=== PATIENT | female | born 2000 | race Two or more races ===

== ENCOUNTER 2023-06-10 16:19 | Outpatient (OUT) | payer OTHER, SELFPAY ==
[2023-06-12 04:07] LABS: Progesterone 12.8 ng/mL (.)
== END 2023-06-10 16:20 | disposition home or self-care (01) ==
LOC: LAB 16:26
PROVIDERS: Visit Provider Obstetrics & Gynecology
DX: N97.0 Female infertility associated with anovulation (principal)
CPT/HCPCS: 36415; 84144

== ENCOUNTER 2023-07-06 13:30 | Outpatient (OUT) | payer OTHER, SELFPAY ==
[2023-07-06 13:54] LABS: Basophils Absolute Auto 0.1 10^3/uL (0.0-0.1); Basophils Percent Auto 0.8 % (0.2-2.0); Eosinophils Absolute Auto 0.3 10^3/uL (0.0-0.7); Eosinophils Percent Auto 2.8 % (0.9-7.0); Hematocrit 34.3 % (36.0-48.0); Hemoglobin 10.4 g/dL (12.0-16.0); Immature Granulocytes Abs Auto 0.02 10^3/uL (0.00-0.03); Immature Granulocytes Pct Auto 0.2 % (0.0-0.5); Lymphocytes Absolute Auto 2.1 10^3/uL (1.2-3.8); Lymphocytes Percent Auto 22.5 % (20.5-60.0); Mean Corpuscular HGB Conc 30.3 g/dL (29.9-35.2); Mean Corpuscular Hemoglobin 24.1 pg (26.7-34.0); Mean Corpuscular Volume 79.4 fL (81.0-99.0); Monocytes Absolute Auto 0.6 10^3/uL (0.3-0.8); Monocytes Percent Auto 6.9 % (1.7-12.0); Neutrophils Absolute Auto 6.2 10^3/uL (1.4-6.5); Neutrophils Percent Auto 66.8 % (43.0-75.0); Platelet Count 353 10^3/uL (150-450); Red Blood Count 4.32 10^6/uL (4.20-5.40); Red Cell Distribution Width 16.2 % (11.0-15.0); White Blood Count 9.3 10^3/uL (4.0-11.0)
[2023-07-06 14:45] LABS: Estimated Average Glucose 103 mg/dL; Glycohemoglobin A1C 5.2 % (4.5-6.2)
[2023-07-06 15:33] LABS: Free T4 1.14 ng/dL (0.76-1.46)
[2023-07-06 16:02] LABS: HCG Quantitative <1 mIU/mL
[2023-07-07 09:11] LABS: FSH 2.9 mIU/mL (.); Luteinizing Hormone(LH) 5.1 mIU/mL (.); Progesterone 14.6 ng/mL (.)
[2023-07-12 09:07] LABS: DHEA, Serum 227 ng/dL (31-701)
== END 2023-07-06 13:31 | disposition home or self-care (01) ==
LOC: LAB 13:31
PROVIDERS: Visit Provider Obstetrics & Gynecology
DX: E28.2 Polycystic ovarian syndrome (principal); N97.0 Female infertility associated with anovulation
CPT/HCPCS: 36415; 82626; 82627; 83001; 83002; 83036; 84144; 84439; 84443; 84702; 85025

== ENCOUNTER 2023-07-06 13:48 | Outpatient (OUT) | payer OTHER, SELFPAY ==
--- NOTE | 2023-07-06 | US_ITS ---
The [address] [address] Patient Name: CARISA YEE MRN: [id number] date: 2000 Sex: F Assigned Patient Location: Current Patient Location: Accession/Order Number: [id number] Exam Date: 07/06/2023 14:00 Report Date: 07/06/2023 15:45 At the request of: SOCO ELLISON Procedure: US pelvis transvaginal EXAMINATION: US pelvis transvaginal HISTORY: PCOS ; irregular periods COMPARISON: No relevant comparison available. TECHNIQUE: Transabdominal and/or transvaginal sonographic examination was performed as indicated by examination type. FINDINGS: UTERUS: Normal size and appearance. Incidental nabothian cysts within cervix. Uterus size: 6.6 x 4.8 x 3.9 cm ENDOMETRIUM: Normal homogeneous appearance. Endometrial thickness: 9 mm RIGHT OVARY: Normal size and appearance. Duplex Doppler demonstrates normal waveform and flow; resistive index 0.5. Ovary size: 4.2 x 3.8 x 2.9 cm LEFT OVARY: Approximately 5 small follicles within the peripheral aspect of the ovary between 2 and 5 mm in diameter. Duplex Doppler demonstrates normal waveform and flow; resistive index 0.6. Ovary size: 4.5 x 2.0 x 1.9 cm CUL-DE-SAC: Unremarkable. No significant free fluid. BLADDER: Unremarkable. OTHER: None. US/US pelvis transvaginal IMPRESSION: 1. Multiple small peripheral follicles within left ovary, but not the classic appearance for polycystic ovarian syndrome, and the right ovary is normal. 2. Unremarkable uterus and endometrium. Electronically authenticated by: FRANCESCO BRAY Date: 07/06/2023 15:45
== END 2023-07-06 13:49 | disposition home or self-care (01) ==
LOC: US 13:48
PROVIDERS: Visit Provider Obstetrics & Gynecology
DX: E28.2 Polycystic ovarian syndrome (principal); N97.0 Female infertility associated with anovulation
CPT/HCPCS: 36415; 76830; 82626; 82627; 83001; 83002; 83036; 84144; 84439; 84443; 84702; 85025

== ENCOUNTER 2023-07-19 13:07 | Day surgery (SDC) | payer OTHER, SELFPAY ==
--- NOTE | 2023-07-19 13:33 | FL_ITS ---
The [address] [address] Patient Name: CARISA YEE MRN: [id number] date: 2000 Sex: F Assigned Patient Location: LAB Current Patient Location: Accession/Order Number: [id number] Exam Date: 07/19/2023 14:02 Report Date: 07/19/2023 14:55 At the request of: SOCO ELLISON Procedure: FL hysterosalpingography EXAMINATION: FL hysterosalpingography, FL Hysterosal cath placement HISTORY: Infertility COMPARISON: No relevant comparison available. TECHNIQUE: Informed consent was obtained. A sterile vaginal speculum was introduced and, following cleansing of the cervix, a balloon-tipped catheter was inserted into the endometrial cavity. The procedure was then completed in the usual manner with water-soluble contrast. Standard level fluoroscopic mode of operation utilized. FINDINGS: FALLOPIAN TUBES: Patent fallopian tubes bilaterally. Initial delay in spillage of contrast from left fallopian tube. ENDOMETRIAL CAVITY: No scarring, filling defects, or dilatation. OTHER: Negative. FL/FL hysterosalpingography IMPRESSION: 1. Normal appearance of the endometrial cavity. 2. Bilateral patent fallopian tubes. Please see details above. Electronically authenticated by: FRANCESCO BRAY Date: 07/19/2023 14:55
--- NOTE | 2023-07-19 13:33 | FL_ITS ---
The [address] [address] Patient Name: CARISA YEE MRN: [id number] date: 2000 Sex: F Assigned Patient Location: LAB Current Patient Location: Accession/Order Number: [id number] Exam Date: 07/19/2023 14:02 Report Date: 07/19/2023 14:55 At the request of: SOCO ELLISON Procedure: FL Hysterosal cath placement EXAMINATION: FL hysterosalpingography, FL Hysterosal cath placement HISTORY: Infertility COMPARISON: No relevant comparison available. TECHNIQUE: Informed consent was obtained. A sterile vaginal speculum was introduced and, following cleansing of the cervix, a balloon-tipped catheter was inserted into the endometrial cavity. The procedure was then completed in the usual manner with water-soluble contrast. Standard level fluoroscopic mode of operation utilized. FINDINGS: FALLOPIAN TUBES: Patent fallopian tubes bilaterally. Initial delay in spillage of contrast from left fallopian tube. ENDOMETRIAL CAVITY: No scarring, filling defects, or dilatation. OTHER: Negative. FL/FL Hysterosal cath placement IMPRESSION: 1. Normal appearance of the endometrial cavity. 2. Bilateral patent fallopian tubes. Please see details above. Electronically authenticated by: FRANCESCO BRAY Date: 07/19/2023 14:55
[2023-07-19 13:50] LABS: HCG Quantitative <1 mIU/mL
[2023-07-19 14:42] VITALS: BMI 25.7
--- NOTE | 2023-07-19 14:48 | PC.NURSE ---
1423 Pt denies any abdominal cramping or vag bleedingafter procedure.
--- NOTE | 2023-07-19 14:49 | SUR.PREOP ---
07/16/23 Instructed pt on procedure, date, time, and prep.
== END 2023-07-19 14:25 | disposition home or self-care (01) ==
LOC: LAB 13:09
PROVIDERS: Radiology Diagnostic Radiology; Visit Provider Obstetrics & Gynecology
DX: N97.0 Female infertility associated with anovulation (principal); N83.9 Noninflammatory disorder of ovary, fallopian tube and broad ligament, unspecified
CPT/HCPCS: 36415; 58340; 74740; 84702; Q9966

== ENCOUNTER 2024-09-16 10:53 | Outpatient (OUT) | payer OTHER, SELFPAY ==
--- OUTSIDE RECORDS SUMMARY | 2024-09-16 11:01 | XMS_ITS | CCD ---
Author Organization [facility] Care Team Providers Care [employer] Name Role Phone Amanda Welch Primary Care Provider Required, No Pcp Unavailable Unavailable Sabrina Loja Unavailable Unavailable Rebekah [facility] C[facility] SUPERVISOR - [employer]RAIN D[employer]ER, Amanda Primary Care Prov ider Rebekah SERVICE CENTER SUPERVISOR - [employer]RA[employer] D[employer]ER, Amanda Primary Care Prov ider Robert Granado Primary Care Provider JUNG PACE Referring Unavailable SANTOSTERROBERT FRAIRE Primary Care Unavailable JUNG PACE Attending Unavailable JUNG PACE Referring Unavailable MITTERROBERT FRAIRE Primary Care Unavailable JUNG PACE Admitting Unavailable JUNG PACE Attending Unavailable SANTOSTERROBERT FRAIRE Primary Care Unavailable Unavailable Primary Care Provider UnavailROZ Stringer Attending Unavailable Robert Mercado MD Primary Care Provider Hemant Grant DO Unavailable Generic Provider , No Assigned Pcp Primary Car e Provider Unavailable GENERIC PROVIDER, NO ASSIGNED PCP Primary Care Unavailable CHRISTOPHER DIEGO Attending Unavailable CHRISTOPHER DIEGO Referring Unavailable GENERIC PROVIDER, NO ASSIGNED PCP Primary Care Unavailable Allergies Allergy Classification Reported Allergen(s) Allergy Type Date of Onset Reaction(s) Facility (3 sources) Horse Epithelium Propensity to adverse reactions to drug 3 Angioedema [facility] (5 sources) Horse Dander; Translations: [HORSE DANDER] Allergy to substance 3 Angioedema [facility] (5 sources) Horse Epithelium Allergenic Extract; Translations: [HORSE EPITHELIUM ALLERGENIC EXTRACT] Propensity to adverse reactions 3 Angioedema [facility] Work Phone: (8 sources) Other Allergy to substance 3 Hives, Angioedema [facility] Work Phone: NEGATED: Highlighted row has been ruled out! (3 sources) Other Propensity to adverse reactions 3 Ang[facility]edema, [facility] Medications Current Medications Medication Drug Class(es) Dates Sig (Normalized) Sig (Original) 24 hr amphetamine aspartate 5 mg / amphetamine sulfate 5 mg / dextroamphetamine saccharate 5 mg / dextroamphetamine sulfate 5 mg extended release oral capsule (11 sources) Central Nervous System Stimulant Start: 07-04-2024 End: 08-03-2024 take 1 capsule by mouth once daily in the morning amphetamine-dext roamphetamine XR (Adderall XR) 20 mg 24 hr capsule Take 1 capsule (20 mg) by mouth once daily in the morning. Take before meals. Do not fill before July 04, 2024. 07/04/2024 Active Start: 05-04-2024 End: 07-03-2024 amphetamine-dextroamphetamin e (Adderall) 10 mg tablet Take 1 tablet (10 mg) by mouth. 05/04/2024 Active End: 09-15-2024 Adderall 20 MG tablet 2024 Discontinued ascorbic acid 500 mg chewable tablet (7 sources) Vitamin C Start: 01-09-2024 End: 09-15-2024 take 1 tablet by mouth twice daily Ascorbic Acid (vitamin C) 500 MG tablet take 1 tablet by mouth twice a day with IRON 01/09/2024 09/15/2024 Discontinued cetirizine hydrochloride 10 mg oral tablet (11 sources) Histamine-1 Receptor Antagonist Start: 09-01-2023 End: 09-15-2024 take 1 tablet by mouth once daily cetirizine (ZYRTEC) 10 MG tablet Indications: Acute non-recurrent maxillary sinusitis , Non-recurrent acute serous otitis media of both ears Take 1 tablet by mouth daily 30 tablet 0 09/01/2023 10/01/2023 Active cholecalciferol 0.125 mg oral capsule (8 sources) Vitamin D End: 09-15-2024 Cholecalciferol (Vitamin D) 125 MCG (5000 UT) capsule 09/15/2024 Discontinued dicyclomine hydrochloride 10 mg oral capsule (7 sources) Anticholinergic Start: 12-22-2023 End: 09-15-2024 take 1 capsule by mouth four times daily before mealtime dicyclomine (Bentyl) 10 MG capsule take 1 capsule by mouth four times a day before meals and nightly 12/22/2023 09/15/2024 Discontinued diphenhydrAMINE hydrochloride 25 mg oral capsule (9 sources) Histamine-1 Receptor Antagonist End: 09-15-2024 diphenhydrAMINE (BENADryl) 25 MG capsule Take by mouth 09/15/2024 Discontinued doxycycline monohydrate 100 mg oral tablet (7 sources) Tetracycline-class Drug Start: 03-02-2024 End: 09-15-2024 take 1 tablet by mouth once daily at mealtime doxycycline (Adoxa) 100 MG tablet Take one tablet daily with food and water by mouth. 03/02/2024 09/15/2024 Discontinued ergocalciferol 1.25 mg oral capsule (11 sources) Provitamin D2 Compound Start: 10-26-2022 End: 09-15-2024 take 1 capsule by mouth every week ergocalciferol (Vitamin D2) 1.25 MG (88677 UT) capsule Indications: PCOS (polycystic ovarian syndrome) Take 1 capsule (1.25 mg) by mouth 1 (one) time per week. 5 capsule 04/27/2023 09/15/2024 Discontinued ethinyl estradiol 0.035 mg / norethindrone acetate 1 mg oral tablet (2 sources) Estrogen Start: 11-11-2021 take 2 tablets by mouth once daily, then take 1 tablet by mouth once daily NORTREL 1/35, 28, 1-35 MG-MCG per tablet take 2 tablets by mouth once daily for 5 days then 1 tablet once daily 0 11/11/2021 Active ethinyl estradiol 0.035 mg / norgestimate 0.25 mg oral tablet (2 sources) Progestin, Estrogen Start: 09-25-2017 MONO-LINYAH 0.25-35 MG-MCG per tablet ferrous fumarate-vitamin C ER (Blake-Sequeles 65-25) (1 source) take 1 tablet by mouth once daily ferrous fumarate-vitamin C ER (Blake-Sequeles 65-25) Take 1 tablet by mouth Daily Do not crush, chew, or split. Active ferrous sulfate (3 sources) Start: 07-15-2023 Ferrous Sulfate (IRON PO) Take by mouth 0 07/15/2023 Active fluticasone propionate 0.05 mg/actuat metered dose nasal spray (10 sources) Corticosteroid Start: 09-01-2023 End: 09-15-2024 take 1 spray(s) nasal route once daily in the evening fluticasone (Flonase) 50 MCG/ACT nasal spray instill 1 spray into each nostril once daily IN THE EVENING 09/01/2023 09/15/2024 Discontinued Start: 09-01-2023 fluticasone (F LONASE) 50 MCG/ACT nasal spray Indications: Non-recurrent acute serous otitis media of both ears Take 1 spray each nostril at night 1 each 1 09/01/2023 Active hyoscyamine sulfate 0.125 mg sublingual tablet (7 sources) Start: 01-11-2024 End: 09-15-2024 hyoscyamine (Levsin) 0.125 MG SL tablet dissolve 1 tablet under the tongue every 4 hours if needed for pain 01/11/2024 09/15/2024 Discontinued lactobacillus rhamnosus gg [id number] unt oral capsule (3 sources) Start: 09-07-2023 take 1 capsule by mouth once daily lactobacillus (CULTURELLE) capsule Indications: Alternating constipation and diarrhea Take 1 capsule by mouth daily 90 capsule 1 09/07/2023 Active letrozole 2.5 mg oral tablet (8 sources) Aromatase Inhibitor Start: 06-08-2024 End: 09-15-2024 take 2 tablets by mouth once daily letrozole (Femara) 2.5 MG chemo tablet TAKE 2 TABLETS BY MOUTH ONCE DAILY FOR 5 DAYS ... TAKE WITH OR WITHOUT FOOD 06/08/2024 09/15/2024 Discontinued 24 hr metFORMIN hydrochloride 500 mg extended release oral tablet (14 sources) Biguanide Start: 04-27-2023 End: 09-15-2024 take 2 tablets by mouth every twenty-four hours at mealtime metFORMIN XR (Glucophage-XR) 500 MG 24 hr tablet Indications: PCOS (polycystic ovarian syndrome) Take 2 tablets (1,000 mg) by mouth in the evening. Take with meals. Do not crush, chew, or split. 60 tablet 11 04/27/2023 09/15/2024 Discontinued Start: 01-21-2023 End: 06-08-2024 take 1 tablet by mouth twice daily before mealtime metFORMIN XR 500 mg 24 hr tablet Take 1 tablet (500 mg) by mouth 2 times a day before meals. 01/21/2023 06/08/2024 Discontinued (Med List Cleanup) take 1 tablet by william th twice daily at mealtime metFORMIN (GLUCOPHAGE) 500 MG tablet Take 500 mg by mouth 2 times daily (with meals) 0 Active 24 hr methylphenidate hydrochloride 18 mg extended release oral tablet (7 sources) Central Nervous System Stimulant Start: 11-17-2023 End: 09-15-2024 take 1 tablet by mouth once daily methylphenidate ER (Concerta) 18 MG CR tablet take 1 tablet by mouth once daily for 30 DAYS 11/17/2023 09/15/2024 Discontinued montelukast 10 mg oral tablet (9 sources) Leukotriene Receptor Antagonist End: 09-15-2024 take 1 tablet by mouth in the morning montelukast (Singulair) 10 MG tablet Take 10 mg by mouth in the morning. 09/15/2024 Discontinued Multiple Vitamin (MULTIVITAMIN) TABS tablet (1 source) Start: 03-12-2021 take 1 tablet by mouth once daily Multiple Vitamin (MULTIVITAMIN) TABS tablet Take 1 tablet by mouth daily 30 tablet 1 03/12/2021 Active ondansetron 4 mg oral tablet (2 sources) Serotonin-3 Receptor Antagonist Start: 07-25-2019 take 1 tablet by mouth every eight hours as needed for nausea ondansetron (ZOFRAN) 4 MG tablet Take 1 tablet by mouth every 8 hours as needed for Nausea or Vomiting 30 tablet 0 07/25/2019 Active polyethylene glycol 3350 49733 mg powder for oral solution (9 sources) Osmotic Laxative Start: 06-08-2024 End: 09-15-2024 polyethylene glycol, PEG, 3350 (Glycolax) 17 GM/SCOOP powder Mix of powder and drink. 1 scoop daily, may taper up 06/08/2024 09/15/2024 Discontinued Start: 06-08-2024 polyethylene g lycol (Glycolax, Miralax) 17 gram/dose powder Indications: Chronic idiopathic constipation Mix of powder and drink. 1 scoop daily, may taper up 238 g 11 06/08/2024 Active polysaccharide iron complex 391 mg oral capsule (6 sources) Start: 09-01-2023 take 1 capsule by mouth once daily in the morning PROFE 391.3 (180 Fe) MG CAPS Take 1 capsule by mouth every morning 0 09/01/2023 Active Start: 07-12-2023 End: 07-11-2024 take 1 capsule by mouth in the morning iron polysaccharides (ProFe) 391.3 (180 Fe) MG capsule Indications: Anemia, unspecified type Take 1 capsule (391.3 mg) by mouth in the morning. 30 capsule 11 07/12/2023 07/11/2024 Active MV-Min-Fe Fum-FA-DH A ( 1 PO) (1 source) MV-Min- Fe Fum-FA-DHA ( 1 PO) Take 1 each by mouth Daily Active 5 ml sodium chloride 9 mg/ml injection (4 sources) Start: 09-23-2023 sodium chlorid e flush 0.9 % injection 5-40 mL Start: 09-23-2023 0.9 % sodium c hloride infusion Start: 09-23-2023 sodium chlorid e flush 0.9 % injection 5-40 mL traZODone hydrochloride 50 mg oral tablet (5 sources) Serotonin Reuptake Inhibitor Start: 06-30-2022 take 0.5 tablet by mouth at bedtime traZODone (DESYREL) 50 MG tablet Indications: Insomnia secondary to anxiety take 1/2 tablet by mouth at bedtime if needed for insomnia 15 tablet 1 06/30/2022 Active Start: 01-01-2022 take 1 tablet by william once daily traZODone (DESYREL) 50 MG tablet Indications: Insomnia secondary to anxiety take 1 tablet by mouth nightly 30 tablet 5 01/01/2022 Active vitamin b12 0.5 mg oral tablet (11 sources) Vitamin B12 Start: 10-26-2022 End: 10-26-2023 take 1 tablet by mouth once daily vitamin B-12 (CYANOCOBALAMIN) 500 MCG tablet Indications: Low serum vitamin B12 Take 1 tablet by mouth daily 30 tablet 3 10/26/2022 10/26/2023 Active End: 09-15-2024 cyanocobalamin (Vitamin B-12 ) 100 MCG tablet 09/15/2024 Discontinued Completed/Discontinued Medications Medication Drug Class(es) Dates Sig (Normalized) Sig (Original) ibuprofen 800 mg oral tablet (3 sources) Nonsteroidal Anti-inflammatory Drug Start: 04-01-2024 End: 04-01-2024 take 800 mg by mouth once at mealtime as needed for pain 800 mg, oral, Once, On 04/01/24 at 2135, For 1 dose, May administer with food to reduce GI upset., If ordered PRN for pain, nurse is permitted to administer this medication for higher pain scores based on patient preference? Yes Start: 04-01-2024 End: 04-08-2024 take 1 tablet by mouth three times daily ibuprofen 800 mg tablet Indications: Oophoritis, unspecified Take 1 tablet (800 mg) by mouth 3 times a day for 7 days. 21 tablet 04/01/2024 04/08/2024 Active iopamidol (ISOVUE-370) 76 % injection 75 mL (1 source) Start: 09-22-2023 End: 09-22-2023 iopamidol (ISOVUE-370) 76 % injection 75 mL Problems Active Problems Problem Classification Problem Date Documented Da te Episodic/Chronic Abdominal pain (11 sources) Lower abdominal pain; Translations: [Lower abdominal pain, unspecified] Onset: 09-13-2023 09-22-2023 Episodic Administrative/social admission (2 sources) Patient encounter status; Translations: [Person consulting for explanation of examination or test findings] 06-20-2024 Episodic Female infertility (9 sources) Female infertility associated with anovulation; Translations: [Female infertility associated with anovulation] Onset: 06-08-2024 Chronic Hemorrhage during ; abruptio placenta; placenta previa (5 sources) Hemorrhage in early , unspecified; Translations: [Unspecified hemorrhage in early , antepartum condition or complication] Onset: 08-21-2024 08-22-2024 Episodic Menstrual disorders (6 sources) Menometrorrhagia; Translations: [Menorrhagia] Onset: 08-12-2024 07-18-2024 Chronic Mood disorders (6 sources) Depressive disorder; Translations: [Depression] Onset: 03-07-2021 03-07-2021 Chronic Other endocrine disorders (5 sources) Polycystic ovary syndrome; Translations: [Polycystic ovarian syndrome] Chronic Other gastrointestinal disorders (2 sources) Chronic idiopathic constipation; Translations: [Chronic idiopathic constipation] Onset: 06-08-2024 06-08-2024 Chronic Other gastrointestinal disorders (1 source) Chronic idiopathic constipation; Translations: [Chronic idiopathic constipation] Onset: 06-08-2024 Chronic Other gastrointestinal disorders (3 sources) Finding of frequency of defecation; Translations: [Change in bowel habit] Onset: 09-23-2023 09-23-2023 Episodic Other and delivery including normal (2 sources) ; Translations: [Encounter for supervision of normal , unspecified, unspecified trimester] 09-15-2024 Episodic Unclassified (2 sources) OVERDOSE 03-06-2021 Comment on above: OVERDOSE Unclassified (1 source) Suicide attempt by multiple drug overdose 03-06-2021 Past or Other Problems Problem Classification Problem Date Documented Date Episodic/Chronic Bacterial infection; unspecified site (6 sources) Chlamydial infection; Translations: [Chlamydial infection, unspecified] Onset: 03-19-2021 03-19-2021 Episodic Immunizations and screening for infectious disease (6 sources) At risk of sexually transmitted infection ; Translations: [Contact with and (suspected) exposure to infections with a predominantly sexual mode of transmission] Onset: 03-12-2021 03-12-2021 Episodic Inflammatory diseases of female pelvic organs (3 sources) Oophoritis; Translations: [Oophoritis, unspecified] Onset: 04-01-2024 04-01-2024 Episodic Ovarian cyst (5 sources) Cyst of left ovary; Translations: [Unspecified ovarian cyst, left side] Onset: 04-03-2024 06-20-2024 Episodic Poisoning by other medications and drugs (6 sources) Intentional drug overdose; Translations: [Poisoning by unspecified drug or medicinal substance] Onset: 09-10-2021 03-06-2021 Episodic Results Test Name Value Interpretation Reference Range Facility HCG ( test) Ql (U)o n 09-15-2024 Interpretation and review of laboratory results Abnormal [facility] Preg Test, Ur Positive Negative [facility] Urinalysis macro (dipstick) panel (U)on 09-15-2024 Bilirubin, UA Negative Negative - 4(70) +++ mg/dL [facility] Blood, UA Negative Negative - 50 Reynaldo/mcL [facility] Clarity, UA Clear [facility] Color, UA Yellow [facility] Glucose, UA Negative Negative - 1999(110) ++++ mg/dL [facility] Interpretation and review of laboratory results Abnormal [facility] Ketones, UA Negative Negative - 160(16) ++++ mg/dL [facility] Leukocytes, UA Negative Negative - 500+++ Lucian/mcL [facility] Nitrite, UA Negative Negative - Positive [facility] pH, UA 7 5 - 9 [facility] Protein, UA Positive Negative - 1999(20) ++++ mg/dL [facility] Comment on above: 30 Spec Grav, UA 1.02 1 - 1.03 [facility] Urobilinogen, UA 1.0 0.2 - 12 mg/dL [facility] Choriogonadotropin.beta subu niton 08-23-2024 [place] [address] m[IU]/mL High <5 U [facility] Comment on above: Order Comment: Total HCG measurement is performed using the Dat [employer] Access Immunoassay which detects intact HCG and free beta HCG subunit. This test is not indicated for use as a tumor marker. HCG testing is performed using a different test methodology at [facility] than other [facility]. Direct result comparison should only be made within the same method. Result Comment: Low- level positive HCG results can be seen in early , in rei- or post-menopausal females due to normal pituitary HCG production, or with analytic interference. Repeat testing in 48-72 hours can aid in assessing for as results should double in this time period. FSH measurement is recommended in rei- or post-menopausal females as concurrent elevation of FSH can support pituitary production as the source of the HCG elevation. Performed By: #### 2 [id number] #### RILEY PUJA ([id number]) [facility] ([facility]) [address] [id number] HCG,BETA-QUANTITATIVEon 0 08-23-2024 Interpretation and review of laboratory results Abnormal [facility] UH HCG,BETA-QUANTITATIVE 26037 High NINF [facility] Comment on above: Low-level positive H CG results can be seen in early , in rei- or post-menopausal females due to normal pituitary HCG production, or with analytic interference. Repeat testing in 48-72 hours can aid in assessing for as results should double in this time period. FSH measurement is recommended in rei- or post-menopausal females as concurrent elevation of FSH can support pituitary production as the source of the HCG elevation. Total HCG measuremen t is performed using the Dat [employer] Access Immunoassay which detects intact HCG and free beta HCG subunit. This test is not indicated for use as a tumor marker. HCG testing is performed using a different test methodology at [facility] than other [facility]. Direct result comparison should only be made within the same method. Original Ordering Provider: HEMANT GRANT [facility] US PELVIS OB TRANSABDOMINAL W TRANSVAGINAL UP TO 1ST TRIMESTERon 08-22-2024 US PELVIS OB TRANSABDOMINAL W TRANSVAGINAL UP TO 1ST TRIMESTER Interpreted By: Garret Kitchen, STUDY: US PELVIS OB TRANSABDOMINAL W TRANSVAGINAL UP TO 1ST TRIMESTER; ; 08/22/2024 12:02 am INDICATION: Signs/Symptoms:bleeding, , r/o ectopic. COMPARISON: Correlation made to pelvic sonography of 03/1924. ACCESSION NUMBER(S): [id number] ORDERING CLINICIAN: MALCOLM SHEARER TECHNIQUE: Grayscale, color and spectral Doppler ultrasound evaluation of the pelvis was performed transabdominally and transvaginally. FINDINGS: UTERUS: 7.7 x 4.7 x 5.0 cm. ENDOMETRIUM: A gestational sac with yolk sac is present in the endometrial canal. Mean sac diameter is 1.41 cm in keeping with estimated age of 5 weeks, 4 days.A measurable pole is not seen at this time; therefore cardiac activity could not be reliably evaluated. There is a small rounded hypoechoic area along the left lower aspect of the gestational sac and overlying the internal cervical os that probably relates to trace subchorionic hemorrhage/implantation bleed, likely of nominal clinical significance (images 57-61). RIGHT OVARY: Normal, measuring 4.4 x 2.3 x 3.0 cm. Normal arterial and venous flow present. LEFT OVARY: Normal, measuring 3.5 x 1.9 x 2.6 cm. Normal arterial and venous flow present. CUL DE SAC: No free-fluid. IMPRESSION: A gestational sac with yolk sac is present in the endometrial canal. Mean sac diameter is 1.41 cm in keeping with estimated age of 5 weeks, 4 days.A measurable pole is not seen at this time; therefore cardiac activity could not be reliably evaluated. There is a small rounded hypoechoic area along the left lower aspect of the gestational sac and overlying the internal cervical os that probably relates to trace subchorionic hemorrhage/implantation bleed, likely of nominal clinical significance (images 57-61). Normal ovaries/adnexae. MACRO: None Signed by: Garret Kitchen 08/22/2024 12:07 AM Dictation workstation: [id number] [facility] US Pelvis transvaginalon A gestational sac wi th yolk sac is present in the endometrial canal. Mean sac diameter is 1.41 cm in keeping with estimated age of 5 weeks, 4 days.A measurable pole is not seen at this time; therefore cardiac activity could not be reliably evaluated. There is a small rounded hypoechoic area along the left lower aspect of the gestational sac and overlying the internal cervical os that probably relates to trace subchorionic hemorrhage/implantation bleed, likely of nominal clinical significance (images 57-61). Normal ovaries/adnexae. MACRO: None Signed by: Garret Kitchen 08/22/2024 12:07 AM Dictation workstation: [id number] [facility] Interpreted By: Garret Mckenzie, STUDY: US PELVIS OB TRANSABDOMINAL W TRANSVAGINAL UP TO 1ST TRIMESTER; ; 08/22/2024 12:02 am INDICATION: Signs/Symptoms:bleeding, , r/o ectopic. COMPARISON: Correlation made to pelvic sonography of 03/1924. ACCESSION NUMBER(S): [id number] ORDERING CLINICIAN: MALCOLM SHEARER TECHNIQUE: Grayscale, color and spectral Doppler ultrasound evaluation of the pelvis was performed transabdominally and transvaginally. FINDINGS: UTERUS: 7.7 x 4.7 x 5.0 cm. ENDOMETRIUM: A gestational sac with yolk sac is present in the endometrial canal. Mean sac diameter is 1.41 cm in keeping with estimated age of 5 weeks, 4 days.A measurable pole is not seen at this time; therefore cardiac activity could not be reliably evaluated. There is a small rounded hypoechoic area along the left lower aspect of the gestational sac and overlying the internal cervical os that probably relates to trace subchorionic hemorrhage/implantation bleed, likely of nominal clinical significance (images 57-61). RIGHT OVARY: Normal, measuring 4.4 x 2.3 x 3.0 cm. Normal arterial and venous flow present. LEFT OVARY: Normal, measuring 3.5 x 1.9 x 2.6 cm. Normal arterial and venous flow present. CUL DE SAC: No free-fluid. [facility] MMODAL Garret Kitchen MD - 08/22/2024 Interpreted By: Garret Kitchen, STUDY: US PELVIS OB TRANSABDOMINAL W TRANSVAGINAL UP TO 1ST TRIMESTER; ; 08/22/2024 12:02 am INDICATION: Signs/Symptoms:bleeding, , r/o ectopic. COMPARISON: Correlation made to pelvic sonography of 03/1924. ACCESSION NUMBER(S): [id number] ORDERING CLINICIAN: MALCOLM SHEARER TECHNIQUE: Grayscale, color and spectral Doppler ultrasound evaluation of the pelvis was performed transabdominally and transvaginally. FINDINGS: UTERUS: 7.7 x 4.7 x 5.0 cm. ENDOMETRIUM: A gestational sac with yolk sac is present in the endometrial canal. Mean sac diameter is 1.41 cm in keeping with estimated age of 5 weeks, 4 days.A measurable pole is not seen at this time; therefore cardiac activity could not be reliably evaluated. There is a small rounded hypoechoic area along the left lower aspect of the gestational sac and overlying the internal cervical os that probably relates to trace subchorionic hemorrhage/implantation bleed, likely of nominal clinical significance (images 57-61). RIGHT OVARY: Normal, measuring 4.4 x 2.3 x 3.0 cm. Normal arterial and venous flow present. LEFT OVARY: Normal, measuring 3.5 x 1.9 x 2.6 cm. Normal arterial and venous flow present. CUL DE SAC: No free-fluid. IMPRESSION: A gestational sac with yolk sac is present in the endometrial canal. Mean sac diameter is 1.41 cm in keeping with estimated age of 5 weeks, 4 days.A measurable pole is not seen at this time; therefore cardiac activity could not be reliably evaluated. There is a small rounded hypoechoic area along the left lower aspect of the gestational sac and overlying the internal cervical os that probably relates to trace subchorionic hemorrhage/implantation bleed, likely of nominal clinical significance (images [id number]). Normal ovaries/adnexae. MACRO: None Signed by: Garret Kitchen 08/22/2024 12:07 AM Dictation workstation: [id number] [facility] Work Phone: US Pelvis transvaginalOrdere d By: Garret Kitchen on 08-22-2024 [facility] Work Phone: ABO and Rh group panel (Bld) on 08-21-2024 ABO group Nom (Bld) A [facility] D Ag Ql (Bld) Positive [facility] ABO group Nom (Bld) A Normal [facility] Comment on above: Performed By: #### 3 4530-6 #### ROSEMARY LUO ([id number]) [facility] [address] [place] [address] D Ag Ql (Bld) Positive Normal [facility] Comment on above: Performed By: #### 3 4530-6 #### ROSEMARY LUO ([id number]) [facility] [address] [place] [address] CBC panel Auto (Bld)on 08-21 Erythrocyte distribution width (RBC) [Ratio] 12.7 % 11.5 - 14.5 % [facility] Hematocrit (Bld) [Volume fraction] 39.3 % 36.0 - 46.0 % [facility] Hemoglobin (Bld) [Mass/Vol] 12.6 g/dL 12.0 - 16.0 g/dL [facility] Interpretation and review of laboratory results Normal [facility] MCH (RBC) [Entitic mass] 29.2 pg 26. 0 - 34.0 pg [facility] MCHC (RBC) [Mass/Vol] 32.1 g/dL 32.0 - 36.0 g/dL [facility] MCV (RBC) [Entitic vol] 91 fL 80 - 100 fL [facility] Nucleated RBC/100 WBC (Bld) [Ratio] 0 % [facility] Platelets (Bld) [#/Vol] 319 10*3/uL [facility] RBC (Bld) [#/Vol] 4.31 10*6/uL [facility] WBC (Bld) [#/Vol] 9.8 10*3/uL [facility] Erythrocyte distribution width (RBC) [Ratio] 12.7 % Normal 11.5-14.5 [facility] Comment on above: Performed By: #### 5 8410-2 #### ROSEMARY LUO ([id number]) [facility] ([facility]) [address] [place] [address] 44947 Hematocrit (Bld) [Volume fraction] 39.3 % Normal 36.0-46.0 [facility] Comment on above: Performed By: #### 5 8410-2 #### ROSEMARY LUO ([id number]) [facility] ([facility]) [address] [place] [address] 58056 Hemoglobin (Bld) [Mass/Vol] 12.6 g/dL Normal 12.0-16.0 [facility] Comment on above: Performed By: #### 5 8410-2 #### ROSEMARY LUO ([id number]) [facility] ([facility]) [address] [place] [address] 74734 MCH (RBC) [Entitic mass] 29.2 pg Normal 26.0-34.0 [facility] Comment on above: Performed By: #### 5 8410-2 #### ROSEMARY LUO ([id number]) [facility] ([facility]) [address] [place] [address] 13384 MCHC (RBC) [Mass/Vol] 32.1 g/dL Normal 32.0-36.[address] [facility] Comment on above: Performed By: #### 5 8410-2 #### ROSEMARY LUO ([id number]) [facility] ([facility]) [address] [place] [address] 56938 MCV (RBC) [Entitic vol] 91 fL Normal 80-100 U [facility] Comment on above: Performed By: #### 5 8410-2 #### ROSEMARY LUO ([id number]) [facility] ([facility]) [address] [place] [address] 47530 Nucleated RBC/100 WBC (Bld) [Ratio] 0.0 /100 WBCs Normal 0.0-0.0 [facility] Comment on above: Performed By: #### 5 8410-2 #### ROSEMARY LUO ([id number]) [facility] ([facility]) [address] [place] [address] 16470 Platelets (Bld) [#/Vol] 319 x10*3/uL Normal 150-450 [facility] Comment on above: Performed By: #### 5 8410-2 #### ROSEMARY LUO ([id number]) [facility] ([facility]) [address] [place] [address] 15349 RBC (Bld) [#/Vol] 4.31 x10*6/uL Normal 4.00-5.20 [facility] Comment on above: Performed By: #### 5 8410-2 #### ROSEMARY LUO ([id number]) [facility] ([facility]) [address] [place] [address] 51392 WBC (Bld) [#/Vol] 9.8 x10*3/uL Normal 4.4-11.3 [facility] Comment on above: Performed By: #### 5 8410-2 #### ROSEMARY LUO ([id number]) [facility] ([facility]) [address] [place] [address] 00645 Choriogonadotropin.beta subu niton 08-21-2024 [place] [address] m[IU]/mL High <5 U [facility] Comment on above: Order Comment: Total HCG measurement is performed using the Dat [employer] Access Immunoassay which detects intact HCG and free beta HCG subunit. This test is not indicated for use as a tumor marker. HCG testing is performed using a different test methodology at [facility] than other [facility]. Direct result comparison should only be made within the same method. Result Comment: Low- level positive HCG results can be seen in early , in rei- or post-menopausal females due to normal pituitary HCG production, or with analytic interference. Repeat testing in 48-72 hours can aid in assessing for as results should double in this time period. FSH measurement is recommended in rei- or post-menopausal females as concurrent elevation of FSH can support pituitary production as the source of the HCG elevation. Performed By: #### 2 1198-7 #### RILEY PUJA ([id number]) [facility] ([facility]) [address] [place] [address] Comprehensive metabolic 2000 panelon 08-21-2024 Albumin BCP dye [Mass/Vol] 4.1 g/dL 3.4 - 5.0 g/dL [facility] ALP [Catalytic activity/Vol] 65 U/L 33 - 110 U/L [facility] ALT With P-5'-P [Catalytic activity/Vol] 15 U/L 7 - 45 U/L [facility] Comment on above: Patients treated wit h Sulfasalazine may generate falsely decreased results for ALT. Anion gap [Moles/Vol] 11 mmol/L 10 - 2 0 mmol/L [facility] AST With P-5'-P [Catalytic activity/Vol] 17 U/L 9 - 39 U/L [facility] Bilirubin [Mass/Vol] 0.6 mg/dL 0.0 - 1 .2 mg/dL [facility] Calcium [Mass/Vol] 9.1 mg/dL 8.6 - 10. 3 mg/dL [facility] Chloride [Moles/Vol] 104 mmol/L 98 - 10 7 mmol/L [facility] CO2 [Moles/Vol] 24 mmol/L 21 - 32 mmol/L [facility] Creatinine [Mass/Vol] 0.6 mg/dL 0.50 - 1.05 mg/dL [facility] eGFR - PINF [facility] Comment on above: Calculations of melisa mated GFR are performed using the 2020 CKD-EPI Study Refit equation without the race variable for the IDMS-Traceable creatinine methods. https://jasn.asnjournals.org/content///ASN.255 2182661 Glucose [Mass/Vol] 85 mg/dL 74 - 99 mg/dL [facility] Interpretation and review of laboratory results Abnormal [facility] Potassium [Moles/Vol] 3.5 mmol/L 3.5 - 5.3 mmol/L [facility] Protein [Mass/Vol] 7 g/dL 6.4 - 8.2 g/dL [facility] Sodium [Moles/Vol] 135 mmol/L Low 136 - 145 mmol/L [facility] Urea nitrogen [Mass/Vol] 5 mg/dL Low 6 - 23 mg/dL [facility] Albumin BCP dye [Mass/Vol] 4.1 g/dL Normal 3.4-5.0 [facility] Comment on above: Performed By: #### 2 4323-8 #### ROSEMARY LUO ([id number]) [facility] ([facility]) [address] [place] [address] ALP [Catalytic activity/Vol] 65 U/L Normal 33-110 [facility] Comment on above: Performed By: #### 2 432-8 #### ROSEMARY LUO ([id number]) [facility] ([facility]) [address] [place] [address] ALT With P-5'-P [Catalytic activity/Vol] 15 U/L Normal 7-45 [facility] Comment on above: Result Comment: Marni ents treated with Sulfasalazine may generate falsely decreased results for ALT. Performed By: #### 2 432-8 #### ROSEMARY LUO ([id number]) [facility] ([facility]) [address] [place] [address] Anion gap [Moles/Vol] 11 mmol/L Normal 10-[address] [facility] Comment on above: Performed By: #### 2 4323-8 #### ROSEMARY LUO ([id number]) [facility] ([facility]) [address] [place] [address] 77466 AST With P-5'-P [Catalytic activity/Vol] 17 U/L Normal 9-39 [facility] Comment on above: Performed By: #### 2 432-8 #### ROSEMARY LUO ([id number]) [facility] ([facility]) [address] [place] [address] Bilirubin [Mass/Vol] 0.6 mg/dL Normal 0.0-1.2 [facility] Comment on above: Performed By: #### 2 432-8 #### ROSEMARY LUO ([id number]) [facility] ([facility]) [facility] [place] [address] Calcium [Mass/Vol] 9.1 mg/dL Normal 8.6-10.3 [facility] Comment on above: Performed By: #### 2 4323-8 #### ROSEMARY LUO ([id number]) [facility] ([facility]) [address] [place] [address] 15767 Chloride [Moles/Vol] 104 mmol/L Normal 98-107 [facility] Comment on above: Performed By: #### 2 4323-8 #### ROSEMARY LUO ([id number]) [facility] ([facility]) [address] [place] [address] 81870 CO2 [Moles/Vol] 24 mmol/L Normal 21-32 [facility] Comment on above: Performed By: #### 2 4323-8 #### ROSEMARY LUO ([id number]) [facility] ([facility]) [address] [place] [address] 36027 Creatinine [Mass/Vol] 0.60 mg/dL Normal 0.50-1.[address] [facility] Comment on above: Performed By: #### 2 4323-8 #### ROSEMARY LUO ([id number]) [facility] ([facility]) [address] [place] [address] 37051 GFR/1.73 sq M.predicted MDRD (S/P/Bld) [Vol rate/Area] mL/min/{1.73_m2} Normal >60 [facility] Comment on above: Result Comment: Calc ulations of estimated GFR are performed using the 2020 CKD-EPI Study Refit equation without the race variable for the IDMS-Traceable creatinine methods. https://jasn.asnjournals.org/content/early//ASN.330 9958664 Performed By: #### 2 4323-8 #### ROSEMARY LUO ([id number]) [facility] ([facility]) [address] [place] [address] 03367 Glucose [Mass/Vol] 85 mg/dL Normal 74-99 [facility] Comment on above: Performed By: #### 2 4323-8 #### ROSEMARY LUO ([id number]) [facility] ([facility]) [address] [place] [address] 05457 Potassium [Moles/Vol] 3.5 mmol/L Normal 3.5-5.[address] [facility] Comment on above: Performed By: #### 2 4323-8 #### ROSEMARY LUO ([id number]) [facility] ([facility]) [address] [place] [address] 61615 Protein [Mass/Vol] 7.0 g/dL Normal 6.4-8.2 [facility] Comment on above: Performed By: #### 2 4323-8 #### ROSEMARY LUO ([id number]) [facility] ([facility]) [address] [place] [address] 78978 Sodium [Moles/Vol] 135 mmol/L Low 136-145 [facility] Comment on above: Performed By: #### 2 4323-8 #### ROSEMARY LUO ([id number]) [facility] ([facility]) [address] [place] [address] 27458 Urea nitrogen [Mass/Vol] 5 mg/dL Low 6-23 [facility] Comment on above: Performed By: #### 2 4323-8 #### ROSEMARY LUO ([id number]) [facility] ([facility]) [address] [place] [address] 25678 HCG.beta subunit Qnon 2024 Interpretation and review of laboratory results Abnormal [facility] Total HCG measuremen t is performed using the Dat [employer] Access Immunoassay which detects intact HCG and free beta HCG subunit. This test is not indicated for use as a tumor marker. HCG testing is performed using a different test methodology at [facility] than other [facility]. Direct result comparison should only be made within the same method. [facility] US Pelvis transvaginalon Radiology Study observation (narrative) [facility] Work Phone: Urinalysis complete W Reflex Culture panel (U)on 08-21-2024 Appearance (U) Clear Clear [facility] Bacteria Auto (Urine sed) [#/Area] 1+ Abnormal NONE SEEN /HPF [facility] Bilirubin (U) [Mass/Vol] Negative NEGATIVE [facility] Color (U) Colorless Abnormal Light-Schley ow, Yellow, Dark-Yello w [facility] Glucose Auto test strip (U) [Mass/Vol] Normal Normal mg/dL [facility] Interpretation and review of laboratory results Abnormal [facility] Ketones (U) [Mass/Vol] Negative NEGAT JUDY mg/dL [facility] Leukocyte esterase Auto test strip Ql (U) Negative NEGATIVE [facility] Nitrite Auto test strip Ql (U) Negative NEGATIVE [facility] pH (U) 6.5 [pH] 5.0, 5.5, 6.0, 6.5, 7.0, 7.5, 8.0 [facility] Protein (U) [Mass/Vol] Negative NEGAT JUDY, 10 (TRACE), 20 (TRACE) mg/dL [facility] RBC (U) [#/Vol] OVER (3+) Abnormal NEGATIVE [facility] RBC Auto (Urine sed) [#/Area] 11-20 Abnormal NONE, 1-2, 3-5 /HPF [facility] Specific gravity (U) [Rel density] 1.006 1.005 - 1.035 [facility] Urobilinogen (U) [Mass/Vol] Normal Normal mg/dL [facility] WBC Auto (Urine sed) [#/Area] 1-5 1-5, NONE /HPF [facility] OVER is reported whe n the result is greater than the clinically reportable range. [facility] Appearance (U) Clear Normal Clear [facility] Comment on above: Order Comment: OVER is reported when the result is greater than the clinically reportable range. Performed By: #### 5 7021-8 #### RILEY PUJA ([id number]) [facility] ([facility]) [address] [place] [address] Bacteria Auto (Urine sed) [#/Area] 1+ /HPF Abnormal NONE SEEN [facility] Comment on above: Performed By: #### 5 8077-9 #### ROSEMARY LUO ([id number]) [facility] ([facility]) [address] [place] [address] 66847 Bilirubin (U) [Mass/Vol] Negative Normal NEGATIVE [facility] Comment on above: Order Comment: OVER is reported when the result is greater than the clinically reportable range. Performed By: #### 5 7021-8 #### ROSEMARY LUO ([id number]) [facility] ([facility]) [address] [place] [address] 59150 Color (U) Colorless Normal Light-Schley ow, Yellow, Dark-Yello w [facility] Comment on above: Order Comment: OVER is reported when the result is greater than the clinically reportable range. Performed By: #### 5 7021-8 #### ROSEMARY LUO ([id number]) [facility] ([facility]) [address] [place] [address] 65525 Glucose Auto test strip (U) [Mass/Vol] Normal Normal Normal [facility] Comment on above: Order Comment: OVER is reported when the result is greater than the clinically reportable range. Performed By: #### 5 7021-8 #### ROSEMARY LUO ([id number]) [facility] ([facility]) [address] [place] [address] 99851 Ketones (U) [Mass/Vol] Negative Normal NEGATIVE [facility] Comment on above: Order Comment: OVER is reported when the result is greater than the clinically reportable range. Performed By: #### 5 7021-8 #### ROSEAMRY LUO ([id number]) [facility] ([facility]) [address] [place] [address] 74237 Leukocyte esterase Auto test strip Ql (U) Negative Normal NEGATIVE [facility] Comment on above: Order Comment: OVER is reported when the result is greater than the clinically reportable range. Performed By: #### 5 7021-8 #### ROSEMARY LUO ([id number]) [facility] ([facility]) [address] [place] [address] 15792 Nitrite Auto test strip Ql (U) Negative Normal NEGATIVE [facility] Comment on above: Order Comment: OVER is reported when the result is greater than the clinically reportable range. Performed By: #### 5 7021-8 #### ROSEMARY LUO ([id number]) [facility] ([facility]) [address] [place] [address] 71260 pH (U) 6.5 [pH] Normal 5.0, 5.5, 6.0, 6.5, 7.0, 7.5, 8.0 [facility] Comment on above: Order Comment: OVER is reported when the result is greater than the clinically reportable range. Performed By: #### 5 7021-8 #### ROSEMARY LUO ([id number]) [facility] ([facility]) [address] [place] [address] 11892 Protein (U) [Mass/Vol] Negative Normal NEGAT JUDY, 10 (TRACE), 20 (TRACE) [facility] Comment on above: Order Comment: OVER is reported when the result is greater than the clinically reportable range. Performed By: #### 5 7021-8 #### ROSEMARY LOU ([id number]) [facility] ([facility]) [address] [place] [address] 72042 RBC (U) [#/Vol] OVER (3+) Abnormal NEGATIVE [facility] Comment on above: Order Comment: OVER is reported when the result is greater than the clinically reportable range. Performed By: #### 5 7021-8 #### ROSEMARY LUO ([id number]) [facility] ([facility]) [address] [place] [address] 29649 RBC Auto (Urine sed) [#/Area] 11-20 Abnormal NONE, 1-2, 3-5 [facility] Comment on above: Performed By: #### 5 8077-9 #### ROSEMARY LUO ([id number]) [facility] ([facility]) [address] [place] [address] 19015 Specific gravity (U) [Rel density] 1.006 Normal 1.005-1.03 5 [facility] Comment on above: Order Comment: OVER is reported when the result is greater than the clinically reportable range. Performed By: #### 5 7021-8 #### ROSEMARY LUO ([id number]) [facility] ([facility]) [address] [place] [address] 63295 Urobilinogen (U) [Mass/Vol] Normal Normal Normal [facility] Comment on above: Order Comment: OVER is reported when the result is greater than the clinically reportable range. Performed By: #### 5 7021-8 #### ROSEMARY LUO ([id number]) [facility] ([facility]) [facility] [place] [address] WBC Auto (Urine sed) [#/Area] 1-5 Normal 1-5, NONE [facility] Comment on above: Performed By: #### 5 8077-9 #### ROSEMARY LUO ([id number]) [facility] ([facility]) [address] [place] [address] 61016 hCG, quantitative, on 08-21-2024 [place] [address] m[IU]/mL High NINF [facility] Comment on above: Low-level positive H CG results can be seen in early , in rei- or post-menopausal females due to normal pituitary HCG production, or with analytic interference. Repeat testing in 48-72 hours can aid in assessing for as results should double in this time period. FSH measurement is recommended in rei- or post-menopausal females as concurrent elevation of FSH can support pituitary production as the source of the HCG elevation. Choriogonadotropin.beta subu niton 08-12-2024 HCG.beta subunit Qn 380 m[IU]/mL High <5 [facility] Comment on above: Order Comment: Total HCG measurement is performed using the Dat [employer] Access Immunoassay which detects intact HCG and free beta HCG subunit. This test is not indicated for use as a tumor marker. HCG testing is performed using a different test methodology at [facility] than other [facility]. Direct result comparison should only be made within the same method. Result Comment: Low- level positive HCG results can be seen in early , in rei- or post-menopausal females due to normal pituitary HCG production, or with analytic interference. Repeat testing in 48-72 hours can aid in assessing for as results should double in this time period. FSH measurement is recommended in rei- or post-menopausal females as concurrent elevation of FSH can support pituitary production as the source of the HCG elevation. Performed By: #### 2 1198-7 #### ROSEMARY LUO ([id number]) [facility] ([facility]) [address] [place] [address] HCG,BETA-QUANTITATIVEon 1 10-13-2023 Interpretation and review of laboratory results Abnormal [facility] HCG,BETA-QUANTITATIVE 380 High NINF [facility] Comment on above: Low-level positive H CG results can be seen in early , in rei- or post-menopausal females due to normal pituitary HCG production, or with analytic interference. Repeat testing in 48-72 hours can aid in assessing for as results should double in this time period. FSH measurement is recommended in rei- or post-menopausal females as concurrent elevation of FSH can support pituitary production as the source of the HCG elevation. Total HCG measuremen t is performed using the Dat [employer] Access Immunoassay which detects intact HCG and free beta HCG subunit. This test is not indicated for use as a tumor marker. HCG testing is performed using a different test methodology at [facility] than other [facility]. Direct result comparison should only be made within the same method. Original [facility]ing [facility] H[facility] Quanton 08-10-2024 HCG Quant 175.8 mIU/mL Normal [facility] Comment on above: Order Comment: CALL doctor [id number] tel. [phone], PLEASE FAX RESULTS TO [phone] doctor [id number] tel. [phone], PLEASE FAX RESULTS TO [phone] Result Comment: Gest ational Age Expected HCG values (mIU/ml) 3 weeks 5-72 4 weeks 10-708 5 weeks 217-8,245 6 weeks 152-32,177 8 weeks 31,366-149,094 12 weeks 27,107-201,615 16 weeks 8,904-55,332 18 weeks 9,649-55,271 Performed By: #### H CGQ ####[facility] [place] [place] [id number] DHEA TMSon 08-09-2024 Dehydroepiandrosterone by TMS 4.529 ng/mL Normal 1.330-7.78 [facility] Comment on above: Order Comment: CALL doctor [id number] tel. [phone], PLEASE FAX RESULTS TO [phone] doctor [id number] tel. [phone], PLEASE FAX RESULTS TO [phone] Result Comment: INTE RPRETIVE INFORMATION: Dehydroepiandrosterone, Females 18 years and older: Postmenopausal: 0.60-5.73 ng/mL REFERENCE INTERVAL: Dehydroepiandrosterone by TMS Access complete set of age- and/or gender-specific reference intervals for this test in the [employer] [facility] Test Directory ([employer]). This test was developed and its performance characteristics determined by [facility]. It has not been cleared or approved by the US Food and Drug Administration. This test was performed in a CLIA certified laboratory and is intended for clinical purposes. Performed By: [facility] [address] [place] [address] Instructor Painting: Ha Groves MD, PhD CLIA Number: [id number] Progesterone Quanton 024 Progesterone, hplc-ms/ms 35.79 ng/mL Normal [facility] Comment on above: Order Comment: CALL doctor [id number] tel. [phone], PLEASE FAX RESULTS TO [phone] doctor [id number] tel. [phone], PLEASE FAX RESULTS TO [phone] Result Comment: Fema les, 17 years and older Cycle Days Reference Interval (ng/mL) 1 - 6 ............... Less than or equal to 0.17 7 - 12 .............. Less than or equal to 1.35 13 - 15 .............. Less than or equal to 15.63 16 - 28 .............. Less than or equal to 25.55 Post-Menopausal ...... Less than or equal to 0.10 Reference Intervals (ng/mL): 1st Trimester ...... 6.25 - 45.46 2nd Trimester ..... 15.40 - 52.10 3rd Trimester ..... 24.99 - 99.92 REFERENCE INTERVAL: Progesterone Quantitative by HPLC-MS/MS, Serum or Plasma Access complete set of age- and/or gender-specific reference intervals for this test in the [employer] [facility] Test Directory ([employer]). This test was developed and its performance characteristics determined by [facility]. It has not been cleared or approved by the US Food and Drug Administration. This test was performed in a CLIA certified laboratory and is intended for clinical purposes. Performed By: [facility] [address] [place] [address] Instructor Painting: Ha Groves MD, PhD CLIA Number: [id number] Progesterone Quanton 024 Progesterone, hplc-ms/ms 7.27 ng/mL Normal [facility] Comment on above: Result Comment: Fema les, 17 years and older Cycle Days Reference Interval (ng/mL) 1 - 6 ............... Less than or equal to 0.17 7 - 12 .............. Less than or equal to 1.35 13 - 15 .............. Less than or equal to 15.63 16 - 28 .............. Less than or equal to 25.55 Post-Menopausal ...... Less than or equal to 0.10 Reference Intervals (ng/mL): 1st Trimester ...... 6.25 - 45.46 2nd Trimester ..... 15.40 - 52.10 3rd Trimester ..... 24.99 - 99.92 REFERENCE INTERVAL: Progesterone Quantitative by HPLC-MS/MS, Serum or Plasma Access complete set of age- and/or gender-specific reference intervals for this test in the [employer] [facility] Test Directory ([employer]). This test was developed and its performance characteristics determined by [facility]. It has not been cleared or approved by the US Food and Drug Administration. This test was performed in a CLIA certified laboratory and is intended for clinical purposes. Performed By: [facility] [address] [place] [id number] Instructor Painting: Ha Groves MD, PhD CLIA Number: [id number] US PELVIS TRANSABDOMINAL WIT H TRANSVAGINALon 04-03-2024 US PELVIS TRANSABDOMINAL WITH TRANSVAGINAL Interpreted By: Lauro Sood, STUDY: US PELVIS TRANSABDOMINAL WITH TRANSVAGINAL; 04/03/2024 9:44 am INDICATION: Signs/Symptoms:UNSPECIFI ED OVARIAN CYST, LEFT SIDE. COMPARISON: None. ACCESSION NUMBER(S): [id number] ORDERING CLINICIAN: CHRISTOPHER DIEGO TECHNIQUE: Multiple multiplanar static schumacher scale, color and spectral waveform sonographic images of the pelvis were obtained. Transabdominal and endovaginal ultrasound was performed. FINDINGS: UTERUS: The uterus measures 4.2 cm x 3.5 cm x 8.2 cm. The uterine myometrium appears normal. Nabothian cysts are present. ENDOMETRIUM: The endometrium measures a thickness of 0.7 cm, which is normal. RIGHT ADNEXA: The right ovary measures 3.3 cm x 3.0 cm x 3.1 cm and demonstrates normal flow. Multiple follicles are seen with the largest measuring about 13 mm. LEFT ADNEXA: The left ovary measures 3.9 cm x 2.3 cm x 2.9 cm and demonstrates normal flow. Multiple follicles are seen measuring about 8 mm to 10 mm in size. CUL DE SAC: No free fluid. IMPRESSION: 1. Multiple bilateral ovarian follicles. MACRO: None Signed by: Lauro Sood 04/04/2024 9:44 AM Dictation workstation: [id number] [facility] CBC W Auto Differential pane l (Bld)on 04-01-2024 Basophils (Bld) [#/Vol] 0.06 10*3/uL [facility] Basophils/100 WBC (Bld) 0.7 % 0.0 - 2.0 % [facility] Eosinophils (Bld) [#/Vol] 0.23 10*3/uL [facility] Eosinophils/100 WBC (Bld) 2.7 % 0.0 - 6.0 % [facility] Erythrocyte distribution width (RBC) [Ratio] 12.5 % 11.5 - 14.5 % [facility] Hematocrit (Bld) [Volume fraction] 41.3 % 36.0 - 46.0 % [facility] Hemoglobin (Bld) [Mass/Vol] 13.2 g/dL 12.0 - 16.0 g/dL [facility] Immature granulocytes (Bld) [#/Vol] 0.01 10*3/uL [facility] Immature granulocytes/100 WBC (Bld) 0.1 % 0.0 - 0.9 % [facility] Comment on above: Immature Granulocyte Count (IG) includes promyelocytes, myelocytes and metamyelocytes but does not include bands. Percent differential counts (%) should be interpreted in the context of the absolute cell counts (cells/UL). Lymphocytes (Bld) [#/Vol] 2.27 10*3/uL [facility] Lymphocytes/100 WBC (Bld) 27.1 % 13.0 - 44.0 % [facility] MCH (RBC) [Entitic mass] 30.6 pg 26. 0 - 34.0 pg [facility] MCHC (RBC) [Mass/Vol] 32.0 g/dL 32.0 - 36.0 g/dL [facility] MCV (RBC) [Entitic vol] 96 fL 80 - 100 fL [facility] Monocytes (Bld) [#/Vol] 0.66 10*3/uL [facility] Monocytes/100 WBC (Bld) 7.9 % 2.0 - 10.0 % [facility] Neutrophils (Bld) [#/Vol] 5.15 10*3/uL [facility] Comment on above: Percent differential counts (%) should be interpreted in the context of the absolute cell counts (cells/uL). Neutrophils/100 WBC (Bld) 61.5 % 40.0 - 80.0 % [facility] Nucleated RBC/100 WBC (Bld) [Ratio] 0.0 % [facility] Platelets (Bld) [#/Vol] 293 10*3/uL [facility] RBC (Bld) [#/Vol] 4.32 10*6/uL [facility] WBC (Bld) [#/Vol] 8.4 10*3/uL [facility] Basophils (Bld) [#/Vol] 0.06 x10*3/uL Normal 0.00-0.10 [facility] Comment on above: Performed By: #### 5 7021-8 #### ROSEMARY LUO ([id number]) [facility] ([facility]) [address] [place] [address] 83810 Basophils/100 WBC (Bld) 0.7 % Normal 0.0-2.0 [facility] Comment on above: Performed By: #### 5 7021-8 #### ROSEMARY LUO ([id number]) [facility] ([facility]) [address] [place] [address] 58797 Eosinophils (Bld) [#/Vol] 0.23 x10*3/uL Normal 0.00-0.70 [facility] Comment on above: Performed By: #### 5 7021-8 #### ROSEMARY LUO ([id number]) [facility] ([facility]) [address] [place] [address] 04585 Eosinophils/100 WBC (Bld) 2.7 % Normal 0.0-6.0 [facility] Comment on above: Performed By: #### 7021-8 #### ROSEMARY LUO ([id number]) [facility] ([facility]) [address] [place] [address] 88199 Erythrocyte distribution width (RBC) [Ratio] 12.5 % Normal 11.5-14.5 [facility] Comment on above: Performed By: #### 5 7021-8 #### ROSEMARY LUO ([id number]) [facility] ([facility]) [address] [place] [address] 41041 Hematocrit (Bld) [Volume fraction] 41.3 % Normal 36.0-46.0 [facility] Comment on above: Performed By: #### 5 7021-8 #### ROESMARY LUO ([id number]) [facility] ([facility]) [address] [place] [address] 30281 Hemoglobin (Bld) [Mass/Vol] 13.2 g/dL Normal 12.0-16.0 [facility] Comment on above: Performed By: #### 7021-8 #### ROSEMARY LUO ([id number]) [facility] ([facility]) [facility] [place] [address] Immature granulocytes (Bld) [#/Vol] 0.01 x10*3/uL Normal 0.00-0.70 [facility] Comment on above: Performed By: #### 5 7021-8 #### ROSEMARY LUO ([id number]) [facility] ([facility]) [address] [place] [address] 66447 Immature granulocytes/100 WBC (Bld) 0.1 % Normal 0.0-0.9 [facility] Comment on above: Result Comment: Lynda ture Granulocyte Count (IG) includes promyelocytes, myelocytes and metamyelocytes but does not include bands. Percent differential counts (%) should be interpreted in the context of the absolute cell counts (cells/UL). Performed By: #### 5 7021-8 #### ROSEMARY LUO ([id number]) [facility] ([facility]) [address] [place] [address] 20386 Lymphocytes (Bld) [#/Vol] 2.27 x10*3/uL Normal 1.20-4.80 [facility] Comment on above: Performed By: #### 5 7021-8 #### ROSEMARY LUO ([id number]) [facility] ([facility]) [address] [place] [address] 48234 Lymphocytes/100 WBC (Bld) 27.1 % Normal 13.0-44.0 [facility] Comment on above: Performed By: #### 5 7021-8 #### ROSEMARY LUO ([id number]) [facility] ([facility]) [address] [place] [address] 15817 MCH (RBC) [Entitic mass] 30.6 pg Normal 26.0-34.0 [facility] Comment on above: Performed By: #### 5 7021-8 #### ROSEMARY LUO ([id number]) [facility] ([facility]) [address] [place] [address] 32987 MCHC (RBC) [Mass/Vol] 32.0 g/dL Normal 32.0-36.0 [facility] Comment on above: Performed By: #### 5 7021-8 #### ROSEMARY LUO ([id number]) [facility] ([facility]) [address] [place] [address] 21679 MCV (RBC) [Entitic vol] 96 fL Normal 80-100 U [facility] Comment on above: Performed By: #### 5 7021-8 #### ROSEMARY LUO ([id number]) [facility] ([facility]) [address] [place] [address] 24471 Monocytes (Bld) [#/Vol] 0.66 x10*3/uL Normal 0.10-1.00 [facility] Comment on above: Performed By: #### 5 7021-8 #### ROSEMARY LUO ([id number]) [facility] ([facility]) [address] [place] [address] 20674 Monocytes/100 WBC (Bld) 7.9 % Normal 2.0-10.0 U [facility] Comment on above: Performed By: #### 5 7021-8 #### ROSEMARY LUO ([id number]) [facility] ([facility]) [address] [place] [address] 71830 Neutrophils (Bld) [#/Vol] 5.15 x10*3/uL Normal 1.20-7.70 [facility] Comment on above: Result Comment: Perc ent differential counts (%) should be interpreted in the context of the absolute cell counts (cells/uL). Performed By: #### 5 7021-8 #### ROSEMARY LUO ([id number]) [facility] ([facility]) [address] [place] [address] 22087 Neutrophils/100 WBC (Bld) 61.5 % Normal 40.0-80.0 [facility] Comment on above: Performed By: #### 5 7021-8 #### ROSEMARY LUO ([id number]) [facility] ([facility]) [address] [place] [address] 56425 Nucleated RBC/100 WBC (Bld) [Ratio] 0.0 /100 WBCs Normal 0.0-0.0 [facility] Comment on above: Performed By: #### 5 7021-8 #### ROSEMARY LUO ([id number]) [facility] ([facility]) [address] [place] [address] Platelets (Bld) [#/Vol] 293 x10*3/uL Normal 150-450 [facility] Comment on above: Performed By: #### 5 7021-8 #### ROSEMARY LUO ([id number]) [facility] ([facility]) [address] [place] [address] RBC (Bld) [#/Vol] 4.32 x10*6/uL Normal 4.00-5.20 [facility] Comment on above: Performed By: #### 5 7021-8 #### ROSEMARY LUO ([id number]) [facility] ([facility]) [address] [place] [address] WBC (Bld) [#/Vol] 8.4 x10*3/uL Normal 4.4-11.3 [facility] Comment on above: Performed By: #### 5 7021-8 #### ROSEMARY LUO ([id number]) [facility] ([facility]) [address] [place] [address] Choriogonadotropin.beta subu niton 04-01-2024 HCG.beta subunit Qn m[IU]/mL Normal <5 [facility] Comment on above: Order Comment: Total HCG measurement is performed using the Dat [employer] Immunoassay which detects intact HCG and free beta HCG subunit. This test is not indicated for use as a tumor marker. HCG testing is performed using a different test methodology at [facility] than other [facility]. Direct result comparison should only be made within the same method. Performed By: #### 2 1198-7 #### ROSEMARY LUO ([id number]) [facility] ([facility]) [address] [place], [place] [id number] Comprehensive metabolic 2000 panelon 04-01-2024 Albumin BCP dye [Mass/Vol] 4.2 g/dL 3.4 - 5.0 g/dL [facility] ALP [Catalytic activity/Vol] 61 U/L 33 - 110 U/L [facility] ALT With P-5'-P [Catalytic activity/Vol] 8 U/L 7 - 45 U/L [facility] Comment on above: Patients treated wit h Sulfasalazine may generate falsely decreased results for ALT. Anion gap [Moles/Vol] 12 mmol/L 10 - 2 0 mmol/L [facility] AST With P-5'-P [Catalytic activity/Vol] 16 U/L 9 - 39 U/L [facility] Bilirubin [Mass/Vol] 1.2 mg/dL 0.0 - 1 .2 mg/dL [facility] Calcium [Mass/Vol] 9.4 mg/dL 8.6 - 10. 3 mg/dL [facility] Chloride [Moles/Vol] 104 mmol/L 98 - 10 7 mmol/L [facility] CO2 [Moles/Vol] 26 mmol/L 21 - 32 mmol/L [facility] Creatinine [Mass/Vol] 0.82 mg/dL 0.50 - 1.05 mg/dL [facility] eGFR - PINF [facility] Comment on above: Calculations of melisa mated GFR are performed using the 2020 CKD-EPI Study Refit equation without the race variable for the IDMS-Traceable creatinine methods. https://jasn.asnjournals.org/content/early//ASN.027 7543269 Glucose [Mass/Vol] 81 mg/dL 74 - 99 mg/dL [facility] Interpretation and review of laboratory results Normal [facility] Potassium [Moles/Vol] 3.5 mmol/L 3.5 - 5.3 mmol/L [facility] Protein [Mass/Vol] 6.9 g/dL 6.4 - 8.2 g/dL [facility] Sodium [Moles/Vol] 138 mmol/L 136 - 145 mmol/L [facility] Urea nitrogen [Mass/Vol] 6 mg/dL 6 - 23 mg/dL [facility] Albumin BCP dye [Mass/Vol] 4.2 g/dL Normal 3.4-5.0 [facility] Comment on above: Performed By: #### 2 1143-8 #### ROSEMARY LUO ([id number]) [facility] ([facility]) [address] [place] [address] 23459 ALP [Catalytic activity/Vol] 61 U/L Normal 33-110 [facility] Comment on above: Performed By: #### 2 4322-8 #### ROSEMARY LUO ([id number]) [facility] ([facility]) [address] [place] [address] 83964 ALT With P-5'-P [Catalytic activity/Vol] 8 U/L Normal 7-45 [facility] Comment on above: Result Comment: Marni ents treated with Sulfasalazine may generate falsely decreased results for ALT. Performed By: #### 2 4322-8 #### ROSEMARY ULO ([id number]) [facility] ([facility]) [address] [place] [address] 96879 Anion gap [Moles/Vol] 12 mmol/L Normal 10-[address] [facility] Comment on above: Performed By: #### 2 4322-8 #### ROSEMARY LUO ([id number]) [facility] ([facility]) [address] [place] [address] 38264 AST With P-5'-P [Catalytic activity/Vol] 16 U/L Normal 9-39 [facility] Comment on above: Performed By: #### 2 4322-8 #### ROSEMARY LUO ([id number]) [facility] ([facility]) [address] [place] [address] 08142 Bilirubin [Mass/Vol] 1.2 mg/dL Normal 0.0-1.2 [facility] Comment on above: Performed By: #### 2 4322-8 #### ROSEMARY LUO ([id number]) [facility] ([facility]) [address] [place] [address] 60034 Calcium [Mass/Vol] 9.4 mg/dL Normal 8.6-10.3 [facility] Comment on above: Performed By: #### 2 4322-8 #### ROSEMARY LUO ([id number]) [facility] ([facility]) [address] [place] [address] Chloride [Moles/Vol] 104 mmol/L Normal 98-107 [facility] Comment on above: Performed By: #### 2 4323-8 #### ROSEMARY LUO ([id number]) [facility] ([facility]) [address] [place] [address] CO2 [Moles/Vol] 26 mmol/L Normal 21-32 [facility] Comment on above: Performed By: #### 2 4323-8 #### ROSEMARY LUO ([id number]) [facility] ([facility]) [address] [place] [address] 41306 Creatinine [Mass/Vol] 0.82 mg/dL Normal 0.50-1.[address] [facility] Comment on above: Performed By: #### 2 4323-8 #### ROSEMARY LUO ([id number]) [facility] ([facility]) [address] [place] [address] 49475 GFR/1.73 sq M.predicted MDRD (S/P/Bld) [Vol rate/Area] mL/min/{1.73_m2} Normal >60 [facility] Comment on above: Result Comment: Calc ulations of estimated GFR are performed using the 2020 CKD-EPI Study Refit equation without the race variable for the IDMS-Traceable creatinine methods. https://jasn.asnjournals.org/content//ASN.848 5662631 Performed By: #### 2 4323-8 #### ROSEMARY LUO ([id number]) [facility] ([facility]) [facility] [place] [address] Glucose [Mass/Vol] 81 mg/dL Normal 74-99 [facility] Comment on above: Performed By: #### 2 4323-8 #### ROSEMARY LUO ([id number]) [facility] ([facility]) [facility] [place] [address] Potassium [Moles/Vol] 3.5 mmol/L Normal 3.5-5.[address] [facility] Comment on above: Performed By: #### 2 4323-8 #### ROSEMARY LUO ([id number]) [facility] ([facility]) [facility] [place] [address] Protein [Mass/Vol] 6.9 g/dL Normal 6.4-8.2 [facility] Comment on above: Performed By: #### 2 4323-8 #### ROSEMARY LUO ([id number]) [facility] ([facility]) [address] [place] [address] 16606 Sodium [Moles/Vol] 138 mmol/L Normal 136-145 [facility] Comment on above: Performed By: #### 2 4323-8 #### ROSEMARY LUO ([id number]) [facility] ([facility]) [address] [place] [address] 47906 Urea nitrogen [Mass/Vol] 6 mg/dL Normal 6-23 [facility] Comment on above: Performed By: #### 2 4323-8 #### ROSEMARY LUO ([id number]) [facility] ([facility]) [address] [place] [address] 99647 HCG.beta subunit Qnon 2023 Interpretation and review of laboratory results Normal [facility] Total HCG measuremen t is performed using the Dat [employer] Access Immunoassay which detects intact HCG and free beta HCG subunit. This test is not indicated for use as a tumor marker. HCG testing is performed using a different test methodology at [facility] than other [facility]. Direct result comparison should only be made within the same method. [facility] Human Chorionic Gonadotropin , Serum Quantitativeon 04-01-2024 HCG.beta subunit Qn NINF Un[facility] Urinalysis complete W Reflex Culture panel (U)on 04-01-2024 Appearance (U) Clear Clear [facility] Bilirubin (U) [Mass/Vol] Negative NEGATIVE [facility] Color (U) Colorless Abnormal Light-Schley ow, Yellow, Dark-Yello w [facility] Glucose Auto test strip (U) [Mass/Vol] Normal Normal mg/dL [facility] Interpretation and review of laboratory results Abnormal [facility] Ketones (U) [Mass/Vol] Negative NEGAT JUDY mg/dL [facility] Leukocyte esterase Auto test strip Ql (U) Negative NEGATIVE [facility] Nitrite Auto test strip Ql (U) Negative NEGATIVE [facility] pH (U) 7.0 [pH] 5.0, 5.5, 6.0, 6.5, 7.0, 7.5, 8.0 [facility] Protein (U) [Mass/Vol] Negative NEGAT JUDY, 10 (TRACE), 20 (TRACE) mg/dL [facility] RBC (U) [#/Vol] Negative NEGATIVE [facility] Specific gravity (U) [Rel density] 1.007 1.005 - 1.035 [facility] Urobilinogen (U) [Mass/Vol] Normal Normal mg/dL [facility] Appearance (U) Clear Normal Clear [facility] Comment on above: Performed By: #### 5 8077-9 #### ROSEMARY LUO ([id number]) [facility] ([facility]) [address] [place] [address] 56879 Bilirubin (U) [Mass/Vol] Negative Normal NEGATIVE [facility] Comment on above: Performed By: #### 5 8077-9 #### ROSEMARY LUO ([id number]) [facility] ([facility]) [address] [place] [address] 92494 Color (U) Colorless Normal Light-Schley ow, Yellow, Dark-Yello w [facility] Comment on above: Performed By: #### 5 8077-9 #### ROSEMARY LUO ([id number]) [facility] ([facility]) [address] [place] [address] 32765 Glucose Auto test strip (U) [Mass/Vol] Normal Normal Normal [facility] Comment on above: Performed By: #### 5 8077-9 #### ROSEMARY LUO ([id number]) [facility] ([facility]) [address] [place] [address] 92317 Ketones (U) [Mass/Vol] Negative Normal NEGATIVE [facility] Comment on above: Performed By: #### 5 8077-9 #### ROSEMARY LOU ([id number]) [facility] ([facility]) [address] [place] [address] 86399 Leukocyte esterase Auto test strip Ql (U) Negative Normal NEGATIVE [facility] Comment on above: Performed By: #### 5 8077-9 #### ROSEMARY LUO ([id number]) [facility] ([facility]) [address] [place] [address] 08172 Nitrite Auto test strip Ql (U) Negative Normal NEGATIVE [facility] Comment on above: Performed By: #### 5 8077-9 #### ROSEMARY LUO ([id number]) [facility] ([facility]) [address] [place] [address] pH (U) 7.0 [pH] Normal 5.0, 5.5, 6.0, 6.5, 7.0, 7.5, 8.0 [facility] Comment on above: Performed By: #### 5 8077-9 #### ROSEMARY LUO ([id number]) [facility] ([facility]) [address] [place] [address] 04860 Protein (U) [Mass/Vol] Negative Normal NEGAT JUDY, 10 (TRACE), 20 (TRACE) [facility] Comment on above: Performed By: #### 5 8077-9 #### ROSEMARY LUO ([id number]) [facility] ([facility]) [address] [place] [address] 10771 RBC (U) [#/Vol] Negative Normal NEGATIVE [facility] Comment on above: Performed By: #### 5 8077-9 #### ROSEMARY LUO ([id number]) [facility] ([facility]) [address] [place] [address] 71089 Specific gravity (U) [Rel density] 1.007 Normal 1.005-1.[address] [place] [address] Comment on above: Performed By: #### 5 8077-9 #### ROSEMARY LUO ([id number]) [facility] ([facility]) [address] [place] [address] 36412 Urobilinogen (U) [Mass/Vol] Normal Normal Normal [facility] Comment on above: Performed By: #### 5 8077-9 #### RILEY PUJA ([id number]) [facility] ([facility]) [address] [place] [address] Pain Mgt Drug Panel, Hi Res, Uron 10-21-2023 6-acetylmorphine (cutoff 20 ng/mL) Not detected Normal [facility] Comment on above: Result Comment: INTE RPRETIVE INFORMATION:6-acetylmorphine, U Positive Cutoff: 20 ng/mL Methodology: Mass Spectrometry 7-Aminoclonazepam (cutoff 40 ng/mL) Not detected Normal [facility] Comment on above: Result Comment: INTE RPRETIVE INFORMATION:7-Aminoclonazepam, U Positive Cutoff: 40 ng/mL Methodology: Mass Spectrometry Tpgrj-SC-Xybvjoofti (cutoff 20 ng/mL) Not detected Normal [facility] Comment on above: Result Comment: INTE RPRETIVE INFORMATION:Ouapt-ZN-Nzasufotfl, U Positive Cutoff: 20 ng/mL Methodology: Mass Spectrometry Sukqd-MS-Bfxfizxwk (cutoff 20 ng/mL) Not detected Normal [facility] Comment on above: Result Comment: INTE RPRETIVE INFORMATION:Xvuzy-QV-Meaipuccq, U Positive Cutoff: 20 ng/mL Methodology: Mass Spectrometry Alprazolam (cutoff 40 ng/mL) Not detected Normal [facility] Comment on above: Result Comment: INTE RPRETIVE INFORMATION:Alprazolam, U Positive Cutoff: 40 ng/mL Methodology: Mass Spectrometry Amphetamine (cutoff 100 ng/mL) Not detected Normal [facility] Comment on above: Result Comment: INTE RPRETIVE INFORMATION:Amphetamine, U Positive Cutoff: 50 ng/mL Methodology: Mass Spectrometry Barbiturates (cutoff 200 ng/mL) Negative Normal [facility] Comment on above: Result Comment: Pres umptive negative by immunoassay. Testing by mass spectrometry is available on request. INTERPRETIVE INFORMATION:Barbiturates Screen, U Positive Cutoff: 200 ng/mL Methodology: Immunoassay Benzoylecgonine Ql (U) Negative Normal [facility] Comment on above: Result Comment: Pres umptive negative by immunoassay. Testing by mass spectrometry is available on request. INTERPRETIVE INFORMATION:Cocaine Screen, U Positive Cutoff: 150 ng/mL Methodology: Immunoassay Buprenorphine (cutoff 5 ng/mL) Not detected Normal [facility] [facility] Comment on above: Result Comment: INTE RPRETIVE INFORMATION:Buprenorphine, U Positive Cutoff: 5 ng/mL Methodology: Mass Spectrometry Carisoprodol (cutoff 100 ng/mL) Negative Normal [facility] Comment on above: Result Comment: Pres umptive negative by immunoassay. Testing by mass spectrometry is available on request. INTERPRETIVE INFORMATION: Carisoprodol Screen, U Positive Cutoff: 100 ng/mL Methodology: Immunoassay The carisoprodol immunoassay has cross-reactivity to carisoprodol and meprobamate. Clonazepam (cutoff 20 ng/mL) Not detected Normal [facility] Comment on above: Result Comment: INTE RPRETIVE INFORMATION:Clonazepam, U Positive Cutoff: 20 ng/mL Methodology: Mass Spectrometry Codeine (cutoff 40 ng/mL) Not detected Normal [facility] Comment on above: Result Comment: INTE RPRETIVE INFORMATION: Codeine, U Positive Cutoff: 40 ng/mL Methodology: Mass Spectrometry Creatinine, Urine 163.9 mg/dL Normal 20.0-400.0 [facility] Diazepam (cutoff 50 ng/mL) Not detected Normal [facility] Comment on above: Result Comment: INTE RPRETIVE INFORMATION:Diazepam, U Positive Cutoff: 50 ng/mL Methodology: Mass Spectrometry EER Pain Mgt Drug Panel High Res/EMIT U See Note Normal [facility] Comment on above: Result Comment: Auth orized individuals can access the [employer] Enhanced Report using the following link: [email or web address] Performed By: [facility] [address] [place] [id number] Instructor Painting: Ha Groves MD, PhD CLIA Number: [id number] Ethyl Glucuronide (cutoff 500 ng/mL) Negative Normal [facility] Comment on above: Result Comment: Pres umptive negative by immunoassay. Testing by mass spectrometry is available on request. INTERPRETIVE INFORMATION:Ethyl Glucuronide Screen, U Positive Cutoff: 500 ng/mL Methodology: Immunoassay Fentanyl (cutoff 2 ng/mL) Not detected Normal [facility] Comment on above: Result Comment: INTE RPRETIVE INFORMATION:Fentanyl, U Positive Cutoff: 2 ng/mL Methodology: Mass Spectrometry Gabapentin (cutoff 100 ng/mL) Not detected Normal [facility] Comment on above: Result Comment: INTE RPRETIVE INFORMATION:Gabapentin, U Positive Cutoff: 3,000 ng/mL Methodology: Mass Spectrometry Hydrocodone (cutoff 40 ng/mL) Not detected Normal [facility] Comment on above: Result Comment: INTE RPRETIVE INFORMATION:Hydrocodone, U Positive Cutoff: 40 ng/mL Methodology: Mass Spectrometry Hydromorphone (cutoff 40 ng/mL) Not detected Normal [facility] Comment on above: Result Comment: INTE RPRETIVE INFORMATION:Hydromorphone, U Positive Cutoff: 20 ng/mL Methodology: Mass Spectrometry Lorazepam (cutoff 60 ng/mL) Not detected Normal [facility] Comment on above: Result Comment: INTE RPRETIVE INFORMATION:Lorazepam, U Positive Cutoff: 60 ng/mL Methodology: Mass Spectrometry Marijuana Metabolite (cutoff 20 ng/mL) Negative [facility] Comment on above: Result Comment: Pres umptive negative by immunoassay. Testing by mass spectrometry is available on request. INTERPRETIVE INFORMATION: THC (Cannabinoids) Screen, U Positive Cutoff: 50 ng/mL Methodology: Immunoassay MDA (cutoff 200 ng/mL) Not detected Normal [facility] Comment on above: Result Comment: INTE RPRETIVE INFORMATION:MDA, U Positive Cutoff: 200 ng/mL Methodology: Mass Spectrometry MDEA-Maru (cutoff 200 ng/mL) Not detected Normal [facility] Comment on above: Result Comment: INTE RPRETIVE INFORMATION:MDEA, U Positive Cutoff: 200 ng/mL Methodology: Mass Spectrometry MDMA-Ecstasy (cutoff 200 ng/mL) Not detected Normal [facility] Comment on above: Result Comment: INTE RPRETIVE INFORMATION:MDMA, U Positive Cutoff: 200 ng/mL Methodology: Mass Spectrometry Meperidine metabolite (cutoff 50 ng/mL) Not detected [facility] Comment on above: Result Comment: INTE RPRETIVE INFORMATION:Meperidine metabolite, U Positive Cutoff: 50 ng/mL Methodology: Mass Spectrometry Methadone Ql (U) Negative Normal [facility] Comment on above: Result Comment: Pres umptive negative by immunoassay. Testing by mass spectrometry is available on request. INTERPRETIVE INFORMATION: Methadone Screen, U Positive Cutoff: 150 ng/mL Methodology: Immunoassay Methamphetamine (cutoff 400 ng/mL) Not detected Normal [facility] Comment on above: Result Comment: INTE RPRETIVE INFORMATION:Methamphetamine, U Positive Cutoff: 200 ng/mL Methodology: Mass Spectrometry Methylphenidate (cutoff 100 ng/mL) Not detected Normal [facility] Comment on above: Result Comment: INTE RPRETIVE INFORMATION:Methylphenidate, U Positive Cutoff: 100 ng/mL Methodology: Mass Spectrometry Midazolam (cutoff 20 ng/mL) Not detected Normal [facility] Comment on above: Result Comment: INTE RPRETIVE INFORMATION:Midazolam, U Positive Cutoff: 20 ng/mL Methodology: Mass Spectrometry Morphine (cutoff 20 ng/mL) Not detected Normal [facility] Comment on above: Result Comment: INTE RPRETIVE INFORMATION:Morphine, U Positive Cutoff: 20 ng/mL Methodology: Mass Spectrometry Naloxone (cutoff 100 ng/mL) Not detected Normal [facility] Comment on above: Result Comment: INTE RPRETIVE INFORMATION:Naloxone, U Positive Cutoff: 100 ng/mL Methodology: Mass Spectrometry Norbuprenorphine (cutoff 20 ng/mL) Not detected Normal [facility] Comment on above: Result Comment: INTE RPRETIVE INFORMATION:Norbuprenorphine, U Positive Cutoff: 20 ng/mL Methodology: Mass Spectrometry Nordiazepam (cutoff 50 ng/mL) Not detected Normal [facility] Comment on above: Result Comment: INTE RPRETIVE INFORMATION:Nordiazepam, U Positive Cutoff: 50 ng/mL Methodology: Mass Spectrometry Norfentanyl (cutoff 2 ng/mL) Not detected Normal [facility] Comment on above: Result Comment: INTE RPRETIVE INFORMATION:Norfentanyl, U Positive Cutoff: 2 ng/mL Methodology: Mass Spectrometry Norhydrocodone (cutoff 100 ng/mL) Not detected Normal [facility] Comment on above: Result Comment: INTE RPRETIVE INFORMATION:Norhydrocodone, U Positive Cutoff: 100 ng/mL Methodology: Mass Spectrometry Noroxycodone (cutoff 100 ng/mL) Not detected Normal [facility] Comment on above: Result Comment: INTE RPRETIVE INFORMATION:Noroxycodone, U Positive Cutoff: 100 ng/mL Methodology: Mass Spectrometry Noroxymorphone (cutoff 100 ng/mL) Not detected Normal [facility] Comment on above: Result Comment: INTE RPRETIVE INFORMATION:Noroxymorphone, U Positive Cutoff: 100 ng/mL Methodology: Mass Spectrometry Oxazepam (cutoff 50 ng/mL) Not detected Normal [facility] Comment on above: Result Comment: INTE RPRETIVE INFORMATION:Oxazepam, U Positive Cutoff: 50 ng/mL Methodology: Mass Spectrometry Oxycodone (cutoff 40 ng/mL) Not detected Normal [facility] Comment on above: Result Comment: INTE RPRETIVE INFORMATION:Oxycodone, U Positive Cutoff: 40 ng/mL Methodology: Mass Spectrometry Oxymorphone (cutoff 40 ng/mL) Not detected Normal [facility] Comment on above: Result Comment: INTE RPRETIVE INFORMATION:Oxymorphone, U Positive Cutoff: 40 ng/mL Methodology: Mass Spectrometry Pain Management Drug Panel See Below [facility] Comment on above: Result Comment: Meth odology: Qualitative Enzyme Immunoassay and Qualitative Liquid Chromatography-Tandem Mass Spectrometry, Quantitative Spectrophotometry The absence of expected drug(s) and/or drug metabolite(s) may indicate non-compliance, inappropriate timing of specimen collection relative to drug administration, poor drug absorption, diluted/adulterated urine, or limitations of testing. The concentration must be greater than or equal to the cutoff to be reported as present. If specific drug concentrations are required, contact the laboratory within two weeks of specimen collection to request quantification by a second analytical technique. Interpretive questions should be directed to the laboratory. Results based on immunoassay detection that do not match clinical expectations should be interpreted with caution. Confirmatory testing by mass spectrometry for immunoassay-based results is available, if ordered within two weeks of specimen collection. Additional charges apply. For medical purposes only; not valid for forensic use. This test was developed and its performance characteristics determined by [facility]. It has not been cleared or approved by the [place] Food and Drug Administration. This test was performed in a CLIA certified laboratory and is intended for clinical purposes. PCP (cutoff 25 ng/mL) Negative Normal [facility] Comment on above: Result Comment: Pres umptive negative by immunoassay. Testing by mass spectrometry is available on request. INTERPRETIVE INFORMATION:Phencyclidine Screen, U Positive Cutoff: 25 ng/mL Methodology: Immunoassay Phentermine (cutoff 100 ng/mL) Not detected Normal [facility] Comment on above: Result Comment: INTE RPRETIVE INFORMATION:Phentermine, U Positive Cutoff: 100 ng/mL Methodology: Mass Spectrometry Pregabalin (cutoff 100 ng/mL) Not detected Normal [facility] Comment on above: Result Comment: INTE RPRETIVE INFORMATION:Pregabalin, U Positive Cutoff: 3,000 ng/mL Methodology: Mass Spectrometry Tapentadol (cutoff 100 ng/mL) Not detected Normal [facility] Comment on above: Result Comment: INTE RPRETIVE INFORMATION:Tapentadol, U Positive Cutoff: 100 ng/mL Methodology: Mass Spectrometry [id number]-Hzst (cutoff 200 ng/mL) Not detected Normal [facility] Comment on above: Result Comment: INTE RPRETIVE INFORMATION:Oqwlpaydhc-o-Wjop, U Positive Cutoff: 200 ng/mL Methodology: Mass Spectrometry Temazepam (cutoff 50 ng/mL) Not detected Normal [facility] Comment on above: Result Comment: INTE RPRETIVE INFORMATION:Temazepam, U Positive Cutoff: 50 ng/mL Methodology: Mass Spectrometry Tramadol (cutoff 200 ng/mL) Negative Normal [facility] Comment on above: Result Comment: Pres umptive negative by immunoassay. Testing by mass spectrometry is available on request. INTERPRETIVE INFORMATION:Tramadol Screen, U Positive Cutoff: 100 ng/mL Methodology: Immunoassay Zolpidem (cutoff 20 ng/mL) Not detected Normal [facility] Comment on above: Result Comment: INTE RPRETIVE INFORMATION:Zolpidem, U Positive Cutoff: 20 ng/mL Methodology: Mass Spectrometry Calprotectin, Fecalon 2023 Calprotectin, Fecal 8 ug/g Normal <=49 [facility] Comment on above: Result Comment: REFE RENCE INTERVAL: Calprotectin, Fecal by Immunoassay Less than 50 ug/g.........Normal 50-120 ug/g...............Borderline elevated, test should be re-evaluated in 4-6 weeks. 121 ug/g or greater.......Elevated Performed By: [facility] [address] [place] [id number] Instructor Painting: Ha Groves MD, PhD CLIA Number: [id number] CT Abdomen and Pelvis W cont rast Annelise 09-24-2023 Bilateral cystic adn exal masses right greater than left. Likely ovarian. If clinically indicated consider follow-up ultrasound to further evaluate. Trace amount of free fluid the pelvis. Likely physiologic [facility] RADIOLOGY EXAMINATION: CT OF THE ABDOMEN AND PELVIS WITH CONTRAST 09/22/2023 8:28 am TECHNIQUE: CT of the abdomen and pelvis was performed with the administration of intravenous contrast. Multiplanar reformatted images are provided for review. Automated exposure control, iterative reconstruction, and/or weight based adjustment of the mA/kV was utilized to reduce the radiation dose to as low as reasonably achievable. COMPARISON: None. HISTORY: ORDERING SYSTEM PROVIDED HISTORY: Lower abdominal pain TECHNOLOGIST PROVIDED HISTORY: Additional Contrast?->None STAT Creatinine as needed:->Yes What reading provider will be dictating this exam?->CRC FINDINGS: Lower Chest: The visualized base of lungs show no focal parenchymal abnormality no pleural effusions Organs: The liver shows no focal parenchymal abnormality. No intrahepatic biliary dilatation. The gallbladder, spleen, pancreas, adrenals, kidneys are unremarkable. GI/Bowel: Large and small bowel show no signs of obstruction. A few small intraluminal calcification noted within the large bowel. Largest measures 6 mm. This is a nonspecific finding. The appendix is visualized. No periappendiceal stranding. No diverticulitis. Pelvis: There are bilateral cystic adnexal masses. The right is complex it measures approximately 3.6 by 3.9 cm. The left measures 1.7 by 2.2 cm. The bladder wall is not thickened. No bladder calculi. Peritoneum/Retroperitone um: No free air. Trace amount of free fluid the pelvis. Likely physiologic. The visualized abdominal aorta is of normal size and caliber. No significant retroperitoneal Opti. Bones/Soft Tissues: Visualized osseous structure intact [facility] Maurice Altman MD - 09/24/2023 EXAMINATION: CT OF THE ABDOMEN AND PELVIS WITH CONTRAST 09/22/2023 8:28 am TECHNIQUE: CT of the abdomen and pelvis was performed with the administration of intravenous contrast. Multiplanar reformatted images are provided for review. Automated exposure control, iterative reconstruction, and/or weight based adjustment of the mA/kV was utilized to reduce the radiation dose to as low as reasonably achievable. COMPARISON: None. HISTORY: ORDERING SYSTEM PROVIDED HISTORY: Lower abdominal pain TECHNOLOGIST PROVIDED HISTORY: Additional Contrast?->None STAT Creatinine as needed:->Yes What reading provider will be dictating this exam?->CRC FINDINGS: Lower Chest: The visualized base of lungs show no focal parenchymal abnormality no pleural effusions Organs: The liver shows no focal parenchymal abnormality. No intrahepatic biliary dilatation. The gallbladder, spleen, pancreas, adrenals, kidneys are unremarkable. GI/Bowel: Large and small bowel show no signs of obstruction. A few small intraluminal calcification noted within the large bowel. Largest measures 6 mm. This is a nonspecific finding. The appendix is visualized. No periappendiceal stranding. No diverticulitis. Pelvis: There are bilateral cystic adnexal masses. The right is complex it measures approximately 3.6 by 3.9 cm. The left measures 1.7 by 2.2 cm. The bladder wall is not thickened. No bladder calculi. Peritoneum/Retroperitone um: No free air. Trace amount of free fluid the pelvis. Likely physiologic. The visualized abdominal aorta is of normal size and caliber. No significant retroperitoneal Opti. Bones/Soft Tissues: Visualized osseous structure intact IMPRESSION: Bilateral cystic adnexal masses right greater than left. Likely ovarian. If clinically indicated consider follow-up ultrasound to further evaluate. Trace amount of free fluid the pelvis. Likely physiologic [facility] CT Abdomen and Pelvis W cont rast IVOrdered By: Maurice Altman on 09-24-2023 [facility] Work Phone: Colonoscopy studyon 09-23-19 [facility] Patient: REBEKAH RHODES : 2000 Account: [id number] Sex at : Female Age: 23 Years Procedure: Colonoscopy Date: 09/23/2023 Attending Physician: Jung Pace Indications: - Incidental change in bowel habits noted Medications: - Monitored Anesthesia Care Complications: - No immediate complications. Estimated Blood Loss: - Estimated blood loss: none. Procedure: - The Colonoscope was introduced through the anus and advanced to the terminal ileum. - The patient tolerated the procedure well. - The quality of the bowel preparation was good. - The terminal ileum, ileocecal valve, appendiceal orifice, and rectum were photographed. Findings: - The terminal ileum appeared normal. - The colon (entire examined portion) appeared normal. Biopsies for histology were taken with a cold forceps from the entire colon for evaluation of microscopic colitis. - A diminutive polyp was found in the rectum. Biopsies were taken with a cold forceps for histology. - The exam was otherwise without abnormality on direct and retroflexion views. Impression: - The examined portion of the ileum was normal. - The entire examined colon is normal. Biopsied. - One polyp in the rectum. Biopsied. - The examination was otherwise normal on direct and retroflexion views. - No endoscopic evidence of inflammatory bowel disease Recommendation: - Await pathology results. - Continue present medications. - Return to GI clinic in 2 weeks. - The patient will be observed post-procedure, until all discharge criteria are met. - Patient has a contact number available for emergencies. The signs and symptoms of potential delayed complications were discussed with the patient. Return to normal activities tomorrow. Written discharge instructions were provided to the patient. Procedure Code(s): - 77440, Colonoscopy, flexible; with biopsy, single or multiple Diagnosis Code(s): - D12.8, Benign neoplasm of rectum CPT(R) - 2022 copyright [employer]. All Rights Reserved. The CPT codes, CCI edits and ICD codes generated are intended as suggestions and were generated based on input data. These codes are preliminary and upon air tank assembler review may be revised to meet current compliance and payer requirements. The provider is responsible for the final determination of appropriate codes, and modifiers. Scope Withdrawal Time: 00:00:00 Jung Pace MD This document has been electronically signed. Note Initiated:09/23/2023 Note Completed:09/23/2023 1:20 PM [facility] Jung Pennington MD - 09/23/2023 [facility] Patient: REBEKAH RHODES : 2000 Account: [id number] Sex at : Female Age: 23 Years Procedure: Colonoscopy Date: 09/23/2023 Attending Physician: Jung Pace Indications: - Incidental change in bowel habits noted Medications: - Monitored Anesthesia Care Complications: - No immediate complications. Estimated Blood Loss: - Estimated blood loss: none. Procedure: - The Colonoscope was introduced through the anus and advanced to the terminal ileum. - The patient tolerated the procedure well. - The quality of the bowel preparation was good. - The terminal ileum, ileocecal valve, appendiceal orifice, and rectum were photographed. Findings: - The terminal ileum appeared normal. - The colon (entire examined portion) appeared normal. Biopsies for histology were taken with a cold forceps from the entire colon for evaluation of microscopic colitis. - A diminutive polyp was found in the rectum. Biopsies were taken with a cold forceps for histology. - The exam was otherwise without abnormality on direct and retroflexion views. Impression: - The examined portion of the ileum was normal. - The entire examined colon is normal. Biopsied. - One polyp in the rectum. Biopsied. - The examination was otherwise normal on direct and retroflexion views. - No endoscopic evidence of inflammatory bowel disease Recommendation: - Await pathology results. - Continue present medications. - Return to GI clinic in 2 weeks. - The patient will be observed post-procedure, until all discharge criteria are met. - Patient has a contact number available for emergencies. The signs and symptoms of potential delayed complications were discussed with the patient. Return to normal activities tomorrow. Written discharge instructions were provided to the patient. Procedure Code(s): - 95212, Colonoscopy, flexible; with biopsy, single or multiple Diagnosis Code(s): - D12.8, Benign neoplasm of rectum CPT(R) - 2023 copyright [employer]. All Rights Reserved. The CPT codes, CCI edits and ICD codes generated are intended as suggestions and were generated based on input data. These codes are preliminary and upon air tank assembler review may be revised to meet current compliance and payer requirements. The provider is responsible for the final determination of appropriate codes, and modifiers. Scope Withdrawal Time: 00:00:00 Jung Pace MD This document has been electronically signed. Note Initiated:09/23/2023 Note Completed:09/23/2023 1:20 PM [facility] Surgical Specimenon 09-23-19 24 Surgical Specimen [facility] [address] [place], [place] [id number] FINAL SURGICAL PATHOLOGY REPORT Patient Name: REBEKAH RHODES Accession No: [id number] Age Sex: 2000 Location: [facility] Account No: [id number] Collected: 09/23/2023 Med Rec No: [id number] Received: 09/24/2023 Attend Phys: JUNG PACE Completed: 09/27/2023 Perform Phys: JUNG PACE FINAL DIAGNOSIS: A. RANDOM COLON BIOPSY: NO TISSUE SPECIMEN IDENTIFIED B. RECTAL BIOPSY: HYPERPLASTIC POLYP FESTUS/FESTUS CLINICAL INFORMATION: Procedure: Colonoscopy with biopsy. Preoperative diagnosis: Pain in the groin. SPECIMEN: A. RANDOM COLON BIOPSY B. RECTAL COLON BIOPSY GROSS DESCRIPTION: Received are two containers labeled with the patient's name. The specimens are received in formalin fixative. A. Received is one container designated colon . A tissue specimen is not grossly identified. The fixative is filtered and submitted in one cassette. Gladis in endoscopy notified by Tonya in histology 09/24/23 that there is no gross tissue specimen. B. Received is one container designated rectal colon biopsy . The specimen consists of one portion of casper soft tissue, 0.3 cm in greatest dimension. The specimen is submitted in toto in one cassette. FESTUS/FESTUS CPT: 50922 X2 J LAYTON MAN M.D. 09/27/2023 Electronically signed out by Page 1 of 1 Invalid Interpretation Code [facility] Comment on above: Performed By: #### S UR #### [facility] [address] [place] [address] CT ABDOMEN PELVIS W IV CONTR Eric 09-22-2023 CT ABDOMEN PELVIS W IV CONTRAST EXAMINATION: CT OF THE ABDOMEN AND PELVIS WITH CONTRAST 09/22/2023 8:28 am TECHNIQUE: CT of the abdomen and pelvis was performed with the administration of intravenous contrast. Multiplanar reformatted images are provided for review. Automated exposure control, iterative reconstruction, and/or weight based adjustment of the mA/kV was utilized to reduce the radiation dose to as low as reasonably achievable. COMPARISON: None. HISTORY: ORDERING SYSTEM PROVIDED HISTORY: Lower abdominal pain TECHNOLOGIST PROVIDED HISTORY: Additional Contrast?->None STAT Creatinine as needed:->Yes What reading provider will be dictating this exam?->CRC FINDINGS: Lower Chest: The visualized base of lungs show no focal parenchymal abnormality no pleural effusions Organs: The liver shows no focal parenchymal abnormality. No intrahepatic biliary dilatation. The gallbladder, spleen, pancreas, adrenals, kidneys are unremarkable. GI/Bowel: Large and small bowel show no signs of obstruction. A few small intraluminal calcification noted within the large bowel. Largest measures 6 mm. This is a nonspecific finding. The appendix is visualized. No periappendiceal stranding. No diverticulitis. Pelvis: There are bilateral cystic adnexal masses. The right is complex it measures approximately 3.6 by 3.9 cm. The left measures 1.7 by 2.2 cm. The bladder wall is not thickened. No bladder calculi. Peritoneum/Retroperitone um: No free air. Trace amount of free fluid the pelvis. Likely physiologic. The visualized abdominal aorta is of normal size and caliber. No significant retroperitoneal Opti. Bones/Soft Tissues: Visualized osseous structure intact IMPRESSION: Bilateral cystic adnexal masses right greater than left. Likely ovarian. If clinically indicated consider follow-up ultrasound to further evaluate. Trace amount of free fluid the pelvis. Likely physiologic Interpreted by: Maurice Altman MD Signed by: Maurice Altman MD 09/24/23 Final result Normal [facility] CT Abdomen and Pelvis W cont rast Annelise 09-22-2023 Radiology Study observation (narrative) JALEESA PATTON [facility] Deamidated Gliadin Peptide ( DGP) Ab, IgGon 09-15-2023 Deamidated Gliadin Peptide (DGP) Ab, IgG <0.56 Normal 0.00-4.99 [facility] Comment on above: Result Comment: INTE RPRETIVE INFORMATION: Deamidated Gliadin Peptide (DGP) Ab, IgG In individuals with low or deficient IgA, testing for tissue transglutaminase (tTG) and deamidated Gliadin (DGP) antibodies of the IgG isotype is performed. Positive tTG and/or DGP IgG antibody results indicate celiac disease; however, small intestinal biopsy is required to establish a diagnosis due to the lower accuracy of these markers, especially in patients without IgA deficiency. Performed By: [facility] [address] [place] [id number] Instructor Painting: Ha Groves MD, PhD CLIA Number: [id number] Tissue Transglutaminase Ab,I gGon 09-15-2023 Tissue Transglutaminase Ab,IgG <0.82 Normal 0.00-4.99 [facility] Comment on above: Result Comment: INTE RPRETIVE INFORMATION: Tissue Transglutaminase Ab, IgG In individuals with low or deficient IgA, testing for tissue transglutaminase (tTG) and deamidated Gliadin (DGP) antibodies of the IgG isotype is performed. Positive tTG and/or DGP IgG antibody results indicate celiac disease; however, small intestinal biopsy is required to establish a diagnosis due to the lower accuracy of these markers, especially in patients without IgA deficiency. Performed By: [facility] [address] [place], [place] [id number] Instructor Painting: Ha Groves MD, PhD CLIA Number: [id number] Celiac Disease Reflex [place] 09-14-2023 Tissue Transglutaminase (tTG) Ab, IgA <1.02 Normal 0.00-4.99 [facility] Comment on above: Result Comment: Tiss ue transglutaminase, IgA antibody below lower limit of detection. Deamidated gliadin peptide, IgA test to follow. INTERPRETIVE INFORMATION: Tissue Transglutaminase (tTG) Antibody, IgA Presence of the tissue transglutaminase (tTG) IgA antibody is associated with gluten-sensitive enteropathies such as celiac disease and dermatitis herpetiformis. Individuals with positive results should be confirmed with small intestinal biopsy to establish celiac disease diagnosis. tTG IgA antibody concentrations greater than 50 FLU exhibits higher correlation with results of duodenal biopsies consistent with celiac disease. For antibody concentrations greater than or equal to 5 FLU but less than 10 FLU, additional testing for endomysial (NAVNEET) IgA concentrations may improve the positive predictive value for disease. A decrease in tTG IgA antibody concentration after initiation of a gluten-free diet may indicate a response to therapy. Performed By: [facility] [address] [place], [place] [id number] Instructor Painting: Ha Groves MD, PhD CLIA Number: [id number] Deamidated Gliadin Peptide ( DGP) Ab, IgAon 09-14-2023 Deamidated Gliadin Peptide (DGP) Ab, IgA <0.72 Normal 0.00-4.99 [facility] Comment on above: Result Comment: Low IgA antibody levels suspected. Tissue transglutaminase, IgG and deamidated gliadin peptide, IgG tests to follow. INTERPRETIVE INFORMATION: Deamidated Gliadin Peptide (DGP) Ab, IgA A positive deamidated gliadin (DGP) IgA antibody result is associated with celiac disease but is not to be used as an initial screening test due to its low specificity and only occasional positivity in celiac disease patients who are negative for tissue transglutaminase (tTG) IgA antibody. Performed By: [facility] [address] [place] [address] Instructor Painting: Ha Groves MD, PhD CLIA Number: [id number] CBC With Platelet No Differe ntialon 09-13-2023 Erythrocyte distribution width (RBC) [Ratio] 16.5 % Critically high 11.5-14.5 [facility] Comment on above: Performed By: #### C BCND #### [facility] [address] [place] [address] Hematocrit (Bld) [Volume fraction] 33.8 % Low 37.0-47.0 [facility] Comment on above: Performed By: #### C BCND #### [facility] [address] [place] [address] Hemoglobin (Bld) [Mass/Vol] 10.3 g/dL Low 12.0-16.0 [facility] Comment on above: Performed By: #### C BCND #### [facility] [address] [place] [address] MCH (RBC) [Entitic mass] 23.8 pg Low 27.0-31.3 [facility] Comment on above: Performed By: #### C BCND #### [facility] [address] [place] [address] MCHC 30.5 % Low 33.0-37.0 [facility] Comment on above: Performed By: #### C BCND #### [facility] [address] [place] [address] MCV (RBC) [Entitic vol] 78.1 fL Low 79.4-94.8 [facility] Comment on above: Performed By: #### C BCND #### [facility] [address] [place] [address] Platelets (Bld) [#/Vol] 434 10*3/uL Critically high 130-40 0 [facility] Comment on above: Performed By: #### C BCND #### [facility] [address] [place] [address] RBC (Bld) [#/Vol] 4.33 10*6/uL Normal 4.20-5.40 [facility] Comment on above: Performed By: #### C BCND #### [facility] [address] [place] [address] WBC (Bld) [#/Vol] 7.4 10*3/uL Normal 4.8-10.8 [facility] Comment on above: Performed By: #### C BCND #### [facility] [address] [place] [address] Comprehensive Metabolic Pane leslee 09-13-2023 Albumin [Mass/Vol] 4.4 g/dL Normal 3.5-4.6 [facility] Comment on above: Performed By: #### C MP #### [facility] [address] [place] [address] ALP [Catalytic activity/Vol] 79 U/L Normal 40-130 [facility] Comment on above: Performed By: #### C MP #### [facility] [address] [place] [address] ALT [Catalytic activity/Vol] 27 U/L Normal 0-33 [facility] Comment on above: Performed By: #### C MP #### [facility] [address] [place] [address] Anion gap [Moles/Vol] 12 mmol/L Normal 9-15 [facility] Comment on above: Performed By: #### C MP #### [facility] [address] [place] [address] AST [Catalytic activity/Vol] 21 U/L Normal 0-35 [facility] Comment on above: Performed By: #### C MP #### [facility] [address] [place] [address] Bilirubin [Mass/Vol] 0.8 mg/dL Critically high 0.2-0.7 [facility] Comment on above: Performed By: #### C MP #### [facility] [address] [place] [address] Calcium [Mass/Vol] 9.4 mg/dL Normal 8.5-9.9 [facility] Comment on above: Performed By: #### C MP #### [facility] [address] [place] [address] Chloride [Moles/Vol] 105 mmol/L Normal 95-107 [facility] Comment on above: Performed By: #### C MP #### [facility] [address] [place] [address] CO2 [Moles/Vol] 25 mmol/L Normal 20-31 [facility] Comment on above: Performed By: #### C MP #### [facility] [address] [place] [address] Creatinine [Mass/Vol] 0.68 mg/dL Normal 0.50-0.90 [facility] Comment on above: Performed By: #### C MP #### [facility] [address] [place] [address] GFR >60.0 Normal >60 [facility] Comment on above: Result Comment: Callum atric calculator link https://www.kidney.org/professionals/kdoqi/gfr_calculatorped Effective May 18, 2022 These results are not intended for use in patients <18 years of age. eGFR results are calculated without a race factor using the 2020 CKD-EPI equation. Careful clinical correlation is recommended, particularly when comparing to results calculated using previous equations. The CKD-EPI equation is less accurate in patients with extremes of muscle mass, extra-renal metabolism of creatinine, excessive creatinine ingestion, or following therapy that affects renal tubular secretion. Performed By: #### C MP #### [facility] [address] [place] [address] Globulin (S) [Mass/Vol] 3.0 g/dL Normal 2.3-3.5 [facility] Comment on above: Performed By: #### C MP #### [facility] [address] [place] [address] Glucose [Mass/Vol] 91 mg/dL Normal 70-99 [facility] Comment on above: Performed By: #### C MP #### [facility] [address] [place] [address] Potassium [Moles/Vol] 3.8 mmol/L Normal 3.4-4.9 [facility] Comment on above: Performed By: #### C MP #### [facility] [address] [place] [address] Protein [Mass/Vol] 7.4 g/dL Normal 6.3-8.0 [facility] Comment on above: Performed By: #### C MP #### [facility] [address] [place] [address] Sodium [Moles/Vol] 142 mmol/L Normal 135-144 [facility] Comment on above: Performed By: #### C MP #### [facility] [address] [place] [address] Urea nitrogen [Mass/Vol] 6 mg/dL Normal 6-20 [facility] Comment on above: Performed By: #### C MP #### [facility] [address] [place] [address] High Sensitivity CRPon 09-13 High Sensitivity CRP 1.3 mg/L Normal 0.0-5.0 [facility] Comment on above: Performed By: #### H SCRP #### [facility] [address] [place] [address] Sedimentation Rateon 024 Sedimentation Rate 8 mm Normal 0-20 [facility] Comment on above: Result Comment: ESR Units mm/Hr Performed By: #### E SR #### [facility] [address] [place] [address] No Panel Informationon 02-06 Impression: Multiple small follicles are seen in both ovaries. The endometrial cavity and uterus are within normal limits. [facility] RADIOLOGY Comparison: October 31, 2020 Diagnosis: E28.2 PCOS (polycystic ovarian syndrome) ICD10 Technique: US NON OB TRANSVAGINAL, US PELVIS COMPLETE Findings: The uterus measures 8.5 x 3.7 x 5.7 cm.. The endometrial cavity measures 0.9 cm.. A small amount of free fluid is seen in the cul-de-sac that is likely physiologic. The right ovary measures 2.8 x 1.9 x 2.9 cm for volume of 7.7 mL. The left ovary measures 2.5 x 1.3 x 1.8 cm for volume of 2.9 mL. Small follicles are again seen in both ovaries. Spectral wave forms and color Doppler images show normal blood flow. The visualized portion of the bladder is unremarkable. Nabothian cyst is seen in the cervix.. [facility] Jaspreet Werner, DO - 02/06/2022 Comparison: October 31, 2020 Diagnosis: E28.2 PCOS (polycystic ovarian syndrome) ICD10 Technique: US NON OB TRANSVAGINAL, US PELVIS COMPLETE Findings: The uterus measures 8.5 x 3.7 x 5.7 cm.. The endometrial cavity measures 0.9 cm.. A small amount of free fluid is seen in the cul-de-sac that is likely physiologic. The right ovary measures 2.8 x 1.9 x 2.9 cm for volume of 7.7 mL. The left ovary measures 2.5 x 1.3 x 1.8 cm for volume of 2.9 mL. Small follicles are again seen in both ovaries. Spectral wave forms and color Doppler images show normal blood flow. The visualized portion of the bladder is unremarkable. Nabothian cyst is seen in the cervix.. IMPRESSION: Impression: Multiple small follicles are seen in both ovaries. The endometrial cavity and uterus are within normal limits. [employer] Work Phone: No Panel InformationOrdered By: Jaspreet Werner on 02-06-2022 [employer] Work Phone: CBC with Auto Differentialon 02-05-2022 Basophils (Bld) [#/Vol] 0.0 10*3/uL 0.0 - 0.2 K/uL [facility] [employer] Basophils/100 WBC (Bld) 0.5 % B [facility] [employer] Eosinophils (Bld) [#/Vol] 0.1 10*3/uL 0.0 - 0.7 K/uL [facility] Eosinophils/100 WBC (Bld) 1.9 % [facility] Hematocrit (Bld) [Volume fraction] 31.3 % Low 37.0 - 47.0 % [facility] Hemoglobin (Bld) [Mass/Vol] 9.8 g/dL Low 12.0 - 16.0 g/dL [facility] Interpretation and review of laboratory results Abnormal [facility] Lymphocytes (Bld) [#/Vol] 1.1 10*3/uL 1.0 - 4.8 K/uL [facility] Lymphocytes/100 WBC (Bld) 15.8 % [facility] MCH (RBC) [Entitic mass] 26.1 pg Low 27. 0 - 31.3 pg [facility] MCHC (RBC) [Mass/Vol] 31.5 % Low 33.0 - 37.0 % [facility] MCV (RBC) [Entitic vol] 82.9 fL 82.0 - 100.0 fL [facility] Monocytes (Bld) [#/Vol] 0.4 10*3/uL 0.2 - 0.8 K/uL [facility] Monocytes/100 WBC (Bld) 5.2 % B [facility] Neutrophils Absolute 5.3 K/uL 1.4 - 6 .5 K/uL [facility] Neutrophils/100 WBC (Bld) 76.6 % [facility] Platelet distribution width (Bld) [Ratio] 17.3 % High 11.5 - 14.5 % [facility] Platelets (Bld) [#/Vol] 376 10*3/uL 130 - 400 K/uL [facility] RBC (Bld) [#/Vol] 3.77 10*6/uL Low [facility] WBC (Bld) [#/Vol] 7.0 10*3/uL 4.8 - 10.8 K/uL [facility] No Panel Informationon 02-05 [facility] Radiology Study observation (narrative) JALEESA [employer]TON [employer] Phone: Prolactinon 02-05-2022 Prolactin 21.1 ng/mL [employer] Comment on above: Default Normal Range s Female Male Non: 4.8-23.3 4.0-15.2 TSH with Reflexon 02-05-2022 TSH Qn 1.17 m[IU]/L [employer] Insulin, TotalOrdered By: Severiano Hadley on 06-09-2021 Insulin 7.2 [employer] Phone: Comment on above: NOTE: to convert Insulin to pmol/L, multiply uIU/mL by 6.9 [employer] Phone: Provider Note - ED Care Ortez sitionon 03-07-2021 Provider Note - ED Care Transition ED Care Transition: Chart Review: RESULTS/VITAL SIGNS VITAL SIGNS: T PRBP SpO2O2(LPM) %FiO2 Method 07-Mar-2021 07:08:[id number]/51 98 room air, no respiratory support 06-Mar-2021 22:23:[id number]/75 98 room air, no respiratory support 06-Mar-2021 15:00:00-7019069/69 98 room air, no respiratory support MEDICAL DECISION MAKING/ED COURSE MDM/ED COURSE: Patient was signed out to me pending reevaluation by psychiatry, as per psychiatry patient will need to be admitted and they found a place at [facility] for the patient to be admitted CLINICAL IMPRESSION Diagnosis/Annotation: ED Dx Name:Suicide attempt by multiple drug overdose Code:T50.912A Disposition: transferred Facility Name: [facility] ATTESTATION CRITICAL CARE TIME Is this a critically ill patient: no Electronic Signatures: Sabrina Loja) (Signed 07-Mar-2021 12:21) Authored: Results/Vital Signs, MDM/ED Course, Clinical Impression, Attestation, Chart Review, Scores Last Updated: 07-Mar-2021 12:21 by Sabrina Loja) [facility] Provider Note - ED Care Transition ED Care Transition: Chart Review: MEDICAL DECISION MAKING/ED COURSE MDM/ED COURSE: Received patient in signout over pending psychiatric admission. Patient remained stable throughout shift, still awaiting placement. 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 [place] ACETAMINOPHENon 03-06-2021 Acetaminophen [Mass/Vol] ug/mL Normal 10. 0 - 30.0 [facility] [place] Comment on above: Performed By: #### C K #### [address] [id number] Acetaminophen [Mass/Vol] ug/mL Normal 10. 0 - 30.0 [facility] [place] Comment on above: Performed By: #### A CETA ####[facility] [place] [id number] ALCOHOLon 03-06-2021 Ethanol [Mass/Vol] 97 mg/dL Abnormal [facility] Comment on above: Result Comment: FOR MEDICAL USE ONLY. . REF VALUES <10 Performed By: #### A LC #### [address] [id number] Ethanol [Mass/Vol] 151 mg/dL Abnormal [facility] Comment on above: Result Comment: FOR MEDICAL USE ONLY. . REF VALUES <10 Performed By: #### A LC #### [address] [id number] Ethanol [Mass/Vol] 191 mg/dL Abnormal [facility] Comment on above: Result Comment: FOR MEDICAL USE ONLY. . REF VALUES <10 Performed By: #### C BCDF #### [address] [id number] CBC AND DIFFERENTIALon 03-06 % AUTOMATED IMMATURE GRAN 0.4 % Normal 0.0 - 0.9 [facility] [place] Comment on above: Result Comment: Lynda ture Granulocyte Count (IG) includes promyelocytes, myelocytes and metamyelocytes but does not include bands. Percent differential counts (%) should be interpreted in the context of the absolute cell counts (cells/L). Performed By: #### C BCDF ####[address] [id number] Basophils (Bld) [#/Vol] 0.05 10*3/uL Normal 0.00 - 0.10 [facility] [place] Comment on above: Performed By: #### C BCDF ####[address] [id number] Basophils/100 WBC (Bld) 0.5 % Normal 0.0 - 2.0 [facility] Comment on above: Performed By: #### C BCDF ####[address] [id number] Eosinophils (Bld) [#/Vol] 0.15 10*3/uL Normal 0.00 - 0.70 [facility] [place] Comment on above: Performed By: #### C BCDF ####[address] [id number] Eosinophils/100 WBC (Bld) 1.6 % Normal 0.0 - 6.0 [facility] [place] Comment on above: Performed By: #### C BCDF ####[address] [id number] Erythrocyte distribution width (RBC) [Ratio] 14.0 % Normal 11.5 - 14.5 [facility] [place] Comment on above: Performed By: #### C BCDF ####[address] [id number] Hematocrit (Bld) [Volume fraction] 37.9 % Normal 36.0 - 46.0 [facility] [place] Comment on above: Performed By: #### C BCDF ####[address] [id number] Hemoglobin (Bld) [Mass/Vol] 11.8 g/dL Low 12.0 - 16.0 [facility], [place]) Comment on above: Performed By: #### C BCDF ####[facility] [place], [place] [id number] Lymphocytes (Bld) [#/Vol] 2.26 10*3/uL Normal 1.20 - 4.80 [facility] [place] Comment on above: Performed By: #### C BCDF ####[address] [id number] Lymphocytes/100 WBC (Bld) 23.4 % Normal 13.0 - 44.0 [facility] [place] Comment on above: Performed By: #### C BCDF ####[address] [place], [place] [id number] MCHC (RBC) [Mass/Vol] 31.1 g/dL Low 32.0 - 36.0 [facility] [place] Comment on above: Performed By: #### C BCDF ####[address] [id number] MCV (RBC) [Entitic vol] 93 fL Normal 80 - 100 [facility] Comment on above: Performed By: #### C BCDF ####[address] [place], [place] [id number] Monocytes (Bld) [#/Vol] 0.89 10*3/uL Normal 0.10 - 1.00 [facility] [place] Comment on above: Performed By: #### C BCDF ####[address] [id number] Monocytes/100 WBC (Bld) 9.2 % Normal 2.0 - 10.0 [facility] Comment on above: Performed By: #### C BCDF ####[address] [id number] Neutrophils (Bld) [#/Vol] 6.28 10*3/uL Normal 1.20 - 7.70 [facility] [place] Comment on above: Performed By: #### C BCDF ####[facility] [place], [place] [id number] Neutrophils/100 WBC (Bld) 64.9 % Normal 40.0 - 80.0 [facility] [place] Comment on above: Performed By: #### C BCDF ####[facility] [place], [place] [id number] Platelets (Bld) [#/Vol] 326 10*3/uL Normal 150 - 450 [facility] [place] Comment on above: Performed By: #### C BCDF ####[facility] [place], [place] [id number] RBC 4.07 x10E12/L Normal 4.00 - 5.20 [facility] [place] Comment on above: Performed By: #### C BCDF ####[address] [place], [place] [id number] WBC (Bld) [#/Vol] 9.7 10*3/uL Normal 4.4 - 11.3 [facility] Comment on above: Performed By: #### C BCDF ####[address] [id number] COMPREHENSIVE PANELon 2020 Albumin [Mass/Vol] 4.2 g/dL Normal 3.4 - 5.0 [facility] Comment on above: Performed By: #### C K #### [address] [id number] ALP [Catalytic activity/Vol] 58 U/L Normal 33 - 110 [facility] [place] Comment on above: Performed By: #### C K #### [address] [id number] ALT [Catalytic activity/Vol] 13 U/L Normal 7 - 45 [facility] [place] Comment on above: Result Comment: Marni ents treated with Sulfasalazine may generate falsely decreased results for ALT. Performed By: #### C K #### [address] [id number] Anion gap [Moles/Vol] 13 mmol/L Normal 10 - 20 [facility] [place] Comment on above: Performed By: #### C K #### [address] [id number] AST [Catalytic activity/Vol] 26 U/L Normal 9 - 39 [facility] [place] Comment on above: Performed By: #### C K #### [address] [id number] Bilirubin [Mass/Vol] 0.6 mg/dL Normal 0.0 - 1.2 [facility] Comment on above: Performed By: #### C K #### [address] [id number] Calcium [Mass/Vol] 9.2 mg/dL Normal 8.6 - 10.3 [facility] Comment on above: Performed By: #### C K #### [address] [id number] Chloride [Moles/Vol] 103 mmol/L Normal 98 - 107 [facility] Comment on above: Performed By: #### C K #### [address] [id number] Creatinine [Mass/Vol] 0.68 mg/dL Normal 0.50 - 1.05 [facility] [place] Comment on above: Performed By: #### C K #### [address] [id number] GFR- AM. >60 Normal >60 [facility] [place] Comment on above: Result Comment: CALC ULATIONS OF ESTIMATED GFR ARE PERFORMED USING THE MDRD STUDY EQUATION FOR THE IDMS-TRACEABLE CREATININE METHODS. CLIN CHEM 2007;53:766-72 Performed By: #### C K #### [address] [id number] GFR-NON AM. >60 Normal >60 [facility] Comment on above: Performed By: #### C K #### [address] [id number] Glucose [Mass/Vol] 101 mg/dL High 74 - 99 [facility] Comment on above: Performed By: #### C K #### [address] [id number] HCO3 (Bld) [Moles/Vol] 27 mmol/L Normal 21 - 32 [facility] [place] Comment on above: Performed By: #### C K #### [address] [id number] Potassium [Moles/Vol] 3.5 mmol/L Normal 3.5 - 5.3 [facility] [place] Comment on above: Performed By: #### C K #### [address] [id number] Protein [Mass/Vol] 7.2 g/dL Normal 6.4 - 8.2 [facility] Comment on above: Performed By: #### C K #### [address] [id number] Sodium [Moles/Vol] 139 mmol/L Normal 136 - 145 [facility] Comment on above: Performed By: #### C K #### [address] [id number] Urea nitrogen [Mass/Vol] 4 mg/dL Low 6 - 23 [facility] [place] Comment on above: Performed By: #### C K #### [address] [id number] CORONAVIRUS 2019, SCREEN ASY MPTOMATICon 03-06-2021 SARS-CoV-2 (COVID-19) RNA DAVID+probe Ql (Unsp spec) Not detected Normal Not Detected [facility] [place] Comment on above: Result Comment: . This test has received FDA Emergency Use Authorization (EUA) and has been verified by [facility]. This test is only authorized for the duration of time that circumstances exist to justify the authorization of the emergency use of in vitro diagnostic tests for the detection of SARS-CoV-2 virus and/or diagnosis of COVID-19 infection under section 564(b)(1) of the Act, 21 U.S.C. 360bbb-3(b)(1), unless the authorization is terminated or revoked sooner. [facility] is certified under CLIA-88 as qualified to perform high complexity testing. Testing is performed in the [facility] laboratory located at [address] [place] [address]. SARS-CoV-2/Flu/RSV Multiplex Test: Fact sheet for providers: https://www.fda.gov/media/117392/download Fact sheet for patients: https://www.fda.gov/media/954078/download Performed By: #### C OVSC #### [address] [id number] Lab Specimen Source Nasal, Nasopharyngeal Normal [facility] [place] Comment on above: Performed By: #### C OVSC #### [address] [id number] CREATINE KINASEon 03-06-2021 CK [Catalytic activity/Vol] 145 U/L Normal 0 - 215 [facility] [place] Comment on above: Performed By: #### C K #### [address] [id number] Covid 19 Resultson SARS-CoV-2 (COVID-19) RNA DAVID+probe Ql (Unsp spec) NEGATIVE COVID-19 Test Coronaviruses are common world-wide and are the cause of many common colds. SARS-COV2 is a new coronavirus that began circulating worldwide in 2019 so we are calling it COVID-19. It has been estimated that four out of five patients with COVID-19 will recover at home without the need for medical attention. Symptoms of COVID-19 may include cough, fever, shortness of breath, loss of taste or smell and other flu-like symptoms including chills, sore muscles, sore throat, and headache. Severe illness is more common in older people and people with other health problems such as high blood pressure, obesity, and immune system problems. If the test is positive, you have COVID-19. You will be contacted by the ordering physicians office and instructed to remain on home isolation, in accordance with CDC guidelines. You may also be contacted by the [facility] to see if any of your close contacts may have been exposed to the virus and need to quarantine. If the test is negative, you likely do not have COVID-19 at this time, but you still may have a different illness that can spread to other people (like Influenza, or the Flu) and could still be at risk for getting COVID-19. We recommend that you stay away from other people to limit the spread of illness until your symptoms are improving and you are fever-free for 24 hours without the use of fever lowering medications such as acetaminophen or ibuprofen. No test is 100% accurate so if you are still concerned you may have COVID-19, talk to your doctor about the need to continue to stay away from others. Medicines Unless your provider told you not to use the following: Acetaminophen (Tylenol and others) is generally safe. Anti-inflammatory medications, such as Ibuprofen (Advil or Motrin) or Naproxen (Aleve) can also be used. Qpbs-wln-rhasplm cough and cold medicines can be used according to the instructions on the package. Some idbt-yxg-gcibxcu medicines also contain acetaminophen. Make sure you are not taking more than your recommended dose. For those not hospitalized, there is no specific treatment available for this illness. Antibiotics do not treat Coronaviruses. Follow-Up Follow up with your doctor by scheduling a virtual visit or consider follow-up at one of our urgent care fever clinics. If you are having difficulty breathing, or are very weak and having difficulty standing, this is a medical emergency. Call 911 or have someone take you to the nearest emergency room immediately. If possible, wear a facemask. Additional guidance from the CDC for patients who tested POSITIVE for COVID-19 How to isolate: Isolate yourself in a specific room at home and limit your contact with others. Use a separate bathroom from other members of the household, when possible. Leave home only to get essential medical care. Do not go to work, school or public areas. Avoid using public transportation, ride-sharing, or taxis. Restrict contact with pets and other animals. If you must care for your pet or be around animals while you are sick, wash your hands before and after your interaction and wear a facemask. Make sure that shared spaces in the home have good airflow, such as by an air conditioner or an opened window, weather permitting. Personal Hygiene Procedures: Wear a face mask when in the same room as other people or pets. If a face mask interferes with your breathing, others should wear a mask when sharing space with you. Frequent hand-washing: wash your hands with soap and water for at least 20 seconds. If soap and water are not available, use alcohol-based hand buyer liaison. Avoid touching your eyes, nose, and mouth with unwashed hands. Household Hygiene Procedures: Avoid sharing personal household items such as dishes, glassware, cups, eating utensils, towels or bedding with other people or pets in your home. After use, these items should be washed with soap and hot water. Disinfect all high-touch surfaces every day with antibacterial cleaning solutions such as Lysol wipes, bleach, cleansers, etc. High-touch surfaces include tabletops, doorknobs, bathroom fixtures, toilets, phones, keyboards, tablets and bedside tables. Immediately clean any surfaces that may have blood, poop or body fluids on them, using antibacterial cleaning solutions such as Lysol wipes, bleach, cleansers, etc. If clothing or bedding come into contact with blood, poop or body fluids, they should be washed immediately. Follow the directions on the laundry detergent and clothing labels but hot water is recommended when possible. Stopping home isolation precautions: If possible, consult your doctor before stopping home isolation precautions. According to the CDC, you can discontinue home isolation precautions when you have met both of these criteria: Your fever and respiratory symptoms have been gone for 24 osvaldo (more content not included)... Normal [facility] ([place], [place]) DRUG SCREEN,URINEon 03-06-20 21 AMPHETAMINE SCREEN,U Negative Normal NEGATIVE [facility] Comment on above: Result Comment: CUTO FF LEVEL: 500 NG/ML Cross-reactivity has been reported with high concentrations of the following drugs: buproprion, chloroquine, chlorpromazine, ephedrine, mephentermine, fenfluramine, phentermine, phenylpropanolamine, pseudoephedrine, and propranolol. Performed By: #### D RUG3 ####[facility] [place], [place] [id number] BARBITURATES SCREEN,U Negative Normal NEGATIVE [facility] ([place], [place]) Comment on above: Result Comment: CUTO FF LEVEL: 200 NG/ML Performed By: #### D RUG3 ####[address] [id number] BENZODIAZEPINES SCREEN,U Negative Normal NEGATIVE [facility] ([place], [place]) Comment on above: Result Comment: CUTO FF LEVEL: 200 NG/ML Performed By: #### D RUG3 ####[address] [id number] CANNABINOIDS SCREEN,U Negative Normal NEGATIVE [facility] ([place], [place]) Comment on above: Result Comment: CUTO FF LEVEL: 50 NG/ML Performed By: #### D RUG3 ####[address] [id number] COCAINE METABOLITE SCREEN,U Negative Normal NEGATIVE [facility] ([place], [place]) Comment on above: Result Comment: CUTO FF LEVEL: 150 NG/ML Performed By: #### D RUG3 ####[address] [id number] DRUG SCREEN COMMENT SEE BELOW Normal [facility] Comment on above: Result Comment: Drug screen results are presumptive and should not be used to assess compliance with prescribed medication. Contact the performing [facility] laboratory to add-on definitive confirmatory testing if clinically indicated. . Toxicology screening results are reported qualitatively. The concentration must be greater than or equal to the cutoff to be reported as positive. The concentration at which the screening test can detect an individual drug or metabolite varies. The absence of expected drug(s) and/or drug metabolite(s) may indicate non-compliance, inappropriate timing of specimen collection relative to drug administration, poor drug absorption, diluted/adulterated urine, or limitations of testing. For medical purposes only; not valid for forensic use. . Interpretive questions should be directed to the laboratory medical directors. Performed By: #### D RUG3 ####[address] [id number] FENTANYL SCREEN,URINE Negative Normal NEGATIVE [facility] ([place], [place]) Comment on above: Result Comment: CUTO FF LEVEL: 1 NG/ML Performed By: #### D RUG3 ####[address] [id number] METHADONE SCREEN,U Negative Normal NEGATIVE [facility] Comment on above: Result Comment: CUTO FF LEVEL: 150 NG/ML The metabolite N-sxoyg-xthdcjjsgpraxo (LAAM) is not detected by this method in concentrations that would be found in the urine of patients on LAAM therapy. Performed By: #### D RUG3 ####[address] [id number] OPIATES SCREEN,U Positive Abnormal NEGATIVE [facility] Comment on above: Result Comment: CUTO FF LEVEL: 300 NG/ML The opiate screen does not detect fentanyl, meperidine, or tramadol. Oxycodone is not consistently detected (refer to Oxycodone Screen, Urine result). Performed By: #### D RUG3 ####[address] [id number] OXYCODONE SCREEN,U Negative Normal NEGATIVE [facility] Comment on above: Result Comment: CUTO FF LEVEL: 100 NG/ML This test will accurately detect both oxycodone and oxymorphone. Performed By: #### D RUG3 ####[address] [id number] PCP SCREEN,U Negative Normal NEGATIVE [facility] ([place], [place]) Comment on above: Result Comment: CUTO FF LEVEL: 25 NG/ML Cross-reactivity has been reported with dextromethorphan. Performed By: #### D RUG3 ####[address] [id number] HCG,URINEon 03-06-2021 Beta HCG ( test) Ql (U) Negative Normal Negative [facility] ([place], [place]) Comment on above: Performed By: #### H CGU ####[address] [id number] Provider Note - ED Care Ortez sitionon 03-06-2021 Provider Note - ED Care Transition ED Care Transition: Chart Review: ED NOTES ED NOTES: Patient care signed out to me at [address] Farfan . Initial history, physical exam, initiated diagnostic evaluation and treatment plan have been discussed and reviewed. The following is pending: Repeat alcohol and acetaminophen level; when medically cleared, she will require an EPAT evaluation Final disposition and care plan will be determined based on results and re-evaluation. RESULTS/VITAL SIGNS RESULTS: Recent Lab Results: I have reviewed these laboratory results: Acetaminophen Level, Serum Trending View [id number] 07:17:00 06-Mar-2021 04:21:00 Acetaminophen Level, Serum<10.0 <10.0 Ethanol Level Trending View [id number] 07:17:00 06-Mar-2021 04:21:00 Ethanol [id number] A 191 A Coronavirus 2019, Screen Asymptomatic 06-Mar-2021 04:25:00 ResultValue Fluid Source Nasal, Nasopharyngeal Coronavirus 2019,PCR NOT DETECTED Reference Range: Not Detected . This test has received FDA Emergency Use Authorization (EUA) and has been verified by [facility]. This test is only authorized for the duration of time that circumsta Drug Screen, Urine 06-Mar-2021 04:21:00 ResultValue Comments. SEE BELOW Drug screen results are presumptive and should not be used to assess compliance with prescribed medication. Contact the performing [facility] laboratory to add-on definitive confirmatory testing if clinically indicated. . Toxicology scre Amphetamine Screen, Urine PRESUMPTIVE NEGATIVE CUTOFF LEVEL: 500 NG/ML Cross-reactivity has been reported with high concentrations of the following drugs: buproprion, chloroquine, chlorpromazine, ephedrine, mephentermine, fenfluramine, phentermine, phenylpropanolamine Barbiturate Screen, Urine PRESUMPTIVE NEGATIVE PRESUMPTIVE NEGATIVE CUTOFF LEVEL: 200 NG/ML Benzodiazepine Screen, Urine PRESUMPTIVE NEGATIVE PRESUMPTIVE NEGATIVE CUTOFF LEVEL: 200 NG/ML Cannabinoid Screen, Urine PRESUMPTIVE NEGATIVE PRESUMPTIVE NEGATIVE CUTOFF LEVEL: 50 NG/ML Cocaine Metabolite Screen, Urine PRESUMPTIVE NEGATIVE PRESUMPTIVE NEGATIVE CUTOFF LEVEL: 150 NG/ML Fentanyl Screen, Urine PRESUMPTIVE NEGATIVE PRESUMPTIVE NEGATIVE CUTOFF LEVEL: 1 NG/ML Methadone Screen, Urine PRESUMPTIVE NEGATIVE CUTOFF LEVEL: 150 NG/ML The metabolite J-jbjoy-twthnknvdlecnu (LAAM) is not detected by this method in concentrations that would be found in the urine of patients on LAAM therapy. Opiate Screen, Urine PRESUMPTIVE POSITIVE CUTOFF LEVEL: 300 NG/ML The opiate screen does not detect fentanyl, meperidine, or tramadol. Oxycodone is not consistently detected (refer to Oxycodone Screen, Urine result). A Oxycodone Screen, Urine (item) PRESUMPTIVE NEGATIVE CUTOFF LEVEL: 100 NG/ML This test will accurately detect both oxycodone and oxymorphone. PCP Screen, Urine PRESUMPTIVE NEGATIVE CUTOFF LEVEL: 25 NG/ML Cross-reactivity has been reported with dextromethorphan. Complete Blood Count + Differential 06-Mar-2021 04:21:00 ResultValue White Blood Cell Count 9.7 Red Blood Cell Count 4.07 HGB 11.8 L HCT 37.9 MCV 93 MCHC 31.1 L PLT 326 RDW-CV 14.0 Neutrophil % 64.9 Immature Granulocytes % 0.4 Lymphocyte % 23.4 Monocyte % 9.2 Eosinophil % 1.6 Basophil % 0.5 Neutrophil Count 6.28 Lymphocyte Count 2.26 Monocyte Count 0.89 Eosinophil Count 0.15 Basophil Count 0.05 Comprehensive Metabolic Panel 06-Mar-2021 04:21:00 ResultValue Glucose, Serum 101 H NA 139 K 3.5 CL 103 Bicarbonate, Serum 27 Anion Gap, Serum 13 BUN 4 L CREAT 0.68 GFR-Non >60 GFR- >60 Calcium, Serum 9.2 ALB 4.2 ALKP 58 T Pro 7.2 T Bili 0.6 Alanine Aminotransferase, Serum 13 Aspartate Transaminase, Serum 26 Urine Test 06-Mar-2021 04:21:00 ResultValue HCG, Urine NEGATIVE Urinalysis 06-Mar-2021 04:21:00 ResultValue Color, Urine COLORLESS Reference Range: STRAW,YELLOW Appearance, Urine CLEAR Specific [place], Urine 1.001 L pH, Urine 6.0 Protein, Urine NEGATIVE Glucose, Urine NEGATIVE Blood, Urine LARGE (3+) A Ketones, Urine NEGATIVE Bilirubin, Urine NEGATIVE Urobilinogen, Urine <2.0 Nitrite, Urine NEGATIVE Leukocyte Esterase, Urine TRACE A Urinalysis, Microscopic 06-Mar-2021 04:21:00 ResultValue White Cells 1 Red Blood Cells 1 Epithelial Cells, Squamous <1 Acetylsalicylic Acid Level, Serum 06-Mar-2021 04:21:00 ResultValue Acetylsalicylic Acid Level, Serum <3 Creatine Kinase, Level 06-Mar-2021 04:21:00 ResultValue Creatine Kinase, Level 145 VITAL SIGNS: T PRBP SpO2O2(LPM) %FiO2 Method 06-Mar-2021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 elvh-jas-ylmnoln medicines also contain acetaminophen. Make sure you are not taking more than your recommended dose. For those not hospitalized, there is no specific treatment available for this illness. Antibiotics do not treat Coronaviruses. Follow-Up Follow up with your doctor by scheduling a virtual visit or consider follow-up at one of our urgent care fever clinics. If you are having difficulty breathing, or are very weak and having difficulty standing, this is a medical emergency. Call 911 or have someone take you to the nearest emergency room immediately. If possible, wear a facemask. Additional guidance from the CDC for patients who tested POSITIVE for COVID-19 How to isolate: Isolate yourself in a specific room at home and limit your contact with others. Use a separate bathroom from other members of the household, when possible. Leave home only to get essential medical care. Do not go to work, school or public areas. Avoid using public transportation, ride-sharing, or taxis. Restrict contact with pets and other animals. If you must care for your pet or be around animals while you are sick, wash your hands before and after your interaction and wear a facemask. Make sure that shared spaces in the home have good airflow, such as by an air conditioner or an opened window, weather permitting. Personal Hygiene Procedures: Wear a face mask when in the same room as other people or pets. If a face mask interferes with your breathing, others should wear a mask when sharing space with you. Frequent hand-washing: wash your hands with soap and water for at least 20 seconds. If soap and water are not available, use alcohol-based hand buyer liaison. Avoid touching your eyes, nose, and mouth with unwashed hands. Household Hygiene Procedures: Avoid sharing personal household items such as dishes, glassware, cups, eating utensils, towels or bedding with other people or pets in your home. After use, these items should be washed with soap and hot water. Disinfect all high-touch surfaces every day with antibacterial cleaning solutions such as Lysol wipes, bleach, cleansers, etc. High-touch surfaces include tabletops, doorknobs, bathroom fixtures, toilets, phones, keyboards, tablets and bedside tables. Immediately clean any surfaces that may have blood, poop or body fluids on them, using antibacterial cleaning solutions such as Lysol wipes, bleach, cleansers, etc. If clothing or bedding come into contact with blood, poop or body fluids, they should be washed immediately. Follow the directions on the laundry detergent and clothing labels but hot water is recommended when possible. Stopping home isolation precautions: If possible, consult your doctor before stopping home isolation precautions. According to the CDC, you can discontinue home isolation precautions when you have met both of these criteria: Your fever and respiratory symptoms have been gone for 24 osvaldo (more content not included)... Normal [facility] ([place], [place]) DRUG SCREEN,URINEon 02-06-20 21 AMPHETAMINE SCREEN,U Negative Normal NEGATIVE [facility] Comment on above: Result Comment: CUTO FF LEVEL: 500 NG/ML Cross-reactivity has been reported with high concentrations of the following drugs: buproprion, chloroquine, chlorpromazine, ephedrine, mephentermine, fenfluramine, phentermine, phenylpropanolamine, pseudoephedrine, and propranolol. Performed By: #### D RUG3 #### [address] [id number] BARBITURATES SCREEN,U Negative Normal NEGATIVE [facility] ([place], [place]) Comment on above: Result Comment: CUTO FF LEVEL: 200 NG/ML Performed By: #### D RUG3 #### [address] [id number] BENZODIAZEPINES SCREEN,U Negative Normal NEGATIVE [facility] ([place], [place]) Comment on above: Result Comment: CUTO FF LEVEL: 200 NG/ML Performed By: #### D RUG3 #### [address] [id number] CANNABINOIDS SCREEN,U Negative Normal NEGATIVE [facility] ([place], [place]) Comment on above: Result Comment: CUTO FF LEVEL: 50 NG/ML Performed By: #### D RUG3 #### [address] [id number] COCAINE METABOLITE SCREEN,U Negative Normal NEGATIVE [facility] ([place], [place]) Comment on above: Result Comment: CUTO FF LEVEL: 150 NG/ML Performed By: #### D RUG3 #### [address] [id number] DRUG SCREEN COMMENT SEE BELOW Normal [facility] Comment on above: Result Comment: Drug screen results are presumptive and should not be used to assess compliance with prescribed medication. Contact the performing [facility] laboratory to add-on definitive confirmatory testing if clinically indicated. . Toxicology screening results are reported qualitatively. The concentration must be greater than or equal to the cutoff to be reported as positive. The concentration at which the screening test can detect an individual drug or metabolite varies. The absence of expected drug(s) and/or drug metabolite(s) may indicate non-compliance, inappropriate timing of specimen collection relative to drug administration, poor drug absorption, diluted/adulterated urine, or limitations of testing. For medical purposes only; not valid for forensic use. . Interpretive questions should be directed to the laboratory medical directors. Performed By: #### D RUG3 #### [address] [id number] FENTANYL SCREEN,URINE Negative Normal NEGATIVE [facility] ([place], [place]) Comment on above: Result Comment: CUTO FF LEVEL: 1 NG/ML Performed By: #### D RUG3 #### [address] [id number] METHADONE SCREEN,U Negative Normal NEGATIVE [facility] Comment on above: Result Comment: CUTO FF LEVEL: 150 NG/ML The metabolite T-pwxua-zqjacljwwmtvek (LAAM) is not detected by this method in concentrations that would be found in the urine of patients on LAAM therapy. Performed By: #### D RUG3 #### [address] [id number] OPIATES SCREEN,U Negative Normal NEGATIVE [facility] Comment on above: Result Comment: CUTO FF LEVEL: 300 NG/ML The opiate screen does not detect fentanyl, meperidine, or tramadol. Oxycodone is not consistently detected (refer to Oxycodone Screen, Urine result). Performed By: #### D RUG3 #### [address] [id number] OXYCODONE SCREEN,U Negative Normal NEGATIVE [facility] Comment on above: Result Comment: CUTO FF LEVEL: 100 NG/ML This test will accurately detect both oxycodone and oxymorphone. Performed By: #### D RUG3 #### [address] [id number] PCP SCREEN,U Negative Normal NEGATIVE [facility] ([place], [place]) Comment on above: Result Comment: CUTO FF LEVEL: 25 NG/ML Cross-reactivity has been reported with dextromethorphan. Performed By: #### D RUG3 #### [address] [id number] HCG,SERUM QUALITATIVEon 01-15 HCG,SERUM QUALITATIVE Negative Normal Negative [facility] ([place], [place]) Comment on above: Performed By: #### C K #### [address] [id number] Provider Note - ED Care Ortez sitionon 02-05-2021 Provider Note - ED Care Transition ED Care Transition: Chart Review: ED NOTES ED NOTES: Patient is a 21-year-old female who presents with suicidal ideation, found to be intoxicated with an alcohol level of 220. Lab work otherwise unremarkable. Patient awaiting repeat alcohol level prior to assessment by EPAT. Will follow recommendations pending assessment. ED course EPAT evaluated patient, patient reports that she made comments while she was intoxicated. Patient denies any SI or HI. Patient does have a history of anxiety and depression, was unaware that [facility] resources were available. Patient is interested in following up outpatient. Patient's boyfriend agrees that he believes patient is safe to return home. Patient will be discharged with strict return precautions, patient agrees with plan. Viola Ambriz M.D. CLINICAL IMPRESSION Diagnosis/Annotation: ED Dx Name:Suicidal ideation Code:R45.851 Name:Alcohol intoxication Code:F10.929 Disposition: discharged Type: home ATTESTATION CRITICAL CARE TIME Is this a critically ill patient: no Electronic Signatures: Viola Ambriz) (Signed 05-Feb-2021 13:31) Authored: ED Notes, Clinical Impression, Attestation, Chart Review, Scores Last Updated: 05-Feb-2021 13:31 by Viola Ambriz) Normal [facility] ([place], [place]) Provider Note - ED v2on 01-15 Provider Note - ED v2 Provider Note - ED v2: Chart Review: ED NOTES ED NOTES: A female patient comes in the emergency department today with suicidal thoughts. States she has plans on overdosing with medications. States that she did drink quite a bit of alcohol today. States she has a lot going life for now. Denies any diagnosed psychiatric conditions. Denies homicidal ideations, auditory and visual hallucinations. HISTORY OF PRESENTING ILLNESS REBEKAH is a 21 year old Female and was seen by me at 05-Feb-2021 03:40 for a chief complaint of suicidal thoughts. The historian is the patient. Triage Information: Most recent Vital Sign Value Date Temp (F): 97.7 02-05-2021 03:41 Temp (C): 36.5 02-05-2021 03:41 Heart Rate (beats/min): 123 02-05-2021 03:41 Respirations (breaths/min): 20 02-05-2021 03:41 SpO2 (%): 100 02-05-2021 03:41 BP Systolic (mm Hg): 103 02-05-2021 03:41 BP Diastolic (mm Hg): 62 02-05-2021 03:41 Presenting Symptoms: depression and suicidal thoughts.Context is alcohol related. The symptoms started today. PAST MEDICAL HISTORY ATTESTATION: I have reviewed and confirmed nurse's/medic's notes for patient's medications, allergies, and medical, surgical, family and social history ALLERGIES/INTOLERANCES: No Known Allergies HEALTH HISTORY: No documented data. 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 This assay is designed to detect the RdRp gene of SARS-CoV-2 via nucleic acid amplification. A Not Detected result does not preclude COVID-19 infection since the adequacy of sample collection and/or Drug Screen, Urine 05-Feb-2021 04:03:00 ResultValue Comments. SEE BELOW Drug screen results are presumptive and should not be used to assess compliance with prescribed medication. Contact the performing [facility] laboratory to add-on definitive confirmatory testing if clinically indicated. . Toxicology scre Amphetamine Screen, Urine PRESUMPTIVE NEGATIVE CUTOFF LEVEL: 500 NG/ML Cross-reactivity has been reported with high concentrations of the following drugs: buproprion, chloroquine, chlorpromazine, ephedrine, mephentermine, fenfluramine, phentermine, phenylpropanolamine Barbiturate Screen, Urine PRESUMPTIVE NEGATIVE PRESUMPTIVE NEGATIVE CUTOFF LEVEL: 200 NG/ML Benzodiazepine Screen, Urine PRESUMPTIVE NEGATIVE PRESUMPTIVE NEGATIVE CUTOFF LEVEL: 200 NG/ML Cannabinoid Screen, Urine PRESUMPTIVE NEGATIVE PRESUMPTIVE NEGATIVE CUTOFF LEVEL: 50 NG/ML Cocaine Metabolite Screen, Urine PRESUMPTIVE NEGATIVE PRESUMPTIVE NEGATIVE CUTOFF LEVEL: 150 NG/ML Fentanyl Screen, Urine PRESUMPTIVE NEGATIVE PRESUMPTIVE NEGATIVE CUTOFF LEVEL: 1 NG/ML Methadone Screen, Urine PRESUMPTIVE NEGATIVE CUTOFF LEVEL: 150 NG/ML The metabolite A-wvmjt-xuapezgcqnpjsu (LAAM) is not detected by this method in concentrations that would be found in the urine of patients on LAAM therapy. Opiate Screen, Urine PRESUMPTIVE NEGATIVE CUTOFF LEVEL: 300 NG/ML The opiate screen does not detect fentanyl, meperidine, or tramadol. Oxycodone is not consistently detected (refer to Oxycodone Screen, Urine result). Oxycodone Screen, Urine (item) PRESUMPTIVE NEGATIVE CUTOFF LEVEL: 100 NG/ML This test will accurately detect both oxycodone and oxymorphone. PCP Screen, Urine PRESUMPTIVE NEGATIVE CUTOFF LEVEL: 25 NG/ML Cross-reactivity has been reported with dextromethorphan. Complete Blood Count + Differential 05-Feb-2021 04:03:00 ResultValue White Blood Cell Count 9.0 Red Blood Cell Count 4.60 HGB 13.3 HCT 42.3 MCV 92 MCHC 31.4 L PLT 378 RDW-CV 13.7 Neutrophil % 61.5 Immature Granulocytes % 0.1 Lymphocyte % 29.3 Monocyte % 6.1 Eosinophil % 2.4 Basophil % 0.6 Neutrophil Count 5.53 Lymphocyte Count 2.64 Monocyte Count 0.55 Eosinophil Count 0.22 Basophil Count 0.05 Comprehensive Metabolic Panel 05-Feb-2021 04:03:00 ResultValue Glucose, Serum 113 H NA 140 K 3.8 CL 105 Bicarbonate, Serum 25 Anion Gap, Serum 14 BUN 4 L CREAT 0.70 GFR-Non >60 GFR- >60 Calcium, Serum 9.5 ALB 4.6 ALKP 75 T Pro 7.7 T Bi (more content not included)... Normal [facility] ([place], [place]) Risk Screen - Adult Emergenc yon 02-05-2021 Risk Screen - Adult Emergency Preferred Language: Preferred Language: Preferred Language for Discussing Health Care (patient/designee)Deepika freeman Advanced Directives: Advance Directive/DNRno Advance Directive Information Givenpatient/family declined Family Violence Adult: Abuse Screen: Are you or have you been threatened or abused physically, emotionally, or sexually by anyoneno Learning Assessment (Patient): Learning Assessment (Patient): Patient is Able to be Assessed for Learningyes Factors Influencing Readiness to Learnacuteness of illness; anxiety; depression; intoxicated Factors that Impact Ability to Learnacuteness of illness, intoxicated Devices/Methods Used to Communicatenone Learning Preferencesverbal instruction; written material Cultural Considerationsnone Developmental Considerationsnone Yazidism Considerationsnone Learning Assessment (Other Learner): Learning Assessment (Other Learner): Other learner availableno Pressure Injury/TB/Substance: Pressure Injury: Do you have a coughno Substance Use Current or Former HistoryYES: Alcohol Alcohol Usebinge on weekends Admission Risk Screen: Significant IndicatorsComplete CAGE: CAGE: Is this an injured patient at a Trauma Center ([facility]): no Electronic Signatures: Kaycee Washington (IVON) (Signed 05-Feb-2021 07:03) Authored: Preferred Language, Advanced Directives, Family Violence Adult, Learning Assessment (Patient), Learning Assessment (Other Learner), Pressure Injury/TB/Substance, Pressure Injury, CAGE Last Updated: 05-Feb-2021 07:03 by Kaycee Washington (IVON) Normal [facility] ([place], [place]) SALICYLATEon 02-05-2021 SALICYLATE <3 Normal 4 - 20 [facility] ([place], [place]) Comment on above: Performed By: #### C K #### [address] [id number] Triage - EDon 02-05-2021 Triage - ED Quick Triage: Are You no Have You Given In The Last 6 Weeksno Are You Currently Breastfeedingno Chart Review: ARRIVAL INFORMATION Mode of Arrival: ambulance Agency Name: [facility] CHIEF COMPLAINT REBEKAH YEE is a Female patient with a chief complaint of suicidal thoughts. Triage Date/Time: 05-Feb-2021 03:41 EDWARD: 2 Pain Rating (0-10): 0 = None Vital Signs: Temperature: 97.7F ( 36.5C) taken temporal Blood Pressure: 103/62 Mean: Heart Rate: 123 Respiratory Rate: 20 Pulse Oximetry: 100% on room air, no respiratory support. Height: 5 feet 3 inches. 160.0 CM Weight: 155.2 pounds. Calculated 70.4 kg. (stated) Calculated BMI (kg/m2): 27.500 Calculated BSA (m2) 1.77 [place] Coma Scale: Best Eye Response: (E4) spontaneous Best Motor Response: (M6) obeys commands Best Verbal Response: (V5) oriented Yandel Score: 15 Allergies: no Patient has homicidal thoughts: no Symptoms Are POSITIVE For: depression and suicidal thoughts. Symptoms Are Negative For: agitated, anorexia, confusion, fatigue, hallucinations and withdrawn. Risk Screens Suicide Risk Screen In the Past Month: Have you wished you were or wished you could go to sleep and not wake up yes In the Past Month: Have you had any actual thoughts of killing yourself yes In the Past Month: Have you been thinking about how you might do this yes In the Past Month: Have you had these thoughts and had some intention of acting on them yes In the Past Month: Have you started to work out or worked out the details of how to kill yourself Do you intend to carry out this plan yes In Your Lifetime: Have you ever done anything, started to do anything, or prepared to do anything to end your life yes Was this within the past 3 months yes Suicide Risk Interventions Low Suicide Risk Interventions: consider EPAT referral consult consider behavioral health resources will be given at discharge Moderate Suicide Risk Interventions: Interventions initiated: comfort care provided, items from room which may be used to harm self removed, patient placed in an easily observable room with curtain remaining open, patient placed in gown and wanded, provider notified, remaining risks identified and mitigated, therapeutic diversion offered (puzzles, games, journaling, TV blank box) elopement risk identified; family/visitor advised to maintain control of own personal belongings in room; finger food diet enforced; frequent rounding with irregular checks at a minimum of every 15 minutes to assess psych safety performed (patient easily observed); home medication list collected and shared with provider; patient observer at bedside, verbal handoff given; personal belongings secured; treatment plan based on risk factors developed and visitors limited when necessary and personal items screened High Suicide Risk Interventions: patient under constant observation at all timesicon high Items removed from room: bedside table/carts, bulletin board push pins and tasks, cleaning solutions/chemicals, coat hangers, gloves, IV poles, linen bin, loose cords (monitor cords, electric, tubing), otoscope, oxygen/oxygen canister, plastic bags (including trash bags), suction regulators, sharp or glass objects, sharps container, and scissors Remaining risks identified and mitigated: bed/stretcher; call light cords; ceiling tiles; electrical outlets; monitors and cords; TV bracket and cords and vents Comments: plan to OD on pills Michele Fall Scale Screening Has the patient fallen before (or is the patient in the ED as a result of a fall) has not had a fall Does the patient have an impaired gait does not have impaired gait Is the patient cognitively impaired not cognitively impaired Interventions: Michele Fall Interventions: LOW INTERVENTIONS: *patient oriented to surroundings and call system, * patient/family falls education completed and documented, *patients fall status communicated during bedside handoff, *whiteboard updated, *mode of toileting discussed with patient, *bed in low position with brakes locked, *call light in reach, * non-skid footwear TRAVEL HISTORY Travel History Coronavirus Screening: no exposure or symptoms Travel Exposure History: NO travel to International locations in the past 30 days PAIN Pain Scale Used: KATYA Pain Rating (0-10): 0 = None Past Medical History: Past Medical History Reviewedyes PCOS: Past Medical History, Active Electronic Signatures: Kaycee Washington) (Signed 05-Feb-2021 03:50) Entered: Risk Screens, Pain, Travel History, Chart Review, Scores, Past Medical History Authored: Quick Triage, Risk Screens, Pain, Travel History, Chart Review, Scores, Past Medical History Last Updated: 05-Feb-2021 03:50 by Kaycee Washington (CN) Normal [facility] ([place], [place]) URINALYSIS WITH CULTURE IF I NDICATEDon 02-05-2021 Appearance (U) CLEAR Normal CLEAR [facility] ([place], [place]) Comment on above: Performed By: #### C K #### [address] [id number] Bilirubin Ql (U) Negative Normal NEGATIVE [facility] Comment on above: Performed By: #### C K #### [address] [id number] Color (U) COLORLESS Normal STRAW,YELL OW [facility] ([place], [place]) Comment on above: Performed By: #### C K #### [address] [id number] Glucose Ql (U) Negative Normal NEGATIVE [facility] ([place], [place]) Comment on above: Performed By: #### C K #### [address] [phone] Hemoglobin Ql (U) Negative Normal NEGATIVE [facility] Comment on above: Performed By: #### C K #### [address] [id number] Ketones Ql (U) Negative Normal NEGATIVE [facility] ([place], [place]) Comment on above: Performed By: #### C K #### [address] [id number] Leukocyte esterase Test strip Ql (U) Negative Normal NEGATIVE [facility] ([place], [place]) Comment on above: Performed By: #### C K #### [address] [phone] Nitrite Ql (U) Negative Normal NEGATIVE [facility] ([place], [place]) Comment on above: Performed By: #### C K #### [address] [id number] pH (U) 6.0 [pH] Normal 5.0 - 8.0 [facility] ([place], [place]) Comment on above: Performed By: #### C K #### [address] [id number] Protein Ql (U) Negative Normal NEGATIVE [facility] ([place], [place]) Comment on above: Performed By: #### C K #### [address] [id number] Specific gravity (U) [Rel density] 1.002 Low 1.005 - 1.035 [facility] ([place], [place]) Comment on above: Performed By: #### C K #### [facility] [address] [place], [place] [id number] Urobilinogen (U) [Mass/Vol] mg/dL Normal 0.0 - 1.9 [facility] ([place], [place]) Comment on above: Performed By: #### C K #### [address] [id number] Otheron 10-31-2020 NORMAL SIZE UTERUS A ND OVARIES. NABOTHIAN CYSTS WITHIN THE CERVIX. MULTIPLE SMALL FOLLICLES WITHIN OVARIES. NO FREE FLUID OR ABNORMAL ADNEXAL MASS. [employer] Phone: PELVIC TRANSABDOMINA L AND TRANSVAGINAL SONOGRAM REASON FOR EXAMINATION: Menorrhagia with irregular cycle. LMP: 10/10/2020. 0. COMPARISON: NONE FINDINGS: On the transabdominal exam, the uterus is anteverted and measures 7 x 4.2 x 2.8 cm. The uterus has a volume of 108 mL. No focal uterine abnormality noted in this portion of the exam. There is no evidence of free fluid. No abnormal adnexal mass. A transvaginal exam was performed to better visualize the uterus and adnexal structures. The endometrium measures 9 mm in AP diameter. There are nabothian cysts within the cervix. Largest nabothian cyst measures 7 x 9 x 7 mm. The right ovary has a volume of 10.1 ml. The left ovary has a volume of 7.1 ml. There are multiple small follicles within both ovaries. Arterial and venous flow are visualized in both ovaries on color doppler imaging. [employer] Phone: Aiden, Chpo Incoming Radiant Results From [employer] - 10/31/2020 2:54 PM EDT PELVIC TRANSABDOMINAL AND TRANSVAGINAL SONOGRAM REASON FOR EXAMINATION: Menorrhagia with irregular cycle. LMP: 10/10/2020. 0. COMPARISON: NONE FINDINGS: On the transabdominal exam, the uterus is anteverted and measures 7 x 4.2 x 2.8 cm. The uterus has a volume of 108 mL. No focal uterine abnormality noted in this portion of the exam. There is no evidence of free fluid. No abnormal adnexal mass. A transvaginal exam was performed to better visualize the uterus and adnexal structures. The endometrium measures 9 mm in AP diameter. There are nabothian cysts within the cervix. Largest nabothian cyst measures 7 x 9 x 7 mm. The right ovary has a volume of 10.1 ml. The left ovary has a volume of 7.1 ml. There are multiple small follicles within both ovaries. Arterial and venous flow are visualized in both ovaries on color doppler imaging. IMPRESSION: NORMAL SIZE UTERUS AND OVARIES. NABOTHIAN CYSTS WITHIN THE CERVIX. MULTIPLE SMALL FOLLICLES WITHIN OVARIES. NO FREE FLUID OR ABNORMAL ADNEXAL MASS. [facility] [employer] Work Phone: CBC Auto Differentialon 03-0 Basophils (Bld) [#/Vol] 0.0 10*3/uL 0 - 0.2 K/uL [place] Basophils/100 WBC (Bld) 0.4 % [place], [place] Eosinophils (Bld) [#/Vol] 0.1 10*3/uL 0 - 0.7 K/uL [place] Eosinophils/100 WBC (Bld) 1.4 % [place] Erythrocyte distribution width (RBC) [Ratio] 13.8 % 11.5 - 14.5 % [place] Hematocrit (Bld) [Volume fraction] 43.3 % 37 - 47 % [place] Hemoglobin (Bld) [Mass/Vol] 14.1 g/dL 12 - 16 g/dL [place] Interpretation and review of laboratory results Abnormal [place] Lymphocytes (Bld) [#/Vol] 1.7 10*3/uL 1 - 4.8 K/uL [place] Lymphocytes/100 WBC (Bld) 18.7 % [place] MCH (RBC) [Entitic mass] 30.5 pg 27 - 31.3 pg [place] MCHC (RBC) [Mass/Vol] 32.6 % Low 33 - 37 % [place] MCV (RBC) [Entitic vol] 93.5 fL 82 - 100 fL [place] Monocytes (Bld) [#/Vol] 0.6 10*3/uL 0.2 - 0.8 K/uL [place] Monocytes/100 WBC (Bld) 6.9 % [place] Neutrophils Absolute 6.6 K/uL High 1.4 - 6 .5 K/uL [place] Neutrophils/100 WBC (Bld) 72.6 % [place] Platelets (Bld) [#/Vol] 283 10*3/uL 130 - 400 K/uL [place] RBC (Bld) [#/Vol] 4.63 10*6/uL [place] WBC (Bld) [#/Vol] 9.1 10*3/uL 4.5 - 11 K/uL [place] Comprehensive Metabolic Pane leslee 10-19-2019 Albumin [Mass/Vol] 4.5 g/dL 3.5 - 4.6 g/dL [place] ALP [Catalytic activity/Vol] 70 U/L 40 - 130 U/L [place] ALT [Catalytic activity/Vol] 24 U/L 0 - 33 U/L [place] Anion gap [Moles/Vol] 15 mmol/L [place] AST [Catalytic activity/Vol] 25 U/L 0 - 35 U/L [place] Bilirubin Ql (U) 0.7 mg/dL 0.2 - 0.7 mg/dL [place] Calcium [Mass/Vol] 9.8 mg/dL 8.5 - 9.9 mg/dL [place] Chloride [Moles/Vol] 103 mmol/L [place] CO2 [Moles/Vol] 25 mmol/L [place] Creatinine [Mass/Vol] 0.68 mg/dL 0.5 - 0.9 mg/dL [place] GFR >60.0 >60 [place] Comment on above: >60 mL/min/1.73m2 EG FR, calc. for ages 18 and older using the MDRD formula (not corrected for weight), is valid for stable renal function. GFR Non- >60.0 >60 [place] Comment on above: >60 mL/min/1.73m2 EG FR, calc. for ages 18 and older using the MDRD formula (not corrected for weight), is valid for stable renal function. Globulin (S) [Mass/Vol] 3.4 g/dL 2.3 - 3.5 g/dL [place] Glucose [Mass/Vol] 79 mg/dL 70 - 99 mg/dL [place] Potassium [Moles/Vol] 3.8 mmol/L [place] Protein [Mass/Vol] 7.9 g/dL 6.3 - 8 g/dL [place] Sodium [Moles/Vol] 143 mmol/L [place] Urea nitrogen [Mass/Vol] 5 mg/dL Low 6 - 20 mg/dL [place] Folateon 10-19-2019 Folate 8.7 ng/mL 7.3 - 26.1 ng/mL [place] Comment on above: As of 03/25/16, the ethodology has changed. Results from this methodology should not be compared with results from previous methodology. Hemoglobin A1Con 10-19-2019 HbA1c (Bld) [Mass fraction] 5.2 % 4.8 - 5.9 % [place] Lipid Panelon 10-19-2019 Cholesterol [Mass/Vol] 158 mg/dL 0 - 1 99 mg/dL [place] Comment on above: ATP III Cholesterol classification is Desirable. Cholesterol in HDL [Mass/Vol] 71 mg/dL High 40 - 59 mg/dL [place] Comment on above: ATP III HDL Choleste rol Classification is high. Expected Values: Males: >55 = No Risk 35-55 = Moderate Risk <35 = High Risk Females: >65 = No Risk 45-65 = Moderate Risk <45 = High Risk NCEP Guidelines: Third Report December 2000 >59 = negative risk factor for CHD <40 = major risk factor for CHD Cholesterol in LDL [Mass/Vol] 78 mg/dL 0 - 129 mg/dL [place] Comment on above: ATP III LDL Classifi cation is Optimal. Triglyceride [Mass/Vol] 43 mg/dL 0 - 150 mg/dL [place] Comment on above: ATP III Triglyceride s Classification is Normal. Otheron 10-19-2019 Interpretation and review of laboratory results Abnormal [place] Interpretation and review of laboratory results Abnormal [place] T4, Freeon 10-19-2019 Free T4 [Mass/Vol] 1.23 ng/dL 0.84 - 1.68 ng/dL [place] TSH without Reflexon 020 TSH Qn 0.999 m[IU]/L [place] Vitamin B12on 10-19-2019 Cobalamin (Vitamin B12) [Mass/Vol] 186 pg/mL Low 232 - 1245 pg/mL [place] Vitamin D 25 Hydroxyon 10-18 Vit D, 25-Hydroxy 8.8 ng/mL Low 30 - 100 ng/mL [place] Comment on above: (<20 ng/mL) Deficien cy This assay accurately quantifies the sum of vitamin D3, 25-Hydroxy and vitamin D2, 25-Hyroxy. Yue 12-03-[address] [facility] Telephone (DERMAV) JOSE CARLOS YEE ([id number]) 2000 FDate Time Provider Department12/03/17 ANGELIKA BROWN ([facility]) DERMAV During your visit today, we recorded the following information about you:Maia Holbrook MA 12/03/2017 10:07 AM SignedRec'd PA for differin 0.1% creamFilled out form on cover my medsCame back as: Please advise the dispensing pharmacy to contact the PharmacyHelp Line at for assistance.Called and advised pharmacy.Maia Holbrook MAJamieroberto 2017 10:07 AMConcepcion Bishop [facility] 01/03/2018 3:04 PM SignedCalled and spoke with pharmacy,Prior authorization was never approved,Waiting for pharmacy to fax prior authorization information to us.Concepcion Bishop [facility] 01/04/2018 8:59 AM SignedPatient has 2 insurances on file,Ran prior authorization through both insurances,[employer] came back: Please advise the dispensing pharmacy tocontact the Pharmacy Help Line for assistance.[employer] Cross: Drug is covered by current benefit plan. No further PA activityneeded.Called and left voice message for patient to call us at [phone] ask forDermatology nursing, to confirm which insurance she has.Will try to call the pharmacy again after 9:00 am when they open.Concepcion Bishop [facility] 01/04/2018 11:28 AM SignedCall[facility] and [facility],Gave her the messages from both insurance companies,Radha stated she will call [facility] pharmacy help line, to getassistance's.Will wait to hear from the pharmacy.Concepcion Bishop [facility] 01/04/2018 5:16 PM SignedCalled [facility], spoke with Dorothy,To see if Radha called the help line, she was unsure,Dorothy was going to attempt to call the help line.Chayo Wallis 01/07/2018 9:56 AM SignedPhone [facility] placed to [facility]. Pharmacist verified the tech contacted thepharmacy help line on Wednesday. Help line stated doctors office needs tocomplete a PA.Completed [facility] PA form and faxed to [facility]. Will wait for responseagain.Jed Shah 2017 9:48 AMAngelika Brown APRN.PREET 01/07/2018 10:07 AM SignedPer phone encounter January 2017 - insurance will cover Differin (Adapalene) geland BP separately. I discontinued the cream to see if the gel is covered.If not, patient can buy both of these items over the counter at most drugstores.Angelika Brown APRN.CNPGalucia 2017 10:07 AMAngelika Brown APRN.CNP 01/07/2018 10:07 AM SignedAddended by: ANGELIKA BROWN CNP on: 01/07/2018 10:07 AM Modules accepted: Nancy Holbrook MA 01/07/2018 10:21 AM AddendumCalled pharmacy to see if the medication is covered - and it is not.We sent a paper PA to [facility] today.Spoke with mom and advised her that it is OTC - she advised that pharmacy toldher that it was over 200.00 because she wanted to buy it out of the pocket.Advised mom that it is around $20. If we don't hear back from the PA companyshe will get it over the counter.Mom verbalized understanding.Maia Antonio 2017 10:17 AMAngelika Brown APRN.CNP 01/07/2018 10:36 AM SignedNoted.Allergies As of Date: 12/03/2017(No Known Allergies)Date Reviewed: 01/22/2017Reviewed by: Ivy Kidd Ma - Fully AssessedReason for Visit: Insurance Authorization [[id number]]Order(s):adapalene (DIFFERIN) 0.1 % gelApply 1 application to affected area daily at bedtime.Disp: 1 gRfl: 11Prescriptions as of 12/03/2017 Sig: ADAPALENE 0.1 % TOPICAL GEL Apply 1 application to affect* SPIRONOLACTONE 50 MG TABLET take 1 tablet by mouth once d* BENZOYL PEROXIDE 2.5 % TOPICA* Wash affected area one to two* TRI-LINYAH (28) 0.18 MG(7)/0.* HYDROQUINONE 4 % TOPICAL CREAM Apply twice daily to dark spo* ADAPALENE 0.1 %-BENZOYL PEROX* Apply a pea size amount to af*Problem List As Of Date: 12/03/2017(None)Prescrip tions ordered this encounter Disp Refills Start End ADAPALENE 0.1 % TOPICAL GEL 1 g 11 01/07/2018 Route: TOPICAL Sig: Apply 1 application to affected area daily at bedtime.Medications Discontinued During This Encounter adapalene (DIFFERIN) 0.1 % cream 45 g 5 01/26/2017 01/07/2018 Sig: Apply a pea size amount to affected area every other night for 2 weeks then increase to daily as tolerated Disc: Reason for discontinue is not on file. Status:Closed by MAIA HOLBROOK MA on 12/03/17 [facility] [facility] OBSOLETEon 04-12-2017 OBSOLETE Refill (DERMAV) JOSE CARLOS YEE ([id number]) 2000 FDate Time Provider Department04/12/17 ANGELIKA BROWN) DERMAV During your visit today, we recorded the following information about you:Maia Holbrook MA 04/12/2017 9:36 AM SignedPatient last seen 01/22/17 by Angelika Brown CNPRequesting refillNo labsNo pending appointmentWill route to Angelika for review.Maia Solomon 2016 9:35 AMAngelika Brown CNP 04/12/2017 9:56 AM SignedRefills sent in. Also need to get a Potassium level. Labs have been entered,patient can go at her convenience to have this drawn.Kyle Prieto 2016 9:56 AMTabitmarjorie Holbrook MA 04/12/2017 10:01 AM SignedPhone call to patient, no answer.Left message for patient to call the office back.Maia Solomon 2016 10:01 AMSnidia Kidd Ma 04/14/2017 1:13 PM SignedCalled home phone, spoke with mom. She states rebekah is at school.Advised her of refill sent and the need for lab work. She is aware of labplaced in chart.She had no questionsAllergies As of Date: 04/12/2017(No Known Allergies)Date Reviewed: 01/22/2017Reviewed by: Ivy Stamper Ma - Fully AssessedReason for Visit: Refill Request [94]Primary Visit Diagnosis:Medication management [Z79.899]Order(s):spiron olactone (ALDACTONE) 50 mg tablettake 1 tablet by mouth once dailyDisp: 30 tabletRfl: 4 POTASSIUM BLD [SQK1] Order #: [id number] FUTUREPrescriptions as of 04/12/2017 Sig: SPIRONOLACTONE 50 MG TABLET take 1 tablet by mouth once d* ADAPALENE 0.1 % TOPICAL CREAM Apply a pea size amount to af* BENZOYL PEROXIDE 2.5 % TOPICA* Wash affected area one to two* TRI-LINYAH (28) 0.18 MG(7)/0.* HYDROQUINONE 4 % TOPICAL CREAM Apply twice daily to dark spo* ADAPALENE 0.1 %-BENZOYL PEROX* Apply a pea size amount to af*Problem List As Of Date: 04/12/2017(None)Prescrip tions ordered this encounter Disp Refills Start End SPIRONOLACTONE 50 MG TABLET 30 t* 4 04/12/2017 Sig: take 1 tablet by mouth once dailyMedications Discontinued During This Encounter spironolactone (ALDACTONE) 50 mg tab* 30 t* 2 01/22/2017 04/12/2017 Route: ORAL Sig: Take 1 tablet by mouth once daily. Disc: Reason for discontinue is not on file. Status:Closed by IVY KIDD MA on 04/14/17 Normal [facility] Vital Signs Date Time Vital Sign Value Performing Clinician Facility 09-15-2024 09:32-0500 Body mass index (BMI) [Ratio] 22.83 kg/m2 [facility] Nurse [facility] 09-15-2024 09:32-0500 Body weight 56.61 kg [facility] Nurse [facility] 09-15-2024 09:32-0500 Diastolic blood pressure 60 mm[Hg] [facility] Nurse [facility] 09-15-2024 09:32-0500 Systolic blood pressure 100 mm[Hg] [facility] Nurse [facility] 08-22-2024 00:23-0500 Diastolic blood pressure 74 mm[Hg] No Generic Provider [facility] 08-22-2024 00:23-0500 Heart rate 89 /min No Generic Provider [facility] 08-22-2024 00:23-0500 Respiratory rate 16 /min No Generic Provider [facility] 08-22-2024 00:23-0500 SaO2% (BldA) [Mass fraction] 98 % No Generic Provider [facility] 08-22-2024 00:23-0500 Systolic blood pressure 101 mm[Hg] No Generic Provider [facility] 08-21-2024 21:07-0500 Body height 157.5 cm No Generic Provider [facility] 08-21-2024 21:07-0500 Body mass index (BMI) [Ratio] 21.95 kg/m2 No Generic Provider [facility] 08-21-2024 21:07-0500 Body temperature 97.9 [degF] No Generic Provider [facility] 08-21-2024 21:07-0500 Body weight 54.43 kg No Generic Provider [facility] 06-20-2024 11:10-0500 Body mass index (BMI) [Ratio] 22.13 kg/m2 Hemant Rudy DO Work Phone: [facility] 06-20-2024 11:10-0500 Body weight 54.88 kg Hemant Rudy DO Work Phone: [facility] 06-20-2024 11:10-0500 Diastolic blood pressure 60 mm[Hg] Hemant Ruyd DO Work Phone: [facility] 06-20-2024 11:10-0500 Systolic blood pressure 102 mm[Hg] Hemant Rudy DO Work Phone: [facility] 06-08-2024 13:19-0400 Body mass index (BMI) [Ratio] 22.13 kg/m2 Roz Camara MD Work Phone: [facility] 06-08-2024 13:19-0400 Body weight 54.88 kg Roz Camara MD Work Phone: [facility] 06-08-2024 13:19-0400 Diastolic blood pressure 60 mm[Hg] Roz Camara MD Work Phone: [facility] 06-08-2024 13:19-0400 Systolic blood pressure 92 mm[Hg] Roz Camara MD Work Phone: [facility] 04-01-2024 19:40-0400 Body height 157.5 cm Christopher Diego DO Work Phone: [facility] 04-01-2024 19:40-0400 Body mass index (BMI) [Ratio] 21.03 kg/m2 Christopher Diego DO Work Phone: [facility] 04-01-2024 19:40-0400 Body weight 52.16 kg Christopher Diego DO Work Phone: [facility] 04-01-2024 19:40-0400 Diastolic blood pressure 82 mm[Hg] Christopher Diego DO Work Phone: [facility] 04-01-2024 19:40-0400 Heart rate 95 /min Christopher Diego DO Work Phone: [facility] 04-01-2024 19:40-0400 Respiratory rate 18 /min Christopher Diego DO Work Phone: [facility] 04-01-2024 19:40-0400 SaO2% (BldA) [Mass fraction] 100 % Christopher Diego DO Work Phone: [facility] 04-01-2024 19:40-0400 Systolic blood pressure 118 mm[Hg] Christopher Diego DO Work Phone: [facility] 09-23-2023 13:30-0500 Diastolic blood pressure 56 mm[Hg] Jung Pace MD Work Phone: [facility]exch[facility]reet[facility] 09-23-2023 13:30-0500 Heart rate 91 /min Jung Pace MD Work Phone: [facility] 09-23-2023 13:30-0500 Respiratory rate 16 /min Jung Pace MD Work Phone: [facility] 09-23-2023 13:30-0500 SaO2% (BldA) [Mass fraction] 99 % Jung Pace MD Work Phone: [facility] 09-23-2023 13:30-0500 Systolic blood pressure 97 mm[Hg] Jung Pace MD Work Phone: [facility] 09-23-2023 12:33-0500 Body height 157.5 cm Jung Pace MD Work Phone: [facility] 09-23-2023 12:33-0500 Body mass index (BMI) [Ratio] 24.87 kg/m2 Jung Pace MD Work Phone: [facility] 09-23-2023 12:33-0500 Body temperature 98.71 [degF] Jung Pace MD Work Phone: [facility] 09-23-2023 12:33-0500 Body weight 61.69 kg Jung Pace MD Work Phone: [facility] 03-07-2021 14:37-0400 Diastolic blood pressure 69 mm[Hg] No Pcp Required [facility] [place] 03-07-2021 14:37-0400 Heart rate 69 /min No Pcp Required [facility] 03-07-2021 14:37-0400 Respiratory rate 16 /min No Pcp Required [facility] 03-07-2021 14:37-0400 SaO2% (BldA) [Mass fraction] 99 % No Pcp Required [facility] [place] 03-07-2021 14:37-0400 Systolic blood pressure 107 mm[Hg] No Pcp Required [facility] [place] 03-07-2021 09:08-0400 Body temperature 97.88 [degF] No Pcp Required [facility] Encounters Encounter Date Encounter Type Care Provider Facility Start: 09-15-2024 End: 09-15-2024 Office outpatient visit 5 minutes [facility] Rudy Nurse [facility] Comment on above: GA: 8w6d Start: 08-23-2024 End: 08-23-2024 ambulatory NO ASSIGNED PCP GENERIC PROVIDER [facility] Start: 08-23-2024 End: 08-23-2024 Clinisync Result Encounter Hemant Rudy DO Work Phone: [facility] Unsolicited Start: 08-23-2024 End: 08-23-2024 Clinisync Result Encounter Hemant Rudy DO Work Phone: [facility] Unsolicited Start: 08-21-2024 End: 08-22-2024 Emergency department patient visit NO ASSIGNED PCP GENERIC PROVIDER [facility] Comment on above: Vaginal bleeding in , first trimester (HHS-HCC) (Primary Dx) Start: 08-12-2024 End: 08-12-2024 Clinisync Result Encounter Hemant Rudy DO Work Phone: [facility] External [facility] Unsolicited Start: 08-12-2024 End: 08-12-2024 Clinisync Result Encounter Hemant Rudy DO Work Phone: [facility] External [facility] Unsolicited Start: 08-12-2024 End: 08-12-2024 ambulatory NO GENERIC PROVIDER [facility] Start: 07-18-2024 End: 07-18-2024 Phys/qhp telephone evaluation 5-10 min Hemant Rudy DO Work Phone: [facility] Comment on above: PCOS (polycystic ova evelio syndrome); Female infertility; Anovulation; Menorrhagia with regular cycle Start: 06-20-2024 End: 06-20-2024 Bamboo flowsheet Hemant Rudy DO Work Phone: [facility] Start: 06-20-2024 End: 06-20-2024 Bamboo flowsheet Hemant Rudy DO Work Phone: [facility] Start: 06-20-2024 End: 06-20-2024 Office outpatient visit 15 minutes Hemant Rudy DO Work Phone: [facility] Comment on above: Encounter to discuss test results; Left ovarian cyst Start: 06-08-2024 End: 06-08-[address] [facility] Start: 06-08-2024 End: 06-08-2024 Office outpatient new 45 minutes Roz Camara MD Work Phone: [facility] Comment on above: Chronic idiopathic c onstipation (Primary Dx); Infertility associated with anovulation Start: 04-03-2024 End: 04-03-2024 Subsequent hospital visit by physician Bruce Treviño 1 [facility] Comment on above: Unspecified ovarian cyst, left side Start: 04-03-2024 End: 04-03-2024 ambulatory [facility]HER [facility] Start: 04-01-2024 End: 04-01-2024 Emergency department patient visit Christopher Diego Work Phone: [facility] Comment on above: Oophoritis, unspecif ied (Primary Dx) Start: 09-23-2023 End: 09-23-2023 ambulatory [facility] Start: 09-23-2023 End: 09-23-2023 Subsequent hospital visit by physician Jung Pace MD Work Phone: [facility] [place] Comment on above: Pain in the groin Start: 09-22-2023 End: 09-25-2023 ambulatory [facility] Start: 09-22-2023 End: 09-24-2023 Subsequent hospital visit by physician Jung Pace MD Work Phone: [facility] Comment on above: Lower abdominal pain Start: 02-05-2022 End: 02-07-2022 Subsequent hospital visit by physician Susie [facility] Schedule [facility] Comment on above: PCOS (polycystic ova evelio syndrome); Infertility associated with anovulation Start: 06-09-2021 End: 06-09-2021 Subsequent hospital visit by physician Susie Lab Schedule [facility] Comment on above: PCOS (polycystic ova evelio syndrome) Start: 03-06-2021 End: 03-07-2021 Emergency department patient visit Sabrina Valentino ED 09 Start: 10-31-2020 End: 11-02-2020 Subsequent hospital visit by physician Timothy Valentino Ultrasound Room 1 [facility] Comment on above: Menorrhagia with irr egular cycle Start: 10-19-2019 End: 10-19-2019 Subsequent hospital visit by physician Susie [facility] Schedule [facility] Comment on above: Arrived Procedures Date Procedure Procedure Detail Performing Clinician Start: 09-15-2024 Urnls dip stick/tabl et rgnt non-auto w/o micrscp Hemant Rudy DO Work Phone: Start: 08-23-2024 [facility] HCG,BETA-QUANTITATIVE Hemant Rudy DO Work Phone: Start: 08-22-2024 Us preg uterus real time w/image dcmtn transvag Malcolm Shearer PA-C Work Phone: Start: 08-21-2024 Urinalysis complete W Reflex Culture panel - Urine Malcolm Shearer PA-C Work Phone: Start: 08-21-2024 Urnls dip stick/tabl et reagent auto microscopy Malcolm Shearer PA-C Work Phone: Start: 08-21-2024 Blood typing serolog ic rh (d) Malcolm Shearer PA-C Work Phone: Start: 08-21-2024 Comprehensive metabo lic panel Malcolm Shearer PA-C Work Phone: Start: 08-12-2024 [facility] HCG,BETA-QUANTITATIVE Hemant Rudy DO Work Phone: Start: 04-01-2024 Comprehensive metabo lic panel Christopher Pascal Diego DO Work Phone: Start: 04-01-2024 Urnls dip stick/tabl et rgnt auto w/o microscopy Christopher W Diego DO Work Phone: Start: 09-23-2023 Colonoscopy Jung thacker MD Work Phone: Start: 02-07-2024 Ct abdomen & pelvis w/contrast material Jung Pace MD Work Phone: Start: 02-05-2022 Us transvaginal Shant Lee Gipson DO Work Phone: Start: 02-05-2022 Assay of insulin total Shant Lee Leonela DO Work Phone: Start: 06-09-2021 Assay of insulin total Roby Hadley DO Work Phone: Start: 03-06-2021 End: 03-06-2021 EKG impression Familia Reid Adolph Start: 10-31-2020 Us pelvic nonobstetr ic real-time image complete Gisel Tapan Start: 10-31-2020 Us transvaginal Gisel Efren collins Start: 10-19-2019 25 hydroxy includes fractions if performed Amanda Welch Work Phone: Start: 10-19-2019 Assay of folic acid serum Amanda Welch Work Phone: Start: 10-19-2019 Assay of free thyroxine Amanda Welch Work Phone: Start: 10-19-2019 Assay of thyroid stimulating hormone tsh Amanda Welch Work Phone: Start: 10-19-2019 Blood count complete auto&auto difrntl wbc Amanda Welch Work Phone: Start: 10-19-2019 Comprehensive metabo lic panel Amanda Welch Work Phone: Start: 10-19-2019 Cyanocobalamin vitamin b-12 Amanda Welch Work Phone: Start: 10-19-2019 Hemoglobin glycosylated a1c Amanda Welch Work Phone: Start: 10-19-2019 Lipid panel Amandaapril irene Work Phone: Plan of Treatment Date Care Activity Detail Author Start: 2049 Zoster Vaccines (1 of 2) Zoster Vaccines (1 of 2) [facility] Start: 2049 Shingles Vaccine (1 of 2) Shingles Vaccine (1 of 2) [facility] [place], [place] Start: 10-17-2024 End: 10-17-2024 Patient encounter procedure 10/17/2024 1:10 PM EST Routine [facility] [address] [place] [id number] Hemant Grant DO [address] [place], [place] [id number] [facility] Start: 09-19-2024 Depression Monitoring Depression Monitoring [facility] Start: 09-15-2024 End: 09-15-2025 ABO/Rh ABO/Rh Lab Routine Missed menses , unspecified gestational age Expected: 09/15/2024 (Approximate), Expires: 09/15/2025 [facility] Comment on above: Expected: 09/15/2024 (Approximate), Expi res: 09/15/2025 Start: 09-15-2024 End: 09-15-2025 Blood type and Indirect antibody screen panel - Blood Type and screen Lab Routine Missed menses , unspecified gestational age Expected: 09/15/2024 (Approximate), Expires: 09/15/2025 [facility] Work Phone: Comment on above: Expected: 09/15/2024 (Approximate), Expi res: 09/15/2025 Start: 09-15-2024 End: 09-15-2025 Drugs of abuse panel - Urine by Screen method Rapid drug screen, urine Lab Routine , unspecified gestational age Encounter for supervision of normal first in first trimester Expected: 09/15/2024 (Approximate), Expires: 09/15/2025 [facility] Comment on above: Expected: 09/15/2024 (Approximate), Expi res: 09/15/2025 Start: 09-15-2024 End: 09-15-2024 ambulatory 09/15/2024 9:00 AM EST Initial [facility] [address] [place] [id number] [facility] Start: 09-15-2024 End: 09-15-2024 Professional / ancillary services management 09/15/2024 8:30 AM EST Ancillary Procedure [facility] [address] [place] [phone] [facility] Start: 09-14-2024 End: 09-14-2024 Patient encounter procedure 09/14/2024 2:30 PM EST Office Visit [facility] [address] [place] [address] Roz Camara MD [address] [facility] [address] [place] [address] [facility] Start: 08-28-2024 End: 08-28-2024 Professional / ancillary services management 08/28/2024 8:30 AM EST Ancillary Procedure [facility] [address] [place] [phone] [facility] Start: 08-03-2024 End: 08-03-2024 Patient encounter procedure 08/03/2024 11:50 AM EST Consult [facility] [address] [place] [phone] Hemant Grant, DO [address] [place] [address] [facility] Start: 07-18-2024 End: 07-18-2025 DHEA DHEA Lab Routine PCOS (polycystic ovarian syndrome) Expected: 07/18/2024 (Approximate), Expires: 07/18/2025 [facility] Comment on above: Expected: 07/18/2024 (Approximate), Expi res: 07/18/2025 Start: 04-16-2024 COVID-19 Vaccine ( season) COVID-19 Vaccine ( season) [facility] Start: 04-16-2024 Influenza vaccination Influenza Vaccine (#1) [facility] Start: 10-21-2023 Hemoglobin A1c measurement A1C test (Diabetic or Prediabetic) [facility] Start: 10-05-2023 End: 10-05-2023 Patient encounter procedure 10/05/2023 8:45 AM EST Office Visit [facility] [address] [place] [address] Chayo Horvath, [employer]ICE C[employer]PER[employer] [address] [facility] [place] [id number] procedure follow up [facility] Comment on above: procedure follow up Start: 09-23-2023 End: 09-23-2023 Colonoscopy flx dx w/collj spec when pfrmd [facility] Start: 04-16-2023 COVID-19 Vaccine ( season) COVID-19 Vaccine ( season) [facility] Start: 03-16-2023 Influenza vaccination Flu vaccine (#1) [facility] Start: 10-02-2022 Depression Monitoring Depression Monitoring [facility] Start: 04-16-2022 Influenza vaccination Flu vaccine (Season Ended) [facility] Start: 04-03-2022 Screening for Chlamydia trachomatis [facility] Start: 02-17-2022 End: 02-17-2022 Patient encounter procedure 02/17/2022 Office Visit Obstetrics and Gynecology Shant Gipson, [address] [place] [address] [facility] Start: 04-16-2021 Influenza vaccination Flu vaccine (#1) [facility] Work Phone: Start: 03-06-2021 Procedure needed Evaluation by medical service required Date: 06-Mar-2021 [facility] [place] Start: 01-09-2021 DTaP/Tdap/Td vaccine (5 - Td) DTaP/Tdap/Td vaccine (5 - Td) [facility] Work Phone: Start: 01-09-2021 DTaP/Tdap/Td vaccine (8 - Td) DTaP/Tdap/Td vaccine (8 - Td) [facility] [place] Start: 05-27-2021 DTaP/Tdap/Td Vaccines (8 - Td or Tdap) DTaP/Tdap/Td Vaccines (8 - Td or Tdap) [facility] Start: 2021 DTaP/Tdap/Td Vaccines (1 - Tdap) DTaP/Tdap/Td Vaccines (1 - Tdap) [facility] Start: 12-30-2020 DTaP/Tdap/Td vaccine (7 - Td or Tdap) DTaP/Tdap/Td vaccine (7 - Td or Tdap) [facility] Start: 04-16-2020 Influenza vaccination Flu vaccine (#1) [facility] Work Phone: Start: 01-09-2020 Screening for malignant neoplasm of cervix [facility] Start: 04-16-2019 Influenza vaccination Flu vaccine (#1) [place] Start: 01-28-2018 Chlamydia screen Chlamydia screen [place], [place] Start: 01-28-2018 Screening for Chlamydia trachomatis Chlamydia screen [facility] [employer] Phone: Start: 2018 Hepatitis B Vaccines (1 of 3 - 19+ 3-dose series) Hepatitis B Vaccines (1 of 3 - 19+ 3-dose series) [facility] Start: 05-30-2017 HPV vaccine (3 - 3-dose series) HPV vaccine (3 - 3-dose series) [facility] Start: 05-30-2017 HPV vaccine (3 - Female 3-dose series) HPV vaccine (3 - Female 3-dose series) [place] Start: 04-22-2017 HPV vaccine (3 - 3-dose series) HPV vaccine (3 - 3-dose series) [facility] Start: 04-22-2017 HPV Vaccines (3 - 3-dose series) HPV Vaccines (3 - 3-dose series) [facility] Start: 2017 Hepatitis C screening [facility] Start: 2014 HIV screen HIV screen [place], [place] Start: 2014 HIV screening HIV screen [facility] Start: 2014 HPV Vaccines (1 - 3-dose series) HPV Vaccines (1 - 3-dose series) [facility] Start: 01-09-2012 Varicella vaccination Varicella Vaccines (1 of 2 - 13+ 2-dose series) [facility] Start: 2011 COVID-19 Vaccine (1) COVID-19 Vaccine (1) [employer] Work Phone: Start: 01-09-2004 COVID-19 Vaccine (1) COVID-19 Vaccine (1) [employer] Start: 01-09-2000 MMR Vaccines (1 of 1 - Standard series) MMR Vaccines (1 of 1 - Standard series) [facility] Start: 1999 COVID-19 Vaccine (#1) COVID-19 Vaccine (#1) [employer] Start: 1999 Hepatitis C screening Hepatitis C screen [facility] [employer] Work Phone: Start: 1999 HIV screening HIV Screening [facility] Start: 1999 Lipid panel Lipid Panel [facility] Start: 1999 Yearly Adult Physical Yearly Adult Physical [facility] End: 10-19-2019 ANTI-TPO(OR MICROS)&ANTITHYROG ANTI-TPO(OR MICROS)&ANTITHYROG Lab Routine Once for 1 Occurrences starting 10/19/2019 until 10/19/2019 [facility] [place] Comment on above: Once for 1 Occurrences starting 10/19/19 20 until 10/19/2019 ANTI-TPO(OR MICROS)&ANTITHYROG ANTI-TPO(OR MICROS)&ANTITHYROG Lab Routine 10/19/2019 3:57 PM [place] Bacteria identified in Urine by Culture Urine culture Microbiology Routine Missed menses Ordered: 09/15/2024 [facility] Comment on above: Ordered: 09/15/2024 End: 09-22-2023 Calprotectin Stool [facility] [employer] Work Phone: Comment on above: 1 Occurrences starting 09/22/2023 until 09/22/2023 CBC W Auto Differential panel - Blood CBC and differential Lab Routine PCOS (polycystic ovarian syndrome) Ordered: 07/18/2024 [facility] Comment on above: Ordered: 07/18/2024 CBC W Auto Differential panel - Blood CBC and differential Lab Routine Missed menses , unspecified gestational age Ordered: 09/15/2024 [facility] [employer] Comment on above: Ordered: 09/15/2024 DHEA-sulfate DHEA-sulfate Lab Routine PCOS (polycystic ovarian syndrome) Ordered: 07/18/2024 [facility] [employer] Comment on above: Ordered: 07/18/2024 End: 04-01-2024 Extra Tubes [facility] Work Phone: Comment on above: Once (Lab) for 1 Occurrences starting until 04/01/2024 End: 04-01-2024 Extra Urine [employer] Extra Urine [facility] [employer] Lab Timed Once for 1 Occurrences starting 04/01/2024 until 04/01/2024 [facility] Work Phone: Comment on above: Once for 1 Occurrences starting 04/01/20 24 until 04/01/2024 End: 08-21-2024 Extra Urine [employer] Extra Urine [employer] Lab Timed Once for 1 Occurrences starting 08/21/2024 until 08/21/2024 [facility] Work Phone: Comment on above: Once for 1 Occurrences starting 08/21/19 25 until 08/21/2024 End: 02-05-2022 Follicle Stimulating Hormone [employer] Work Phone: Comment on above: 1 Occurrences starting 02/05/2022 until 02/05/2022 Follicle stimulating hormone Follicle stimulating hormone Lab Routine PCOS (polycystic ovarian syndrome) Ordered: 07/18/2024 [facility] [employer] Comment on above: Ordered: 07/18/2024 Glucose [Mass/volume ] in Serum or Plasma POCT glucose Point of Care Testing STAT As Needed until discontinued starting 09/23/2023 [employer] Comment on above: As Needed until discontinued starting hCG, quantitative, hCG, quantitative, Lab Routine PCOS (polycystic ovarian syndrome) Ordered: 07/18/2024 [facility] [employer] Work Phone: Comment on above: Ordered: 07/18/2024 Hemoglobin A1c/Hemoglobin.total in Blood Hemoglobin A1c Lab Routine Female infertility Anovulation Menorrhagia with regular cycle Ordered: 07/18/2024 [facility] [employer] Comment on above: Ordered: 07/18/2024 Hemoglobin A1c/Hemoglobin.total in Blood Hemoglobin A1c Lab Routine Missed menses , unspecified gestational age Ordered: 09/15/2024 [facility] Comment on above: Ordered: 09/15/2024 Hepatitis B virus surface Ag [Presence] in Serum or Plasma by Immunoassay Hepatitis B surface antigen Lab Routine Missed menses , unspecified gestational age Ordered: 09/15/2024 [facility] Comment on above: Ordered: 09/15/2024 Hepatitis C virus Ab [Presence] in Serum or Plasma by Immunoassay Hepatitis C antibody Lab Routine Missed menses , unspecified gestational age Ordered: 09/15/2024 [facility] Comment on above: Ordered: 09/15/2024 HIV-1/HIV-2 antigen/antibody combination immunoassay HIV-1 and HIV-2 antibodies Lab Routine Missed menses , unspecified gestational age Ordered: 09/15/2024 [facility] Comment on above: Ordered: 09/15/2024 Insulin, total Insulin, total L ab Routine PCOS (polycystic ovarian syndrome) Infertility associated with anovulation 02/05/2022 4:07 PM EDT [facility] [employer] [facility] Work Phone: End: 04-01-2024 [employer] [facility] Work Phone: Comment on above: Once for 1 Occurrences starting 04/01/20 24 until 04/01/2024 End: 02-05-2022 Luteinizing Hormone [facility] [employer] [facility] Work Phone: Comment on above: 1 Occurrences starting 02/05/2022 until 02/05/2022 Luteinizing hormone Luteinizing hormone Lab Routine PCOS (polycystic ovarian syndrome) Ordered: 07/18/2024 [facility] Comment on above: Ordered: 07/18/2024 Reagin Ab [Presence] in Serum by RPR RPR Lab Routine Missed menses , unspecified gestational age Ordered: 09/15/2024 [facility] Comment on above: Ordered: 09/15/2024 Rubella antibody, IgG Rubella an tibody, IgG Lab Routine Missed menses , unspecified gestational age Ordered: 09/15/2024 [facility] Comment on above: Ordered: 09/15/2024 End: 04-01-2024 [facility] Work Phone: Comment on above: Once for 1 Occurrences starting 04/01/20 24 until 04/01/2024 Surgical Pathology Surgical Path ology Lab Routine Pain in the groin Release Upon Ordering for 1 Occurrences starting 09/23/2023 [facility] [employer] Comment on above: Release Upon Ordering for 1 Occurrences starting 09/23/2023 End: 10-19-2019 T3, Uptake T3, Uptake Lab Routine Once for 1 Occurrences starting 10/19/2019 until 10/19/2019 [employer] [facility] Comment on above: Once for 1 Occurrences starting 10/19/19 20 until 10/19/2019 T3, Uptake T3, Uptake Lab R outine 10/19/2019 3:57 PM EST [facility], [facility] End: 02-05-2022 Testosterone, free, total [employer] Work Phone: Comment on above: Once for 1 Occurrences starting 02/06/20 22 until 02/05/2022 Thyrotropin [Units/volume] in Serum or Plasma TSH Lab Routine PCOS (polycystic ovarian syndrome) Ordered: 07/18/2024 [facility] Comment on above: Ordered: 07/18/2024 Thyroxine (T4) free [Mass/volume] in Serum or Plasma T4, free Lab Routine PCOS (polycystic ovarian syndrome) Ordered: 07/18/2024 [facility] Comment on above: Ordered: 07/18/2024 End: 04-01-2024 Urinalysis complete W Reflex Culture panel - Urine [facility] Work Phone: Comment on above: Once (Lab) for 1 Occurrences starting until 04/01/2024 End: 08-21-2024 Urinalysis complete W Reflex Culture panel - Urine [facility] Work Phone: Comment on above: Once (Lab) for 1 Occurrences starting until 08/21/2024 End: 09-23-2023 Urine , POCT Urine , POCT Point of Care Testing STAT One Time for 1 Occurrences starting 09/23/2023 until 09/23/2023 [employer] Comment on above: One Time for 1 Occurrences starting 03/2024 until 09/23/2023 End: 04-03-2024 US Pelvis transvaginal [facility] Service [facility] Work Phone: Comment on above: Once for 1 Occurrences starting 04/03/20 until 04/03/2024 Immunizations Immunization Date Immunization Notes Care Provider Cristobal [email or web address] 01-28-2017 Human Papillomavirus 9-valent vaccine Malz Schedule [facility] 01-28-2017 varicella virus vaccine Malz Schedul e [facility] 01-28-2017 HPV, unspecified formulation [address] Work Phone: 03-03-2016 human papilloma viru s vaccine, quadrivalent Malz Schedule [facility] 03-03-2016 meningococcal polysaccharide (groups A, C, Y and W-135) diphtheria toxoid conjugate vaccine (MCV4P) Mal Schedule [facility] 01-09-2011 tetanus toxoid, redu dea diphtheria toxoid, and acellular pertussis vaccine, adsorbed Malz Schedule [facility] [place] 12-30-2010 meningococcal ACWY vaccine, unspecified formulation [facility] [place] 12-30-2010 meningococcal polysaccharide (groups A, C, Y and W-135) diphtheria toxoid conjugate vaccine (MCV4P) [facility] Work Phone: 12-30-2010 tetanus toxoid, redu dea diphtheria toxoid, and acellular pertussis vaccine, adsorbed [facility] Work Phone: 12-04-2003 diphtheria, tetanus toxoids and acellular pertussis vaccine Mal Schedule [facility] 12-04-2003 diphtheria, tetanus toxoids and acellular pertussis vaccine, unspecified formulation [facility] [employer] Phone: 12-04-2003 measles, mumps and r ubella virus vaccine Malz Schedule [facility] [place] 12-04-2003 poliovirus vaccine, inactivated Malz Schedule [facility] [place] 08-19-2000 diphtheria, tetanus toxoids and acellular pertussis vaccine [facility] Schedule [facility] [place] 08-19-2000 diphtheria, tetanus toxoids and acellular pertussis vaccine, unspecified formulation Malz Schedule [facility] Phone: 08-19-2000 haemophilus influenz ae type b vaccine, PRP-T conjugate [facility] Phone: 08-19-2000 hepatitis B vaccine, adult dosage Malz Schedule [facility] Phone: 08-19-2000 hepatitis B vaccine, pediatric or pediatric/adolescent dosage Malz Schedule [facility] Phone: 08-19-2000 hepatitis B vaccine, unspecified formulation Malz Schedule [facility] , [place] 08-19-2000 Hib, unspecified Malz Schedule [facility] [place] 04-05-2000 measles, mumps and r ubella virus vaccine Malz Schedule [facility] [place] 04-05-2000 poliovirus vaccine, inactivated Malz Schedule [facility] 01-22-2000 hepatitis B vaccine, adult dosage Malz Schedule [facility] Phone: 01-22-2000 hepatitis B vaccine, pediatric or pediatric/adolescent dosage Malz Schedule [facility] Phone: 01-22-2000 hepatitis B vaccine, unspecified formulation [facility] , [place] 01-22-2000 varicella virus vaccine Malz Schedul e [facility], [place] 1999 diphtheria, tetanus toxoids and acellular pertussis vaccine [facility], [place] 1999 diphtheria, tetanus toxoids and acellular pertussis vaccine, unspecified formulation [facility] Phone: 1999 haemophilus influenz ae type b vaccine, conjugate unspecified formulation [facility] Phone: 1999 Hib, unspecified Malz Schedule [facility], [place] 1999 diphtheria, tetanus toxoids and acellular pertussis vaccine Malz Schedule [facility], [place] 1999 diphtheria, tetanus toxoids and acellular pertussis vaccine, unspecified formulation [facility] Phone: 1999 haemophilus influenz ae type b vaccine, conjugate unspecified formulation Malz Schedule [employer] Phone: 1999 Hib, unspecified [facility] [place] [facility] poliovirus vaccine, inactivated Malz Schedule [facility], [place] 1999 poliovirus vaccine, unspecified formulation Malz Schedule [employer] Phone: 1999 diphtheria, tetanus toxoids and acellular pertussis vaccine Malz Schedule [employer] 1999 diphtheria, tetanus toxoids and acellular pertussis vaccine, unspecified formulation Malz Schedule [employer] Phone: 1999 haemophilus influenz ae type b vaccine, conjugate unspecified formulation [employer] Schedule [employer] Phone: 1999 Hib, unspecified [facility] [place] [facility] poliovirus vaccine, inactivated [facility] [place] [facility] poliovirus vaccine, unspecified formulation Malz Schedule [employer] Phone: 1999 hepatitis B vaccine, adult dosage Malz Schedule [employer] Phone: 1999 hepatitis B vaccine, pediatric or pediatric/adolescent dosage Malz Schedule [employer] Phone: 1999 hepatitis B vaccine, unspecified formulation [facility] [place] [facility] hepatitis B vaccine, adult dosage Malz Schedule [employer] Phone: 1999 hepatitis B vaccine, pediatric or pediatric/adolescent dosage Malz Schedule [employer] Phone: 1999 hepatitis B vaccine, unspecified formulation [place] Payers Date Payer Category Payer Unknown [id number] 2021 Unknown [id number] 2019 Managed Care (Private) [facility] [place] [id number] 2019 Private Health Insurance [id number] 2019 Unknown [id number] 1999 Unknown [id number] 1999 Unknown [id number] 1999 Unknown [id number] 1999 Unknown [id number] 1999 Unknown [id number] 1999 Unknown [id number] 1999 Unknown [id number] 1999 Unknown [id number] 1999 Unknown [id number] Unknown See Registration System\SELF PAY Social History Date Type Detail Facility Start: 05-23-2018 End: 06-08-2024 Tobacco smoking status NHIS Never smoker [employer] Start: 05-23-2018 Alcohol intake Current non-dr manager application of [facility] (finding[facility] [facility] [place], [place] Start: 2000 Sex Assigned At Not on file [facility] [place], [place] Start: 05-23-2018 End: 04-01-2024 Tobacco use and exposure Never used [employer] Phone: Tobacco smoking consumption unknown [facility] Start: 06-09-2021 End: 06-08-2024 Alcohol intake Current drinker of alcohol (finding) [employer] Phone: Start: 06-09-2021 End: 06-08-2024 Alcohol intake [facility] Start: 03-12-2021 History SDOH Financial 3 [employer] Phone: Start: 03-12-2021 History SDOH Food Worry 1 [employer] Phone: Start: 03-22-2024 End: 08-21-2024 Exposure to SARS-CoV-2 (event) Not sure [employer] Start: 01-29-2022 History SDOH Alcohol Comment social [employer] Work Phone: Start: 10-20-2022 End: 06-08-2024 Humiliation, Afraid, Rape, and Kick questionnaire [HARK] [facility] Within the last year , have you been afraid of your partner or ex-partner? No [facility] How hard is it for y ou to pay for the very basics like food, housing, medical care, and heating Not hard at all [employer] [facility] (I/We) worried zaheer er (my/our) food would run out before (I/we) got money to buy more. Never true [facility] [employer] Start: 09-07-2023 Alcohol Comment A Month [employer] Start: 09-23-2023 End: 04-01-2024 Alcohol Comment rarely [employer] Start: 06-08-2024 Tobacco use and exposure User of smokeless tobacco [facility] Work Phone: Start: 06-08-2024 Tobacco Comment Vape [facility] Work Phone: Start: 06-08-2024 Alcohol Comment Every 6 months approximately [facility] Work Phone: Start: 2000 Sex assigned at Female [facility] Start: 03-22-2023 Gender identity Identifies as female gender (finding) [facility] Start: 07-29-2024 [facility] NEGATED: Highlighted rowStart: NINF History of tobacco use Passive smoker [employer] Clinical Notes 04-01-2024 to 09-15-2024 Berenice Graff, SATINDER - 09/15/2024 9:00 AM Rose Diego, - 08/21/2024 8:42 PM Rose Diego, - 08/21/2024 8:42 PM Sharan Montgomery, JACQUARD CARD CUTTER - 07/18/2024 8:00 AM EST Note Date & Type Note Facility 09-15-2024 History of Present illness Narrative Reason for Appointment: Patient ID: Rebekah Rhodes is a 24 y.o. female who presents for Amenorrhea Patient presents today for a Nurse OB Intake appointment. Patient is 8w6d with a Estimated Date of Delivery: 04/21/25 OB History Para Term AB Living 1 0 0 0 0 0 SAB IAB Ectopic Multiple Live Births 0 0 0 0 0 # Outcome Date GA Lbr Solo/2nd Weight Sex Type Anes PTL Lv 1 Current Obstetric Comments Pap smear done at fertility clinic 08/2023--neg Current Medications: has a current medication list which includes the following prescription(s): ferrous fumarate-vitamin c er and mv-min-fe fum-fa-dha. Medical History: Active Ambulatory Problems Diagnosis Date Noted No Active Ambulatory Problems Resolved Ambulatory Problems Diagnosis Date Noted No Resolved Ambulatory Problems Past Medical History: Diagnosis Date IBS (irritable bowel syndrome) PCOS (polycystic ovarian syndrome) Vitamin B12 deficiency Vitamin D deficiency Family History Problem Relation Name Age of Onset Crohn's disease Mother Lupus Maternal Grandmother Other (high blood pressure) Maternal Grandmother Lung cancer Maternal Grandfather Social History Tobacco Use Smoking status: Not on file Smokeless tobacco: Not on file Substance Use Topics Alcohol use: Not on file Drug use: Not on file Past Surgical History: Procedure Laterality Date COLONOSCOPY TONSILLECTOMY Allergies Allergen Reactions Other Angioedema and Hives horses Vitals: Estimated body mass index is 22.83 kg/m as calculated from the following: Height as of 04/27/23: 5' 2 . Weight as of this encounter: 124 lb 12.8 oz. BP: 100/60 Patient's last menstrual period was 07/15/2024. Assessment/Plan Diagnoses and all orders for this visit: Missed menses - Type and screen; Future - ABO/Rh; Future - CBC and differential - Hemoglobin A1c - RPR - Rubella antibody, IgG - Hepatitis B surface antigen - Hepatitis C antibody - HIV-1 and HIV-2 antibodies - Urine culture - POCT , urine manually resulted - POCT urinalysis dipstick manually resulted , unspecified gestational age - Type and screen; Future - ABO/Rh; Future - CBC and differential - Hemoglobin A1c - RPR - Rubella antibody, IgG - Hepatitis B surface antigen - Hepatitis C antibody - HIV-1 and HIV-2 antibodies - Rapid drug screen, urine; Future Encounter for supervision of normal first in first trimester - Rapid drug screen, urine; Future Nurse Note: OB Intake: Patient presents today for first OB visit. Patients history has been reviewed in great detail including any potential risks. Patient signed consent forms and patient desires testing in both trimesters. Patient currently has no complaints and has been advised to drink 6-8 glasses of water a day, eat no raw or undercooked meat, and stay away from [facility]. Patient has also been advised to not change litter boxes and eat 6 small meals a day. Patient has been consulted regarding the do's and don'ts of . Patient was given labs and all questions and concerns were answered. Patient was given Henry to have completed. Follow Up: Patient is to return in 4 weeks for routine OB appointment. Follow Up: Patient is to have labs drawn at directed and return to office for initial OB appointment with provider. Patient may call office as needed with any concerns or questions. Nurse Visit Completed by: Berenice Graff LPN documented in this encounter [facility] 08-21-2024 Emergency department Note Emergency Medicine Transition of Care Note. I received Rebekah Rhodes in signout from Dr. Shearer. Please see the previous ED provider note for all HPI, PE and MDM up to the time of signout at 2200. This is in addition to the primary record. I did go over the ultrasound with the patient. Patient has been instructed to rest and follow-up with [employer]. In brief Rebekah Rhodes is an 24 y.o. female presenting for Chief Complaint Patient presents with Vaginal Bleeding - Patient states she is approximately 5 weeks and started having vaginal bleeding today At the time of signout we were awaiting: US Diagnoses as of 08/22/24 0015 Vaginal bleeding in , first trimester ([facility]) Labs Reviewed HUMAN CHORIONIC GONADOTROPIN, SERUM QUANTITATIVE - Abnormal Result Value HCG, Beta-Quantitative 22,271 (*) Narrative: Total HCG measurement is performed using the [employer] Access Immunoassay which detects intact HCG and free beta HCG subunit. This test is not indicated for use as a tumor marker. HCG testing is performed using a different test methodology at [facility] than other [facility]. Direct result comparison should only be made within the same method. COMPREHENSIVE METABOLIC PANEL - Abnormal Glucose 85 Sodium 135 (*) Potassium 3.5 Chloride 104 Bicarbonate 24 Anion Gap 11 Urea Nitrogen 5 (*) Creatinine 0.60 eGFR >90 Calcium 9.1 Albumin 4.1 Alkaline Phosphatase 65 Total Protein 7.0 AST 17 Bilirubin, Total 0.6 ALT 15 URINALYSIS WITH REFLEX CULTURE AND MICROSCOPIC - Abnormal Color, Urine Colorless (*) Appearance, Urine Clear Specific [place], Urine 1.006 pH, Urine 6.5 Protein, Urine NEGATIVE Glucose, Urine Normal Blood, Urine OVER (3+) (*) Ketones, Urine NEGATIVE Bilirubin, Urine NEGATIVE Urobilinogen, Urine Normal Nitrite, Urine NEGATIVE Leukocyte Esterase, Urine NEGATIVE Narrative: OVER is reported when the result is greater than the clinically reportable range. URINALYSIS MICROSCOPIC WITH REFLEX CULTURE - Abnormal WBC, Urine 1-5 RBC, Urine 11-20 (*) Bacteria, Urine 1+ (*) CBC - Normal WBC 9.8 nRBC 0.0 RBC 4.31 Hemoglobin 12.6 Hematocrit 39.3 MCV 91 MCH 29.2 MCHC 32.1 RDW 12.7 Platelets 319 ABORH ABO TYPE A Rh TYPE POS URINALYSIS WITH REFLEX CULTURE AND MICROSCOPIC Narrative: The following orders were created for panel order Urinalysis with Reflex Culture and Microscopic. Procedure Abnormality Status --------- ------ Urinalysis with Reflex C...[[id number]] Abnormal Final result Extra Urine [employer][[id number]] Please view results for these tests on the individual orders. EXTRA URINE SCH[employer]ER TUBE US PELVIS OB TRANSABDOMINAL W TRANSVAGINAL UP TO 1ST TRIMESTER Final Result A gestational sac with yolk sac is present in the endometrial canal. Mean sac diameter is 1.41 cm in keeping with estimated age of 5 weeks, 4 days.A measurable pole is not seen at this time; therefore cardiac activity could not be reliably evaluated. There is a small rounded hypoechoic area along the left lower aspect of the gestational sac and overlying the internal cervical os that probably relates to trace subchorionic hemorrhage/implantation bleed, likely of nominal clinical significance (images 57-61). Normal ovaries/adnexae. MACRO: None Signed by: Garret Kitchen 08/22/2024 12:07 AM Dictation workstation: [id number] Medical Decision Making 1 pelvic rest 2 follow-up with wood fuel pelletizer in 1 to 2 weeks if symptoms worsen return to ED Final diagnoses: [O20.9] Vaginal bleeding in , first trimester ([facility]) Procedure Procedures DO Christopher Caldwell DO 08/22/24 0015 documented in this encounter [facility] Work Phone: 08-21-2024 Physician Emergency department Note Emergency Medicine Transition of Care Note. I received Rebekah Rhodes in signout from Dr. Shearer. Please see the previous ED provider note for all HPI, PE and MDM up to the time of signout at 2200. This is in addition to the primary record. I did go over the ultrasound with the patient. Patient has been instructed to rest and follow-up with wood fuel pelletizer. In brief Rebekah Rhodes is an 24 y.o. female presenting for Chief Complaint Patient presents with Vaginal Bleeding - Patient states she is approximately 5 weeks and started having vaginal bleeding today At the time of signout we were awaiting: US Diagnoses as of 08/22/24 0015 Vaginal bleeding in , first trimester ([facility]) Labs Reviewed HUMAN CHORIONIC GONADOTROPIN, SERUM QUANTITATIVE - Abnormal Result Value HCG, Beta-Quantitative 22,271 (*) Narrative: Total HCG measurement is performed using the Dat [employer] Access Immunoassay which detects intact HCG and free beta HCG subunit. This test is not indicated for use as a tumor marker. HCG testing is performed using a different test methodology at [facility] than other [facility]. Direct result comparison should only be made within the same method. COMPREHENSIVE METABOLIC PANEL - Abnormal Glucose 85 Sodium 135 (*) Potassium 3.5 Chloride 104 Bicarbonate 24 Anion Gap 11 Urea Nitrogen 5 (*) Creatinine 0.60 eGFR >90 Calcium 9.1 Albumin 4.1 Alkaline Phosphatase 65 Total Protein 7.0 AST 17 Bilirubin, Total 0.6 ALT 15 URINALYSIS WITH REFLEX CULTURE AND MICROSCOPIC - Abnormal Color, Urine Colorless (*) Appearance, Urine Clear Specific [place], Urine 1.006 pH, Urine 6.5 Protein, Urine NEGATIVE Glucose, Urine Normal Blood, Urine OVER (3+) (*) Ketones, Urine NEGATIVE Bilirubin, Urine NEGATIVE Urobilinogen, Urine Normal Nitrite, Urine NEGATIVE Leukocyte Esterase, Urine NEGATIVE Narrative: OVER is reported when the result is greater than the clinically reportable range. URINALYSIS MICROSCOPIC WITH REFLEX CULTURE - Abnormal WBC, Urine 1-5 RBC, Urine 11-20 (*) Bacteria, Urine 1+ (*) CBC - Normal WBC 9.8 nRBC 0.0 RBC 4.31 Hemoglobin 12.6 Hematocrit 39.3 MCV 91 MCH 29.2 MCHC 32.1 RDW 12.7 Platelets 319 ABORH ABO TYPE A Rh TYPE POS URINALYSIS WITH REFLEX CULTURE AND MICROSCOPIC Narrative: The following orders were created for panel order Urinalysis with Reflex Culture and Microscopic. Procedure Abnormality Status --------- ------ Urinalysis with Reflex C...[[id number]] Abnormal Final result Extra Urine [employer][[id number]] Please view results for these tests on the individual orders. EXTRA URINE [employer]ER TUBE US PELVIS OB TRANSABDOMINAL W TRANSVAGINAL UP TO 1ST TRIMESTER Final Result A gestational sac with yolk sac is present in the endometrial canal. Mean sac diameter is 1.41 cm in keeping with estimated age of 5 weeks, 4 days.A measurable pole is not seen at this time; therefore cardiac activity could not be reliably evaluated. There is a small rounded hypoechoic area along the left lower aspect of the gestational sac and overlying the internal cervical os that probably relates to trace subchorionic hemorrhage/implantation bleed, likely of nominal clinical significance (images 57-61). Normal ovaries/adnexae. MACRO: None Signed by: Garret Kitchen 08/22/2024 12:07 AM Dictation workstation: [id number] Medical Decision Making 1 pelvic rest 2 follow-up with wood fuel pelletizer in 1 to 2 weeks if symptoms worsen return to ED Final diagnoses: [O20.9] Vaginal bleeding in , first trimester ([facility]) Procedure Procedures DO Christopher Caldwell DO 08/22/24 0015 [facility] Work Phone: 07-18-2024 History of Present illness Narrative Reason for Appointment: Patient ID: Rebekah Rhodes is a 24 y.o. female who presents for Infertility and telehealth Patient presents today via telephone call for a telehealth appointment. Patients Phone #: [phone] (mobile) Current Medications: has a current medication list which includes the following prescription(s): adderall, vitamin c, cetirizine, vitamin d, cyanocobalamin, dicyclomine, diphenhydramine, doxycycline, ergocalciferol, fluticasone, hyoscyamine, letrozole, metformin xr, methylphenidate er, montelukast, and polyethylene glycol (peg) 3350. Medical History: Active Ambulatory Problems Diagnosis Date Noted No Active Ambulatory Problems Resolved Ambulatory Problems Diagnosis Date Noted No Resolved Ambulatory Problems Past Medical History: Diagnosis Date PCOS (polycystic ovarian syndrome) Vitamin B12 deficiency Vitamin D deficiency Family History Problem Relation Name Age of Onset Crohn's disease Mother Lupus Maternal Grandmother Lung cancer Maternal Grandfather Social History Tobacco Use Smoking status: Not on file Smokeless tobacco: Not on file Substance Use Topics Alcohol use: Not on file Drug use: Not on file Past Surgical History: Procedure Laterality Date TONSILLECTOMY Allergies Allergen Reactions Other Angioedema and Hives horses Vitals: Estimated body mass index is 22.13 kg/m as calculated from the following: Height as of 04/27/23: 5' 2 . Weight as of 06/20/24: 121 lb. BP: Patient's last menstrual period was 05/17/2024 (approximate). Assessment/Plan Encounter Diagnoses Name Primary? PCOS (polycystic ovarian syndrome) Female infertility Anovulation Pt was called and reviewed semen analysis in great detail, rx for doxy called to pharmacy. Pt desires labs checked again- pcos labs faxed to hospital for pt to have obtained. Pt advised both her and partner to take mucinex. Next round of femara will be increased to 7.5mg. Does want to have labs checked first before med refills. Today's telehealth visit consisted of spending 12 minutes talking to patient on the phone. Documented by Lili Montgomery LPN on behalf of: Hemant Grant DO documented in this encounter [facility] 06-20-2024 History of Present illness Narrative Reason for Appointment: Patient ID: Rebekah Rhodes is a 24 y.o. female who presents for Ovarian Cyst (Pt present today to review US results of Left side ovarian cyst. ) Patient presents today for Acute Visit. MEDICATIONS Current Outpatient Medications Medication Instructions Adderall 20 MG tablet Ascorbic Acid (vitamin C) 500 MG tablet take 1 tablet by mouth twice a day with IRON cetirizine (ZyrTEC) 10 MG tablet Oral Cholecalciferol (Vitamin D) 125 MCG (5000 UT) capsule cyanocobalamin (Vitamin B-12) 100 MCG tablet dicyclomine (Bentyl) 10 MG capsule take 1 capsule by mouth four times a day before meals and nightly diphenhydrAMINE (BENADryl) 25 MG capsule Oral doxycycline (Adoxa) 100 MG tablet Take one tablet daily with food and water by mouth. ergocalciferol (VITAMIN D2) 1.25 mg, Oral, Weekly fluticasone (Flonase) 50 MCG/ACT nasal spray instill 1 spray into each nostril once daily IN THE EVENING hyoscyamine (Levsin) 0.125 MG SL tablet dissolve 1 tablet under the tongue every 4 hours if needed for pain letrozole (Femara) 2.5 MG chemo tablet TAKE 2 TABLETS BY MOUTH ONCE DAILY FOR 5 DAYS ... TAKE WITH OR WITHOUT FOOD metFORMIN XR (GLUCOPHAGE-XR) 1,000 mg, Oral, Daily with evening meal, Do not crush, chew, or split. methylphenidate ER (Concerta) 18 MG CR tablet take 1 tablet by mouth once daily for 30 DAYS montelukast (SINGULAIR) 10 mg, Oral, Daily RT polyethylene glycol, PEG, 3350 (Glycolax) 17 GM/SCOOP powder Mix of powder and drink. 1 scoop daily, may taper up ProFe 391.3 mg, Oral, Daily ALLERGIES Allergies Allergen Reactions Other Angioedema and Hives horses PROBLEMS Active Ambulatory Problems Diagnosis Date Noted No Active Ambulatory Problems Resolved Ambulatory Problems Diagnosis Date Noted No Resolved Ambulatory Problems Past Medical History: Diagnosis Date PCOS (polycystic ovarian syndrome) Vitamin B12 deficiency Vitamin D deficiency HISTORY PAST MEDICAL HISTORY SOCIAL HISTORY Past Medical History: Diagnosis Date PCOS (polycystic ovarian syndrome) Vitamin B12 deficiency Vitamin D deficiency Social History Tobacco Use Smoking status: Not on file Smokeless tobacco: Not on file Substance Use Topics Alcohol use: Not on file Drug use: Not on file FAMILY HISTORY Family History Problem Relation Name Age of Onset Crohn's disease Mother Lupus Maternal Grandmother Lung cancer Maternal Grandfather SURGICAL HISTORY Past Surgical History: Procedure Laterality Date TONSILLECTOMY REVIEW OF SYSTEMS Review of Systems: Review of Systems Constitutional: Negative. HENT: Negative. Eyes: Negative. Respiratory: Negative. Cardiovascular: Negative. Gastrointestinal: Negative. Genitourinary: Negative. Musculoskeletal: Negative. Skin: Negative. Neurological: Negative. All other systems reviewed and are negative. Hematological: Negative. Endocrine: Negative. Allergic/Immunologic: Negative. OBJECTIVE Objective: Physical Exam Constitutional: Appearance: Normal appearance. She is well-developed. Cardiovascular: Rate and Rhythm: Normal rate and regular rhythm. Pulmonary: Effort: Pulmonary effort is normal. Breath sounds: Normal breath sounds. Abdominal: General: Bowel sounds are normal. There is no distension. Palpations: Abdomen is soft. Tenderness: There is no abdominal tenderness. There is no guarding or rebound. Musculoskeletal: General: No swelling. Normal range of motion. Right lower leg: No edema. Left lower leg: No edema. Neurological: Mental Status: She is alert and oriented to person, place, and time. Skin: General: Skin is warm and dry. Psychiatric: Mood and Affect: Mood normal. Behavior: Behavior normal. Vitals and nursing note reviewed. Exam conducted with a supervisor conditioning yard present. Vitals: Estimated body mass index is 22.13 kg/m as calculated from the following: Height as of 04/27/23: 5' 2 . Weight as of this encounter: 121 lb. BP: 102/60 Patient's last menstrual period was 05/17/2024 (approximate). ASSESSMENT & PLAN ICD-10-CM 1. Encounter to discuss test results Z71.2 2. Left ovarian cyst N83.202 Pt to be scheduled for Dx lap return for preop exam pt given semen analysis. 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 HPI Establish Care Additional comments: New pt Comments Pt is here to establish care and discuss infertility has tried the last 3 years to get 2 months of letrozole Was told she has pcos and possibly endometriosis Pain with periods 07/2023 had hsg done Pap 09/2023 at fertility clinic [facility] Malini cabrera Last edited by Jenniffer Phillips MA on 06/08/2024 1:33 PM. - Her menstrual cycle was regular around a year ago and has sense become irregular. - Noted that she has recently started using [employer] fertility monitor. - Her partner has his sperm tested twice one was normal the other was borderline. - She has issues with constipation and is unsure of when her last bowel movement was. Reviewed case with patient, reviewed plans. Recommend she take Miralax daily for daily bowel movements and then consider pelvic floor physical therapy is her pain persist once she is having daily bowel movements. Independent review of ultrasound imaging showed 7 irregular follicles, thickened endometrium appropriate with the phase of her cycle, and adenomyosis. We discussed anovulation and discussed treatment with Letrozole. Advised patient on Letrozole use take 5 mg on day 2 of her menstrual cycle for a total of 5 days and have intercourse during days 10-20 of her cycle. ROS: GEN - no fevers or chills RESP - no SOB or cough MUSIC EXECUTIVE - see HPI HISTORY: Past Medical History: Diagnosis Date Anemia 2019 Female infertility 03/2021 IBS (irritable bowel syndrome) Polycystic ovary syndrome 2019 Past Surgical History: Procedure Laterality Date TONSILLECTOMY Social History Socioeconomic History Marital status: Spouse name: Not on file Number of children: Not on file Years of education: Not on file Highest education level: Not on file Occupational History Not on file Tobacco Use Smoking status: Never Smokeless tobacco: Current Tobacco comments: Vape Vaping Use Vaping status: Every Day Substance and Sexual Activity Alcohol use: Yes Alcohol/week: 2.0 standard drinks of alcohol Types: 2 Glasses of wine per week Comment: Every 6 months approximately Drug use: Never Sexual activity: Yes Partners: Male control/protection: None Other Topics Concern Not on file Social History Narrative Not on file Social Drivers of Health Financial Resource Strain: Low Risk (11/22/2023) Received from [facility] Overall Financial Resource Strain (CARDIA) Difficulty of Paying Living Expenses: Not very hard Food Insecurity: No Food Insecurity (11/22/2023) Received from [facility] Hunger Vital Sign Worried About Running Out of Food in the Last Year: Never true Ran Out of Food in the Last Year: Never true Transportation Needs: Unknown (11/22/2023) Received from [facility] PRAPARE - Transportation Lack of Transportation (Medical): Not on file Lack of Transportation (Non-Medical): No Physical Activity: Insufficiently Active (10/15/2023) Received from [facility] Exercise Vital Sign Days of Exercise per Week: 1 day Minutes of Exercise per Session: 60 min Stress: Not on file Social Connections: Not on file Intimate Partner Violence: Not At Risk (10/20/2022) Received from [facility] Humiliation, Afraid, Rape, and Kick questionnaire Fear of Current or Ex-Partner: No Emotionally Abused: No Physically Abused: No Sexually Abused: No Housing Stability: Unknown (11/22/2023) Received from [facility] Housing Stability Vital Sign Unable to Pay for Housing in the Last Year: Not on file Number of Places Lived in the Last Year: Not on file Unstable Housing in the Last Year: No Cancer-related family history includes Cancer in her maternal grandfather and mother. PHYSICAL EXAM: BP 92/60 Wt 54.9 kg (121 lb) LMP 05/19/2024 BMI 22.13 kg/m GEN: A&O, NAD HEENT: head HC/AT, no visible goiter PSYCH: normal affect, non-anxious IMPRESSION/PLAN: 24 y.o. chronic constipation and anovulatory infertility. - Miralax - Letrozole 5 mg daily for 5 days. Follow up in 3 months Mellisa Vega am scribing for virtually, and in the presence of Dr. Roz Camara on 06/08/24 at 6:28 PM Roz Camara MD documented in this encounter [facility] Work Phone: 04-01-2024 Emergency department Note HPI Chief Complaint Patient presents with Abdominal Pain Pt to ED with c/o LLQ abd pain x 2 days. Denies n/v/d, fever. Denies urinary symptoms. 24-year-old female with history of PCOS presents with intermittent left lower quadrant pain for the last 2 days. Patient is not on any control at this point in time. Patient states pain is somewhat positional. Patient denies any vaginal bleeding or discharge. Patient denies any dysuria or hematuria. Patient denies any nausea, vomiting or diarrhea. History provided by: Patient Patient History Past Medical History: Diagnosis Date IBS (irritable bowel syndrome) Past Surgical History: Procedure Laterality Date TONSILLECTOMY No family history on file. Social History Tobacco Use Smoking status: Never Smokeless tobacco: Never Vaping Use Vaping status: Every Day Substance Use Topics Alcohol use: Yes Comment: rarely Drug use: Never Physical Exam ED Triage Vitals [04/01/24 1940] Temp Heart Rate Respirations BP -- 95 18 118/82 Pulse Ox Temp src Heart Rate Source Patient Position 100 % -- Monitor Sitting BP Location FiO2 (%) Left arm -- Physical Exam Vitals and nursing note reviewed. Constitutional: General: She is not in acute distress. Appearance: She is well-developed. HENT: Head: Normocephalic and atraumatic. Eyes: Conjunctiva/sclera: Conjunctivae normal. Cardiovascular: Rate and Rhythm: Normal rate and regular rhythm. Heart sounds: No murmur heard. Pulmonary: Effort: Pulmonary effort is normal. No respiratory distress. Breath sounds: Normal breath sounds. Abdominal: Palpations: Abdomen is soft. Tenderness: There is abdominal tenderness in the left lower quadrant. Musculoskeletal: General: No swelling. Cervical back: Neck supple. Skin: General: Skin is warm and dry. Capillary Refill: Capillary refill takes less than 2 seconds. Neurological: Mental Status: She is alert. Psychiatric: Mood and Affect: Mood normal. Labs Reviewed URINALYSIS WITH REFLEX CULTURE AND MICROSCOPIC - Abnormal Result Value Color, Urine Colorless (*) Appearance, Urine Clear Specific [place], Urine 1.007 pH, Urine 7.0 Protein, Urine NEGATIVE Glucose, Urine Normal Blood, Urine NEGATIVE Ketones, Urine NEGATIVE Bilirubin, Urine NEGATIVE Urobilinogen, Urine Normal Nitrite, Urine NEGATIVE Leukocyte Esterase, Urine NEGATIVE COMPREHENSIVE METABOLIC PANEL - Normal Glucose 81 Sodium 138 Potassium 3.5 Chloride 104 Bicarbonate 26 Anion Gap 12 Urea Nitrogen 6 Creatinine 0.82 eGFR >90 Calcium 9.4 Albumin 4.2 Alkaline Phosphatase 61 Total Protein 6.9 AST 16 Bilirubin, Total 1.2 ALT 8 HUMAN CHORIONIC GONADOTROPIN, SERUM QUANTITATIVE - Normal HCG, Beta-Quantitative <2 Narrative: Total HCG measurement is performed using the Dat O[employer] Access Immunoassay which detects intact HCG and free beta HCG subunit. This test is not indicated for use as a tumor marker. HCG testing is performed using a different test methodology at [facility] than other [facility]. Direct result comparison should only be made within the same method. CBC WITH AUTO DIFFERENTIAL WBC 8.4 nRBC 0.0 RBC 4.32 Hemoglobin 13.2 Hematocrit 41.3 MCV 96 MCH 30.6 MCHC 32.0 RDW 12.5 Platelets 293 Neutrophils % 61.5 Immature Granulocytes %, Automated 0.1 Lymphocytes % 27.1 Monocytes % 7.9 Eosinophils % 2.7 Basophils % 0.7 Neutrophils Absolute 5.15 Immature Granulocytes Absolute, Automated 0.01 Lymphocytes Absolute 2.27 Monocytes Absolute 0.66 Eosinophils Absolute 0.23 Basophils Absolute 0.06 URINALYSIS WITH REFLEX CULTURE AND MICROSCOPIC Narrative: The following orders were created for panel order Urinalysis with Reflex Culture and Microscopic. Procedure Abnormality Status --------- ------ Urinalysis with Reflex C...[[id number]] Abnormal Final result Extra Urine Schumacher Tube[[id number]] Please view results for these tests on the individual orders. EXTRA URINE SCHUMACHER TUBE ED Course & MDM Diagnoses as of 04/01/242131 Oophoritis, unspecified No data recorded Yandel Coma Scale Score: 15 (04/01/248 : Mirna Reilly RN) Medical Decision Making 1 ultrasound of pelvis as an outpatient 2 take medication as prescribed 3 follow-up with family medical doctor in 1 to 2 days if no improvement return to ED. Procedure Procedures Christopher Diego DO 04/01/242132 documented in this encounter [facility] Work Phone: 04-01-2024 Physician Emergency department Note HPI Chief Complaint Patient presents with Abdominal Pain Pt to ED with c/o LLQ abd pain x 2 days. Denies n/v/d, fever. Denies urinary symptoms. 24-year-old female with history of PCOS presents with intermittent left lower quadrant pain for the last 2 days. Patient is not on any control at this point in time. Patient states pain is somewhat positional. Patient denies any vaginal bleeding or discharge. Patient denies any dysuria or hematuria. Patient denies any nausea, vomiting or diarrhea. History provided by: Patient Patient History Past Medical History: Diagnosis Date IBS (irritable bowel syndrome) Past Surgical History: Procedure Laterality Date TONSILLECTOMY No family history on file. Social History Tobacco Use Smoking status: Never Smokeless tobacco: Never Vaping Use Vaping status: Every Day Substance Use Topics Alcohol use: Yes Comment: rarely Drug use: Never Physical Exam ED Triage Vitals [04/01/24 1940] Temp Heart Rate Respirations BP -- 95 18 118/82 Pulse Ox Temp src Heart Rate Source Patient Position 100 % -- Monitor Sitting BP Location FiO2 (%) Left arm -- Physical Exam Vitals and nursing note reviewed. Constitutional: General: She is not in acute distress. Appearance: She is well-developed. HENT: Head: Normocephalic and atraumatic. Eyes: Conjunctiva/sclera: Conjunctivae normal. Cardiovascular: Rate and Rhythm: Normal rate and regular rhythm. Heart sounds: No murmur heard. Pulmonary: Effort: Pulmonary effort is normal. No respiratory distress. Breath sounds: Normal breath sounds. Abdominal: Palpations: Abdomen is soft. Tenderness: There is abdominal tenderness in the left lower quadrant. Musculoskeletal: General: No swelling. Cervical back: Neck supple. Skin: General: Skin is warm and dry. Capillary Refill: Capillary refill takes less than 2 seconds. Neurological: Mental Status: She is alert. Psychiatric: Mood and Affect: Mood normal. Labs Reviewed URINALYSIS WITH REFLEX CULTURE AND MICROSCOPIC - Abnormal Result Value Color, Urine Colorless (*) Appearance, Urine Clear Specific [place], Urine 1.007 pH, Urine 7.0 Protein, Urine NEGATIVE Glucose, Urine Normal Blood, Urine NEGATIVE Ketones, Urine NEGATIVE Bilirubin, Urine NEGATIVE Urobilinogen, Urine Normal Nitrite, Urine NEGATIVE Leukocyte Esterase, Urine NEGATIVE COMPREHENSIVE METABOLIC PANEL - Normal Glucose 81 Sodium 138 Potassium 3.5 Chloride 104 Bicarbonate 26 Anion Gap 12 Urea Nitrogen 6 Creatinine 0.82 eGFR >90 Calcium 9.4 Albumin 4.2 Alkaline Phosphatase 61 Total Protein 6.9 AST 16 Bilirubin, Total 1.2 ALT 8 HUMAN CHORIONIC GONADOTROPIN, SERUM QUANTITATIVE - Normal HCG, Beta-Quantitative <2 Narrative: Total HCG measurement is performed using the Dat [employer] Access Immunoassay which detects intact HCG and free beta HCG subunit. This test is not indicated for use as a tumor marker. HCG testing is performed using a different test methodology at [facility] than other [facility]. Direct result comparison should only be made within the same method. CBC WITH AUTO DIFFERENTIAL WBC 8.4 nRBC 0.0 RBC 4.32 Hemoglobin 13.2 Hematocrit 41.3 MCV 96 MCH 30.6 MCHC 32.0 RDW 12.5 Platelets 293 Neutrophils % 61.5 Immature Granulocytes %, Automated 0.1 Lymphocytes % 27.1 Monocytes % 7.9 Eosinophils % 2.7 Basophils % 0.7 Neutrophils Absolute 5.15 Immature Granulocytes Absolute, Automated 0.01 Lymphocytes Absolute 2.27 Monocytes Absolute 0.66 Eosinophils Absolute 0.23 Basophils Absolute 0.06 URINALYSIS WITH REFLEX CULTURE AND MICROSCOPIC Narrative: The following orders were created for panel order Urinalysis with Reflex Culture and Microscopic. Procedure Abnormality Status --------- ------ Urinalysis with Reflex C...[[id number]] Abnormal Final result Extra Urine Schumacher Tube[[id number]] Please view results for these tests on the individual orders. EXTRA URINE SCHUMACHER TUBE ED Course & MDM Diagnoses as of 04/01/242131 Oophoritis, unspecified No data recorded Yandel Coma Scale Score: 15 (04/01/24 1938 : Mirna Reilly RN) Medical Decision Making 1 ultrasound of pelvis as an outpatient 2 take medication as prescribed 3 follow-up with family medical doctor in 1 to 2 days if no improvement return to ED. Procedure Procedures Christopher Diego DO 04/01/242132 [facility] Work Phone: Evaluation note Diagnosis PCOS (polycystic ovarian syndrome) Polycystic ovaries documented in this encounter [employer] Phone: [email or web address] note* Diagnosis PCOS (polycystic ovarian syndrome) Polycystic ovaries Infertility associated with anovulation Female infertility associated with anovulation documented in this encounter [employer] Phone: evaluation note* Diagnosis PCOS (polycystic ovarian syndrome) Polycystic ovaries Infertility associated with anovulation Female infertility associated with anovulation documented in this encounter [employer] Phone: evallipnap note* Diagnosis Lower abdominal pain Abdominal pain, other specified site documented in this encounter [employer] note* Diagnosis Pain in the groin- Primary Abdominal pain, unspecified site Recent change in frequency of bowel movements documented in this encounter [employer] note* Diagnosis Lower abdominal pain Abdominal pain, other specified site [facility] Diagnosis Chronic idiopathic constipation- Primary Unspecified constipation Infertility associated with anovulation documented in this encounter [facility] Work Phone: Evaluation note* Diagnosis Encounter to discuss test results Other specified counseling Left ovarian cyst Other and unspecified ovarian cyst documented in this encounter [facility]* Diagnosis PCOS (polycystic ovarian syndrome) Polycystic ovaries Female infertility Female infertility of unspecified origin Anovulation Female infertility associated with anovulation Menorrhagia with regular cycle documented in this encounter [facility]* Diagnosis Oophoritis, unspecified- Primary documented in this encounter [facility] Work Phone: Evaluation note* Diagnosis Unspecified ovarian cyst, left side documented in this encounter [facility] Work Phone: Evaluation note* Diagnosis Vaginal bleeding in , first trimester (HHS-HCC)- Primary documented in this encounter [facility] Work Phone: Evaluation note* Diagnosis Missed menses , unspecified gestational age Encounter for supervision of normal first in first trimester [facility] Attachments The following attachments cannot be sent through Care Everywhere. * Colonoscopy: Post-op ([place]) * Colon Polyps ([place]) [facility] Attachments The following attachments cannot be sent through Care Everywhere. * Bleeding in Early Discharge Instructions ([place]) [facility] Summary Purpose Family History No Family History Records FoundNo Family History Records FoundNo Family History Records FoundNo Family History Records FoundNo Family History Records FoundNo Family History Records FoundNo Family History Records FoundNo Family History Records Found Advance Directives Documents on File Type Date Recorded Patient Adult Basic Studies Teacher Expl anation Advance Directives and Living Will Power of Sheeter Operator Documents on File Type Date Recorded Patient Adult Basic Studies Teacher Expl anation ACP-Advance Directive ACP-Power of Sheeter Operator Documents on File Type Date Recorded Patient Adult Basic Studies Teacher Expl anation ACP-Advance Directive ACP-Power of Sheeter Operator Latest Code Status on File Code Status Date Activated Date Inactivated Comments Full Code 03/07/2021 2:30 PM 03/11/2021 2:38 PM Latest Code Status on File Code Status Date Activated Date Inactivated Comments Full Code 03/07/2021 2:30 PM 03/11/2021 2:38 PM Latest Code Status on File Code Status Date Activated Date Inactivated Comments Full Code 03/07/2021 2:30 PM 03/11/2021 2:38 PM Latest Code Status on File Code Status Date Activated Date Inactivated Comments Full Code 09/23/2023 12:20 PM Code Status History Code Status Date Activated Date Inactivated Comments Full Code 03/07/2021 2:30 PM 03/11/2021 2:38 PM Latest Code Status on File Code Status Date Activated Date Inactivated Comments Full Code 09/23/2023 12:20 PM 09/23/2023 3:55 PM Reason for Referral Status Reason Specialty Diagnoses / Procedures Referre d By Contact Referred To Contact [facility] Diagnoses Menorrhagia with irregular cycle Procedures US NON OB TRANSVAGINAL Gisel Phelan, SERVICE C[employer] SUPERVISOR - [employer] Status Reason Specialty Diagnoses / Procedures Referre d By Contact Referred To Contact [facility] Diagnoses Menorrhagia with irregular cycle Procedures US PELVIS COMPLETE Gisel Phelan, SERVICE CENTER SUPERVISOR - [employer] Specialty Diagnoses / Procedures Referred By Contac t Referred To Contact Radiology Diagnoses PCOS (polycystic ovarian syndrome) Infertility associated with anovulation Procedures US NON OB TRANSVAGINAL Shant Gipson, DO [address] [place] [address] Referral ID Status Reason Start Date Expiration Date Visits Re quested Visits Authorized [id number] Open 01/29/2022 01/29/2023 1 1 Specialty Diagnoses / Procedures Referred By Contac t Referred To Contact Radiology Diagnoses PCOS (polycystic ovarian syndrome) Infertility associated with anovulation Procedures US PELVIS COMPLETE Shant Gipson, DO [address] [place] [address] Referral ID Status Reason Start Date Expiration Date Visits Re quested Visits Authorized [id number] Open 01/29/2022 01/29/2023 1 1 Specialty Diagnoses / Procedures Referred By Contac t Referred To Contact Radiology Diagnoses Lower abdominal pain Procedures CT ABDOMEN PELVIS W IV CONTRAST Additional Contrast? None Jung Pace MD [address] [place] [address] Referral ID Status Reason Start Date Expiration Date Visits Re quested Visits Authorized [id number] Closed 09/16/2023 09/12/2024 1 1 Assessments Diagnosis Menorrhagia with irregular cycle Excessive or frequent menstruation Additional Source Comments INFORMATION SOURCE (unrecogn ized section and content) DATE CREATED AUTHOR 02/02/2018 [facility] DATE CREATED AUTHOR AUTHOR'S ORGANIZ ATION 10/04/2021 [facility] DATE CREATED AUTHOR AUTHOR'S ORGANIZ ATION 09/26/2023 [facility] DATE CREATED AUTHOR AUTHOR'S ORGANIZ ATION 09/28/2023 [facility] DATE CREATED AUTHOR AUTHOR'S ORGANIZ ATION 06/17/2024 [facility] DATE CREATED AUTHOR AUTHOR'S ORGANIZ ATION 08/11/2024 [facility] DATE CREATED AUTHOR AUTHOR'S ORGANIZ ATION 08/29/2024 [facility] DATE CREATED AUTHOR AUTHOR'S ORGANIZ ATION 09/03/2024 [facility] Reason for Visit (unrecogniz ed section and content) Status Reason Specialty Diagnoses / Procedures Referre d By Contact Referred To Contact Open Radiology Diagnoses Menorrhagia with irregular cycle Procedures US PELVIS COMPLETE Gisel Phelan APRN - GRAIN DRIER Specialty Diagnoses / Procedures Referred By Contkimberlyn t Referred To Contact Radiology Diagnoses PCOS (polycystic ovarian syndrome) Infertility associated with anovulation Procedures US PELVIS COMPLETE Shant Gipson, [address] [place] [address] Referral ID Status Reason Start Date Expiration Date Visits Re quested Visits Authorized [id number] Open 01/29/2022 01/29/2023 1 1 Specialty Diagnoses / Procedures Referred By Contac t Referred To Contact Diagnoses Pain in the groin Pain in the groin [R10.30] Procedures PA COLONOSCOPY FLX DX W/COLLJ SPEC WHEN PFRMD PA COLONOSCOPY W/BIOPSY SINGLE/MULTIPLE PA COLSC FLX W/RMVL OF TUMOR POLYP LESION SNARE TQ COLONOSCOPY DIAGNOSTIC Jung Pace MD [address] [place] [address] [facility] [address] [place] [address] Referral ID Status Reason Start Date Expiration Date Visits Re quested Visits Authorized [id number] 1 1 Specialty Diagnoses / Procedures Referred By Contac t Referred To Contact Radiology Diagnoses Lower abdominal pain Procedures CT ABDOMEN PELVIS W IV CONTRAST Additional Contrast? None Jung Pace MD [address] [place] [address] Referral ID Status Reason Start Date Expiration Date Visits Re quested Visits Authorized [id number] Closed 09/16/2023 09/12/2024 1 1 Reason Comments Establish Care New pt Reason Comments Ovarian Cyst Pt present today to review US results of Left side ovarian cyst. Reason Comments Infertility telehealth Reason Comments Abdominal Pain Pt to ED with c/o LL Q abd pain x 2 days. Denies n/v/d, fever. Denies urinary symptoms. Specialty Diagnoses / Procedures Referred By Contac t Referred To Contact Radiology Diagnoses Unspecified ovarian cyst, left side Procedures US PELVIS TRANSABDOMINAL WITH TRANSVAGINAL US pelvis limited Christopher Diego, DO [address] [place] [address] Referral ID Status Reason Start Date Expiration Date Visits Requested Visits Authorized [id number] Pending Review Perform Procedure 04/03/2024 04/03/2025 1 1 Reason Comments Vaginal Bleeding - Patient stat es she is approximately 5 weeks and started having vaginal bleeding today Reason Comments Amenorrhea <item> Privacy Markings (unrecogniz ed section and content) Section Author: Ashley Márquez PROHIBITION ON REDISCLOSURE OF CONFIDENTIAL INFORMATION This notice accompanies a disclosure of information concerning a client made to you with the consent of such client. Care Teams (unrecognized sec tion and content) Autom[employer] Service Porter Relationship Specialty Start Date End Date Amanda Welch, SERVICE CENTER SUPERVISOR - GRAIN DRIER PCP - General 10/19/19 [employer] Porter Relationship Specialty Start Date End Date Amanda Welch SERVICE CENTER SUPERVISOR - GRAIN DRIER PCP - General 10/19/19 [employer] Service Porter Relationship Specialty Start Date End Date Robert Mercado PA [address] [place] [address] PCP - General Physician Pest Technician 10/20/22 [employer] Service Porter Relationship Specialty Start Date End Date Robert Mercado PA [address] [place] [address] PCP - General Physician Pest Technician 10/20/22 Automotive Service Porter Relationship Specialty Start Date End Date Robert Mercado PA [address] [place] [address] PCP - General Physician Pest Technician 10/20/22 Autom[employer] Service Porter Relationship Specialty Start Date End Date Robert Mercado MD [address] [place] [address] PCP - General 09/13/23 Hemant Grant DO [address] [place] [address] [address] [place] [place] [address] PCP - [facility] 02/14/24 Automotive Service Porter Relationship Specialty Start Date End Date Robert Mercado MD [address] [place] [address] PCP - General 09/13/23 Automotive Service Porter Relationship Specialty Start Date End Date Robert Mercado MD [address] [place] [address] PCP - General 09/13/23 Automotive Service Porter Relationship Specialty Start Date End Date Robert Mercado MD [address] [place] [address] PCP - General 09/13/23 Automotive Service Porter Relationship Specialty Start Date End Date Generic Provider, [place] [address] PCP - General Pattern Grader 08/21/24 Automotive Service Porter Relationship Specialty Start Date End Date Robert Mercado MD [address] [place] [address] PCP - General 09/13/23 Automotive Service Porter Relationship Specialty Start Date End Date Robert Mercado MD [address] [place] [address] PCP - General 09/13/23 Scheduled Active and Recently Administ ered Medications (unrecognized section and content) Medication Order 09/21/2023 09/22/2023 09/23/2023 sodium chloride flush 0.9 % injection 5-40 mL 5-40 mL, IntraVENous, EVERY 12 HOURS SCHEDULED (2 times per day), First dose on Susan 09/23/23 at 2100, Until Discontinued, For Line Patency: Peripheral IV = 5 mL; Midline or Central Line = 10 mL/lumen. If following IV push medication, administer flush at same rate as the IV push. Flush volume is determined by type of infusion therapy being given. For non-viscous solutions use: Peripheral IV = 5 mL Midline or Central Line = 10 mL/lumen For viscous solutions (i.e. blood components, parenteral nutrition, contrast media, or after obtaining blood sample) use: Peripheral IV = 10 mL Midline or Central Line = 20 mL/lumen, Pre-procedure(GI) 2100 (Due) Continuous Medication Order 09/21/2023 09/22/2023 09/23/2023 0.9 % sodium chloride infusion IntraVENous, at 75 mL/hr, CONTINUOUS, Starting on Susan 09/23/23 at 1245, Pre-procedure(GI) 1245 (New Bag - Prov ider: Fiorella Hinojosa RN) PRN Medication Order 09/21/2023 09/22/2023 09/23/2023 0.9 % sodium chloride infusion IntraVENous, at 100 mL/hr, PRN, If patient receiving piggyback infusions without ordered maintenance IV fluids or with frequent/long duration piggyback infusions, Starting on Susan 09/23/23 at 1220, Administer at the same rate as the piggyback being infused., Pre-procedure(GI) simethicone (MYLICON) 40 MG/0.6ML suspension drops (CANCELED) PRN, Starting on Susan 09/23/23 at 1259, Until Susan 09/23/23 at 1314, Intra-op 1259 (Given - Provid er: Jung Pace MD - Comment: PARTIAL DOSE) sodium chloride flush 0.9 % injection 5-40 mL 5-40 mL, IntraVENous, PRN, Starting on Susan 09/23/23 at 1220, Until Discontinued, Line Care, After every IV line use, For Line Patency: Peripheral IV = 5 mL; Midline or Central Line = 10 mL/lumen. If following IV push medication, administer flush at same rate as the IV push. Flush volume is determined by type of infusion therapy being given. For non-viscous solutions use: Peripheral IV = 5 mL Midline or Central Line = 10 mL/lumen For viscous solutions (i.e. blood components, parenteral nutrition, contrast media, or after obtaining blood sample) use: Peripheral IV = 10 mL Midline or Central Line = 20 mL/lumen, Pre-procedure(GI) sterile water for irrigation (CANCELED) PRN, Starting on Susan 09/23/23 at 1259, Intra-op 1259 (Given - Provid er: Jung Pace MD - Comment: PARTIAL DOSE) Scheduled Medication Order 03/30/2024 03/31/2024 04/01/2024 ibuprofen tablet 800 mg (COMPLETED) 800 mg, oral, Once, On 04/01/24 at 2135, For 1 dose, May administer with food to reduce GI upset., If ordered PRN for pain, nurse is permitted to administer this medication for higher pain scores based on patient preference? Yes 7533 (Given - Provid er: Alfonso Tomas RN) FOR RECORDS PERTAINING TO PATIENTS WHO ARE OR HAVE BEEN ENROLLED IN A CHEMICAL DEPENDENCY/SUBSTANCEABUSE PROGRAM, SOME INFORMATION MAY BE OMITTED. This clinical summary was aggregated from multiple sources. Caution should be exercised in using it in the provision of clinical care. This summary normalizes information from multiple sources, and as a consequence, information in this document may materially change the coding, format and clinical context of patient data. In addition, data may be omitted in some cases. CLINICAL DECISIONS SHOULD BE BASED ON THE PRIMARY CLINICAL RECORDS. [employer] provides no warranty or guarantee of the accuracy or completeness of information in this document.
[2024-09-16 11:37] LABS: Basophils Absolute Auto 0.1 10^3/uL (0.0-0.1); Basophils Percent Auto 0.5 % (0.2-2.0); Eosinophils Absolute Auto 0.2 10^3/uL (0.0-0.7); Eosinophils Percent Auto 1.9 % (0.9-7.0); Hematocrit 36.6 % (36.0-48.0); Hemoglobin 11.9 g/dL (12.0-16.0); Immature Granulocytes Abs Auto 0.02 10^3/uL (0.00-0.03); Immature Granulocytes Pct Auto 0.2 % (0.0-0.5); Lymphocytes Absolute Auto 1.6 10^3/uL (1.2-3.8); Lymphocytes Percent Auto 13.2 % (20.5-60.0); Mean Corpuscular HGB Conc 32.5 g/dL (29.9-35.2); Mean Corpuscular Hemoglobin 29.5 pg (26.7-34.0); Mean Corpuscular Volume 90.8 fL (81.0-99.0); Mean Platelet Volume 10.9 fL (9.5-13.5); Monocytes Absolute Auto 0.5 10^3/uL (0.3-0.8); Monocytes Percent Auto 4.5 % (1.7-12.0); Neutrophils Absolute Auto 9.4 10^3/uL (1.4-6.5); Neutrophils Percent Auto 79.7 % (43.0-75.0); Platelet Count 385 10^3/uL (150-450); Red Blood Count 4.03 10^6/uL (4.20-5.40); Red Cell Distribution Width 12.6 % (11.0-15.0); White Blood Count 11.9 10^3/uL (4.0-11.0)
[2024-09-16 11:50] LABS: Estimated Average Glucose 103 mg/dL; Glycohemoglobin A1C 5.2 % (4.5-6.2)
[2024-09-16 12:13] LABS: Amphetamine Screen Urine NEGATIVE (NEGATIVE); Barbiturates Screen Urine NEGATIVE (NEGATIVE); Benzodiazepines Screen Urine NEGATIVE (NEGATIVE); Buprenorphine Screen Urine NEGATIVE (NEGATIVE); Cannabinoid Screen Urine NEGATIVE (NEGATIVE); Cocaine Screen Urine NEGATIVE (NEGATIVE); Methadone Screen Urine NEGATIVE (NEGATIVE); Methamphetamines Screen Urine NEGATIVE (NEGATIVE); Opiate Screen Urine NEGATIVE (NEGATIVE); Oxycodone Screen Urine NEGATIVE (NEGATIVE); Phencyclidine Screen Urine NEGATIVE (NEGATIVE); Tricyclic Antidepressant Urine NEGATIVE (NEGATIVE)
[2024-09-17 08:10] LABS: HBsAg Screen Negative (Negative); HCV Ab Non Reactive (Non Reactive); HIV Ab/p24 Ag Screen Non Reactive (Non Reactive)
[2024-09-17 09:09] LABS: Rapid Plasma Reagin, Quant Non Reactive titer (NonRea<1:1); Rubella Antibodies, IgG 2.92 index (Immune >0.99)
[2024-09-19 15:42] LABS: BOX Test Reference Lab UNITY; BOX Test Sent Out UNITY
== END 2024-09-16 10:54 | disposition home or self-care (01) ==
LOC: LAB 10:58
PROVIDERS: Visit Provider Obstetrics & Gynecology
DX: Z34.01 Encounter for supervision of normal first pregnancy, first trimester (principal); Z36.0 Encounter for antenatal screening for chromosomal anomalies; N92.6 Irregular menstruation, unspecified
CPT/HCPCS: 36415; 80307; 83036; 85025; 86592; 86762; 86803; 86850; 86900; 86901; 87086; 87340; 87389

== ENCOUNTER 2024-11-14 16:00 | Outpatient (OUT) | payer OTHER, SELFPAY ==
[2024-11-17 01:07] LABS: Gest. Age on Collection Date 17.4 weeks (.); Insulin Dep Diabetes No (.); Maternal Age At EDD 26.2 yr (.); OSBR Risk 1 IN 4947 (.); Results Report (.)
== END 2024-11-14 16:01 | disposition home or self-care (01) ==
LOC: LAB 16:02
PROVIDERS: Visit Provider Physician Assistant
DX: Z34.92 Encounter for supervision of normal pregnancy, unspecified, second trimester (principal); Z3A.17 17 weeks gestation of pregnancy
CPT/HCPCS: 36415; 82105

== ENCOUNTER 2025-01-09 14:14 | Outpatient (OUT) | payer OTHER, SELFPAY ==
--- OUTSIDE RECORDS SUMMARY | 2024-08-28 10:00 | XMS_ITS ---
Author Organization [facility] Address [address] [facility] [place] [address] Care Team Providers Care Tape Recorder Mechanic Name Role Phone None, None Primary Care Provider David Trujillo [facility] [phone] REASON FOR VISIT INFERTILITY ISSUES Encounters Encounter Location Date Provider Diagnosis [place] [id number] [address] 08/28/2024 David Collins Plan Of Treatment No Information Progress Notes * CARISA DURANTDOB:2000 (25 yo F)Acc No.[id number]:08/28/2024 Patient: S CARISA SYLVESTER Provider: Jean Marie Collins MD :2000 A ge:24 Y S ex:Female Date:08/28/2024 Address:[address] [place] [address] [place], [place] [id number] Subjective: * Chief Complaints: * 1 . INFERTILITY ISSUES. * Medical History: Objective: * Vitals: Assessment: Plan: * Treatment: * * Electronic signature of Gideon Collins MD on 01/09/2025 at 01:23 PM EDT Sign off status: Pending * Provider: Jean Marie Collins MD Date: 0 08/28/2024 Generated for Lennox wynn/Aidee/Myraitting on: 0 01/09/2025 01:23 PM EDT
--- OUTSIDE RECORDS SUMMARY | 2024-10-04 06:00 | XMS_ITS ---
Author Organization [facility] Address [address] [facility] [place] [address] Care Team Providers Care Caramel Cutter Hand Name Role Phone None, None Primary Care Provider David Trujillo [facility] [phone] REASON FOR VISIT INFERTILITY ISSUES Encounters Encounter Location Date Provider Diagnosis [place] [id number] [address] 10/04/2024 David Collins Plan Of Treatment No Information Progress Notes * CARISA DURANTDOB:2000 (25 yo F)Acc No.[id number]:10/04/2024 Patient: S CARISA SYLVESTER Provider: Jean Marie Collins MD :2000 A ge:24 Y S ex:Female Date:10/04/2024 Address:[address] [place] [address] [place], [place] [id number] Subjective: * Chief Complaints: * 1 . INFERTILITY ISSUES. * Medical History: Objective: * Vitals: Assessment: Plan: * Treatment: * * Electronic signature of Gideon Collins MD on 01/09/2025 at 01:23 PM EDT Sign off status: Pending * Provider: Jean Marie Collins MD Date: 10/04/2024 Generated for Lenonx wynn/Aidee/Myraitting on: 0 01/09/2025 01:23 PM EDT
--- OUTSIDE RECORDS SUMMARY | 2025-01-09 13:20 | XMS_ITS | Encounter Summary ---
Author Organization [facility] Address [address] [place] [address] Care Team Providers Care Emergency Veterinary Assistant Name Role Phone Blossom Mercado Primary Care Provider [phone] Reason for Visit * Reason Comments Routine Visit Encounter Details Date Type Department Care Team (Late st Contact Info) Description 01/09/2025 1:20 PM EDT Routine [facility] [address] [place] [address] Mirna Lam PA [address] [facility] [place] [address] Second trimester ; 25 weeks gestation of ; Diabetes mellitus screening Social History Tobacco Use Types Packs/Day Years Used Date Smoking Tobacco: Never Assessed Estimated Date of Delivery Comme nts Yes 04/21/2025 Based on last me nstrual period of 07/15/2024 Sex and Gender Information Value Date Recorded Sex Assigned at Female 03/22/2023 1:48 PM EDT Legal Sex Female 1:39 PM EDT Gender Identity Female 03/22/2023 1:48 PM EDT Sexual Orientation Not on file documented as of this encounter Last Filed Vital Signs Vital Sign Reading Time Taken Comments Blood Pressure 110/64 01/09/2025 1:54 PM EDT Pulse - - Temperature - - Respiratory Rate - - Oxygen Saturation - - Inhaled Oxygen Concentration - - Weight 65.3 kg (144 lb) 01/09/2025 1:54 PM EDT Height - - Body Mass Index 26.34 04/27/2023 10:00 AM EDT documented in this encounter Progress Notes * JACKY Day - 01/09/2025 1:20 PM EDT Reason for Appointment: Patient ID: Rebekah Rhodes is a 25 y.o. female who presents for Routine Visit Patient presents today for Return OB appointment. MEDICATIONS Current Outpatient Medications Medication Instructions MV-Min-Fe Fum-FA-DHA ( 1 PO) 1 each, Daily ALLERGIES Allergies Allergen Reactions Other Angioedema and Hives horses PROBLEMS Active Ambulatory Problems Diagnosis Date Noted No Active Ambulatory Problems Resolved Ambulatory Problems Diagnosis Date Noted No Resolved Ambulatory Problems Past Medical History: Diagnosis Date IBS (irritable bowel syndrome) PCOS (polycystic ovarian syndrome) Vitamin B12 deficiency Vitamin D deficiency HISTORY PAST MEDICAL HISTORY SOCIAL HISTORY Past Medical History: Diagnosis Date IBS (irritable [...] pressure) Maternal Grandmother Lung cancer Maternal Grandfather SURGICAL HISTORY Past Surgical History: Procedure Laterality Date COLONOSCOPY TONSILLECTOMY REVIEW OF SYSTEMS Review of Systems: Review of Systems Constitutional: Negative. HENT: Negative. Eyes: Negative. Respiratory: Negative. Cardiovascular: Negative. Gastrointestinal: Negative. Genitourinary: Negative. Musculoskeletal: Negative. Skin: Negative. Neurological: Negative. All other systems reviewed and are negative. Hematological: Negative. Endocrine: Negative. Allergic/Immunologic: Negative. OBJECTIVE Objective: Physical Exam Constitutional: Appearance: Normal appearance. She is normal weight. HENT: Head: Normocephalic. Cardiovascular: Rate and Rhythm: Normal rate. Pulses: Normal pulses. Pulmonary: Effort: Pulmonary effort is normal. Breath sounds: Normal breath sounds. Abdominal: Palpations: Abdomen is soft. Musculoskeletal: General: Normal range of motion. Neurological: General: No focal deficit present. Mental Status: She is alert and oriented to person, place, and time. Psychiatric: Mood and Affect: Mood normal. Behavior: Behavior normal. Thought Content: Thought content normal. Judgment: Judgment normal. Vitals and nursing note reviewed. Vitals: Estimated body mass index is 26.34 kg/m?? as calculated from the following: Height as of 23: 5' 2 . Weight as of this encounter: 144 lb. BP: 110/64 Patient's last menstrual period was 07/15/2024. ASSESSMENT & PLAN ICD-10-CM 1. Second trimester Z34.92 2. 25 weeks gestation of Z3A.25 3. Diabetes mellitus screening Z13.1 CBC Glucose tolerance, 1 hour CBC Glucose tolerance, 1 hour Return OB: Patient presents today for a routine obstetrics appointment. Patient is currently 25w3d . Patient states she is doing well but has complaints of being tired due to current . Patient has verbalizes frequent movement. Orders Placed This Encounter Procedures CBC Glucose tolerance, 1 hour Follow Up: Patient is to return to office in 3 week for routine OB appointment. Documented by JACKY Day on behalf of: JACKY Day documented in this encounter Plan of Treatment Upcoming Encounters Date Type Department Care Team (Late st Contact Info) Description 01/30/2025 11:20 AM EDT Routine [facility] [address] [facility] [place] [address] Mirna Lam PA [address] [facility] [place] [address] Scheduled Orders Name Type Priority Associated Diagnoses Orde r Schedule CBC Lab Routine Diabetes mellitus screening Expected: 01/09/2025 (Approximate), Expires: 01/09/2026 Glucose tolerance, 1 hour Lab Routine Diabetes mellitus screening Expected: 01/09/2025 (Approximate), Expires: 01/09/2026 documented as of this encounter Procedures Procedure Name Priority Date/Time Associated Diagnosis Comments POCT URINALYSIS DIPSTICK Routine 01/09/2025 2:10 PM EDT 25 weeks gestation of documented in this encounter Results * POCT urinalysis dipstick manually resulted (01/09/2025 2:10 PM EDT) Color, UA Yellow Clarity, UA Clear Glucose, UA Negative Negative - 2000(110) ++++ mg/dL Bilirubin, UA Negative Negative - 4(70) +++ mg/dL Ketones, UA Negative Negative - 160(16) ++++ mg/dL Spec Grav, UA 1.015 1 - 1.03 Blood, UA Negative Negative - 50 Reynaldo/mcL pH, UA 7.0 5 - 9 Protein, UA Negative Negative - 2000(20) ++++ mg/dL Urobilinogen, UA 0.2 0.2 - 12 mg/dL Leukocytes, UA Negative Negative - 500+++ Lucian/mcL Nitrite, UA Negative Negative - Positive Urine 01/09/2025 2:10 PM EDT Mirna RICO POINT OF CARE TEST ENTER/EDIT OR DERABLES Final Result documented in this encounter Visit Diagnoses Diagnosis Second trimester state, incidental 25 weeks gestation of Diabetes mellitus screening Screening for diabetes mellitus documented in this encounter Care Teams Emergency Veterinary Assistant Relationship Specialty Start Date End Date Blossom Mercado PA PCP - General 09/13/23 documented as of this encounter
--- OUTSIDE RECORDS SUMMARY | 2025-01-09 14:17 | XMS_ITS | Encounter Summary ---
Author Organization [facility] Address [address] [place] [address] Care Team Providers Care Promotions Assistant Sales Marketing Name Role Phone Blossom Mercado Primary Care Provider [phone]- [phone] Encounter Details Date Type Department Care Team (Late st Contact Info) Description 09/25/2024 Abstract [facility] [address] [facility] [address] Hemant Grant DO [address] [facility] [address] [place], [id number] Social History Tobacco Use Types Packs/Day Years [...] on file documented as of this encounter Plan of Treatment Upcoming Encounters Date Type Department Care Team (Late st Contact Info) Description 01/30/2025 11:20 AM EDT Routine [facility] [address] [place] [address] Mirna Lam PA [address] [facility] [address] [place], [place] [id number] documented as of this encounter Visit Diagnoses Not on filedocumented in this encounter Care Teams Promotions Assistant Sales Marketing Relationship Specialty Start Date End Date Blossom Mercado PA PCP - General 09/13/23 documented as of this encounter
--- OUTSIDE RECORDS SUMMARY | 2025-01-09 14:17 | XMS_ITS | Encounter Summary ---
Author Organization [facility] Address [address] [place] [address] Care Team Providers Care Secondary Market Manager Name Role Phone Blossom Mercado Primary Care Provider Soco Grant DO Unavailable Encounter Details Date Type Department Care Team (Late st Contact Info) Description 07/06/2023 Clinisync Result Encounter [facility] External Department Unsolicited Soco Grant, DO [address] [place] [address] Social History Tobacco Use Types Packs/Day Years Used Date Smoking Tobacco: Never Assessed Comments Unknown Sex and Gender Information Value Date Recorded Sex Assigned at Female 03/22/2023 1:48 PM EDT Legal Sex Female 1:39 PM EDT Gender Identity Female 03/22/2023 1:48 PM EDT Sexual Orientation Not on file documented as of this encounter Miscellaneous Notes * Result Encounter Note - Yocasta Mitchell LPN - 07/06/2023 4:22 PM EST Detailed message left. RX sent in documented in this encounter Plan of Treatment Upcoming Encounters Date Type Department Care Team (Late st Contact Info) Description 01/30/2025 11:20 AM EDT Routine [facility] [address] [place] [phone] Mirna Lam PA [address] [place] [address] [place] [address] documented as of this encounter Procedures Procedure Name Priority Date/Time Associated Diagnosis Comments US PELVIS TRANSVAGINAL 3:45 PM EST [facility] PREG QUANT HCG Routine 07/06/2023 1: 45 PM EST ALL THYROID STIM HORMONE Routine 023 1:45 PM EST ALL PROGESTERONE Routine 07/06/2023 1:45 PM EST ALL LUTEINIZING HORMONE Routine 07/06/20 23 1:45 PM EST ALL FOLLICLE STIMULATING HORMONE Routine 07/06/2023 1:45 PM EST ALL DHEA SULFATE Routine 07/06/2023 1:45 PM EST ALL DEHYDROEPIANDROSTERONE Routine 07/06 1:45 PM EST documented in this encounter Results * US PELVIS TRANSVAGINAL (07/06/2023 3:45 PM EST) Anatomical Region Laterality Modality Other 07/06/2023 3:45 PM EST Narrative 07/06/2023 3:45 PM EST The [address] [address] Ultrasound Report Signed Patient: CARISA YEE MR#: [id number] : 2000 Acct:[id number] Age/Sex: 23 / F ADM Date: 07/06/23 Loc: US Attending Dr: Soco Grant D.O. Ordering Physician: Soco Grant D.O. Date of Service: 07/06/23 Procedure(s): US pelvis transvaginal Accession Number(s): [id number] cc: Soco Grant D.O.; Physician,Non-Staff M.D. [place] [address] Patient Name: CARISA YEE MRN: [id number] date: 2000 Sex: F Assigned Patient Location: US Current Patient Location: Accession/Order Number: [id number] Exam Date: 07/06/2023 14:00 Report Date: 07/06/2023 15:45 At the request of: SOCO GRANT Procedure: US pelvis transvaginal EXAMINATION: US pelvis transvaginal HISTORY: PCOS ; irregular periods COMPARISON: No relevant comparison available. TECHNIQUE: Transabdominal and/or transvaginal sonographic examination was performed as indicated by examination type. FINDINGS: UTERUS: Normal size and appearance. Incidental nabothian cysts within cervix. Uterus size: 6.6 x 4.8 x 3.9 cm ENDOMETRIUM: Normal homogeneous appearance. Endometrial thickness: 9 mm RIGHT OVARY: Normal size and appearance. Duplex Doppler demonstrates normal waveform and flow; resistive index 0.5. Ovary size: 4.2 x 3.8 x 2.9 cm LEFT OVARY: Approximately 5 small follicles within the peripheral aspect of the ovary between 2 and 5 mm in diameter. Duplex Doppler demonstrates normal waveform and flow; resistive index 0.6. Ovary size: 4.5 x 2.0 x 1.9 cm CUL-DE-SAC: Unremarkable. No significant free fluid. BLADDER: Unremarkable. OTHER: None. US/US pelvis transvaginal IMPRESSION: 1. Multiple small peripheral follicles within left ovary, but not the classic appearance for polycystic ovarian syndrome, and the right ovary is normal. 2. Unremarkable uterus and endometrium. Electronically authenticated by: NANDO FELIX Date: 07/06/2023 15:45 Dictated By: Nando Felix M.D. Signed By: 07/06/23 1547 DD/ 1545 TD/TT: Whiting Can Worker: Procedure Note Radiology, Radiologist, - 07/06/2023 [place] [id number] Ultrasound Report Signed Patient: CARISA YEE RMR#: [id number] : 2000Acct:[id number] Age/Sex: 23 / FADM Date: 07/06/23 Loc: US Attending Dr: Soco Grant D.O. Ordering Physician: Soco Grant D.O. Date of Service: 07/06/23 Procedure(s): US pelvis transvaginal Accession Number(s): [id number] cc: Soco Grant D.O.; Physician,Non-Staff [place] [id number] Patient Name: CARISA YEE MRN: [id number] date: 2000 Sex: F Assigned Patient Location: US Current Patient Location: US Accession/Order Number: [id number] Exam Date: 07/06/2023 14:00 Report Date: 07/06/2023 15:45 At the request of: SOCO GRANT Procedure: US pelvis transvaginal EXAMINATION: US pelvis transvaginal HISTORY: PCOS ; irregular periods COMPARISON: No relevant comparison available. TECHNIQUE: Transabdominal and/or transvaginal sonographic examination was performed as indicated by examination type. FINDINGS: UTERUS: Normal size and appearance. Incidental nabothian cysts withincervix. Uterus size: 6.6 x 4.8 x 3.9 cm ENDOMETRIUM: Normal homogeneous appearance. Endometrial thickness: 9 mm RIGHT OVARY: Normal size and appearance. Duplex Doppler demonstratesnormal waveform and flow; resistive index 0.5. Ovary size: 4.2 x 3.8 x 2.9 cm LEFT OVARY: Approximately 5 small follicles within the peripheral aspectof the ovary between 2 and 5 mm in diameter. Duplex Doppler demonstrates normal waveform and flow; resistive index 0.6. Ovary size: 4.5 x 2.0 x 1.9 cm CUL-DE-SAC: Unremarkable. No significant free fluid. BLADDER: Unremarkable. OTHER: None. US/US pelvis transvaginal IMPRESSION: 1. Multiple small peripheral follicles within left ovary, but not theclassic appearance for polycystic ovarian syndrome, and the right ovary is normal. 2. Unremarkable uterus and endometrium. Electronically authenticated by: NANDO FELIX Date: 07/06/2023 15:45 Dictated By: Nando Felix M.D. Signed By:07/06/23 1547 DD/ 1545 TD/TT: Whiting Can Worker: Soco Rudy DO [facility] Final Result * ALL DEHYDROEPIANDROSTERONE (07/06/2023 1:45 PM EST) DHEA, SERUM 227 31 - 701 ng/dL TB[facility] Comment: This test was developed and its performance characteristics determined by [facility]. It has not been cleared or approved by the Food and Drug Administration. Performed at: [address] [id number] Er Medical Technician: Summer Nance MD, Phone: [phone] 07/06/2023 1:45 PM EST 07/06/2023 1:50 PM EST Narrative [facility] - 07/12/2023 9:07 AM EST Soco Rudy DO [facility] Final Result Performing Organization Address [facility] Co de Phone Number [facility] * ALL PROGESTERONE (07/06/2023 1:45 PM EST) Pathologist [facility] PROGESTERONE 14.6 . ng/mL TB Comment: Follicular phase 0.1 - 0.9 Luteal phase 1.8 - 23.9 Ovulation phase 0.1 - 12.0 First trimester 11.0 - 44.3 Second trimester 25.4 - 83.3 Third trimester 58.7 - 214.0 Postmenopausal 0.0 - 0.1 Performed at: [address] [id number] Er Medical Technician: Vince Smith PhD, Phone: [phone] 07/06/2023 1:45 PM EST 07/06/2023 1:50 PM EST Narrative [facility] - 07/07/2023 9:11 AM EST Soco Rudy DO [facility] Final Result Performing Organization Address City/[facility]/ZIP Co de Phone Number [facility] * ALL FOLLICLE STIMULATING HORMONE (07/06/2023 1:45 PM EST) Pathologist [facility] FSH 2.9 . mIU/mL [facility] Comment: Adult Female Range Follicular phase 3.5 - 12.5 Ovulation phase 4.7 - 21.5 Luteal phase 1.7 - 7.7 Postmenopausal 25.8 - 134.8 07/06/2023 1:45 PM EST 07/06/2023 1:50 PM EST Narrative [facility] - 07/07/2023 9:11 AM EST Soco Rudy DO CL[facility] Final Result [facility] * ALL LUTEINIZING HORMONE (07/06/2023 1:45 PM EST) Pathologist [facility] LUTEINIZING HORMONE(LH) 5.1 . mIU/mL [facility] Comment: Adult Female Range Follicular phase 2.4 - 12.6 Ovulation phase 14.0 - 95.6 Luteal phase 1.0 - 11.4 Postmenopausal 7.7 - 58.5 07/06/2023 1:45 PM EST 07/06/2023 1:50 PM EST Narrative [facility] - 07/07/2023 9:11 AM EST [facility] DO [facility] Final [facility] * ALL DHEA SULFATE (07/06/2023 1:45 PM EST) [facility] DHEA-SULFATE 309.0 110.0 - 431.7 ug/dL [facility] 07/06/2023 1:45 PM EST 07/06/2023 1:50 PM EST Narrative [facility] - 07/07/2023 9:11 AM EST [facility] Final Result [facility] * [facility] PREG QUANT HCG (07/06/2023 1:45 PM EST) HCG QUANTITATIVE <1 mIU/mL [facility] Comment: 5-50 0.2-1 WEEK 50-500 1-2 WEEKS 100-5,000 2-3 WEEKS 500-10,000 3-4 WEEKS 1,000-50,000 4-5 WEEKS 10,000-100,000 5-6 WEEKS 15,000-200,000 6-8 WEEKS 10,000-100,000 2-3 MONTHS 07/06/2023 1:45 PM EST 07/06/2023 1:50 PM EST Narrative [facility] - 07/06/2023 4:09 PM EST Soco Rudy DO CLIN[facility] Final Result [facility] TB * ALL THYROID STIM HORMONE (07/06/2023 1:45 PM EST) THYROID STIMULATING HORMONE 1.970 0.358 - 3.740 uIU/mL [facility] 07/06/2023 1:45 PM EST 07/06/2023 1:50 PM EST Narrative [facility] - 07/06/2023 4:09 PM EST us Soco Rudy DO CLIN[facility] Final Result [facility] TB documented in this encounter Visit Diagnoses Not on filedocumented in this encounter Care Teams Secondary Market Manager Relationship Specialty Start Date End Date Blossom Mercado PA PCP - General 09/13/23 Soco Grant DO [address] [place] [address] [address] [place] [place] [address] PCP - [facility] 02/14/24 documented as of this encounter
--- OUTSIDE RECORDS SUMMARY | 2025-01-09 14:17 | XMS_ITS | Clinical Summary ---
Author Organization [facility] Address [address] [place] [address] Care Team Providers Care Radius Corner Machine Operator Name Role Phone Blossom Mercado Primary Care Provider Allergies Active Allergy Reactions Criticality Noted Date Comments Other Angioedema,Hives High 04/27/2023 horses Medications MV-Min-Fe Fum-FA-DHA ( 1 PO) Take 1 each by mouth Daily Active Encounters Date Type Department Care Team Description 01/09/2025 1:20 PM EDT Routine [facility] [address] [place] [address] Mirna Lam PA Second trimester ; 25 weeks gestation of ; Diabetes mellitus screening 01/09/2025 Bamboo flowsheet [facility] OB [address] [place] [address] Mirna Lam PA 01/02/2025 Travel 12/12/2024 2:20 PM EDT Routine [facility] OB [address] [place] [address] Hemant Grant DO 21 weeks gestation of ; Second trimester 12/12/2024 1:00 PM EDT Ancillary Procedure [facility] OB [address] [place] [address] 12/05/2024 Travel 11/16/2024 Abstract [facility] [address] [place] [address] Hemant Grant DO 11/14/2024 2:50 PM EDT Routine [facility] OB [address] [place] [address] Mirna Lam PA Screening, , for anatomic survey; Well woman exam with routine gynecological exam; Exposure to STD; Vaginal discharge; 17 weeks gestation of ; Second trimester 11/14/2024 Clinisync Result Encounter [facility] External Department Unsolicited Mirna Lam PA 11/14/2024 Abstract [facility] OB [address] [place] [address] Hemant Grant DO 11/14/2024 Bamboo flowsheet [facility] OB [address] [place] [address] Mirna Lam PA 11/07/2024 Travel 10/17/2024 1:10 PM EST Routine [facility] OB [address] [place] [address] Hemant Grant DO 13 weeks gestation of 10/17/2024 Bamboo flowsheet [facility] OB [address] [place] [address] Hemant Grant DO from Last 3 Months Family History Medical History Relation Name Comments Lung cancer Maternal Grandfather Lupus Maternal Grandmother high blood pressure Maternal Grandmother Crohn's disease Mother Relation Name Status Comments Maternal Grandfather Maternal Grandmother Mother Social History Tobacco Use Types Packs/Day Years Used Date Smoking Tobacco: Never Assessed Estimated Date of Delivery Comme nts Yes 04/21/2025 Based on last me nstrual period of 07/15/2024 Sex and Gender Information Value Date Recorded Sex Assigned at Female 03/22/2023 1:48 PM EDT Legal Sex Female 1:39 PM EDT Gender Identity Female 03/22/2023 1:48 PM EDT Sexual Orientation Not on file Last Filed Vital Signs Vital Sign Reading Time Taken Comments Blood Pressure 110/64 01/09/2025 1:54 PM EDT Pulse - - Temperature - - Respiratory Rate - - Oxygen Saturation - - Inhaled Oxygen Concentration - - Weight 65.3 kg (144 lb) 01/09/2025 1:54 PM EDT Height 157.5 cm (5' 2 ) 04/27/2023 10:00 AM EDT Body Mass Index 26.34 04/27/2023 10:00 AM EDT Plan of Treatment Upcoming Encounters Date Type Department Care Team (Late st Contact Info) Description 01/30/2025 11:20 AM EDT Routine [facility] OB [address] [place] [address] Mirna Lam PA [address] [place] [address] Procedures Procedure Name Priority Date/Time Associated Diagnosis Comments POCT URINALYSIS DIPSTICK Routine 01/09/2025 2:10 PM EDT 25 weeks gestation of POCT URINALYSIS DIPSTICK Routine 12/12/2024 2:10 PM EDT 21 weeks gestation of Second trimester US OB 14+ WEEKS ANATOMY SCAN Routine 12/12/2024 2:02 PM EDT Screening, , for anatomic survey AFP, SERUM, OPEN SPINA BIFIDA Routine 11/14/2024 4:10 PM EDT POCT URINALYSIS DIPSTICK Routine 11/14/2024 3:36 PM EDT 17 weeks gestation of Second trimester POCT URINALYSIS DIPSTICK Routine 10/17/2024 1:17 PM EST 13 weeks gestation of from Last 3 Months Results * POCT urinalysis dipstick manually resulted (01/09/2025 2:10 PM EDT) Only the most recent of4 resultswithin the time period is included. Color, UA Yellow Clarity, UA Clear Glucose, [...] CARE TEST ENTER/EDIT OR DERABLES Final Result * US OB 14+ weeks anatomy scan (12/12/2024 2:02 PM EDT) Anatomical Region Laterality Modality Body Ultrasound 12/17/2024 8:53 PM EDT Narrative 12/17/2024 8:53 PM EDT EXAM: US OB 14+ WEEKS ANATOMY SCAN HISTORY: Anatomy. JEFFRY 04/21/2025. G1. COMPARISON: U/S Ob 08/28/2024 TECHNIQUE: Two-dimensional transabdominal grayscale ultrasound imaging of the pelvis was performed. FINDINGS: Gestation: Single Presentation: Breech Cardiac Activity: 141 beats per minute Placental Location: Posterior with no sonographic abnormalities identified. Distance from Placental Tip to Cervix: 5.3 cm Cervical Length: 3.9 cm Amniotic Fluid Index: Not measured, appears visually adequate MEASUREMENTS: BPD: 5.4 cm EGA: 22 weeks 2 days HC: 19.9 cm EGA: 22 weeks 0 days AC: 17.1 cm EGA: 22 weeks 1 days FL: 3.8 cm EGA: 22 weeks 0 days HC/AC Ratio: 1.16 (1.05-1.23) Gestational age by today's ultrasound is 22 weeks 1 days (+/- 11 days gestation). Estimated Weight: 471 grams, +/- 71 grams ( 1 lb 1 oz). Weight Percentile for gestational age: 77th % ANATOMY C-Spine: Unremarkable T-Spine: Unremarkable L-Spine: Unremarkable Sacrum: Unremarkable Four Chamber Heart: Unremarkable LVOT: Unremarkable RVOT: Unremarkable Stomach: Unremarkable Kidneys: Unremarkable Bladder: Unremarkable Diaphragm: Unremarkable Cord insertion: Unremarkable Cord vessels: Three Lateral Ventricles: Unremarkable Cerebellum: Unremarkable Cisterna Magna: Unremarkable Posterior Fossa: Unremarkable Right Femur: Unremarkable Left Femur: Unremarkable Right Tib/Fib: Unremarkable Left Tib/Fib: Unremarkable Right Rad/Ulnar: Unremarkable Left Rad/Ulnar: Unremarkable Right Humerus: Unremarkable Left Humerus: Unremarkable Nose/Lips: Unremarkable Profile: Not visualized IMPRESSION: 1. Single, live intrauterine gestation 21 weeks, 3 days by LMP. Today's ultrasound measurements correlate with a gestational age of 22 weeks 1 days. 2. Nonvisualization of the profile. Remaining anatomy appears unremarkable. Interpreted by: Electronically signed by MIKE RIVERA II, MD, PHD at 17-Dec-2024 08:52:34 PM [facility] Procedure Note Mike Rivera MD - 12/17/2024 EXAM: US OB 14+ WEEKS ANATOMY SCAN HISTORY: Anatomy. JEFFRY 04/21/2025. G1. COMPARISON: U/S Ob 08/28/2024 TECHNIQUE: Two-dimensional transabdominal grayscale ultrasound imaging ofthe pelvis was performed. FINDINGS: Gestation: Single Presentation: Breech Cardiac Activity: 141 beats per minute Placental Location: Posterior with no sonographic abnormalitiesidentified. Distance from Placental Tip to Cervix: 5.3 cm Cervical Length: 3.9 cm Amniotic Fluid Index: Not measured, appears visually adequate MEASUREMENTS: BPD: 5.4 cm EGA: 22 weeks 2 days HC: 19.9 cm EGA: 22 weeks 0 days AC: 17.1 cm EGA: 22 weeks 1 days FL: 3.8 cm EGA: 22 weeks 0 days HC/AC Ratio: 1.16 (1.05-1.23) Gestational age by today's ultrasound is 22 weeks 1 days (+/- 11 daysgestation). Estimated Weight: 471 grams, +/- 71 grams ( 1 lb 1 oz). Weight Percentile for gestational age: 77th % ANATOMY C-Spine: Unremarkable T-Spine: Unremarkable L-Spine: Unremarkable Sacrum: Unremarkable Four Chamber Heart: Unremarkable LVOT: Unremarkable RVOT: Unremarkable Stomach: Unremarkable Kidneys: Unremarkable Bladder: Unremarkable Diaphragm: Unremarkable Cord insertion: Unremarkable Cord vessels: Three Lateral Ventricles: Unremarkable Cerebellum: Unremarkable Cisterna Magna: Unremarkable Posterior Fossa: Unremarkable Right Femur: Unremarkable Left Femur: Unremarkable Right Tib/Fib: Unremarkable Left Tib/Fib: Unremarkable Right Rad/Ulnar: Unremarkable Left Rad/Ulnar: Unremarkable Right Humerus: Unremarkable Left Humerus: Unremarkable Nose/Lips: Unremarkable Profile: Not visualized IMPRESSION: 1. Single, live intrauterine gestation 21 weeks, 3 days by LMP. Today'sultrasound measurements correlate with a gestational age of 22 weeks 1days. 2. Nonvisualization of the profile. Remaining anatomy appearsunremarkable. Interpreted by: Electronically signed by MIKE RIVERA II, MD, PHD [id number] 08:52:34 PM [facility] us Mirna RICO IMG OB US PROCEDURES Final Resul t * AFP, SERUM, OPEN SPINA BIFIDA (11/14/2024 4:10 PM EDT) RESULTS Report . [facility] TEST RESULTS: *Screen Negative* . [facility] GEST. AGE ON COLLECTION DATE 17.4 . weeks [facility] GESTAT. AGE BASED ON LMP . [facility] Comment: Recalculations are not recommended when gestational dating by LMP and ultrasound are within 10 days. [age] [facility] RACE . [facility] WEIGHT 136 . lbs [facility] INSULIN DEP DIABETES No . [facility] MULTIPLE GESTATION No . [facility] AFP VALUE 55.0 . ng/mL [facility] AFP MOM 1.29 . [facility] OSBR RISK 1 IN 4947 . [facility] INTERPRETATION Comment . [facility] Comment: Interpretation: Screen Negative This result is screen negative for OSB. The AFP MoM calculated is based on the gestational age provided. MS-AFP can identify up to 80% of open neural tube defects. Closed neural tube defects and some open defects may not be detected by this test. This test does not screen for Down Syndrome or Trisomy 18. If screening for Down Syndrome or Trisomy 18 is desired, contact [facility] to discuss available options. The [employer] recommends amniocentesis be offered to women age 35 and older. COMMENT: Comment . [facility] Comment: Yenny Azevedo, Ph.D., [facility] Director References: Available Upon Request. Multiples Of Median Cutoffs For AFP Elevations Cook 2.5 Black 2.8 IDD 2.0 Twins 4.5 Abbreviation Definitions IDD - Insulin Dep Diabetes OSBR - Open Spina Bifida Risk For further inquiries contact [facility] at [phone]. This test was developed and its performance characteristics determined by [facility]. It has not been cleared or approved by the Food and Drug Administration. Performed at: - [facility], [place], [place] [id number] Software Engineering Project Manager: Darren Shahid [facility], Phone: [phone] 11/14/2024 4:10 PM EDT 11/14/2024 4:11 PM EDT Narrative [facility] - 11/17/2024 1:07 AM EDT N N LMP [id number] 17 N 1 Y 136 N N N N N White/ Mirna RICO LAB BLOOD ORDERABLES Final Resul t [facility] from Last 3 Months Insurance [facility] Care Teams Radius Corner Machine Operator Relationship Specialty Start Date End Date Blossom Mercado PA PCP - General 09/13/23
--- OUTSIDE RECORDS SUMMARY | 2025-01-09 14:17 | XMS_ITS | Encounter Summary ---
Author Organization [facility] Address [address] [place] [address] Care Team Providers Care Seal Extrusion Operator Name Role Phone Blossom Mercado Primary Care Provider [phone]- [phone] Encounter Details Date Type Department Care Team (Late st Contact Info) Description 06/26/2024 Abstract [facility] [address] [facility] [place] [address] Hemant Grant [address] Елена [place], [facility] Social History Tobacco Use Types Packs/Day Years [...] Routine [facility] OB [address] [facility] [place] [address] Mirna Lam PA [address] [facility] [address] [place], [place] [id number] documented as of this encounter Visit Diagnoses Not on filedocumented in this encounter Care Teams Seal Extrusion Operator Relationship Specialty Start Date End Date Blossom Mercado PA PCP - General 09/13/23 documented as of this encounter
--- OUTSIDE RECORDS SUMMARY | 2025-01-09 14:17 | XMS_ITS | Encounter Summary ---
Author Organization [facility] Address [address] [place] [address] Care Team Providers Care Train Brakeman Name Role Phone Blossom Mercado Primary Care Provider [phone]- [phone] Encounter Details Date Type Department Care Team (Late st Contact Info) Description 11/16/2024 Abstract [facility] OB [address] [facility] [place] [address] Hemant Grant DO [address] Елена [place], [facility] Social History Tobacco Use Types Packs/Day [...] AM EDT Routine [facility] [address] [facility] [place] [address] Mirna Lam PA [address] [place], [place] [id number] documented as of this encounter Visit Diagnoses Not on filedocumented in this encounter Care Teams Train Brakeman Relationship Specialty Start Date End Date Blossom Mercado PA PCP - General 09/13/23 documented as of this encounter
--- OUTSIDE RECORDS SUMMARY | 2025-01-09 14:17 | XMS_ITS | Encounter Summary ---
Author Organization [facility] Address [address] [place] [address] Care Team Providers Care Admissions Clerk Name Role Phone Blossom Mercado Primary Care Provider [phone] Soco Grant DO Unavailable Encounter Details Date Type Department Care Team (Late st Contact Info) Description 07/19/2023 Clinisync Result Encounter [facility] External Department Unsolicited Soco Grant, DO [address] [facility] [address] [place] [address] Social History Tobacco Use Types Packs/Day Years [...] AM EDT Routine [facility] BCP OB [address] [facility] [address] Mirna Lam PA [address] [facility] [place] [address] documented as of this encounter Procedures Procedure Name Priority Date/Time Associated Diagnosis Comments FL HYSTEROSALPINGOGRAM 2:55 PM EST documented in this encounter Results * FL HYSTEROSALPINGOGRAM (07/19/2023 2:55 PM EST) Anatomical Region Laterality Modality Other 07/19/2023 2:55 PM EST Narrative 07/19/2023 2:55 [place] [address] Fluoroscopy Report Signed Patient: CARISA YEE MR#: [id number] : 2000 Acct:[id number] Age/Sex: 23 / F ADM Date: 07/19/23 Loc: LAB Attending Dr: Soco Grant D.O. Ordering Physician: Soco Grant D.O. Date of Service: 07/19/23 Procedure(s): FL Hysterosal cath placement Accession Number(s): [id number] cc: Soco Grant D.O.; Physician,Non-Staff M.DGordo [place] [id number] Patient Name: CARISA YEE MRN: [id number] date: 2000 Sex: F Assigned Patient Location: LAB Current Patient Location: Accession/Order Number: [id number] Exam Date: 07/19/2023 14:02 Report Date: 07/19/2023 14:55 At the request of: SOCO GRANT Procedure: FL Hysterosal cath placement EXAMINATION: FL hysterosalpingography, FL Hysterosal cath placement HISTORY: Infertility COMPARISON: No relevant comparison available. TECHNIQUE: Informed consent was obtained. A sterile vaginal speculum was introduced and, following cleansing of the cervix, a balloon-tipped catheter was inserted into the endometrial cavity. The procedure was then completed in the usual manner with water-soluble contrast. Standard level fluoroscopic mode of operation utilized. FINDINGS: FALLOPIAN TUBES: Patent fallopian tubes bilaterally. Initial delay in spillage of contrast from left fallopian tube. ENDOMETRIAL CAVITY: No scarring, filling defects, or dilatation. OTHER: Negative. FL/FL Hysterosal cath placement IMPRESSION: 1. Normal appearance of the endometrial cavity. 2. Bilateral patent fallopian tubes. Please see details above. Electronically authenticated by: FRANCESCO Light: 07/19/2023 14:55 Dictated By: Francesco Felix M.D. Signed By: 07/19/23 1457 DD/ 1455 TD/TT: Marine Engineer: Procedure Note Radiology, Radiologist, - 07/20/2023 [place] [address] Fluoroscopy Report Signed Patient: CARISA YEE RMR#: [id number] : 2000Acct:[id number] Age/Sex: 23 / FADM Date: 07/19/23 Loc: LAB Attending Dr: Soco Grant D.O. Ordering Physician: Soco Grant D.O. Date of Service: 07/19/23 Procedure(s): FL Hysterosal cath placement Accession Number(s): [id number] cc: Soco Grant D.O.; Physician,Non-Staff Yajaira The [place] [address] Patient Name: CARISA YEE MRN: [id number] date: 2000 Sex: F Assigned Patient Location: LAB Current Patient Location: Accession/Order Number: [id number] Exam Date: 07/19/2023 14:02 Report Date: 07/19/2023 14:55 At the request of: SOCO GRANT Procedure: FL Hysterosal cath placement EXAMINATION: FL hysterosalpingography, FL Hysterosal cath placement HISTORY: Infertility COMPARISON: No relevant comparison available. TECHNIQUE: Informed consent was obtained. A sterile vaginal speculum was introduced and, following cleansing of the cervix, a balloon-tippedcatheter was inserted into the endometrial cavity. The procedure was then completedin the usual manner with water-soluble contrast. Standard level fluoroscopicmode of operation utilized. FINDINGS: FALLOPIAN TUBES: Patent fallopian tubes bilaterally. Initial delay inspillage of contrast from left fallopian tube. ENDOMETRIAL CAVITY: No scarring, filling defects, or dilatation. OTHER: Negative. FL/FL Hysterosal cath placement IMPRESSION: 1. Normal appearance of the endometrial cavity. 2. Bilateral patent fallopian tubes. Please see details above. Electronically authenticated by: FRANCESCO FELIX Date: 07/19/2023 14:55 Dictated By: Francesco Felix M.D. Signed By:07/19/23 1457 DD/ 1455 TD/TT: Marine Engineer: us Soco Grant DO [facility] Final Result documented in this encounter Visit Diagnoses Not on filedocumented in this encounter Care Teams Admissions Clerk Relationship Specialty Start Date End Date Blossom Mercado PA PCP - General 09/13/23 Soco Grant DO [address] [place] [address] [place] [address] PCP - [facility] 02/14/24 documented as of this encounter
--- OUTSIDE RECORDS SUMMARY | 2025-01-09 14:17 | XMS_ITS | Encounter Summary ---
Author Organization [facility] Address [address] [place] [address] Phone Care Team Providers Care Chopper Feeder Name Role Phone Generic Provider, No Assigned Pcp Primary Car e Provider Unavailable Encounter Details Date Type Department Care Team (Late st Contact Info) Description 05/08/2024 Scanned Document [facility] [address] [facility] [address] [place] [id number] Radha Bethea MA Social History Tobacco Use Types Packs/Day Years Used Date Smoking Tobacco: Never Smokeless Tobacco: Never Alcohol Use Standard Drinks/Week Comments Yes 0 (1 standard drink = 0.6 oz pur e alcohol) rarely Comments No Sex and Gender Information Value Date Recorded Sex Assigned at Female 08/21/2024 8:59 PM EST Legal Sex Female 7:51 PM EST Gender Identity Not on file Sexual Orientation Not on file documented as of this encounter Plan of Treatment Not on file documented as of this encounter Visit Diagnoses Not on filedocumented in this encounter Care Teams Chopper Feeder Relationship Specialty Start Date End Date Generic Provider, No Assigned Pcp, [place] [address] PCP - General Automatic I Threading Machine Feeder 08/21/24 documented as of this encounter
--- OUTSIDE RECORDS SUMMARY | 2025-01-09 14:17 | XMS_ITS | Patient Health Record ---
Author Organization [facility] Address [address] [facility] [place] [address] Care Team Providers Care Clinical Secretary Name Role Phone None, None Primary Care Provider David Trujillo Unavailable [phone] Reason For Referral No Information Plan Of Treatment No Information Insurance Providers Payer Name Payer Address Payer Phone Subscriber Number Group Number Insured Name Patient Relationship to Insured Coverage Start Date Coverage End Date [employer] [address] [place] [phone] CARIAS DURANT Self - patient is the insured
--- OUTSIDE RECORDS SUMMARY | 2025-01-09 14:17 | XMS_ITS | Encounter Summary ---
Author Organization [facility] Address [address] [place] [address] Care Team Providers Care Adventure Education Teacher Name Role Phone Blossom Mercado Primary Care Provider [phone]- [phone] Encounter Details Date Type Department Care Team (Late st Contact Info) Description 08/14/2024 Abstract [facility] BCP OB [address] [facility] [address] Hemant Grant [address] [place], [facility]11 Social History Tobacco Use Types Packs/Day Years [...] AM EDT Routine [facility] BCP OB [address] [facility] [address] Mirna Lam PA [address] [facility] [address] [place], [place] [id number] documented as of this encounter Visit Diagnoses Not on filedocumented in this encounter Care Teams Adventure Education Teacher Relationship Specialty Start Date End Date Blossom Mercado PA PCP - General 09/13/23 documented as of this encounter
--- OUTSIDE RECORDS SUMMARY | 2025-01-09 14:17 | XMS_ITS | Encounter Summary ---
Author Organization [facility] Address [address] [place] [address] Care Team Providers Care Weather Observer Name Role Phone Blossom Mercado Primary Care Provider +1- [phone] Encounter Details Date Type Department Care Team (Late st Contact Info) Description 08/04/2024 Abstract [facility] BCP OB [address] [facility] [place] [address] Hemant Grant [address] [place], [facility] Social History Tobacco Use Types Packs/Day Years [...] EDT Routine [facility] BCP OB [address] [facility] [place] [address] Mirna Lam PA [address] [facility] [address] [place], [place] [id number] documented as of this encounter Visit Diagnoses Not on filedocumented in this encounter Care Teams Weather Observer Relationship Specialty Start Date End Date Blossom Mercado PA PCP - General 09/13/23 documented as of this encounter
--- OUTSIDE RECORDS SUMMARY | 2025-01-09 14:17 | XMS_ITS ---
Author Organization [facility] (ClinicalSummary Clone) Address Unknown Care Team Providers Care Carpet Repairer Name Role Phone Unavailable Primary Care Physician Unavailab le Results * [UNITY] CARRIER SCREEN Performed by: [employer] Component Value Range Date Sickle Cell Disease/Beta-Thalassemia/Hemo globinopathies carrier screen NEGATIVE 09/30/2024 07:18 am [facility] Alpha-Thalassemia carrier screen NEGATIVE 09/30/2024 07:18 am [facility] Cystic Fibrosis carrier screen NEGATIVE 09/30/2024 07:18 am [facility] Spinal Muscular Atrophy carrier screen NEGATIVE 3 SMN1 copies, SNP present 09/30/2024 07:18 am [facility] For detailed report, see PDF See PDF 09/30/2024 07:18 am [place] 09/30/2024 07:1 8 am [facility] Social History Observation Value Start Date End Date
--- OUTSIDE RECORDS SUMMARY | 2025-01-09 14:17 | XMS_ITS | Encounter Summary ---
Author Organization [facility] Address [address] [facility] [place] [address] Care Team Providers Care Composition Teacher Name Role Phone Blossom Mercado Primary Care Provider +1- [phone] Encounter Details Date Type Department Care Team (Latest Contact Info) Description 01/02/2025 Travel Social History Tobacco Use Types Packs/Day Years [...] AM EDT Routine [facility] BCP OB [address] [facility] [place] [address] Mirna Lam PA [address] [facility] [address] [place], [facility]11 documented as of this encounter Visit Diagnoses Not on filedocumented in this encounter Care Teams Composition Teacher Relationship Specialty Start Date End Date Blossom Mercado PA PCP - General 09/13/23 documented as of this encounter
--- OUTSIDE RECORDS SUMMARY | 2025-01-09 14:17 | XMS_ITS ---
Author Organization [facility] (ClinicalSummary Clone) Address Unknown Care Team Providers Care Plate Mounter Name Role Phone Unavailable Primary Care Physician Unavailab le Results * [UNITY] ANEUPLOIDY NIPT Performed by: [email or web address] Component Value Range Date Fraction 6.2% 09/23/2024 05 :26 am [facility] Sex Chromosome Aneuploidy NOT DETECTED 05:26 am [facility] Monosomy X LOW RISK <1 in 10,000 2024 05:26 am [facility] Trisomy 13 LOW RISK <1 in 10,000 2024 05:26 am [facility] Trisomy 18 LOW RISK <1 in 10,000 2024 05:26 am [facility] Trisomy 21 LOW RISK <1 in 10,000 2024 05:26 am [facility] Sex FEMALE 09/23/2024 05:2 6 am [facility] Gestation HARO 09/23/19 05:26 am [facility] For detailed report, see PDF See PDF 09/23/2024 05:26 am [facility] 09/23/2024 05:2 6 am [facility] Social History Observation Value Start Date End Date
--- OUTSIDE RECORDS SUMMARY | 2025-01-09 14:17 | XMS_ITS | Encounter Summary ---
Author Organization [facility] Address [address] [place] [address] Care Team Providers Care Rigger Supervisor Name Role Phone Blossom Mercado Primary Care Provider +[phone] Encounter Details Date Type Department Care Team (Late st Contact Info) Description 01/09/2025 Bamboo flowsheet [facility] BCP OB [address] [facility] [place] [address] Mirna Lam PA [address] [place] [address] Dr [place], [facility]11 Social History Tobacco Use Types Packs/Day Years [...] AM EDT Routine [facility] BCP OB [address] [facility] [place] [address] Mirna Lam PA [address] [place] [address] [place], [place] [id number] documented as of this encounter Visit Diagnoses Not on filedocumented in this encounter Care Teams Rigger Supervisor Relationship Specialty Start Date End Date Blossom Mercado PA PCP - General 09/13/23 documented as of this encounter
--- OUTSIDE RECORDS SUMMARY | 2025-01-09 14:17 | XMS_ITS | Encounter Summary ---
Author Organization [facility] Address [address] [place] [address] Care Team Providers Care Credit Support Counselor Name Role Phone Blossom Mercado Primary Care Provider +1- [phone] Encounter Details Date Type Department Care Team (Late st Contact Info) Description 08/29/2024 Abstract [facility] BCP OB [address] [facility] [place] [address] Hemant Grant [address] [place], [facility]11 Social History Tobacco Use Types Packs/Day [...] AM EDT Routine [facility] BCP OB [address] [facility] [place] [address] Mirna Lam PA [address] [facility] [address] [place], [place] [id number] documented as of this encounter Visit Diagnoses Not on filedocumented in this encounter Care Teams Credit Support Counselor Relationship Specialty Start Date End Date Blossom Mercado PA PCP - General 09/13/23 documented as of this encounter
--- OUTSIDE RECORDS SUMMARY | 2025-01-09 14:17 | XMS_ITS | Encounter Summary ---
Author Organization [facility] Address [address] [place] [address] Care Team Providers Care Veneer Jointer Name Role Phone Blossom Mercado Primary Care Provider [phone]- [phone] Encounter Details Date Type Department Care Team (Late st Contact Info) Description 11/14/2024 Abstract [facility] BCP OB [address] [facility] [place] [address] Hemant Grant DO [address] [facility] [address] [place], [facility]11 Social History Tobacco Use Types Packs/Day [...] AM EDT Routine [facility] BCP OB [address] [facility] [place] [place] [address] Mirna Lam PA [address] [facility] [address] [place], [place] [phone] documented as of this encounter Visit Diagnoses Not on filedocumented in this encounter Care Teams Veneer Jointer Relationship Specialty Start Date End Date Blossom Mercado PA PCP - General 09/13/23 documented as of this encounter
--- OUTSIDE RECORDS SUMMARY | 2025-01-09 14:17 | XMS_ITS | Encounter Summary ---
Author Organization [facility] Address [address] [place] [address] Care Team Providers Care Waste Hand Name Role Phone Blossom Mercado Primary Care Provider Soco Grant DO Unavailable Encounter Details Date Type Department Care Team (Late st Contact Info) Description 07/19/2023 Clinisync Result Encounter NOMS External Department Unsolicited Soco Grant, DO [address] [facility] [address] [place] [address] Social History Tobacco Use Types Packs/Day Years [...] AM EDT Routine [facility] BCP OB [address] [facility] [place] [address] Mirna Lam PA [address] [place] [address] documented as of this encounter Procedures Procedure Name Priority Date/Time Associated Diagnosis Comments FL HYSTEROSALPINGOGRAPHY 023 2:55 PM EST documented in this encounter Results * FL HYSTEROSALPINGOGRAPHY (07/19/2023 2:55 PM EST) Anatomical Region Laterality Modality Other 07/19/2023 2:55 PM EST Narrative 07/19/2023 2:55 [place] [address] Fluoroscopy Report Signed Patient: CARISA YEE MR#: [id number] : 2000 Acct:[id number] Age/Sex: 23 / F ADM Date: 07/19/23 Loc: LAB Attending Dr: Soco Grant D.O. Ordering Physician: Soco Grant D.O. Date of Service: 07/19/23 Procedure(s): FL hysterosalpingography Accession Number(s): [id number] cc: Soco Grant D.O.; Physician,Non-Staff M.DGordo The [place] [id number] Patient Name: CARISA YEE MRN: [id number] date: 2000 Sex: F Assigned Patient Location: LAB Current Patient Location: Accession/Order Number: [id number] Exam Date: 07/19/2023 14:02 Report Date: 07/19/2023 14:55 At the request of: SOCO GRANT Procedure: FL hysterosalpingography EXAMINATION: FL hysterosalpingography, FL Hysterosal cath placement [...] filling defects, or dilatation. OTHER: Negative. FL/FL hysterosalpingography IMPRESSION: 1. Normal appearance of the endometrial cavity. 2. Bilateral patent fallopian tubes. Please see details above. Electronically authenticated by: FRANCESCO Light: 07/19/2023 14:55 Dictated By: Francesco Felix M.D. Signed By: 07/19/23 1457 DD/ 1455 TD/TT: Woolen Suiting Shrinker: Procedure Note Radiology, Radiologist, - 07/20/2023 [place] [address] Fluoroscopy Report Signed Patient: CARISA YEE RMR#: [id number] : 2000Acct:[id number] Age/Sex: 23 / FADM Date: 07/19/23 Loc: LAB Attending Dr: Soco Grant D.O. Ordering Physician: Soco Grant D.O. Date of Service: 07/19/23 Procedure(s): FL hysterosalpingography Accession Number(s): [id number] cc: Soco Grant D.O.; Physician,Non-Staff Yajaira The [place] [address] Patient Name: CARISA YEE MRN: [id number] date: 2000 Sex: F Assigned Patient Location: LAB Current Patient Location: Accession/Order Number: [id number] Exam Date: 07/19/2023 14:02 Report Date: 07/19/2023 14:55 At the request of: SOCO GRANT Procedure: FL hysterosalpingography EXAMINATION: FL hysterosalpingography, FL Hysterosal cath placement [...] filling defects, or dilatation. OTHER: Negative. FL/FL hysterosalpingography IMPRESSION: 1. Normal appearance of the endometrial cavity. 2. Bilateral patent fallopian tubes. Please see details above. Electronically authenticated by: FRANCESCO FELIX Date: 07/19/2023 14:55 Dictated By: Francesco Felix M.D. Signed By:07/19/23 1457 DD/ 1455 TD/TT: Woolen Suiting Shrinker: us Soco Grant DO [facility] Final Result documented in this encounter Visit Diagnoses Not on filedocumented in this encounter Care Teams Waste Hand Relationship Specialty Start Date End Date Blossom Mercado PA PCP - General 09/13/23 Soco Grant DO [address] [place] [address] [place] [address] PCP - [facility] 02/14/24 documented as of this encounter
--- OUTSIDE RECORDS SUMMARY | 2025-01-09 14:17 | XMS_ITS | Clinical Summary ---
Author Organization [facility] Address [address] [place] [address] Phone Care Team Providers Care Sales Service Rep Name Role Phone Generic Provider, No Assigned Pcp MD Primary Car e Provider Unavailable Allergies Active Allergy Reactions Criticality Noted Date Comments Horse Dander Angioedema High 07/19/2023 Horse Epithelium Allergenic Extract Angioedema High 07/19/2023 Medications amphetamine-dextr oamphetamine XR (Adderall XR) 20 mg 24 hr capsule Take 1 capsule (20 mg) by mouth once daily in the morning. Take before meals. Do not fill before July 04, 2024. 4 Active amphetamine-dextr oamphetamine (Adderall) 10 mg tablet Take 1 tablet (10 mg) by mouth. 4 Active montelukast (Singulair) 10 mg tablet Take 1 tablet (10 mg) by mouth once daily. Active diphenhydrAMINE (BENADryl) 25 mg capsule Take by mouth. Active polyethylene glycol (Glycolax, Miralax) 17 gram/dose powderIndications :Chronic idiopathic constipation Mix of powder and drink. 1 scoop daily, may taper up 238 g 11 4 Active Family History Medical History Relation Name Comments Cancer Maternal Grandfather Grandpa Arthritis Maternal Grandmother Grandma Blood clot Maternal Grandmother Grandma Hypertension Maternal Grandmother Grandma Arthritis Mother Mom Cancer Mother Mom Mental illness Sister Sister Relation Name Status Comments Maternal Grandfather Grandpa Alive Maternal Grandmother Grandma Alive Mother Mom Alive Sister Sister Alive Social History Tobacco Use Types Packs/Day Years Used Date Smoking Tobacco: Never Smokeless Tobacco: Current Comments:Vape Alcohol Use Standard Drinks/Week Comments Yes 2 (1 standard drink = 0.6 oz pur e alcohol) Every 6 months approximately PHQ-2 Answer Date Recorded Patient Health Questionnaire-2 Score 0 06/08/2024 Comments No Sex and Gender Information Value Date Recorded Sex Assigned at Female 08/21/2024 8:59 PM EST Legal Sex Female 7:51 PM EST Gender Identity Not on file Sexual Orientation Not on file Last Filed Vital Signs Vital Sign Reading Time Taken Comments Blood Pressure 101/74 08/22/2024 12:23 AM EST Pulse 89 08/22/2024 12:23 AM EST Temperature 36.6 C (97.9 F) 08/21/2024 9:07 PM EST Respiratory Rate 16 08/22/2024 12:23 AM EST Oxygen Saturation 98% 08/22/2024 12:23 AM EST Inhaled Oxygen Concentration - - Weight 54.4 kg (120 lb) 08/21/2024 9:07 PM EST Height 157.5 cm (5' 2 ) 08/21/2024 9:07 PM EST Body Mass Index 21.95 08/21/2024 9:07 PM EST Plan of Treatment Health Maintenance Due Date Last Done Comments HIV Screening 2000 Lipid Panel 2000 Yearly Adult Physical 2000 Hepatitis C Screening 2017 HPV Vaccines (3 - 3-dose series) 04/22/2017 01/28/2017, 03/03/2016 Cervical Cancer Screening 01/09/2020 HPV/Cotest 01/09/2020 Pap Smear 01/09/2020 DTaP/Tdap/Td Vaccines (8 - Td or Tdap) 01/09/2021 01/09/2011, 12/30/2010, 12/04/2003, Additional history exists COVID-19 Vaccine ( - season) 2024 Influenza Vaccine (Season Ended) 2025 Zoster Vaccines (1 of 2) 2049 01/28/2017, 03/2000 HIB Vaccines Completed 08/19/2000, 10/1999, 1999, Additional history exists Hepatitis B Vaccines Completed 08/19/2000, 01/22/2000, 1999, Additional history exists IPV Vaccines Completed 12/04/2003, 03/17, 1999, Additional history exists MMR Vaccines Completed 12/04/2003, 04/05/2000 Meningococcal Vaccine Completed 03/03/2016, 011 Varicella Vaccines Completed 01/28/2017, 01/22/2000 Hepatitis A Vaccines Aged Out No long er eligible based on patient's age to complete this topic Pneumococcal Vaccine: Pediatrics and At-Risk Adult Patients Aged Out No longer eligible based on patient's age to complete this topic Rotavirus Vaccines Aged Out No longer eligible based on patient's age to complete this topic Insurance [employer] Care Teams Sales Service Rep Relationship Specialty Start Date End Date Generic Provider, No Assigned Pcp, [place] [address] PCP - General Measurement And Sensing Technician 08/21/24
--- OUTSIDE RECORDS SUMMARY | 2025-01-09 14:17 | XMS_ITS | Encounter Summary ---
Author Organization [facility] Address [address] [place] [address] Care Team Providers Care Automation Control Technician Name Role Phone Blossom Mercado Primary Care Provider +1- [phone] Encounter Details Date Type Department Care Team (Late st Contact Info) Description 10/03/2024 Abstract [facility] BCP OB [address] [facility] [place] [address] Hemant Grant DO [address] [facility] [address] [place], [facility]11 Social History Tobacco Use Types [...] AM EDT Routine [facility] BCP OB [address] [facility] [place] [address] Mirna Lam PA [address] [facility] [address] [place], [place] [id number] documented as of this encounter Visit Diagnoses Not on filedocumented in this encounter Care Teams Automation Control Technician Relationship Specialty Start Date End Date Blossom Mercado PA PCP - General 09/13/23 documented as of this encounter
--- OUTSIDE RECORDS SUMMARY | 2025-01-09 14:17 | XMS_ITS | Encounter Summary ---
Author Organization [facility] Address [address] [place] [address] Care Team Providers Care Student Driving Instructor Name Role Phone Blossom Mercado Primary Care Provider +1- [phone] Encounter Details Date Type Department Care Team (Late st Contact Info) Description 08/30/2024 Abstract [facility] [address] [facility] [place] [id number] Jessica Lindsey LPN Social History Tobacco Use Types Packs/Day Years [...] 11:20 AM EDT Routine [facility] OB [address] [place], [place] [address] [phone] Mirna Lam PA [address] [place], [place] [address] [place] [address] documented as of this encounter Visit Diagnoses Not on filedocumented in this encounter Care Teams Student Driving Instructor Relationship Specialty Start Date End Date Blossom Mercado PA PCP - General 09/13/23 documented as of this encounter
[2025-01-09 15:29] LABS: Basophils Percent Auto 0.2 % (0.2-2.0); Eosinophils Absolute Auto 0.1 10^3/uL (0.0-0.7); Eosinophils Percent Auto 0.9 % (0.9-7.0); Hematocrit 32.1 % (36.0-48.0); Hemoglobin 9.9 g/dL (12.0-16.0); Immature Granulocytes Abs Auto 0.05 10^3/uL (0.00-0.03); Immature Granulocytes Pct Auto 0.4 % (0.0-0.5); Lymphocytes Percent Auto 15.4 % (20.5-60.0); Mean Corpuscular HGB Conc 30.8 g/dL (29.9-35.2); Mean Corpuscular Hemoglobin 25.7 pg (26.7-34.0); Mean Corpuscular Volume 83.4 fL (81.0-99.0); Mean Platelet Volume 11.5 fL (9.5-13.5); Monocytes Absolute Auto 0.7 10^3/uL (0.3-0.8); Monocytes Percent Auto 5.3 % (1.7-12.0); Neutrophils Percent Auto 77.8 % (43.0-75.0); Platelet Count 232 10^3/uL (150-450); Red Blood Count 3.85 10^6/uL (4.20-5.40); Red Cell Distribution Width 13.9 % (11.0-15.0); White Blood Count 12.9 10^3/uL (4.0-11.0)
[2025-01-09 15:54] LABS: Glucose 1 Hour 132 mg/dL (<130)
== END 2025-01-09 14:15 | disposition home or self-care (01) ==
LOC: LAB 14:15
PROVIDERS: Visit Provider Physician Assistant
DX: Z13.1 Encounter for screening for diabetes mellitus (principal); Z3A.25 25 weeks gestation of pregnancy
CPT/HCPCS: 36415; 82950; 85025

== ENCOUNTER 2025-01-11 11:14 | Outpatient (OUT) | payer OTHER, SELFPAY ==
[2025-01-11 12:13] LABS: Glucose Fasting 85 mg/dL (<95)
[2025-01-11 12:56] LABS: Glucose 1 Hour 160 mg/dL (<180)
[2025-01-11 13:50] LABS: Glucose 2 Hour 128 mg/dL (<155)
[2025-01-11 14:50] LABS: Glucose 3 Hour 115 mg/dL (<140)
== END 2025-01-11 11:15 | disposition home or self-care (01) ==
LOC: LAB 11:19
PROVIDERS: Visit Provider Obstetrics & Gynecology
DX: R73.09 Other abnormal glucose (principal); Z3A.25 25 weeks gestation of pregnancy
CPT/HCPCS: 36415; 82951; 82952

== ENCOUNTER 2025-02-13 11:28 | Outpatient (OUT) | payer SELFPAY ==
--- OUTSIDE RECORDS SUMMARY | 2024-08-28 10:00 | XMS_ITS ---
Author Organization [facility] Address [address] [facility] [place] [address] Care Team Providers Care Chronometer Assembler And Adjuster Name Role Phone None, None Primary Care Provider David Trujillo [facility] [phone] REASON FOR VISIT INFERTILITY ISSUES Encounters Encounter Location Date Provider Diagnosis [place] [id number] [address] 08/28/2024 David Collins Plan Of Treatment No Information Progress Notes * CARISA DURANTDOB:2000 (25 yo F)Acc No.[id number]:08/28/2024 Patient: S CARISA SYLVESTER Provider: Jean Marie Collins MD :2000 A ge:24 Y S ex:Female Date:08/28/2024 Address:[address] [place] [address] [place], [place] [id number] Subjective: * Chief Complaints: * 1 . INFERTILITY ISSUES. * Medical History: Objective: * Vitals: Assessment: Plan: * Treatment: * * Electronic signature of Gideon Collins MD on 02/13/2025 at 11:31 AM EDT Sign off status: Pending * Provider: Jean Marie Collins MD Date: 08/28/2024 Generated for Lennox wynn/Aidee/Myraitting on: 02/13/2025 11:31 AM EDT
--- OUTSIDE RECORDS SUMMARY | 2024-10-04 06:00 | XMS_ITS ---
Author Organization [facility] Address [address] [facility] [place] [address] Care Team Providers Care Employment Training Specialist Name Role Phone None, None Primary Care Provider David Trujillo [facility] [phone] REASON FOR VISIT INFERTILITY ISSUES Encounters Encounter Location Date Provider Diagnosis [place] [id number] [address] 10/04/2024 David Collins Plan Of Treatment No Information Progress Notes * CARISA DURANTDOB:2000 (25 yo F)Acc No.[id number]:10/04/2024 Patient: S CARISA SYLVESTER Provider: Jean Marie Collins MD :2000 A ge:24 Y S ex:Female Date:10/04/2024 Address:[address] [place] [address] [place], [place] [id number] Subjective: * Chief Complaints: * 1 . INFERTILITY ISSUES. * Medical History: Objective: * Vitals: Assessment: Plan: * Treatment: * * Electronic signature of Gideon Collins MD on 02/13/2025 at 11:30 AM EDT Sign off status: Pending * Provider: Jean Marie Collins MD Date: 10/04/2024 Generated for Lennox wynn/Aidee/Myraitting on: 02/13/2025 11:30 AM EDT
--- OUTSIDE RECORDS SUMMARY | 2025-01-30 11:30 | XMS_ITS | Encounter Summary ---
Author Organization [facility] Address [address] [place] [address] Care Team Providers Care Underground Heavy Equipment Operator Name Role Phone Blossom Mercado Primary Care Provider +1- [phone] Reason for Visit * Reason Comments Routine Visit Encounter Details Date Type Department Care Team (Latest Contact Info) Description 01/30/2025 11:30 AM EDT Routine [facility] [address] [place] [phone] Hemant Grant, DO [address] [facility] [address] [place] [address] Anemia, unspecified type (Primary Dx); Third trimester ([facility]); 28 weeks gestation of ([facility]); size inconsistent with dates ([facility]) Social History Tobacco Use Types Packs/Day Years [...] Sign Reading Time Taken Comments Blood Pressure 112/64 01/30/2025 11:52 AM EDT Pulse - - Temperature - - Respiratory Rate - - Oxygen Saturation - - Inhaled Oxygen Concentration - - Weight 68.9 kg (152 lb) 01/30/2025 11:52 AM EDT Height - - Body Mass Index 27.8 04/27/2023 10:00 AM EDT documented in this encounter Progress Notes * Hemant Grant DO - 01/30/2025 11:30 AM EDT Reason for Appointment: Patient ID: Rebekah Rhodes is a 25 y.o. female who presents for Routine Visit Patient presents today for Return OB appointment. MEDICATIONS Current Outpatient Medications Medication Instructions amphetamine-dextroamphetamine XR (Adderall XR) 20 MG 24 hr capsule Take 1 capsule by mouth every morning for 30 days. Max Daily Amount 20 mg iron polysaccharides (PROFE) 391.3 mg, Oral, Daily MV-Min-Fe Fum-FA-DHA ( 1 PO) 1 each, [...] nursing note reviewed. Exam conducted with a photo intern present. Vitals: Estimated body mass index is 27.8 kg/m² as calculated from the following: Height as of 23: 5' 2 . Weight as of this encounter: 152 lb. BP: 112/64 Patient's last menstrual period was 07/15/2024. ASSESSMENT & PLAN ICD-10-CM 1. Third trimester ([facility]) Z34.93 POCT urinalysis dipstick manually resulted 2. 28 weeks gestation of ([facility]) Z3A.28 Documented by JACKY Day on behalf of: Hemant Grant DO documented in this encounter Plan of Treatment Upcoming Encounters Date Type Department Care Team (Late st Contact Info) Description 02/13/2025 1:50 PM EDT Routine [facility] OB [address] [place] [address] Mirna Lam PA [address] [facility] [place] [address] Scheduled Orders Name Type Priority Associated Diagnoses Orde r Schedule CBC and differential Lab Routine Third trimester ([facility]) Anemia, unspecified type Ordered: 01/30/2025 OB follow up transabdominal approach Imaging Routine Third trimester ([facility]) size inconsistent with dates ([facility]) Expected: 01/30/2025, Expires: 06/01/2025 documented as of this encounter Procedures Procedure Name Priority Date/Time Associated Diagnosis Comments POCT URINALYSIS DIPSTICK Routine 01/30/2025 11:52 AM EDT Third trimester ([facility]) documented in this encounter Results * POCT urinalysis dipstick manually resulted (01/30/2025 11:52 AM EDT) Color, UA Yellow Clarity, UA Clear Glucose, UA Negative Negative - 1999(110) ++++ mg/dL Bilirubin, UA Negative Negative - [...] Nitrite, UA Negative Negative - Positive Urine 01/30/2025 11:5 2 AM EDT Hemant Grant DO POINT OF CARE TEST ENTER/EDIT OR DERABLES Final Result documented in this encounter Visit Diagnoses Diagnosis Anemia, unspecified type- Primary Third trimester ([facility]) state, incidental 28 weeks gestation of ([facility]) size inconsistent with dates ([facility]) documented in this encounter Care Teams Underground Heavy Equipment Operator Relationship Specialty Start Date End Date Blossom Mercado PA PCP - General 09/13/23 documented as of this encounter
--- OUTSIDE RECORDS SUMMARY | 2025-02-13 11:30 | XMS_ITS | Encounter Summary ---
Author Organization [facility] Address [address] [place] [address] Care Team Providers Care Technical Support Engineer Name Role Phone Blossom Mercado Primary Care Provider +1- [phone] Encounter Details Date Type Department Care Team (Late st Contact Info) Description 01/30/2025 Bamboo flowsheet [facility]CP OB [address] [facility] [place] [address] Hemant Grant DO [address] [facility] [address] [place], [facility]11 Social History Tobacco Use Types Packs/Day [...] PM EDT Routine [facility] BCP OB [address] [facility] [place] [address] Mirna Lam PA [address] [facility] [address] [place], [facility] documented as of this encounter Visit Diagnoses Not on filedocumented in this encounter Care Teams Technical Support Engineer Relationship Specialty Start Date End Date Blossom Mercado PA PCP - General 09/13/23 documented as of this encounter
--- OUTSIDE RECORDS SUMMARY | 2025-02-13 11:30 | XMS_ITS | Encounter Summary ---
Author Organization [facility] Address [address] [facility] [place] [address] Care Team Providers Care Disability Rater Name Role Phone Blossom Mercado Primary Care Provider +1- [phone] Encounter Details Date Type Department Care Team (Latest Contact Info) Description 02/06/2025 Travel Social History Tobacco Use Types Packs/Day [...] [address] [facility] [place] [address] Mirna Lam PA [address] [facility] [address] [place], [facility]11 documented as of this encounter Visit Diagnoses Not on filedocumented in this encounter Care Teams Disability Rater Relationship Specialty Start Date End Date Blossom Mercado PA PCP - General 09/13/23 documented as of this encounter
--- OUTSIDE RECORDS SUMMARY | 2025-02-13 11:31 | XMS_ITS | Encounter Summary ---
Author Organization [facility] Address [address] [place] [address] Care Team Providers Care Rotary Surface Grinder Name Role Phone Blossom Mercado Primary Care Provider +1- [phone] Encounter Details Date Type Department Care Team (Late st Contact Info) Description 09/25/2024 Abstract [facility] BCP OB [address] [facility] [place] [address] Hemant Grant DO [address] [facility] [address] [place], [facility] Social History Tobacco Use Types Packs/Day Years [...] PM EDT Routine [facility] [address] [facility] [place] [address] Mirna Lam PA [address] [facility] [address] [place], [place] [id number] documented as of this encounter Visit Diagnoses Not on filedocumented in this encounter Care Teams Rotary Surface Grinder Relationship Specialty Start Date End Date Blossom Mercado PA PCP - General 09/13/23 documented as of this encounter
--- OUTSIDE RECORDS SUMMARY | 2025-02-13 11:31 | XMS_ITS | Clinical Summary ---
Author Organization [facility] Address [address] [place] [address] Care Team Providers Care Board Stacker Name Role Phone Blossom Mercado Primary Care Provider Allergies Active Allergy Reactions Criticality Noted Date Comments Other Angioedema,Hives High 04/27/2023 horses Medications MV-Min-Fe Fum-FA-DHA ( 1 PO) Take 1 each by mouth Daily Active amphetamine-dextroa mphetamine XR (Adderall XR) 20 MG 24 hr capsule Take 1 capsule by mouth every morning for 30 days. Max Daily Amount 20 mg 4 Active iron polysaccharides (ProFe) 391.3 (180 Fe) MG capsuleIndications: Low iron Take 1 capsule (391.3 mg) by mouth Daily 30 capsule 6 5 02/10/20 25 Encounters Date Type Department Care Team Description 02/06/2025 Travel 02/02/2025 Telephone [address] [address] [place] [address] Yocasta Mitchell LPN 01/30/2025 11:30 AM EDT Routine NOM[facility] [address] [place] [address] Hemant Grant DO Anemia, unspecified type (Primary Dx); Third trimester ([facility]); 28 weeks gestation of ([facility]); size inconsistent with dates ([facility]) 01/30/2025 Bamboo flowsheet [facility] BCP OB [address] [facility] [place] [address] Hemant Grant, DO 01/23/2025 Travel 01/15/2025 Telephone [facility] OB [address] [facility] [place] [address] Hemant Grant, DO 01/11/2025 Clinisync Result Encounter NOMS External Department Unsolicited Hemant Grant, DO 01/10/2025 Telephone [facility] B[facility] OB [address] [facility] [place] [address] Melissa Phillips, RHONA 01/09/2025 1:20 PM EDT Routine [facility] B[facility] OB [address] [facility] [place] [address] Mirna Lam PA Second trimester ([facility]); 25 weeks gestation of ([facility]); Diabetes mellitus screening 01/09/2025 Clinisync Result Encounter NOMS External Department Unsolicited Mirna Lam PA 01/09/2025 Bamboo flowsheet [facility] BCP OB [address] [facility] [place] [address] Mirna Lam PA 01/02/2025 Travel 12/12/2024 2:20 PM EDT Routine [facility] B[facility] OB [address] [facility] [place] [address] Hemant Grant, DO 21 weeks gestation of ([facility]); Second trimester ([facility]) 12/12/2024 1:00 PM EDT Ancillary Procedure [facility] BCP OB [address] [facility] [place] [address] 12/05/2024 Travel 11/16/2024 Abstract [facility] BCP OB [address] [place] [address] Hemant Grant, DO 11/14/2024 2:50 PM EDT Routine [facility] BCP OB [address] [facility] [place] [address] Mirna Lam PA Screening, , for anatomic survey ([facility]); Well woman exam with routine gynecological exam; Exposure to STD; Vaginal discharge; 17 weeks gestation of ([facility]); Second trimester ([facility]) 11/14/2024 Clinisync Result Encounter NOMS External Department Unsolicited Mirna Lam PA 11/14/2024 Abstract [facility] OB [address] [facility] [place] [address] Hemant Grant DO 11/14/2024 Bamboo flowsheet [facility] OB [address] [facility] [place] [address] Mrina Lam PA from Last 3 Months Family History Medical [...] (152 lb) 01/30/2025 11:52 AM EDT Height 157.5 cm (5' 2 ) 04/27/2023 10:00 AM EDT Body Mass Index 27.8 04/27/2023 10:00 AM EDT Plan of Treatment Upcoming Encounters Date Type Department Care Team (Late st Contact Info) Description 02/13/2025 1:50 PM EDT Routine [facility] OB [address] [place] [address] Mirna Lam PA [address] [place] [address] [place] [address] Procedures Procedure Name Priority Date/Time Associated Diagnosis Comments POCT URINALYSIS DIPSTICK Routine 01/30/2025 11:52 AM EDT Third trimester ([facility]) GLUCOSE TOLERANCE 3 HOUR Routine 01/11/2025 11:31 AM EDT GLUCOSE 1 HOUR Routine 01/09/2025 3:24 PM EDT ALL CBC WITH AUTO DIFF Routine 01/09/2025 3:24 PM EDT POCT URINALYSIS DIPSTICK Routine 01/09/2025 2:10 PM EDT 25 weeks gestation of ([facility]) POCT URINALYSIS DIPSTICK Routine 12/12/2024 2:10 PM EDT 21 weeks gestation of ([facility]) Second trimester ([facility]) US OB 14+ WEEKS ANATOMY SCAN Routine 12/12/2024 2:02 PM EDT Screening, , for anatomic survey ([facility]) AFP, SERUM, OPEN SPINA BIFIDA Routine 11/14/2024 4:10 PM EDT POCT URINALYSIS DIPSTICK Routine 11/14/2024 3:36 PM EDT 17 weeks gestation of ([facility]) Second trimester ([facility]) from Last 3 Months Results * POCT urinalysis dipstick manually resulted (01/30/2025 11:52 AM EDT) Only the most recent of4 resultswithin [...] Urine 01/30/2025 11:5 2 AM EDT Hemant Rudy DO POINT OF CARE TEST ENTER/EDIT OR DERABLES Final Result * GLUCOSE TOLERANCE 3 HOUR (01/11/2025 11:31 AM EDT) GLUCOSE TOLERANCE 3 HOUR mg/dL [facility] Comment: GLU FAST 85 (<95) Col: 01/11/25 1131 GLU 1HR 160 (<180) Col: 01/11/25 1231 GLU 2HR 128 (<155) Col: 01/11/25 1331 GLU 3HR 115 (<140) Col: 01/11/25 1429 01/11/2025 11:3 1 AM EDT 01/11/2025 11:35 AM EDT Narrative CLINISYLA - 01/11/2025 2:50 PM EDT Hemant Grant DO LAB BLOOD ORDERABLES [facility] * (ABNORMAL) GLUCOSE 1 HOUR (01/09/2025 3:24 PM EDT) GLUCOSE 1 HOUR 132(H) <130 mg/dL TB 01/09/2025 3:24 PM EDT 01/09/2025 3:24 PM EDT Narrative CLINISYNC - 01/09/2025 3:58 PM EDT Mirna RICO LAB BLOOD ORDERABLES Final Resul t [facility] * (ABNORMAL) ALL CBC WITH AUTO DIFF (01/09/2025 3:24 PM EDT) [facility] TBH WBC 12.9(H) 4.0 - 11.0 10 3/uL [facility]H TBH RBC 3.85(L) 4.20 - 5.40 10 6/uL TBH TBH HGB 9.9(L) 12.0 - 16.0 g/dL TBH TBH HCT 32.1(L) 36.0 - 48.0 % [facility]H TBH MCV 83.4 81.0 - 99.0 fL TBH TBH MCH 25.7(L) 26.7 - 34.0 pg TBH TBH MCHC 30.8 29.9 - 35.2 g/dL TBH TBH RDW 13.9 11.0 - 15.0 % TBH TBH PLT 232 150 - 450 10 3/uL TBH TBH MPV 11.5 9.5 - 13.5 fL TBH NEUTROPHILS PERCENT AUTO 77.8(H) 43.0 - 75.0 % TBH LYMPHOCYTES PERCENT AUTO 15.4(L) 20.5 - 60.0 % TBH MONOCYTES PERCENT AUTO 5.3 1.7 - 12.0 % TBH TBH EO % 0.9 0.9 - 7.0 % TBH BASOPHILS PERCENT AUTO 0.2 0.2 - 2.0 % TBH IMMATURE GRANULOCYTES PCT AUTO 0.4 0.0 - 0.5 % TBH NEUTROPHILS ABSOLUTE AUTO 10.0(H) 1.4 - 6.5 10 3/uL TBH LYMPHOCYTES ABSOLUTE AUTO 2.0 1.2 - 3.8 10 3/uL TBH MONOCYTES ABSOLUTE AUTO 0.7 0.3 - 0.8 10 3/uL TBH TBH EO # 0.1 0.0 - 0.7 10 3/uL TBH BASOPHILS ABSOLUTE AUTO 0.0 0.0 - 0.1 10 3/uL TBH IMMATURE GRANULOCYTES ABS AUTO 0.05(H) 0.00 - 0.03 10 3/uL TBH 01/09/2025 3:24 PM EDT 01/09/2025 3:24 PM EDT Narrative CLINISY[facility] - 01/09/2025 3:31 PM EDT us Mirna NIETO Final Result [facility] TB[facility] * US OB 14+ weeks anatomy scan [...] II, MD, PHD at 17-Dec-2024 08:52:34 PM [facility] Procedure Note Mike Rivera MD - [...] signed by MIKE RIVERA II, MD, PHD [id number] 08:52:34 PM [facility] Mirna RICO IMG OB US PROCEDURES Final Resul t * AFP, SERUM, OPEN SPINA BIFIDA (11/14/2024 4:10 PM EDT) RESULTS Report . [facility] TEST RESULTS: *Screen Negative* . TB GEST. AGE ON COLLECTION DATE 17.4 . weeks [facility] GESTAT. AGE BASED ON LMP . [facility] Comment: Recalculations are not recommended when gestational dating by LMP and ultrasound are within 10 days. [age] [facility] RACE . [facility] WEIGHT 136 . lbs [facility] INSULIN DEP DIABETES No . [facility] MULTIPLE GESTATION No . [facility] AFP VALUE 55.0 . ng/mL [facility] AFP MOM 1.29 . [facility] OSBR RISK 1 IN 4947 . [facility] INTERPRETATION Comment . [facility] Comment: Interpretation: Screen Negative This result is [...] Customer Services to discuss available options. The [employer] recommends amniocentesis be offered to women age 35 and older. COMMENT: Comment . [facility] Comment: Yenny Azevedo, Ph.D., [facility] Director References: Available Upon Request. Multiples Of Median Cutoffs For AFP Elevations Cook 2.5 Black 2.8 IDD 2.0 Twins 4.5 Abbreviation Definitions IDD - Insulin Dep Diabetes OSBR - Open Spina Bifida Risk For further inquiries contact [facility] [facility] at [phone]. This test was developed and its performance characteristics determined by [employer]. It has not been cleared or approved by the Food and Drug Administration. Performed at: [facility] [employer] [address] [place], [place] [id number] Commissioner Of Conciliation: Darren Shahid [facility], Phone: [phone] 11/14/2024 4:10 PM EDT 11/14/2024 4:11 PM EDT Narrative CLINISYNC - 11/17/2024 1:07 AM EDT N N LMP [id number] 3 17 N 1 Y 136 N N N N N White/ us Mirna RICO LAB BLOOD ORDERABLES Final Resul t [facility] from Last 3 Months Care Teams Board Stacker Relationship Specialty Start Date End Date Blossom Mercado PA PCP - General 09/13/23
--- OUTSIDE RECORDS SUMMARY | 2025-02-13 11:31 | XMS_ITS | Encounter Summary ---
Author Organization [facility] Address [address] [place] [address] Care Team Providers Care Ehs Specialist Name Role Phone Blossom Mercado Primary Care Provider +1- [phone] Encounter Details Date Type Department Care Team (Late st Contact Info) Description 08/29/2024 Abstract [facility] BCP OB [address] [facility] [address] Hemant Grant [address] [place], [facility]11 Social History Tobacco Use Types Packs/Day Years [...] PM EDT Routine [facility] BCP OB [address] [facility] [place] [address] Mirna Lam PA [address] [facility] [address] [place], [place] [id number] documented as of this encounter Visit Diagnoses Not on filedocumented in this encounter Care Teams Ehs Specialist Relationship Specialty Start Date End Date Blossom Mercado PA PCP - General 09/13/23 documented as of this encounter
--- OUTSIDE RECORDS SUMMARY | 2025-02-13 11:31 | XMS_ITS | Encounter Summary ---
Author Organization [facility] Address [address] [place] [address] Care Team Providers Care Manager Shell Name Role Phone Blossom Mercado Primary Care Provider +1- [phone] Encounter Details Date Type Department Care Team (Late st Contact Info) Description 08/14/2024 Abstract [facility] BCP OB [address] [facility] [place] [address] Hemant Grant [address] [place], [facility] Social History Tobacco Use Types Packs/Day Years [...] [address] [facility] [place] [address] Mirna Lam PA [address] [facility] [address] [place], [place] [address] documented as of this encounter Visit Diagnoses Not on filedocumented in this encounter Care Teams Manager Shell Relationship Specialty Start Date End Date Blossom Mercado PA PCP - General 09/13/23 documented as of this encounter
--- OUTSIDE RECORDS SUMMARY | 2025-02-13 11:31 | XMS_ITS | Encounter Summary ---
Author Organization [facility] Address [address] [place] [address] Phone Care Team Providers Care Technical Service Engineer Name Role Phone Generic Provider, No Assigned Pcp Primary Car e Provider Unavailable Encounter Details Date Type Department Care Team (Late st Contact Info) Description 05/08/2024 Scanned Document [facility] [address] [facility] [address] [place] [address] Radha Bethea MA Social History Tobacco Use [...] filedocumented in this encounter Care Teams Technical Service Engineer Relationship Specialty Start Date End Date Generic Provider, [place] [address] PCP - General Director Of Student Life 08/21/24 documented as of this encounter
--- OUTSIDE RECORDS SUMMARY | 2025-02-13 11:31 | XMS_ITS | Encounter Summary ---
Author Organization [facility] Address [address] [place] [address] Care Team Providers Care Job Setter Honing Name Role Phone Blossom Mercado Primary Care Provider +1- [phone] Encounter Details Date Type Department Care Team (Late st Contact Info) Description 08/30/2024 Abstract [facility] BCP OB [address] [facility] [place] [address] Jessica Lindsey LPN Social History Tobacco Use [...] 1:50 PM EDT Routine [facility] BCP OB [address] [place], [place] [address] [address] Mirna Lam PA [address] [place], [place] [address] [place] [id number] documented as of this encounter Visit Diagnoses Not on filedocumented in this encounter Care Teams Job Setter Honing Relationship Specialty Start Date End Date Blossom Mercado PA PCP - General 09/13/23 documented as of this encounter
--- OUTSIDE RECORDS SUMMARY | 2025-02-13 11:31 | XMS_ITS | Encounter Summary ---
Author Organization [facility] Address [address] [place] [address] Care Team Providers Care Financial Quantitative Analyst Name Role Phone Blossom Mercado Primary Care Provider +1 [phone] Encounter Details Date Type Department Care Team (Late st Contact Info) Description 02/02/2025 Telephone [facility] OB [address] [facility] [place] [address] Yocasta Mitchell LPN [address] [place] [address] Social History Tobacco Use Types Packs/Day Years [...] as of this encounter Miscellaneous Notes * Telephone Encounter - Yocasta Mitchell LPN - 02/02/2025 9:57 AM EDT Hi, this is Yolie. BHARGAV. I recently was prescribed an iron supplement to take and I did not take it yesterday because it is been making me feel really awful. That makes me really tired and have a terrible headache to the point, I do not even want to get out of bed, so I did not take it yesterday because I thought that might have been the reason why I was feeling that way, but I wanted to make sure before I called I did not know if there was something else I could do or what Dr. Grant would recommend, but I just wanted to call because having a headache like that and feel like that is it is fromobviously. So I just wanted to call and see if there was an alternative or if I am taking too much or I would I do not know. Again, this is Yolie montes my phone number is [phone]. Thank you. I told pt that I would send Dr. Grant a message to se what he would like to do. documented in this encounter Plan of Treatment Upcoming Encounters Date Type Department Care Team (Late st Contact Info) Description 02/13/2025 1:50 PM EDT Routine [facility] BCP OB [address] [facility] [place] [address] Mirna Lam PA [address] [place] [address] documented as of this encounter Visit Diagnoses Not on filedocumented in this encounter Care Teams Financial Quantitative Analyst Relationship Specialty Start Date End Date Blossom Mercado PA PCP - General 09/13/23 documented as of this encounter
--- OUTSIDE RECORDS SUMMARY | 2025-02-13 11:31 | XMS_ITS | Encounter Summary ---
Author Organization [facility] Address [address] [place] [address] Care Team Providers Care Key Bed Installer Name Role Phone Blossom Mercado Primary Care Provider +1- [phone] Encounter Details Date Type Department Care Team (Late st Contact Info) Description 06/26/2024 Abstract [facility] B[facility] OB [address] [facility] [place] [address] Hemant Grant [address] [place], [facility]11 Social History Tobacco Use Types Packs/Day [...] PM EDT Routine [facility] BCP OB [address] [facility] [place] [address] Mirna Lam PA [address] [facility] [address] [place], [place] [id number] documented as of this encounter Visit Diagnoses Not on filedocumented in this encounter Care Teams Key Bed Installer Relationship Specialty Start Date End Date Blossom Mercado PA PCP - General 09/13/23 documented as of this encounter
--- OUTSIDE RECORDS SUMMARY | 2025-02-13 11:31 | XMS_ITS | Encounter Summary ---
Author Organization [facility] Address [address] [place] [address] Care Team Providers Care College Admissions Counselor Name Role Phone Blossom Mercado Primary Care Provider Scoo Grant DO Unavailable Encounter Details Date Type Department Care Team (Late st Contact Info) Description 07/19/2023 Clinisync Result Encounter NOMS External Department Unsolicited Soco Grant, DO [address] [facility] [address] [place] [address] Social History Tobacco Use Types Packs/Day Years [...] PM EDT Routine [facility] BCP OB [address] [facility] [place] [address] Mirna Lam PA [address] [place] [address] documented as of this encounter Procedures Procedure Name Priority Date/Time Associated Diagnosis Comments FL HYSTEROSALPINGOGRAPHY 023 2:55 PM EST documented in this encounter Results * FL HYSTEROSALPINGOGRAPHY (07/19/2023 2:55 PM EST) Anatomical Region Laterality Modality Other 07/19/2023 2:55 PM EST Narrative 07/19/2023 2:55 [place] [address] Fluoroscopy Report Signed Patient: CARISA YEE MR#: [id number] : 2000 Acct:[id number] Age/Sex: 23 / F ADM Date: 07/19/23 Loc: LAB Attending Dr: Soco Grant D.O. Ordering Physician: Soco Grant D.O. Date of Service: 07/19/23 Procedure(s): FL hysterosalpingography Accession Number(s): [id number] cc: Soco Grant D.O.; Physician,Non-Staff M.DGordo The [place] [id number] Patient Name: CARISA YEE MRN: [id number] date: 2000 Sex: F Assigned Patient Location: LAB Current Patient Location: Accession/Order Number: [id number] Exam Date: 07/19/2023 14:02 Report Date: 07/19/2023 [...] Signed By: 07/19/23 1457 DD/ 1455 TD/TT: Solar Panel Technician: Procedure Note Radiology, Radiologist, - 07/20/2023 [place] [address] Fluoroscopy Report Signed Patient: CARISA YEE RMR#: [id number] : 2000Acct:[id number] Age/Sex: 23 / FADM Date: 07/19/23 Loc: LAB Attending Dr: Soco Grant D.O. Ordering Physician: Soco Grant D.O. Date of Service: 07/19/23 Procedure(s): FL hysterosalpingography Accession Number(s): [id number] cc: Soco Grant D.O.; Physician,Non-Staff Yajaira The [place] [address] Patient Name: CARISA YEE MRN: [id number] date: 2000 Sex: F Assigned Patient Location: LAB Current Patient Location: Accession/Order Number: [id number] Exam Date: 07/19/2023 14:02 Report Date: 07/19/2023 [...] M.D. Signed By:07/19/23 1457 DD/ 1455 TD/TT: Solar Panel Technician: us Soco Grant DO [facility] Final Result documented in this encounter Visit Diagnoses Not on filedocumented in this encounter Care Teams College Admissions Counselor Relationship Specialty Start Date End Date Blossom Mercado PA PCP - General 09/13/23 Soco Grant DO [address] [place] [address] [place] [address] PCP - [facility] 02/14/24 documented as of this encounter
--- OUTSIDE RECORDS SUMMARY | 2025-02-13 11:31 | XMS_ITS | Encounter Summary ---
Author Organization [facility] Address [address] [place] [address] Care Team Providers Care Eap Consultant Name Role Phone Blossom Mercado Primary Care Provider +1- [phone] Encounter Details Date Type Department Care Team (Late st Contact Info) Description 10/03/2024 Abstract [facility] BCP OB [address] [facility] [place] [address] Hemant Grant DO [address] [facility] [address] [place], [facility] Social History Tobacco Use Types Packs/Day Years [...] Description 02/13/2025 1:50 PM EDT Routine NOMS [facility] OB [address] [facility] [place] [address] Mirna Lam PA [address] [facility] [address] [place], [place] [id number] documented as of this encounter Visit Diagnoses Not on filedocumented in this encounter Care Teams Eap Consultant Relationship Specialty Start Date End Date Blossom Mercado PA PCP - General 09/13/23 documented as of this encounter
--- OUTSIDE RECORDS SUMMARY | 2025-02-13 11:31 | XMS_ITS | Patient Health Record ---
Author Organization [facility] Address [address] [facility] [place] [address] Care Team Providers Care Trim Mechanic Name Role Phone None, None Primary Care Provider David Trujillo Unavailable [phone] Reason For Referral No Information Plan Of Treatment No Information Insurance Providers Payer Name Payer Address Payer Phone Subscriber Number Group Number Insured Name Patient Relationship to Insured Coverage Start Date Coverage End Date [employer] [address] [place] [phone] CARISA DURANT Self - patient is the insured
--- OUTSIDE RECORDS SUMMARY | 2025-02-13 11:31 | XMS_ITS | Encounter Summary ---
Author Organization [facility] Address [address] [place] [address] Care Team Providers Care Tilt Tray Driver Name Role Phone Blossom Mercado Primary Care Provider Soco Grant DO Unavailable Encounter Details Date Type Department Care Team (Late st Contact Info) Description 07/19/2023 Clinisync Result Encounter NOMS External Department Unsolicited Soco Grant, DO [address] [facility] [address] [place] [address] Social History Tobacco Use Types Packs/Day Years [...] PM EDT Routine [facility] BCP [facility] [address] [facility] [place] [address] Mirna Lam PA [address] [place] [address] documented as of this encounter Procedures Procedure Name Priority Date/Time Associated Diagnosis Comments FL HYSTEROSALPINGOGRAM 2:55 PM EST documented in this encounter Results * FL HYSTEROSALPINGOGRAM (07/19/2023 2:55 PM EST) Anatomical Region Laterality Modality Other 07/19/2023 2:55 PM EST Narrative 07/19/2023 2:55 [place] [address] Fluoroscopy Report Signed Patient: CARISA YEE MR#: [id number] : 2000 Acct:[id number] Age/Sex: 23 / F ADM Date: 07/19/23 Loc: LAB Attending Dr: Soco Grant D.O. Ordering Physician: Soco Grant D.O. Date of Service: 07/19/23 Procedure(s): FL Hysterosal cath placement Accession Number(s): [id number] cc: Soco Grant D.O.; Physician,Non-Staff M.DGordo [place] [id number] Patient Name: CARISA YEE MRN: [id number] date: 2000 Sex: F Assigned Patient Location: LAB Current Patient Location: Accession/Order Number: [id number] Exam Date: 07/19/2023 14:02 Report Date: 07/19/2023 [...] Signed By: 07/19/23 1457 DD/ 1455 TD/TT: Agricultural Aircraft Pilot: Procedure Note Radiology, Radiologist, - 07/20/2023 [place] [address] Fluoroscopy Report Signed Patient: CARIAS YEE RMR#: [id number] : 2000Acct:[id number] Age/Sex: 23 / FADM Date: 07/19/23 Loc: LAB Attending Dr: Soco Grant D.O. Ordering Physician: Soco Grant D.O. Date of Service: 07/19/23 Procedure(s): FL Hysterosal cath placement Accession Number(s): [id number] cc: Soco Grant D.O.; Physician,Non-Staff Yajaira The [place] [address] Patient Name: CARISA YEE MRN: [id number] date: 2000 Sex: F Assigned Patient Location: LAB Current Patient Location: Accession/Order Number: [id number] Exam Date: 07/19/2023 14:02 Report Date: 07/19/2023 [...] M.D. Signed By:07/19/23 1457 DD/ 1455 TD/TT: Agricultural Aircraft Pilot: us Soco Grant DO [facility] Final Result documented in this encounter Visit Diagnoses Not on filedocumented in this encounter Care Teams Tilt Tray Driver Relationship Specialty Start Date End Date Blossom Mercado PA PCP - General 09/13/23 Soco Grant DO [address] [place] [address] [place] [address] PCP - [facility] 02/14/24 documented as of this encounter
--- OUTSIDE RECORDS SUMMARY | 2025-02-13 11:31 | XMS_ITS | Encounter Summary ---
Author Organization [facility] Address [address] [place] [address] Care Team Providers Care Broacher Name Role Phone Blossom Mercado Primary Care Provider +1- [phone] Encounter Details Date Type Department Care Team (Late st Contact Info) Description 08/04/2024 Abstract [facility] BCP OB [address] [place] [address] Hemant Grant [address] [place], [facility]11 Social History Tobacco Use Types Packs/Day [...] PM EDT Routine [facility] BCP OB [address] [place] [address] Mirna Lam PA [address] [facility] [address] [place], [place] [address] documented as of this encounter Visit Diagnoses Not on filedocumented in this encounter Care Teams Broacher Relationship Specialty Start Date End Date Blossom Mercado PA PCP - General 09/13/23 documented as of this encounter
--- OUTSIDE RECORDS SUMMARY | 2025-02-13 11:31 | XMS_ITS | Encounter Summary ---
Author Organization [facility] Address [address] [place] [address] Care Team Providers Care Lock Expert Name Role Phone Blossom Mercado Primary Care Provider +1- [phone] Encounter Details Date Type Department Care Team (Late st Contact Info) Description 11/14/2024 Abstract [facility] BCP OB [address] [facility] [address] Hemant Grant DO [address] [facility] [address] [place], [facility] [...] PM EDT Routine N[facility] BCP OB 102 [facility] [place] [address] Mirna Lam PA [address] [facility] [address] [place], [place] [id number] documented as of this encounter Visit Diagnoses Not on filedocumented in this encounter Care Teams Lock Expert Relationship Specialty Start Date End Date Blossom Mercado PA PCP - General 09/13/23 documented as of this encounter
--- OUTSIDE RECORDS SUMMARY | 2025-02-13 11:31 | XMS_ITS | Encounter Summary ---
Author Organization [facility] Address [address] [place] [address] Care Team Providers Care Archives Specialist Name Role Phone Blossom Mercado Primary Care Provider +1- [phone] Encounter Details Date Type Department Care Team (Late st Contact Info) Description 11/16/2024 Abstract [facility] BCP OB [address] [facility] [place] [address] Hemant Grant DO [address] [facility] [address] [place], [facility] Social History Tobacco Use Types Packs/Day Years [...] PM EDT Routine NOMS BCP OB [address] [facility] [place] [address] Mirna Lam PA [address] [facility] [address] [place], [place] [address] documented as of this encounter Visit Diagnoses Not on filedocumented in this encounter Care Teams Archives Specialist Relationship Specialty Start Date End Date Blossom Mercado PA PCP - General 09/13/23 documented as of this encounter
--- OUTSIDE RECORDS SUMMARY | 2025-02-13 11:31 | XMS_ITS | Clinical Summary ---
Author Organization [facility] Address [address] [place] [address] Phone Care Team Providers Care Boilers Inspector Name Role Phone Generic Provider, No Assigned [...] Comments HIV Screening 2000 Lipid Panel 2000 Hepatitis C Screening 2017 HPV Vaccines (3 - 3-dose series) 04/22/2017 01/28/2017, 03/03/2016 Yearly Adult Physical 08/27/2018 08/26/2017 , 03/03/2016, 03/13/2015 Cervical Cancer Screening 01/09/2020 HPV/Cotest 01/09/2020 Pap [...] patient's age to complete this topic Insurance [place] [employer] Care Teams Boilers Inspector Relationship Specialty Start Date End Date Generic Provider, No Assigned P[place], [place] [address] PCP - General Curator [employer] 08/21/24
--- OUTSIDE RECORDS SUMMARY | 2025-02-13 11:31 | XMS_ITS | Encounter Summary ---
Author Organization [facility] Address [address] [place] [address] Care Team Providers Care Bindery Chief Name Role Phone Blossom Mercado Primary Care Provider Soco Grant DO Unavailable Encounter Details Date Type Department Care Team (Late st Contact Info) Description 07/06/2023 Clinisync Result Encounter NOMS External Department Unsolicited Soco Grant, DO [address] [facility] [address] [place] [address] Social History Tobacco Use Types Packs/Day Years [...] PM EDT Routine [facility] BCP OB [address] [place] [address] Mirna Lam PA [address] [place] [address] [place] [address] documented as of this encounter Procedures Procedure [...] EST Narrative 07/06/2023 3:45 PM EST The [address] [address] Ultrasound Report Signed Patient: CARISA YEE MR#: [id number] : 2000 Acct:[id number] Age/Sex: 23 / F ADM Date: 07/06/23 Loc: US Attending Dr: Soco Grant D.O. Ordering Physician: Soco Grant D.O. Date of Service: 07/06/23 Procedure(s): US pelvis transvaginal Accession Number(s): [id number] cc: Soco Grant D.O.; Physician,Non-Staff M.D. [place] [address] Patient Name: CARISA YEE MRN: [id number] date: 2000 Sex: F Assigned Patient Location: US Current Patient Location: Accession/Order Number: [id number] Exam Date: 07/06/2023 14:00 Report Date: 07/06/2023 [...] Signed By: 07/06/23 1547 DD/ 1545 TD/TT: Machine Setter Supervisor: Procedure Note Radiology, Radiologist, - 07/06/2023 [place] [address] Ultrasound Report Signed Patient: CARISA EYE RMR#: [id number] : 2000Acct:[id number] Age/Sex: 23 / FADM Date: 07/06/23 Loc: US Attending Dr: Soco Grant D.O. Ordering Physician: Soco Grant D.O. Date of Service: 07/06/23 Procedure(s): US pelvis transvaginal Accession Number(s): [id number] cc: Soco Grant D.O.; Physician,Non-Staff Yajaira [place] [id number] Patient Name: CARISA YEE MRN: [id number] date: 2000 Sex: F Assigned Patient Location: US Current Patient Location: US Accession/Order Number: [id number] Exam Date: 07/06/2023 14:00 Report Date: 07/06/2023 [...] M.D. Signed By:07/06/23 1547 DD/ 1545 TD/TT: Machine Setter Supervisor: Soco Rudy DO [facility] Final Result * ALL DEHYDROEPIANDROSTERONE (07/06/2023 1:45 PM EST) DHEA, SERUM 227 31 - 701 ng/dL TBH Comment: This test was developed and its performance characteristics determined by [facility]. It has not been cleared or approved by the Food and Drug Administration. Performed at: [address] [id number] Wedding Coordinator: Summer Nance MD, Phone: [phone] 07/06/2023 1:45 PM EST 07/06/2023 1:50 PM EST Narrative [facility] - 07/12/2023 9:07 AM EST Soco Rudy DO [facility] Final Result Performing Organization Address [facility] Co de Phone Number [facility] * ALL PROGESTERONE (07/06/2023 1:45 PM EST) Pathologist [facility] PROGESTERONE 14.6 . ng/mL TB Comment: Follicular phase 0.1 - 0.9 Luteal phase 1.8 - 23.9 Ovulation phase 0.1 - 12.0 First trimester 11.0 - 44.3 Second trimester 25.4 - 83.3 Third trimester 58.7 - 214.0 Postmenopausal 0.0 - 0.1 Performed at: [address] [id number] Wedding Coordinator: Vince Smith PhD, Phone: [phone] 07/06/2023 1:45 PM EST 07/06/2023 1:50 PM EST Narrative [facility] - 07/07/2023 9:11 AM EST Soco Rudy DO [facility] Final Result Performing Organization Address City/[facility]/ZIP Co de Phone Number [facility] * ALL FOLLICLE STIMULATING HORMONE (07/06/2023 1:45 PM EST) Pathologist [facility] FSH 2.9 . mIU/mL TBH Comment: Adult Female Range Follicular phase 3.5 - 12.5 Ovulation phase 4.7 - 21.5 Luteal phase 1.7 - 7.7 Postmenopausal 25.8 - 134.8 07/06/2023 1:45 PM EST 07/06/2023 1:50 PM EST Narrative [facility] - 07/07/2023 9:11 AM EST Soco Rudy DO [facility] Final Result [facility] * ALL LUTEINIZING HORMONE (07/06/2023 1:45 PM EST) Pathologist [facility] LUTEINIZING HORMONE(LH) 5.1 . mIU/mL TBH Comment: Adult Female Range Follicular phase 2.4 - 12.6 Ovulation phase 14.0 - 95.6 Luteal phase 1.0 - 11.4 Postmenopausal 7.7 - 58.5 07/06/2023 1:45 PM EST 07/06/2023 1:50 PM EST Narrative [facility]IN[facility] - 07/07/2023 9:11 AM EST [facility] DO [facility] Final Result [facility] * ALL DHEA SULFATE (07/06/2023 1:45 PM EST) [facility] DHEA-SULFATE 309.0 110.0 - 431.7 ug/dL TBH 07/06/2023 1:45 PM EST 07/06/2023 1:50 PM EST Narrative [facility] - 07/07/2023 9:11 AM EST [facility] Final Result [facility] * [facility]H PREG QUANT HCG (07/06/2023 [...] on filedocumented in this encounter Care Teams Bindery Chief Relationship Specialty Start Date End Date Blossom Mercado PA PCP - General 09/13/23 Soco Grant DO [address] [place] [address] [place] [address] PCP - [facility] 02/14/24 documented as of this encounter
--- NOTE | 2025-02-13 11:36 | US_ITS ---
[address] [address] Patient Name: CARISA DURANT MRN: [id number] date: 2000 Sex: F Assigned Patient Location: US Current Patient Location: US Accession/Order Number: [id number] Exam Date: 02/13/2025 13:03 Report Date: 02/13/2025 13:07 At the request of: TRACY KHAN Procedure: US OB growth Growth ultrasound. Reason for exam: size inconsistent with dates. COMPARISON: None. TECHNIQUE: Transabdominal imaging of the gravid uterus was obtained. FINDINGS: Single live intrauterine measuring 31 weeks 2 days by anatomic measurements. Appropriate growth by dating. Estimated weight is 1749 g which is at the 70th percentile. DONNIE is normal at 17.52 cm. heart rate 144 bpm. US/US OB growth IMPRESSION: Single live intrauterine 31 weeks 2 days by anatomic measurements. Appropriate growth by dating. Impression dictated by: Clif Eason Jr., D.O. 02/13/2025 1:07 PM Dictation Location: [place] [address] Electronically authenticated by: [id number] Y Date: 02/13/2025 13:07
== END 2025-02-13 11:29 | disposition home or self-care (01) ==
LOC: US 11:28
PROVIDERS: Visit Provider Physician Assistant
DX: O26.843 Uterine size-date discrepancy, third trimester (principal); Z3A.31 31 weeks gestation of pregnancy
CPT/HCPCS: 76816

== ENCOUNTER 2025-03-22 19:31 | Outpatient (REF) | payer SELFPAY ==
--- OUTSIDE RECORDS SUMMARY | 2024-08-28 10:00 | XMS_ITS ---
Author Organization [facility] Address [address] [facility] [place] [place] [address] Care Team Providers Care Block And Case Maker Name Role Phone None, None Primary Care Provider David Trujillo [facility] [phone] REASON FOR VISIT INFERTILITY ISSUES Encounters Encounter Location Date Provider Diagnosis [place] [id number] [address] 08/28/2024 David Collins Plan Of Treatment No Information Progress Notes * CARISA DURANTDOB:2000 (25 yo F)Acc No.[id number]:08/28/2024 Patient: S CARISA SYLVESTER Provider: Jean Marie Collins MD :2000 A ge:24 Y S ex:Female Date:08/28/2024 Address:[address] [place] [address] [place], [place] [id number] Subjective: * Chief Complaints: * 1 . INFERTILITY ISSUES. * Medical History: Objective: * Vitals: Assessment: Plan: * Treatment: * * Electronic signature of Gideon Collins MD on 03/22/2025 at 10:53 AM EDT Sign off status: Pending * Provider: Jean Marie Collins MD Date: 0 08/28/2024 Generated for Lennox wynn/Aidee/Myraitting on: 0 03/22/2025 10:53 AM EDT
--- OUTSIDE RECORDS SUMMARY | 2024-10-04 06:00 | XMS_ITS ---
Author Organization [facility] Address [address] [facility] [place] [address] Care Team Providers Care Office System Analyst Name Role Phone None, None Primary Care Provider David Trujillo [facility] [phone] REASON FOR VISIT INFERTILITY ISSUES Encounters Encounter Location Date Provider Diagnosis [place] [id number] [address] 10/04/2024 David Collins Plan Of Treatment No Information Progress Notes * CARISA DURANTDOB:2000 (25 yo F)Acc No.[id number]:10/04/2024 Patient: S CARISA SYLVESTER Provider: Jean Marie Collins MD :2000 A ge:24 Y S ex:Female Date:10/04/2024 Address:[address] [place] [address] [place], [place] [phone] Subjective: * Chief Complaints: * 1 . INFERTILITY ISSUES. * Medical History: Objective: * Vitals: Assessment: Plan: * Treatment: * * Electronic signature of Gideon Collins MD on 03/22/2025 at 10:53 AM EDT Sign off status: Pending * Provider: Jean Marie Collins MD Date: 10/04/2024 Generated for Lennox wynn/Aidee/Myraitting on: 0 03/22/2025 10:53 AM EDT
--- OUTSIDE RECORDS SUMMARY | 2025-03-14 13:30 | XMS_ITS | Encounter Summary ---
Author Organization [facility] Address [address] [place] [place] [address] Care Team Providers Care Press Set Up Name Role Phone Blossom Mercado Primary Care Provider +1 [phone] Reason for Visit * Reason Comments Routine Visit Encounter Details Date Type Department Care Team (Late st Contact Info) Description 03/14/2025 1:30 PM EDT Routine [facility] [address] [facility] [place] [address] Mirna Lam PA [address] [facility] [place] [address] Third trimester ([facility]); 34 weeks gestation of ([facility]) Social History Tobacco Use Types Packs/Day Years [...] Sign Reading Time Taken Comments Blood Pressure 114/72 03/14/2025 1:47 PM EDT Pulse - - Temperature - - Respiratory Rate - - Oxygen Saturation - - Inhaled Oxygen Concentration - - Weight 74.8 kg (165 lb) 03/14/2025 1:47 PM EDT Height - - Body Mass Index 30.18 04/27/2023 10:00 AM EDT documented in this encounter Progress Notes * JACKY Day - 03/14/2025 1:30 PM EDT Reason for Appointment: Patient ID: [...] reviewed. Vitals: Estimated body mass index is 30.18 kg/m?? as calculated from the following: Height as of 04/27/23: 5' 2 . Weight as of this encounter: 165 lb. BP: 114/72 Patient's last menstrual period was 07/15/2024. ASSESSMENT & PLAN ICD-10-CM 1. Third trimester (HHS-HCC) Z34.93 2. 34 weeks gestation of (HHS-HCC) Z3A.34 Return OB: Patient presents today for a routine obstetrics appointment. Patient is currently 34w4d . Patient states she is doing well but has complaints of being tired due to current . Patient has verbalizes frequent movement. labor precautions was discussed/given and patient was instructed to perform kick counts three times a day. No orders of the defined types were placed in this encounter. Follow Up: Patient is to return to office in 2 week for routine OB appointment. Documented by JACKY Day on behalf of: JACKY Day documented in this encounter Plan of Treatment Upcoming Encounters Date Type Department Care Team (Late st Contact Info) Description 03/28/2025 2:20 PM EDT Routine [facility] [address] [facility] [place] [address] Hemant Grant DO [address] [facility] [place] [address] [place] [address] documented as of this encounter Visit Diagnoses Diagnosis Third trimester (HHS-HCC) state, incidental 34 weeks gestation of ([facility]HS-HCC) documented in this encounter Care Teams Press Set Up Relationship Specialty Start Date End Date Blossom Mercado PA PCP - General 09/13/23 documented as of this encounter
--- OUTSIDE RECORDS SUMMARY | 2025-03-22 10:50 | XMS_ITS | Encounter Summary ---
Author Organization [facility] Address [address] [place] [address] Care Team Providers Care Enrobing Machine Feeder Name Role Phone Blossom Mercado Primary Care Provider +1 [phone] Reason for Visit * Reason Comments Routine Visit Encounter Details Date Type Department Care Team (Late st Contact Info) Description 03/22/2025 10:50 AM EDT Routine [facility] [address] [place] [address] Mirna Lam PA [address] [place] [address] Third trimester ([facility]); Vaginal discharge; STD exposure; 35 weeks gestation of ([facility]) Social History Tobacco Use Types Packs/Day [...] Sign Reading Time Taken Comments Blood Pressure 110/68 03/22/2025 11:15 AM EDT Pulse - - Temperature - - Respiratory Rate - - Oxygen Saturation - - Inhaled Oxygen Concentration - - Weight 76.3 kg (168 lb 1.9 oz) 03/22/2025 11:15 AM EDT Height - - Body Mass Index 30.75 04/27/2023 10:00 AM EDT documented in this encounter Progress Notes * JACKY Day - 03/22/2025 10:50 AM EDT Reason for Appointment: Patient ID: Rebekah Rhodes is a 25 y.o. female who presents for Routine Visit Patient presents today for Return OB appointment.Gbs and cultures obtained MEDICATIONS Current Outpatient Medications Medication Instructions MV-Min-Fe [...] reviewed. Vitals: Estimated body mass index is 30.75 kg/m?? as calculated from the following: Height as of 04/27/23: 5' 2 . Weight as of this encounter: 168 lb 1.9 oz. BP: 110/68 Patient's last menstrual period was 07/15/2024. ASSESSMENT & PLAN ICD-10-CM 1. Third trimester ([facility]) Z34.93 POCT urinalysis dipstick manually resulted CULTURE, GROUP B STREP WITH SUSCEPTIBLITY CULTURE, GROUP B STREP WITH SUSCEPTIBLITY CANCELED: CULTURE, GROUP B STREP WITH SUSCEPTIBLITY CANCELED: CULTURE, GROUP B STREP WITH SUSCEPTIBLITY 2. Vaginal discharge N89.8 SURESWAB(R) ADVANCED VAGINITIS PLUS, TMA 3. STD exposure Z20.2 CHLAMYDIA TRACHOMATIS (GENITO/STI) Neisseria gonorrhea DNA probe, direct 4. 35 weeks gestation of ([facility]) Z3A.35 Return OB: Patient is doing well but has complaints of being tired and having maternal discomfort due to . Patient verbalized frequent movement and was instructed to perform kick counts three times per day. labor precautions were given, LARC consent was signed/declined, and GBS was obtained. Cervical check was performed and patient is 0cm dilated. Orders Placed This Encounter Procedures CHLAMYDIA TRACHOMATIS (GENITO/STI) Neisseria gonorrhea DNA probe, direct CULTURE, GROUP B STREP WITH SUSCEPTIBLITY POCT urinalysis dipstick manually resulted Follow Up: Patient is to return to office in 1 week for routine OB appointment Documented by JACKY Day on behalf of: JACKY Day documented in this encounter Plan of Treatment Upcoming Encounters Date Type Department Care Team (Late st Contact Info) Description 03/28/2025 2:20 PM EDT Routine [facility] [address] [place] [phone] Hemant Grant DO [address] [place] [address] Scheduled Orders Name Type Priority Associated Diagnoses Order Schedule SURESWAB(R) ADVANCED VAGINITIS PLUS, TMA Pathology and Cytology Routine Vaginal discharge Ordered: 03/22/2025 CHLAMYDIA TRACHOMATIS (GENITO/STI) Lab Routine STD exposure Ordered: 03/22/2025 Neisseria gonorrhea DNA probe, direct Lab Routine STD exposure Ordered: 03/22/2025 CULTURE, GROUP B STREP WITH SUSCEPTIBLITY Lab Routine Third trimester ([facility]) Expected: 03/22/2025, Expires: 03/22/2026 documented as of this encounter Procedures Procedure Name Priority Date/Time Associated Diagnosis Comments POCT URINALYSIS DIPSTICK Routine 03/22/2025 11:21 AM EDT Third trimester ([facility]) documented in this encounter Results * POCT urinalysis dipstick manually resulted (03/22/2025 11:21 AM EDT) Color, UA Yellow Clarity, UA Clear Glucose, UA Negative Negative - 2000(110) ++++ mg/dL Bilirubin, UA Negative Negative - 4(70) +++ mg/dL Ketones, UA Negative Negative - 160(16) ++++ mg/dL Spec Grav, UA 1.010 1 - 1.03 Blood, UA Negative Negative - 50 Reynaldo/mcL pH, UA 6.0 5 - 9 Protein, UA Negative Negative - 2000(20) ++++ mg/dL Urobilinogen, UA 1.0 0.2 - 12 mg/dL Leukocytes, UA Negative Negative - 500+++ Lucian/mcL Nitrite, UA Negative Negative - Positive Urine 03/22/2025 11:2 1 AM EDT Hemant Rudy DO POINT OF CARE TEST ENTER/EDIT OR DERABLES Final Result documented in this encounter Visit Diagnoses Diagnosis Third trimester ([facility]) state, incidental Vaginal discharge Leukorrhea, not specified as infective STD exposure 35 weeks gestation of ([facility]) documented in this encounter Care Teams Enrobing Machine Feeder Relationship Specialty Start Date End Date Blossom Mercado PA PCP - General 09/13/23 documented as of this encounter
--- OUTSIDE RECORDS SUMMARY | 2025-03-22 19:34 | XMS_ITS | Encounter Summary ---
Author Organization [facility] Address [address] [place] [address] Care Team Providers Care Electrical & Instrumentation Supervisor Name Role Phone Blossom Mercado Primary Care Provider +1 [phone] Encounter Details Date Type Department Care Team (Late st Contact Info) Description 10/03/2024 Abstract [facility] [place] [address] Hemant Grant DO [address], [place] [address] Social History Tobacco Use Types Packs/Day Years [...] Info) Description 03/28/2025 2:20 PM EDT Routine [facility] [address] [place] [phone] Hemant Grant DO [address], [place] [phone] documented as of this encounter Visit Diagnoses Not on filedocumented in this encounter Care Teams Electrical & Instrumentation Supervisor Relationship Specialty Start Date End Date Blossom Mercado PA PCP - General 09/13/23 documented as of this encounter
--- OUTSIDE RECORDS SUMMARY | 2025-03-22 19:34 | XMS_ITS | Encounter Summary ---
Author Organization [facility] Address [address] [facility] [place] [address] Care Team Providers Care Fusing Machine Operator Name Role Phone Blossom Mercado Primary Care Provider +1- [phone] Encounter Details Date Type Department Care Team (Latest Contact Info) Description 03/15/2025 Travel Social History Tobacco Use Types Packs/Day [...] 03/28/2025 2:20 PM EDT Routine [facility] [address] [place] [address] Hemant Grant DO [address] [place] [address] documented as of this encounter Visit Diagnoses Not on filedocumented in this encounter Care Teams Fusing Machine Operator Relationship Specialty Start Date End Date Blossom Mercado PA PCP - General 09/13/23 documented as of this encounter
--- OUTSIDE RECORDS SUMMARY | 2025-03-22 19:34 | XMS_ITS | Encounter Summary ---
Author Organization [facility] Address [address] [place] [address] Care Team Providers Care Drafter Geological Name Role Phone Blossom Mercado Primary Care Provider +1- [phone] Encounter Details Date Type Department Care Team (Late st Contact Info) Description 08/14/2024 Abstract [facility] [address] [place] [address] [place] [address] Hemant Grant DO [facility] [place] [phone] Social History Tobacco Use Types Packs/Day Years [...] 03/28/2025 2:20 PM EDT Routine [facility] [place] [address] Hemant Grant DO [address] [place], [place] [address] documented as of this encounter Visit Diagnoses Not on filedocumented in this encounter Care Teams Drafter Geological Relationship Specialty Start Date End Date Blossom Mercado PA PCP - General 09/13/23 documented as of this encounter
--- OUTSIDE RECORDS SUMMARY | 2025-03-22 19:34 | XMS_ITS | Encounter Summary ---
Author Organization [facility] Address [address] [place] [address] Care Team Providers Care Supervisor Cigar Processing Name Role Phone Blossom Mercado Primary Care Provider Soco Grant DO Unavailable Encounter Details Date Type Department Care Team (Late st Contact Info) Description 07/06/2023 Clinisync Result Encounter [facility] External Department Unsolicited Soco Grant, [address] [place] [address] Social History Tobacco Use Types Packs/Day Years [...] PM EDT Routine [facility] [address] [place] [phone] Soco Grant, DO [address] [place] [address] Dr [place] [id number] documented as of this encounter Procedures Procedure [...] EST Narrative 07/06/2023 3:45 PM EST The [address] [address] Ultrasound Report Signed Patient: CARISA YEE MR#: [id number] : 2000 Acct:[id number] Age/Sex: 23 / F ADM Date: 07/06/23 Loc: US Attending Dr: Soco Grant D.O. Ordering Physician: Soco Grant D.O. Date of Service: 07/06/23 Procedure(s): US pelvis transvaginal Accession Number(s): [id number] cc: Soco Grant D.O.; Physician,Non-Staff M.D. The [place] [id number] Patient Name: CARISA YEE MRN: [id number] date: 2000 Sex: F Assigned Patient Location: US Current Patient Location: Accession/Order Number: [id number] Exam Date: 07/06/2023 14:00 Report Date: 07/06/2023 [...] Signed By: 07/06/23 1547 DD/ 1545 TD/TT: Electronic Pagination System Operator: Procedure Note Radiology, Radiologist, - 07/06/[address] [address] Ultrasound Report Signed Patient: CARISA YEE RMR#: [id number] : 2000Acct:[id number] Age/Sex: 23 / FADM Date: 07/06/23 Loc: US Attending Dr: Soco Grant D.O. Ordering Physician: Soco Grant D.O. Date of Service: 07/06/23 Procedure(s): US pelvis transvaginal Accession Number(s): [id number] cc: Soco Grant D.O.; Physician,Non-Staff [place] [id number] Patient Name: CARISA YEE MRN: [id number] date: 2000 Sex: F Assigned Patient Location: US Current Patient Location: US Accession/Order Number: [id number] Exam Date: 07/06/2023 14:00 Report Date: 07/06/2023 [...] M.D. Signed By:07/06/23 1547 DD/ 1545 TD/TT: Electronic Pagination System Operator: Soco Rudy DO [facility] Final Result * ALL DEHYDROEPIANDROSTERONE (07/06/2023 1:45 PM EST) DHEA, SERUM 227 31 - 701 ng/dL [facility] Comment: This test was developed and its performance characteristics determined by [facility]. It has not been cleared or approved by the Food and Drug Administration. Performed at: [address] [id number] Polisher Dial: Summer Nance MD, Phone: [phone] 07/06/2023 1:45 PM EST 07/06/2023 1:50 PM EST Narrative [facility] - 07/12/2023 9:07 AM EST [facility] Rudy DO [facility] Final Result Performing Organization Address [facility] de Phone Number [facility] * ALL PROGESTERONE (07/06/2023 1:45 PM EST) PROGESTERONE 14.6 . ng/mL [facility] Comment: Follicular phase 0.1 - 0.9 Luteal phase 1.8 - 23.9 Ovulation phase 0.1 - 12.0 First trimester 11.0 - 44.3 Second trimester 25.4 - 83.3 Third trimester 58.7 - 214.0 Postmenopausal 0.0 - 0.1 Performed at: [address] [id number] Polisher Dial: Vince Smith PhD, Phone: [phone] 07/06/2023 1:45 PM EST 07/06/2023 1:50 PM EST Narrative [facility] - 07/07/2023 9:11 AM EST Soco Rudy DO [facility] Final Result Performing Organization Address City/[facility]/ZIP Co de Phone Number [facility] * ALL FOLLICLE STIMULATING HORMONE (07/06/2023 1:45 PM EST) Pathologist [facility] 2.9 . mIU/mL [facility] Comment: Adult Female Range Follicular phase 3.5 - 12.5 Ovulation phase 4.7 - 21.5 Luteal phase 1.7 - 7.7 Postmenopausal 25.8 - 134.8 07/06/2023 1:45 PM EST 07/06/2023 1:50 PM EST Narrative [facility] - 07/07/2023 9:11 AM EST Soco Rudy DO [facility] Final Result [facility] * ALL LUTEINIZING HORMONE (07/06/2023 1:45 PM EST) Pathologist [facility] LUTEINIZING HORMONE(LH) 5.1 . mIU/mL [facility] Comment: Adult Female Range Follicular phase 2.4 - 12.6 Ovulation phase 14.0 - 95.6 Luteal phase 1.0 - 11.4 Postmenopausal 7.7 - 58.5 07/06/2023 1:45 PM EST 07/06/2023 1:50 PM EST Narrative [facility] - 07/07/2023 9:11 AM EST [facility] Final Result [facility] * ALL DHEA SULFATE (07/06/2023 1:45 PM EST) Pathologist [facility] DHEA-SULFATE 309.0 110.0 - 431.7 ug/dL [facility] 07/06/2023 1:45 PM EST 07/06/2023 1:50 PM EST Narrative [facility] - 07/07/2023 9:11 AM EST [facility] Rudy DO [facility] Final Result [facility] * [facility] PREG QUANT HCG (07/06/2023 1:45 [...] on filedocumented in this encounter Care Teams Supervisor Cigar Processing Relationship Specialty Start Date End Date Blossom Mercado PA PCP - General 09/13/23 Soco Grant DO [address] [place] [address] [place] [address] PCP - [facility] 02/14/24 documented as of this encounter
--- OUTSIDE RECORDS SUMMARY | 2025-03-22 19:34 | XMS_ITS | Encounter Summary ---
Author Organization [facility] Address [address] [place] [address] Care Team Providers Care Adobe Layer Helper Name Role Phone Blossom Mercado Primary Care Provider +1- [phone] Encounter Details Date Type Department Care Team (Late st Contact Info) Description 06/26/2024 Abstract [facility] [address] [place] [address] [place] [address] Hemant Grant DO [facility] [place] [address] Social History Tobacco Use Types Packs/Day Years [...] 03/28/2025 2:20 PM EDT Routine [facility] [address] [place], [place] [address] [address] Hemant Grant DO [address] [place], [place] [address] documented as of this encounter Visit Diagnoses Not on filedocumented in this encounter Care Teams Adobe Layer Helper Relationship Specialty Start Date End Date Blossom Mercado PA PCP - General 09/13/23 documented as of this encounter
--- OUTSIDE RECORDS SUMMARY | 2025-03-22 19:34 | XMS_ITS | Encounter Summary ---
Author Organization [facility] Address [address] [place] [address] Care Team Providers Care Production Director Name Role Phone Blossom Mercado Primary Care Provider +1 [phone] Encounter Details Date Type Department Care Team (Late st Contact Info) Description 09/25/2024 Abstract [facility] [place] [phone] Hemant Grant DO [address], [place] [address] Social History Tobacco Use Types Packs/Day Years [...] EDT Routine [facility] [address] [place] [address] Hemant Grant DO [address], [place] [address] documented as of this encounter Visit Diagnoses Not on filedocumented in this encounter Care Teams Production Director Relationship Specialty Start Date End Date Blossom Mercado PA PCP - General 09/13/23 documented as of this encounter
--- OUTSIDE RECORDS SUMMARY | 2025-03-22 19:34 | XMS_ITS | Encounter Summary ---
Author Organization [facility] Address [address] [facility] [place] [address] Care Team Providers Care Cod Clerk Name Role Phone Blossom Mercado Primary Care Provider +1- [phone] Encounter Details Date Type Department Care Team (Late st Contact Info) Description 08/30/2024 Abstract [facility] [address] [place] [address] Jessica Lindsey LPN [...] 2:20 PM EDT Routine [facility] [address] [place] [address] Hemant Grant DO [address] [facility] [address] [place], [place] [address] documented as of this encounter Visit Diagnoses Not on filedocumented in this encounter Care Teams Cod Clerk Relationship Specialty Start Date End Date Blossom Mercado PA PCP - General 09/13/23 documented as of this encounter
--- OUTSIDE RECORDS SUMMARY | 2025-03-22 19:34 | XMS_ITS | Encounter Summary ---
Author Organization [facility] Address [address] [place] [address] Care Team Providers Care Direct Response Consultant Name Role Phone Blossom Mercado Primary Care Provider +1 [phone] Encounter Details Date Type Department Care Team (Late st Contact Info) Description 11/14/2024 Abstract [facility] [place] [address] Hemant Grant DO [address], [place] [address] Social History Tobacco Use Types Packs/Day Years [...] EDT Routine [facility] [address] [place] [address] Hemant Grant DO [address], [place] [address] documented as of this encounter Visit Diagnoses Not on filedocumented in this encounter Care Teams Direct Response Consultant Relationship Specialty Start Date End Date Blossom Mercado PA PCP - General 09/13/23 documented as of this encounter
--- OUTSIDE RECORDS SUMMARY | 2025-03-22 19:34 | XMS_ITS | Encounter Summary ---
Author Organization [facility] Address [address] [place] [address] Care Team Providers Care Rn Triage Name Role Phone Blossom Mercado Primary Care Provider Soco Grant DO Unavailable Encounter Details Date Type Department Care Team (Late st Contact Info) Description 07/19/2023 Clinisync Result Encounter NOM[facility] External Department Unsolicited Soco Grant DO [address], [place] [address] Social History Tobacco Use Types Packs/Day Years [...] PM EDT Routine [facility] [address] [place] [phone] Soco Grant DO [address] [place] [address] documented as of this encounter Procedures Procedure Name Priority Date/Time Associated Diagnosis Comments FL HYSTEROSALPINGOGRAM 2:55 PM EST documented in this encounter Results * FL HYSTEROSALPINGOGRAM (07/19/2023 2:55 PM EST) Anatomical Region Laterality Modality Other 07/19/2023 2:55 PM EST Narrative 07/19/2023 2:55 [place] [address] Fluoroscopy Report Signed Patient: CARISA YEE MR#: [id number] : 2000 Acct:[id number] Age/Sex: 23 / F ADM Date: 07/19/23 Loc: LAB Attending Dr: Soco Grant D.O. Ordering Physician: Soco Grant D.O. Date of Service: 07/19/23 Procedure(s): FL Hysterosal cath placement Accession Number(s): [id number] cc: Soco Grant D.O.; Physician,Non-Staff M.Lino The [place] [address] Patient Name: CARISA YEE MRN: [id number] date: 2000 Sex: F Assigned Patient Location: LAB Current Patient Location: Accession/Order Number: [id number] Exam Date: 07/19/2023 14:02 Report Date: 07/19/2023 [...] Please see details above. Electronically authenticated by: NANDO FELIX Date: 07/19/2023 14:55 Dictated By: Nando Felix M.D. Signed By: 07/19/23 1457 DD/ 1455 TD/TT: Expedition Supervisor: Procedure Note Radiology, Radiologist, - 07/20/2023 [place] [address] Fluoroscopy Report Signed Patient: CARISA YEE RMR#: [id number] : 2000Acct:[id number] Age/Sex: 23 / FADM Date: 07/19/23 Loc: LAB Attending Dr: Soco Grant D.O. Ordering Physician: Soco Grant D.O. Date of Service: 07/19/23 Procedure(s): FL Hysterosal cath placement Accession Number(s): [id number] cc: Soco Grant D.O.; Physician,Non-Staff Yajaira The [place] [address] Patient Name: CARISA YEE MRN: [id number] date: 2000 Sex: F Assigned Patient Location: LAB Current Patient Location: Accession/Order Number: [id number] Exam Date: 07/19/2023 14:02 Report Date: 07/19/2023 [...] Please see details above. Electronically authenticated by: NANDO FELIX Date: 07/19/2023 14:55 Dictated By: Nando Felix M.D. Signed By:07/19/23 1457 DD/ 1455 TD/TT: Expedition Supervisor: us Soco Grant DO [facility] Final Result documented in this encounter Visit Diagnoses Not on filedocumented in this encounter Care Teams Rn Triage Relationship Specialty Start Date End Date Blossom Mercado PA PCP - General 09/13/23 Soco Grant DO [address] [place] [address] [place] [address] PCP - [facility] 02/14/24 documented as of this encounter
--- OUTSIDE RECORDS SUMMARY | 2025-03-22 19:34 | XMS_ITS | Encounter Summary ---
Author Organization [facility] Address [address] [place] [address] Care Team Providers Care Development Administrator Name Role Phone Blossom Mercado Primary Care Provider +1 [phone] Encounter Details Date Type Department Care Team (Late st Contact Info) Description 08/29/2024 Abstract [facility] [address] [place] [address] [place] [address] Hemant Grant DO [facility] [place] [phone] Social History Tobacco Use Types Packs/Day Years [...] 03/28/2025 2:20 PM EDT Routine [facility] [place] [address] Hemant Grant DO [address] [place], [place] [address] documented as of this encounter Visit Diagnoses Not on filedocumented in this encounter Care Teams Development Administrator Relationship Specialty Start Date End Date Blossom Mercado PA PCP - General 09/13/23 documented as of this encounter
--- OUTSIDE RECORDS SUMMARY | 2025-03-22 19:34 | XMS_ITS | Encounter Summary ---
Author Organization [facility] Address [address] [place] [address] Care Team Providers Care Cinder Block Maker Name Role Phone Blossom Mercado Primary Care Provider +[phone]- [phone] Encounter Details Date Type Department Care Team (Late st Contact Info) Description 08/04/2024 Abstract [facility] [address] [place] [address] [place] [address] Hemant Grant DO [employer] [place] [phone] Social History Tobacco Use Types Packs/Day Years [...] 03/28/2025 2:20 PM EDT Routine [facility] [employer] [place] [address] Hemant Grant DO [address], [place] [address] documented as of this encounter Visit Diagnoses Not on filedocumented in this encounter Care Teams Cinder Block Maker Relationship Specialty Start Date End Date Blossom Mrecado PA PCP - General 09/13/23 documented as of this encounter
--- OUTSIDE RECORDS SUMMARY | 2025-03-22 19:34 | XMS_ITS | Encounter Summary ---
Author Organization [facility] Address [address] [place] [address] Care Team Providers Care Executive Vice President And Chief Financial Officer Name Role Phone Blossom Mercado Primary Care Provider Soco Grant DO Unavailable Encounter Details Date Type Department Care Team (Late st Contact Info) Description 07/19/2023 Clinisync Result Encounter [facility] External Department Unsolicited Soco Grant DO [address] [place] [address] Social History Tobacco Use Types Packs/Day Years [...] Routine [facility] [address] [place] [address] Soco Grant DO [address] [place] [address] documented as of this encounter Procedures Procedure Name Priority Date/Time Associated Diagnosis Comments FL HYSTEROSALPINGOGRAPHY 023 2:55 PM EST documented in this encounter Results * FL HYSTEROSALPINGOGRAPHY (07/19/2023 2:55 PM EST) Anatomical Region Laterality Modality Other 07/19/2023 2:55 PM EST Narrative 07/19/2023 2:55 [place] [address] Fluoroscopy Report Signed Patient: CARISA YEE MR#: [id number] : 2000 Acct:[id number] Age/Sex: 23 / F ADM Date: 07/19/23 Loc: LAB Attending Dr: Soco Grant D.O. Ordering Physician: Soco Grant D.O. Date of Service: 07/19/23 Procedure(s): FL hysterosalpingography Accession Number(s): [id number] cc: Soco Grant D.O.; Physician,Non-Staff M.DGordo [place] [address] Patient Name: CARISA YEE MRN: [id number] date: 2000 Sex: F Assigned Patient Location: LAB Current Patient Location: Accession/Order Number: [id number] Exam Date: 07/19/2023 14:02 Report Date: 07/19/2023 [...] Signed By: 07/19/23 1457 DD/ 1455 TD/TT: Production Worker: Procedure Note Radiology, Radiologist, - 07/20/2023 [place] [address] Fluoroscopy Report Signed Patient: CARISA YEE RMR#: [id number] : 2000Acct:[id number] Age/Sex: 23 / FADM Date: 07/19/23 Loc: LAB Attending Dr: Soco Grant D.O. Ordering Physician: Soco Grant D.O. Date of Service: 07/19/23 Procedure(s): FL hysterosalpingography Accession Number(s): [id number] cc: Soco Grant D.O.; Physician,Non-Staff Yajaira [facility] [place] [address] Patient Name: CARISA YEE MRN: [id number] date: 2000 Sex: F Assigned Patient Location: LAB Current Patient Location: Accession/Order Number: [id number] Exam Date: 07/19/2023 14:02 Report Date: 07/19/2023 [...] M.D. Signed By:07/19/23 1457 DD/ 1455 TD/TT: Production Worker: us Soco Grant DO [facility] Final Result documented in this encounter Visit Diagnoses Not on filedocumented in this encounter Care Teams Executive Vice President And Chief Financial Officer Relationship Specialty Start Date End Date Blossom Mercado PA PCP - General 09/13/23 Soco Grant DO [address] [place] [address] [address] [place] [address] PCP - [facility] 02/14/24 documented as of this encounter
--- OUTSIDE RECORDS SUMMARY | 2025-03-22 19:34 | XMS_ITS | Clinical Summary ---
Author Organization [facility] Address [address] [place] [address] Phone Care Team Providers Care Executive Administrator Name Role Phone Generic Provider, No Assigned [...] 12/04/2003, Additional history exists COVID-19 Vaccine ( season) 2024 Influenza Vaccine (#1) 2025 Zoster Vaccines (1 of 2) 2049 01/28/2017, 03/2000 HIB Vaccines Completed 08/19/2000, 10/1999, 1999, Additional history exists Hepatitis B Vaccines Completed 08/19/2000, 01/22/2000, 1999, Additional history exists IPV Vaccines Completed 12/04/2003, 03/17, 1999, Additional history exists MMR Vaccines Completed 12/04/2003, 04/05/2000 Meningococcal Vaccine Completed 03/03/2016, 011 Hepatitis A Vaccines Aged Out No long er eligible based on patient's age to complete this topic Pneumococcal Vaccine: Pediatrics and At-Risk Adult Patients Aged Out No longer eligible based on patient's age to complete this topic Rotavirus Vaccines Aged Out No longer eligible based on patient's age to complete this topic Insurance Care Teams Executive Administrator Relationship Specialty Start Date End Date Generic Provider, [place] [address] PCP - General Pharmacist'S Aide 08/21/24
--- OUTSIDE RECORDS SUMMARY | 2025-03-22 19:34 | XMS_ITS | Encounter Summary ---
Author Organization [facility] Address [address] [place] [address] Care Team Providers Care Behaviour Support Teacher Name Role Phone Blossom Mercado Primary Care Provider +1- [phone] Encounter Details Date Type Department Care Team (Late st Contact Info) Description 03/22/2025 Bamboo flowsheet [facility] [address] [place] [address] Mirna Lam PA [address] [place] Social History Tobacco Use Types Packs/Day [...] 2:20 PM EDT Routine [facility] [address] [address] Hemant Grant DO [address] [place], [place] [id number] documented as of this encounter Visit Diagnoses Not on filedocumented in this encounter Care Teams Behaviour Support Teacher Relationship Specialty Start Date End Date Blossom Mercado PA PCP - General 09/13/23 documented as of this encounter
--- OUTSIDE RECORDS SUMMARY | 2025-03-22 19:34 | XMS_ITS | Encounter Summary ---
Author Organization [facility] Address [address] [place] [address] Care Team Providers Care Thermocouple Tester Name Role Phone Blossom Mercado Primary Care Provider +1 [phone] Encounter Details Date Type Department Care Team (Late st Contact Info) Description 11/16/2024 Abstract [facility] [place] [address] Hemant Grant DO [address] [place], [place] [address] Social History Tobacco Use Types Packs/Day Years [...] EDT Routine [facility] [address] [place] [phone] Hemant Grant DO [address] [place], [place] [phone] documented as of this encounter Visit Diagnoses Not on filedocumented in this encounter Care Teams Thermocouple Tester Relationship Specialty Start Date End Date Blossom Mercado PA PCP - General 09/13/23 documented as of this encounter
--- OUTSIDE RECORDS SUMMARY | 2025-03-22 19:35 | XMS_ITS | Patient Health Record ---
Author Organization [facility] Address [address] [facility] [place] [address] Care Team Providers Care Pmp Project Manager Name Role Phone None, None Primary Care Provider David Trujillo Unavailable [phone] Reason For Referral No Information Plan Of Treatment No Information Insurance Providers Payer Name Payer Address Payer Phone Subscriber Number Group Number Insured Name Patient Relationship to Insured Coverage Start Date Coverage End Date UMR [address] [place] [address] [phone] CARISA DURANT Self - patient is the insured
--- OUTSIDE RECORDS SUMMARY | 2025-03-22 19:35 | XMS_ITS | Clinical Summary ---
Author Organization [facility] Address [address] [place] [address] Care Team Providers Care Technical Sales Associate Name Role Phone Blossom Mercado Primary Care Provider Allergies Active Allergy Reactions Criticality Noted Date Comments Other Angioedema,Hives High 04/27/2023 horses Medications MV-Min-Fe Fum-FA-DHA ( 1 PO) Take 1 each by mouth Daily Active amphetamine-de xtroamphetamin e XR (Adderall XR) 20 MG 24 hr capsule Take 1 capsule by mouth every morning for 30 days. Max Daily Amount 20 mg 4 02/29/20 25 Discontinued Iron, Ferrous Sulfate, 325 (65 Fe) MG tabletIndicati ons:Low iron Take 325 mg by mouth Daily 30 tablet 3 5 02/29/20 25 Discontinued Encounters Date Type Department Care Team Description 03/22/2025 10:50 [place] [address] Mirna Khan PA Third trimester ([facility]); Vaginal discharge; STD exposure; 35 weeks gestation of ([facility]) 03/22/2025 Bamboo flowsheet [facility] [address] [place], [place] [address] [address] Mirna Khan PA 03/15/2025 Travel 03/14/2025 1:30 PM EDT Routine [address] [place] [address] Mirna Khan PA Third trimester ([facility]); 34 weeks gestation of ([facility]) 03/14/2025 Bamboo flowsheet [facility] [address] [address] Mirna Khan PA 03/07/2025 Travel 02/28/2025 2:50 PM EDT Routine [facility] [facility] [address] [address] Hemant Grant DO 32 weeks gestation of ([facility]); Third trimester ([facility]); Low iron 02/28/2025 Bamboo flowsheet [facility] [address] [address] Hemant Grant DO 02/21/2025 Travel 02/13/2025 1:50 PM EDT Routine [facility] [address] [address] Mirna Khan PA Third trimester ([facility]); 30 weeks gestation of ([facility]); Low iron 02/13/2025 Clinisync Result Encounter NOMS External Department Unsolicited Mirna Khan PA 02/13/2025 Bamboo flowsheet [facility] [address] [address] Mirna Khan PA 02/06/2025 Travel 02/02/2025 Telephone [facility] [address] [address] Yocasta Mitchell LPN 01/30/2025 11:30 AM EDT Routine [facility] [address] [place] [address] Hemant Grant DO Anemia, unspecified type (Primary Dx); Third trimester ([facility]); 28 weeks gestation of ([facility]); size inconsistent with dates ([facility]) 01/30/2025 Bamboo flowsheet [facility] [address] [address] Hemant Grant, DO 01/23/2025 Travel 01/15/2025 Telephone [facility] [address] [place] [address] Hemant Grant, 01/11/2025 Clinisync Result Encounter N[facility] External Department Unsolicited Hemant Grant, 01/10/2025 Telephone [facility] [address] [place] [address] Melissa Phillips MA 01/09/2025 1:20 PM EDT Routine [facility] [address] [place] [address] Mirna Khan PA Second trimester ([facility]); 25 weeks gestation of ([facility]); Diabetes mellitus screening 01/09/2025 Clinisync Result Encounter NOMS External Department Unsolicited Mirna Khan PA 01/09/2025 Bamboo flowsheet [facility] [address] [place] [address] Mirna Khan PA 01/02/2025 Travel from Last 3 Months Family History Medical [...] 1.9 oz) 03/22/2025 11:15 AM EDT Height 157.5 cm (5' 2 ) 04/27/2023 10:00 AM EDT Body Mass Index 30.75 04/27/2023 10:00 AM EDT Plan of Treatment Upcoming Encounters Date Type Department Care Team (Late st Contact Info) Description 03/28/2025 2:20 PM EDT Routine [facility] [address] [place] [place] [address] Hemant Grant DO [address] [place] [address] Procedures Procedure Name Priority Date/Time Associated Diagnosis Comments POCT URINALYSIS DIPSTICK Routine 03/22/2025 11:21 AM EDT Third trimester ([facility]) POCT URINALYSIS DIPSTICK Routine 02/28/2025 3:07 PM EDT 32 weeks gestation of ([facility]) Third trimester ([facility]) Low iron POCT URINALYSIS DIPSTICK Routine 02/13/2025 2:58 PM EDT Third trimester ([facility]) US OB GROWTH 02/13/2025 1:07 PM EDT POCT URINALYSIS DIPSTICK Routine 01/30/2025 11:52 AM EDT Third trimester ([facility]) GLUCOSE TOLERANCE 3 HOUR Routine 01/11/2025 11:31 AM EDT GLUCOSE 1 HOUR Routine 01/09/2025 3:24 PM EDT ALL CBC WITH AUTO DIFF Routine 01/09/2025 3:24 PM EDT POCT URINALYSIS DIPSTICK Routine 01/09/2025 2:10 PM EDT 25 weeks gestation of ([facility]) from Last 3 Months Results * POCT urinalysis dipstick manually resulted (03/22/2025 11:21 AM EDT) Only the most recent of5 resultswithin the time period is included. Color, [...] Positive Urine 03/22/2025 11:2 1 AM EDT [facility] [place] [facility] OF CARE TEST ENTER/EDIT OR DERABLES Final Result * US OB GROWTH (02/13/2025 1:07 PM EDT) Anatomical Region Laterality Modality Other 02/13/2025 1:07 PM EDT Narrative 02/13/2025 1:09 [place] [address] Ultrasound Report Signed Patient: CARISA RHODES MR#: [id number] : 2000 Acct:[id number] Age/Sex: 25 / F ADM Date: 02/13/25 Loc: US Attending Dr: Mirna Khan Ordering Physician: Mirna Khan Date of Service: 02/13/25 Procedure(s): US OB growth Accession Number(s): [id number] cc: Mirna Khan; Physician,Non-Staff MLopez The [address] [id number] Patient Name: CARISA RHODES MRN: [facility]:[id number] date: 2000 Sex: F Assigned Patient Location: US Current Patient Location: Accession/Order Number: [id number] Exam Date: 02/13/2025 13:03 Report Date: 02/13/2025 13:07 At the request of: MIRNA KHAN Procedure: US OB growth Growth ultrasound. Reason for exam: size inconsistent with dates. COMPARISON: None. TECHNIQUE: Transabdominal imaging of the gravid uterus was obtained. FINDINGS: Single live intrauterine measuring 31 weeks 2 days by anatomic measurements. Appropriate growth by dating. Estimated weight is 1749 g which is at the 70th percentile. DONNIE is normal at 17.52 cm. heart rate 144 bpm. US/US OB growth IMPRESSION: Single live intrauterine 31 weeks 2 days by anatomic measurements. Appropriate growth by dating. Impression dictated by: Clif Eason Jr., D.O. 02/13/2025 1:07 PM Dictation Location: [place] [address] Electronically authenticated by: [id number] Date: 02/13/2025 13:07 Dictated By: Clif Eason M.D. Signed By: 02/13/25 1309 DD/ 1307 TD/TT: School Bus Technician: Procedure Note Radiology, Radiologist, MD - 02/13/2025 [place] [address] Ultrasound Report Signed Patient: CARISA RHODES RMR#: [id number] : 2000Acct:[id number] Age/Sex: Date: 02/13/25 Loc: US Attending Dr: Mirna Khan Ordering Physician: Mirna Khan Date of Service: 02/13/25 Procedure(s): US OB growth Accession Number(s): [id number] cc: Mirna Khan; Physician,Non-Staff Yajaira The [place] [id number] Patient Name: CARISA RHODES MRN: [facility]:[id number] date: 2000 Sex: F Assigned Patient Location: US Current Patient Location: US Accession/Order Number: [id number] Exam Date: 02/13/2025 13:03 Report Date: 02/13/2025 13:07 At the request of: MIRNA KHAN Procedure: US OB growth Growth ultrasound. Reason for exam: size inconsistent with dates. COMPARISON: None. TECHNIQUE: Transabdominal imaging of the gravid uterus was obtained. FINDINGS: Single live intrauterine measuring 31 weeks 2 days by anatomic measurements. Appropriate growth by dating. Estimated fetalweight is 1749 g which is at the 70th percentile. DONNIE is normal at 17.52 cm. heart rate 144 bpm. US/US OB growth IMPRESSION: Single live intrauterine 31 weeks 2 days by anatomic measurements. Appropriate growth by dating. Impression dictated by: Clif Eason Jr., D.O. 02/13/2025 1:07 PM Dictation Location: [place] [address] Electronically authenticated by: [id number] Y Date: 3:07 Dictated By: Clif Eason M.D. Signed By:02/13/25 1309 DD/ 1307 TD/TT: School Bus Technician: Mirna Khan PA [facility] Final Result * GLUCOSE TOLERANCE 3 HOUR (01/11/2025 11:31 AM EDT) GLUCOSE TOLERANCE 3 HOUR mg/dL [facility] Comment: GLU FAST 85 (<95) Col: 01/11/25 1131 GLU 1HR 160 (<180) Col: 01/11/25 1231 GLU 2HR 128 (<155) Col: 01/11/25 1331 GLU 3HR 115 (<140) Col: 01/11/25 1429 01/11/2025 11:3 1 AM EDT 01/11/2025 11:35 AM EDT Narrative [facility] - 01/11/2025 2:50 PM EDT Hemant Grant DO LAB BLOOD ORDERABLES Final Resul t [facility] TB * (ABNORMAL) GLUCOSE 1 HOUR (01/09/2025 3:24 PM EDT) GLUCOSE 1 HOUR 132(H) <130 mg/dL [facility] 01/09/2025 3:24 PM EDT 01/09/2025 3:24 PM EDT Narrative [facility] - 01/09/2025 3:58 PM EDT Mirna RICO LAB BLOOD ORDERABLES Final Resul t [facility] TB * (ABNORMAL) ALL CBC WITH AUTO DIFF (01/09/2025 3:24 PM EDT) TB WBC 12.9(H) 4.0 - 11.0 10 3/uL [...] - 01/09/2025 3:31 PM EDT us Mirna RICO [facility] Final Result [facility] from Last 3 Months Care Teams Technical Sales Associate Relationship Specialty Start Date End Date Blossom Mercado PA PCP - General 09/13/23
--- OUTSIDE RECORDS SUMMARY | 2025-03-22 19:35 | XMS_ITS | Encounter Summary ---
Author Organization [facility] Address [address] [place] [address] Phone Care Team Providers Care Table Maker Name Role Phone Generic Provider, No Assigned Pcp Primary Car e Provider Unavailable Encounter Details Date Type Department Care Team (Late st Contact Info) Description 05/08/[address] [facility] [address] [facility] [address] [place] [address] Radha Bethea MA Social History Tobacco Use [...] on filedocumented in this encounter Care Teams Table Maker Relationship Specialty Start Date End Date Generic Provider, [place] [address] PCP - General Flexo Folder Gluer Operator 08/21/24 documented as of this encounter
== END 2025-03-22 19:32 | disposition home or self-care (01) ==
LOC: LAB 19:31
PROVIDERS: Visit Provider Physician Assistant
DX: Z34.93 Encounter for supervision of normal pregnancy, unspecified, third trimester (principal); Z3A.35 35 weeks gestation of pregnancy
CPT/HCPCS: 87081

== ENCOUNTER 2025-04-04 11:18 | Observation (INO) | payer OTHER, SELFPAY ==
[2025-04-04 11:43] VITALS: BP 101/66; PULSE 96
[2025-04-04 13:03] LABS: Glucose Urine UA NEGATIVE (NEGATIVE)
[2025-04-04 13:12] LABS: Crystals Seen? None Seen #/HPF (None Seen)
[2025-04-04 13:13] LABS: Cast Seen? NONE SEEN #/LPF (NONE SEEN); Urine Culture Indicated YES-LC
--- NOTE | 2025-04-04 14:13 | PC.NURSE ---
up and ambulates in parks, cheerful
--- NOTE | 2025-04-04 14:39 | PC.NURSE ---
bouncing on birthing ball in room
== END 2025-04-04 15:30 | disposition home or self-care (01) ==
PROVIDERS: Admitting Provider Obstetrics & Gynecology; Visit Provider Obstetrics & Gynecology
DX: O47.1 False labor at or after 37 completed weeks of gestation (principal); Z3A.37 37 weeks gestation of pregnancy
CPT/HCPCS: 81001; 87086; G0378; G0379

== ENCOUNTER 2025-04-06 02:21 | Inpatient (IN) | payer OTHER, SELFPAY ==
[2025-04-06] VITALS (16 sets, daily range): BP systolic 102–127; BP diastolic 65–79; PULSE 67–107; TEMP 35.8–36.8
[2025-04-06] MEDS: OXYTOCIN/0.9 % SODIUM CHLORIDE 20 UNITS/1,000 ML PLAST..BAG 125 UNIT IV (03:18)
--- NOTE | 2025-04-06 03:32 | PM.OBPRCVD ---
Procedure Intrapartal events: None Induction method: none Delivery augmentation: rupture of membranes Delivery monitor: external FHT and external uterine Route of delivery: Episiotomy Description: midline L&D Laceration Description: perineal - 2nd degree Delivery repair: Vicryl Estimated blood loss (mL): 300 Anesthesia type: Epidural Disposition: floor Delivery date: 04/06/25 Gender: female presentation: vertex Placental delivery description: Spontaneous cord description: 3 Vessels
[2025-04-06] MEDS: KETOROLAC TROMETHAMINE 30 MG/ML VIAL IVP (03:40)
[2025-04-06 03:58] LABS: Hematocrit 29.4 % (36.0-48.0); Hemoglobin 8.8 g/dL (12.0-16.0); Mean Corpuscular HGB Conc 29.9 g/dL (29.9-35.2); Mean Corpuscular Hemoglobin 21.8 pg (26.7-34.0); Mean Corpuscular Volume 72.8 fL (81.0-99.0); Platelet Count 300 10^3/uL (150-450); Red Blood Count 4.04 10^6/uL (4.20-5.40); White Blood Count 16.7 10^3/uL (4.0-11.0)
--- NOTE | 2025-04-06 05:13 | PC.NURSE ---
0340- Pt. medicated with 30 mg Toradol IVP for c/o perineal pain 09/25
[2025-04-06] MEDS: ACETAMINOPHEN 325 MG TABLET 650 MG PO ×3 (08:17→21:05)
[2025-04-06] MEDS: IBUPROFEN 600 MG TABLET PO ×3 (11:00→23:12)
[2025-04-06] MEDS: GLYCERIN/WITCH HAZEL PADS 1 PAD TOPICAL (15:05)
[2025-04-06] MEDS: BENZOCAINE/MENTHOL 85 GRAM SPRAY BOTTLE 1 APPLIC TOPICAL (15:05)
--- NOTE | 2025-04-06 16:18 | W.PC.ACHO ---
Registration Status: ADM IN Primary Language: Mozambican Preferred Language: Mozambican 1205- RN assumes care at this time. report received from Shay GARRETT at this time. Active Medications Generic Name Dose Route Start Last Admin Trade Name Marianne PRN Reason Stop Dose Admin Acetaminophen 650 mg 04/06/25 03:34 04/06/25 15:06 Acetaminophen 325 Mg Tablet PO 650 mg Q6H PRN Administration Mild Pain Al Hydroxide/Mg Hydroxide 2,400 mg 04/06/25 03:34 Magnesium Hydroxide 2,400 Mg/10 Ml Oral.Susp PO Q6H PRN Dyspepsia Benzocaine/Menthol 1 applic 04/06/25 03:34 04/06/25 15:05 Benzocaine/Menthol 85 Gram Floral Bottle TOPICAL 1 applic Q2H PRN Administration Pain Carboprost Tromethamine 250 mcg 04/06/25 03:26 Carboprost Tromethamine 250 Mcg/Ml 1 Ml Vial IM 04/08/25 03:27 Q15M PRN Bleeding Diphtheria/Tetanus/Acell Pertussis 0.5 ml 04/08/25 09:00 Diphth,Pertuss(Acell),Tet Vac 0.5 Ml Syringe IM 04/08/25 09:01 .ONCE ONE Docusate Sodium 100 mg 04/07/25 09:00 Docusate Sodium 100 Mg Capsule PO BID ANTIONETTE Tranexamic Acid 1,000 mg/ 110 mls @ 440 mls/hr 04/06/25 03:26 Sodium Chloride IV 04/08/25 03:27 ONCE PRN Uterine Bleeding Ibuprofen 600 mg 04/06/25 03:34 04/06/25 11:00 Ibuprofen 600 Mg Tablet PO 600 mg Q6H PRN Administration Moderate Pain Measles/Mumps/Rubella Vaccine Live 0.5 ml 04/08/25 09:00 Measles,Mumps,Rubella Vacc/Pf 0.5 Ml Vial SQ 04/08/25 09:01 .ONCE ONE Methylergonovine Maleate 0.2 mg 04/06/25 03:26 Methylergonovine Maleate 0.2 Mg/Ml Ampule IM 04/08/25 03:27 ONCE PRN Uterine Contractility/Contract Methylergonovine Maleate 0.2 mg 04/06/25 03:26 Methylergonovine Maleate 0.2 Mg Tablet PO 04/08/25 03:27 Q4H PRN Uterine Contractility/Contract Misoprostol 600 mcg 04/06/25 03:26 Misoprostol 100 Mcg Tablet PO 04/08/25 03:27 ONCE PRN Uterine Bleeding Misoprostol 800 mcg 04/06/25 03:26 Misoprostol 100 Mcg Tablet SL 04/08/25 03:27 ONCE PRN Uterine Bleeding Misoprostol 1,000 mcg 04/06/25 03:26 Misoprostol 100 Mcg Tablet HI 04/08/25 03:27 ONCE PRN Uterine Bleeding Oxytocin 10 unit 04/06/25 03:26 Oxytocin 10 Unit/Ml Vial IM 04/08/25 03:27 ONCE PRN Bleeding Senna 17.2 mg 04/06/25 20:00 Sennosides 8.6 Mg Tablet PO QHS PRN Constipation Simethicone 80 mg 04/06/25 03:34 Simethicone 80 Mg Tab.Chew PO QID PRN Abdominal Distention Temazepam 15 mg 04/06/25 03:34 Temazepam 15 Mg Capsule PO QHS PRN Sleep Witch Josie/Glycerin 1 pad 04/06/25 03:34 04/06/25 15:05 Glycerin/Witch Josie Pads TOPICAL 1 pad Q2H PRN Administration Pain Diet Category Date Time Status Regular Consistency Diet Diet 04/06/25 03:34 Active IV Insertion/Site Date of IV Line Insertion [20g 04/06/25 left Wrist] IV Insertion Time [20g left 03:00 Wrist] Neurology Patient orientation (short person,place,time,situation list) Cardiology Heart Sounds Regular
[2025-04-07] MEDS: IBUPROFEN 600 MG TABLET PO ×3 (06:15→20:16)
[2025-04-07 07:57] LABS: Hematocrit 27.1 % (36.0-48.0); Hemoglobin 8.0 g/dL (12.0-16.0); Immature Granulocytes Abs Auto 0.07 10^3/uL (0.00-0.03); Immature Granulocytes Pct Auto 0.5 % (0.0-0.5); Lymphocytes Absolute Auto 2.4 10^3/uL (1.2-3.8); Mean Corpuscular HGB Conc 29.5 g/dL (29.9-35.2); Mean Corpuscular Hemoglobin 21.7 pg (26.7-34.0); Mean Corpuscular Volume 73.4 fL (81.0-99.0); Platelet Count 252 10^3/uL (150-450); Red Blood Count 3.69 10^6/uL (4.20-5.40); White Blood Count 13.8 10^3/uL (4.0-11.0)
[2025-04-07] MEDS: DOCUSATE SODIUM 100 MG CAPSULE PO ×2 (09:57→20:17)
[2025-04-07 09:58] VITALS: BP 132/71; PULSE 74
[2025-04-07 09:59] VITALS: TEMP 35.9
[2025-04-07 10:01] VITALS: TEMP 36.7
--- NOTE | 2025-04-07 10:35 | P.OBPN_ITS ---
OB - PN: Subj Subjective Patient comments: no complaints [place] status: doing well feeding status: exclusively Exam Constitutional Vital Signs, click to edit/add: Last Vital Signs Temp 98.1 F 04/07/25 10:01 Pulse 74 04/07/25 09:58 Resp 18 04/07/25 10:01 BP 132/71 04/07/25 09:58 O2 Del Method Room Air 04/07/25 10:01 Documenting provider has reviewed patient's vital signs: yes Common normals: no apparent distress Exam limitations: altered mental status General appearance: cooperative, comfortable, well kempt and well developed Orientation/consciousness: Yes awake, Yes oriented to person, Yes oriented to place and Yes oriented to time HENMT Common normals: normocephalic Eye Common normals: EOMs intact bilaterally General eye: normal appearance of both eyes Neck & C-Spine Common normals: full ROM and no lymphadenopathy Lymph Lymphatic: no lymphadenopathy noted Chest Common normals: inspection of chest normal Respiratory Common normals: normal respiratory effort, no retractions and no use of accessory muscles Effort & inspection: able to speak in complete sentences Cardio Common normals: regular rate and regular rhythm Rate: regular rate Rhythm: regular rhythm GI Common normals: Normal to inspection, nondistended, normoactive bowel sounds present Inspection: normal to inspection Auscultation: normoactive bowel sounds Palpation: soft Percussion: normal to percussion Common normals: no CVA tenderness Back & Pelvis Common normals: no CVA tenderness Extremity Common normals: normal to inspection Neuro Common normals: oriented x3 Sensorium/orientation: awake, alert, oriented to person, oriented to place and oriented to time Psych Common normals: mental status grossly normal, thought process normal, cooperative, affect normal, speech normal, activity/motor behavior normal, denies hallucinations, denies homicidal ideation and denies suicidal ideation Appearance: grossly normal Attitude: calm Results Labs Labs: Short CBC 04/07/25 Range/Units 07:46 WBC 13.8 H (4.0-11.0) 10^3/uL Hgb 8.0 L (12.0-16.0) g/dL Hct 27.1 L (36.0-48.0) % Plt Count 252 (150-450) 10^3/uL OB - PN: A/P Plan - Vaginal Delivery day: 1 Plan: routine care Time Spent with Patient Time: Total time spent is greater than 50% in coordination of care (as documented) at patient's floor/unit and/or counseling patient: Total time spent with greater than 50% in coordination of care (as documented) at patient's floor/unit and/or counseling patient: less than 15 minutes
[2025-04-07 16:36] VITALS: BP 104/67; PULSE 93; TEMP 36.2
[2025-04-08 00:54] VITALS: BP 108/69; PULSE 88
[2025-04-08 00:55] VITALS: BP 108/69; PULSE 88; TEMP 36.9
[2025-04-08] MEDS: IBUPROFEN 600 MG TABLET PO ×3 (01:58→14:34)
[2025-04-08] MEDS: ACETAMINOPHEN 325 MG TABLET 650 MG PO (07:58)
[2025-04-08] MEDS: DOCUSATE SODIUM 100 MG CAPSULE PO (07:59)
--- NOTE | 2025-04-08 08:43 | P.OBPN_ITS ---
OB - PN: Subj Subjective Patient comments: no complaints [place] status: doing well feeding status: exclusively Exam Constitutional Vital Signs, click to edit/add: Last Vital Signs Temp 98.5 F 04/08/25 00:55 Pulse 88 04/08/25 00:55 Resp 16 04/08/25 00:55 BP 108/69 04/08/25 00:55 O2 Del Method Room Air 04/08/25 00:55 Documenting provider has reviewed patient's vital signs: yes Common normals: no apparent distress, average body habitus and oriented x3 General appearance: cooperative and comfortable Orientation/consciousness: Yes awake, Yes oriented to person, Yes oriented to place and Yes oriented to time HENMT Common normals: normocephalic Eye Common normals: EOMs intact bilaterally General eye: normal appearance of both eyes Neck & C-Spine Common normals: full ROM Lymph Lymphatic: no lymphadenopathy noted Chest Common normals: inspection of chest normal Respiratory Common normals: normal respiratory effort, no retractions, no use of accessory muscles and clear to auscultation bilaterally Auscultation: clear to auscultation bilaterally Cardio Common normals: regular rate and regular rhythm Rate: regular rate Rhythm: regular rhythm GI Common normals: Normal to inspection, nondistended, normoactive bowel sounds present, soft to palpation and non-tender Inspection: normal to inspection Auscultation: normoactive bowel sounds Palpation: soft Common normals: no CVA tenderness Back & Pelvis Common normals: no CVA tenderness Extremity Common normals: normal to inspection Neuro Common normals: oriented x3 Sensorium/orientation: awake, alert, oriented to person, oriented to place and oriented to time Psych Common normals: mental status grossly normal, thought process normal, cooperative, affect normal, speech normal, activity/motor behavior normal, denies hallucinations, denies homicidal ideation and denies suicidal ideation Appearance: grossly normal and well kempt Attitude: calm OB - PN: A/P Plan - Vaginal Delivery day: 2 Plan: discharge home Time Spent with Patient Time: Total time spent is greater than 50% in coordination of care (as documented) at patient's floor/unit and/or counseling patient: Total time spent with greater than 50% in coordination of care (as documented) at patient's floor/unit and/or counseling patient: less than 15 minutes
[2025-04-08 10:32] VITALS: TEMP 36.2
[2025-04-08 10:33] VITALS: BP 122/80; PULSE 86
[2025-04-08] MEDS: GLYCERIN/WITCH HAZEL PADS 1 PAD TOPICAL (10:47)
[2025-04-08] MEDS: BENZOCAINE/MENTHOL 85 GRAM SPRAY BOTTLE 1 APPLIC TOPICAL (10:48)
== END 2025-04-08 15:50 | disposition home or self-care (01) | DRG 807 ==
PROVIDERS: Admitting Provider Obstetrics & Gynecology; Visit Provider Obstetrics & Gynecology
DX: O70.1 Second degree perineal laceration during delivery (principal); Z37.0 Single live birth; Z3A.37 37 weeks gestation of pregnancy
CPT/HCPCS: 36415; 59025; 85025; 85027; 86850; 86900; 86901; J1885

== ENCOUNTER 2025-04-10 08:11 | Outpatient (OUT) | payer OTHER, SELFPAY ==
--- OUTSIDE RECORDS SUMMARY | 2024-08-28 10:00 | XMS_ITS ---
Author Organization [facility] Address [address] [facility] [facility] [place] [address] Care Team Providers Care Supervisor Uranium Processing Name Role Phone None, None Primary Care Provider David Trujillo [facility] [phone] REASON FOR VISIT INFERTILITY ISSUES Encounters Encounter Location Date Provider Diagnosis [place] [id number] [address] 08/28/2024 David Collins Plan Of Treatment No Information Progress Notes * CARISA DURANTDOB:2000 (25 yo F)Acc No.[id number]:08/28/2024 Patient: S CARISA SYLVESTER Provider: Jean Marie Collins MD :2000 A ge:24 Y S ex:Female Date:08/28/2024 Address:[address] [place] [address] [place], [place] [id number] Subjective: * Chief Complaints: * 1 . INFERTILITY ISSUES. * Medical History: Objective: * Vitals: Assessment: Plan: * Treatment: * * Electronic signature of Gideon Collins MD on 04/10/2025 at 08:18 AM EDT Sign off status: Pending * Provider: Jean Marie Collins MD Date: 0 08/28/2024 Generated for Lennox wynn/Aidee/Myraitting on: 0 04/10/2025 08:18 AM EDT
--- OUTSIDE RECORDS SUMMARY | 2024-10-04 06:00 | XMS_ITS ---
Author Organization [facility] Address [address] [facility] [place] [address] Care Team Providers Care Motorcycle Delivery Driver Name Role Phone None, None Primary Care Provider David Trujillo [facility] [phone] REASON FOR VISIT INFERTILITY ISSUES Encounters Encounter Location Date Provider Diagnosis [place] [id number] [address] 10/04/2024 David Collisn Plan Of Treatment No Information Progress Notes * CARISA DURANTDOB:2000 (25 yo F)Acc No.[id number]:10/04/2024 Patient: S CARISA SYLVESTER Provider: Jean Marie Collins MD :2000 A ge:24 Y S ex:Female Date:10/04/2024 Address:[address] [place] [address] [place], [place] [id number] Subjective: * Chief Complaints: * 1 . INFERTILITY ISSUES. * Medical History: Objective: * Vitals: Assessment: Plan: * Treatment: * * Electronic signature of Gideon Collins MD on 04/10/2025 at 08:15 AM EDT Sign off status: Pending * Provider: Jean Marie Collins MD Date: 10/04/2024 Generated for Lennox wynn/Aidee/Myraitting on: 04/10/2025 08:15 AM EDT
--- OUTSIDE RECORDS SUMMARY | 2025-03-28 14:20 | XMS_ITS | Encounter Summary ---
Author Organization [facility] Address [address] [place] [address] Care Team Providers Care Banquet Director Name Role Phone Blossom Mercado Primary Care Provider +1- [phone] Encounter Details Date Type Department Care Team (Late st Contact Info) Description 03/28/2025 2:20 PM EDT Routine [facility] [address] [facility] [place] [address] Hemant Grant DO [address] [place] [address] 36 weeks gestation of ([facility]); Third trimester ([facility]); Low iron Social History Tobacco Use Types Packs/Day Years [...] Sign Reading Time Taken Comments Blood Pressure 100/70 03/28/2025 2:29 PM EDT Pulse - - Temperature - - Respiratory Rate - - Oxygen Saturation - - Inhaled Oxygen Concentration - - Weight 76.7 kg (169 lb) 03/28/2025 2:29 PM EDT Height - - Body Mass Index 30.91 04/27/2023 10:00 AM EDT documented in this encounter Progress Notes * Lili Montgomery, FERRY PILOT - 03/28/2025 2:20 PM EDT Reason for Appointment: Patient ID: Rebekah Rhodes is a 25 y.o. female who presents for No chief complaint on file. Patient presents today for Return OB appointment. [...] Constitutional: Appearance: Normal appearance. She is well-developed. Genitourinary: Vulva normal. Cardiovascular: Rate and Rhythm: Normal rate [...] nursing note reviewed. Exam conducted with a edger liner present. Vitals: Estimated body mass index is 30.91 kg/m?? as calculated from the following: Height as of 04/27/23: 5' 2 . Weight as of this encounter: 169 lb. BP: 100/70 Patient's last menstrual period was 07/15/2024. ASSESSMENT & PLAN ICD-10-CM 1. 36 weeks gestation of ([facility]) Z3A.36 POCT urinalysis dipstick manually resulted 2. Third trimester ([facility]) Z34.93 POCT urinalysis dipstick manually resulted 3. Low iron E61.1 Return OB: Patient presents today for a routine obstetrics appointment. Patient is currently 36w4d . Patient states she is doing well but has complaints of being tired due to current . Patient has verbalizes frequent movement. labor precautions was discussed/given and patient was instructed to perform kick counts three times a day. Orders Placed This Encounter Procedures POCT urinalysis dipstick manually resulted Follow Up: Patient is to return to office in 1 week for routine OB appointment. Documented by Lili Montgomery LPN on behalf of: Hemant Grant DO documented in this encounter Plan of Treatment Not on file documented as of this encounter Procedures Procedure Name Priority Date/Time Associated Diagnosis Comments POCT URINALYSIS DIPSTICK Routine 03/28/2025 2:35 PM EDT 36 weeks gestation of ([facility]) Third trimester ([facility]) documented in this encounter Results * (ABNORMAL) POCT urinalysis dipstick manually resulted (03/28/2025 2:35 PM EDT) Color, UA Yellow Clarity, UA Clear Glucose, UA Negative Negative - 2000(110) ++++ mg/dL Bilirubin, UA Negative Negative - 4(70) +++ mg/dL Ketones, UA Negative Negative - 160(16) ++++ mg/dL Spec Grav, UA 1.015 1 - 1.03 Blood, UA Negative Negative - 50 Reynaldo/mcL pH, UA 6.0 5 - 9 Protein, UA Positive Negative - 2000(20) ++++ mg/dL Urobilinogen, UA 1.0 0.2 - 12 mg/dL Leukocytes, UA Negative Negative - 500+++ Lucian/mcL Nitrite, UA Negative Negative - Positive Urine 03/28/2025 2:35 PM EDT Hemant Grant DO POINT OF CARE TEST ENTER/EDIT OR DERABLES Final Result documented in this encounter Visit Diagnoses Diagnosis 36 weeks gestation of ([facility]) Third trimester ([facility]) state, incidental Low iron Unspecified iron deficiency anemia documented in this encounter Care Teams Banquet Director Relationship Specialty Start Date End Date Blossom Mercado PA PCP - General 09/13/23 documented as of this encounter
--- OUTSIDE RECORDS SUMMARY | 2025-04-03 14:50 | XMS_ITS | Encounter Summary ---
Author Organization [facility] Address [address] [place] [address] Care Team Providers Care Pizza Driver Name Role Phone Blossom Mercado Primary Care Provider +1- [phone] Reason for Visit * Reason Comments Routine Visit Encounter Details Date Type Department Care Team (Late st Contact Info) Description 04/03/2025 2:50 PM EDT Routine [facility] [address] [place] [address] Mirna Lam PA [address] [place] [address] 37 weeks gestation of ([facility]); Third trimester ([facility]); Low iron Social History Tobacco Use Types [...] Sign Reading Time Taken Comments Blood Pressure 120/78 04/03/2025 2:58 PM EDT Pulse - - Temperature - - Respiratory Rate - - Oxygen Saturation - - Inhaled Oxygen Concentration - - Weight 77.7 kg (171 lb 6.4 oz) 04/03/2025 2:58 P M EDT Height - - Body Mass Index 31.35 04/27/2023 10:00 AM EDT documented in this encounter Progress Notes * JACKY Day - 04/03/2025 2:50 PM EDT Reason for Appointment: Patient ID: [...] reviewed. Vitals: Estimated body mass index is 31.35 kg/m?? as calculated from the following: Height as of 04/27/23: 5' 2 . Weight as of this encounter: 171 lb 6.4 oz. BP: 120/78 Patient's last menstrual period was 07/15/2024. ASSESSMENT & PLAN ICD-10-CM 1. 37 weeks gestation of ([facility]) Z3A.37 POCT urinalysis dipstick manually resulted 2. Third trimester ([facility]) Z34.93 POCT urinalysis dipstick manually resulted 3. Low iron E61.1 Return OB: Patient presents today for a routine obstetrics appointment. Patient is currently 37w3d . Patient states she is doing well [...] Associated Diagnosis Comments POCT URINALYSIS DIPSTICK Routine 04/03/2025 3:04 PM EDT 37 weeks gestation of ([facility]) Third trimester ([facility]) documented in this encounter Results * (ABNORMAL) POCT urinalysis dipstick manually resulted (04/03/2025 3:04 PM EDT) Color, UA Nicol Clarity, UA Clear Glucose, UA Negative Negative [...] 1.0 0.2 - 12 mg/dL Leukocytes, UA Positive Negative - 500+++ Lucian/mcL Comment:1+ Nitrite, UA Negative Negative - Positive Urine 04/03/2025 3:04 PM EDT Mirna RICO POINT OF CARE TEST ENTER/EDIT OR DERABLES Final Result documented in this encounter Visit Diagnoses Diagnosis 37 weeks gestation of ([facility]) Third trimester ([facility]) state, incidental Low iron Unspecified iron deficiency anemia documented in this encounter Care Teams Pizza Driver Relationship Specialty Start Date End Date Blossom Mercado PA PCP - General 09/13/23 documented as of this encounter
--- OUTSIDE RECORDS SUMMARY | 2025-04-10 08:16 | XMS_ITS | Encounter Summary ---
Author Organization [facility] Address [address] [place] [address] Care Team Providers Care Ecotherapist Name Role Phone Blossom Mercado Primary Care Provider +1- [phone] Encounter Details Date Type Department Care Team (Late st Contact Info) Description 08/29/2024 Abstract [facility] [address] [facility] [place] [address] Hemant Grant DO [address] [facility] [address] [place] [address] Social History Tobacco Use Types Packs/Day Years [...] on filedocumented in this encounter Care Teams Ecotherapist Relationship Specialty Start Date End Date Blossom Mercado PA PCP - General 09/13/23 documented as of this encounter
--- OUTSIDE RECORDS SUMMARY | 2025-04-10 08:16 | XMS_ITS | Encounter Summary ---
Author Organization [facility] Address [address] [place] [address] Care Team Providers Care Manager User Experience Name Role Phone Blossom Mercado Primary Care Provider +1- [phone] Encounter Details Date Type Department Care Team (Late st Contact Info) Description 08/04/2024 Abstract [facility] [address] [facility] [place] [phone] Hemant Grant DO [address] [facility] [address] [place] [address] Social History Tobacco Use Types Packs/Day Years [...] filedocumented in this encounter Care Teams Manager User Experience Relationship Specialty Start Date End Date Blossom Mercado PA PCP - General 09/13/23 documented as of this encounter
--- OUTSIDE RECORDS SUMMARY | 2025-04-10 08:16 | XMS_ITS | Encounter Summary ---
Author Organization [facility] Address [address] [place] [address] Care Team Providers Care Front Edger Name Role Phone Blossom Mercado Primary Care Provider +1- [phone] Encounter Details Date Type Department Care Team (Late st Contact Info) Description 08/30/2024 Abstract [facility] [address] [place] [address] [place] [id number] Jessica Lindsey LPN Social History Tobacco Use [...] on filedocumented in this encounter Care Teams Front Edger Relationship Specialty Start Date End Date Blossom Mercado PA PCP - General 09/13/23 documented as of this encounter
--- OUTSIDE RECORDS SUMMARY | 2025-04-10 08:16 | XMS_ITS | Encounter Summary ---
Author Organization [facility] Address [address] [place] [address] Care Team Providers Care Driving School Instructor Name Role Phone Blossom Mercado Primary Care Provider Soco Grant DO Unavailable Encounter Details Date Type Department Care Team (Late st Contact Info) Description 07/06/2023 Clinisync Result Encounter [facility] External Department Unsolicited Soco Grant, DO [address] [facility] [address] [place], [place] [id number] Social History Tobacco Use Types Packs/Day Years [...] EST Narrative 07/06/2023 3:45 [place] [address] Ultrasound Report Signed Patient: CARISA YEE MR#: [id number] : 2000 Acct:[id number] Age/Sex: 23 / F ADM Date: 07/06/23 Loc: US Attending Dr: Soco Grant D.O. Ordering Physician: Soco Grant D.O. Date of Service: 07/06/23 Procedure(s): US pelvis transvaginal Accession Number(s): [id number] cc: Soco Grant D.O.; Physician,Non-Staff MLopez The [address] [address] Patient Name: CARISA YEE MRN: [id number] date: 2000 Sex: F Assigned Patient Location: US Current Patient Location: US Accession/Order Number: [id number] Exam Date: 07/06/2023 14:00 Report Date: 07/06/2023 [...] Signed By: 07/06/23 1547 DD/ 1545 TD/TT: Maintenance And Repair Worker: Procedure Note Radiology, Radiologist, MD - 07/06/2023 [place] [address] Ultrasound Report Signed Patient: CARISA YEE RMR#: [id number] : 2000Acct:[id number] Age/Sex: 23 / FADM Date: 07/06/23 Loc: US Attending Dr: Soco Grant D.O. Ordering Physician: Soco Grant D.O. Date of Service: 07/06/23 Procedure(s): US pelvis transvaginal Accession Number(s): [id number] cc: Soco Grant D.O.; Physician,Non-Staff Yajaira The [place] [address] Patient Name: CARISA YEE MRN: [id number] date: 2000 Sex: F Assigned Patient Location: Current Patient Location: US Accession/Order Number: [id number] Exam Date: 07/06/2023 14:00 Report Date: 07/06/2023 [...] M.D. Signed By:07/06/23 1547 DD/ 1545 TD/TT: Maintenance And Repair Worker: us Soco Grant DO [facility] Final Result * ALL DEHYDROEPIANDROSTERONE (07/06/2023 1:45 PM EST) DHEA, SERUM 227 31 - 701 ng/dL [facility] Comment: This test was developed and its performance characteristics determined by [facility]. It has not been cleared or approved by the Food and Drug Administration. Performed at: [address] [id number] Middle School Coach: Summer Nance MD, Phone: [phone] 07/06/2023 1:45 PM EST 07/06/2023 1:50 PM EST Narrative [facility] - 07/12/2023 9:07 AM EST [facility] Rudy DO [facility] Final Result Performing Organization Address [facility] Co de Phone Number [facility] * ALL PROGESTERONE (07/06/2023 1:45 PM EST) PROGESTERONE 14.6 . ng/mL [facility] Comment: Follicular phase 0.1 - 0.9 Luteal phase 1.8 - 23.9 Ovulation phase 0.1 - 12.0 First trimester 11.0 - 44.3 Second trimester 25.4 - 83.3 Third trimester 58.7 - 214.0 Postmenopausal 0.0 - 0.1 Performed at: [address] [id number] Middle School Coach: Vince Smith PhD, Phone: [phone] 07/06/2023 1:45 PM EST 07/06/2023 1:50 PM EST Narrative [facility] - 07/07/2023 9:11 AM EST [facility] Rudy DO [facility] Final Result Performing Organization Address City/[facility]/ZIP Co de [facility] Number [facility] * ALL FOLLICLE STIMULATING HORMONE (07/06/2023 1:45 PM EST) FSH 2.9 . mIU/mL [facility] Comment: Adult Female Range Follicular phase 3.5 - 12.5 Ovulation phase 4.7 - 21.5 Luteal phase 1.7 - 7.7 Postmenopausal 25.8 - 134.8 07/06/2023 1:45 PM EST 07/06/2023 1:50 PM EST Narrative [facility] - 07/07/2023 9:11 AM EST Soco Rudy DO [facility] Final Result Performing Organization Address [facility] Co de Phone Number [facility] * ALL LUTEINIZING HORMONE (07/06/2023 1:45 PM EST) LUTEINIZING HORMONE(LH) 5.1 . mIU/mL [facility] Comment: Adult Female Range Follicular phase 2.4 - 12.6 Ovulation phase 14.0 - 95.6 Luteal phase 1.0 - 11.4 Postmenopausal 7.7 - 58.5 07/06/2023 1:45 PM EST 07/06/2023 1:50 PM EST Narrative [facility] - 07/07/2023 9:11 AM EST [facility] Final Result Performing Organization Address [facility] de Phone Number [facility] * ALL DHEA SULFATE (07/06/2023 1:45 PM EST) DHEA-SULFATE 309.0 110.0 - 431.7 ug/dL [facility] 07/06/2023 1:45 PM EST 07/06/2023 1:50 PM EST Narrative APOLLOWV - 07/07/2023 9:11 AM EST [facility] Final Result Performing Organization Address [facility] de Phone Number [facility] * [facility] PREG QUANT HCG (07/06/2023 1:45 PM EST) HCG QUANTITATIVE <1 mIU/mL [facility] Comment: 5-50 0.2-1 WEEK 50-500 1-2 WEEKS 100-5,000 2-3 WEEKS 500-10,000 3-4 WEEKS 1,000-50,000 4-5 WEEKS 10,000-100,000 5-6 WEEKS 15,000-200,000 6-8 WEEKS 10,000-100,000 2-3 MONTHS 07/06/2023 1:45 PM EST 07/06/2023 1:50 PM EST Narrative [facility] - 07/06/2023 4:09 PM EST us Soco Rudy DO [facility] Final Result [facility] * ALL THYROID STIM HORMONE (07/06/2023 1:45 PM EST) THYROID STIMULATING HORMONE 1.970 0.358 - 3.740 uIU/mL [facility] 07/06/2023 1:45 PM EST 07/06/2023 1:50 PM EST Narrative [facility] - 07/06/2023 4:09 PM EST us Soco Rudy DO [facility] Final Result [facility] documented in this encounter Visit Diagnoses Not on filedocumented in this encounter Care Teams Driving School Instructor Relationship Specialty Start Date End Date Blossom Mercado PA PCP - General 09/13/23 Soco Grant DO [address] [place] [address] [address] [place] [place] [address] PCP - [facility] 02/14/24 documented as of this encounter
--- OUTSIDE RECORDS SUMMARY | 2025-04-10 08:16 | XMS_ITS | Encounter Summary ---
Author Organization [facility] Address [address] [place] [address] Care Team Providers Care High School Mathematics Teacher Name Role Phone Blossom Mercado Primary Care Provider +1- [phone] Encounter Details Date Type Department Care Team (Late st Contact Info) Description 11/14/2024 Abstract [facility] [address] [facility] [place] [phone] Hemant Grant DO [address] [place] [address] Social History Tobacco Use Types Packs/Day Years [...] on filedocumented in this encounter Care Teams High School Mathematics Teacher Relationship Specialty Start Date End Date Blossom Mercado PA PCP - General 09/13/23 documented as of this encounter
--- OUTSIDE RECORDS SUMMARY | 2025-04-10 08:16 | XMS_ITS | Encounter Summary ---
Author Organization [facility] Address [address] [place] [address] Care Team Providers Care Tool Builder Name Role Phone Blossom Mercado Primary Care Provider +1- [phone] Encounter Details Date Type Department Care Team (Late st Contact Info) Description 08/14/2024 Abstract [facility] [address] [place] [address] Hemant Grant DO [address] [facility] [address] [place] [address] Social History Tobacco Use Types Packs/Day Years [...] on filedocumented in this encounter Care Teams Tool Builder Relationship Specialty Start Date End Date Blossom Mercado PA PCP - General 09/13/23 documented as of this encounter
--- OUTSIDE RECORDS SUMMARY | 2025-04-10 08:16 | XMS_ITS | Encounter Summary ---
Author Organization [facility] Address [address] [place] [address] Care Team Providers Care Deep Fat Fry Cook Name Role Phone Blossom Mercado Primary Care Provider Soco Grant DO Unavailable Encounter Details Date Type Department Care Team (Late st Contact Info) Description 07/19/2023 Clinisync Result Encounter [facility] External Department Unsolicited Soco Grant, [address] [place], [place] [id number] Social History Tobacco Use Types Packs/Day Years [...] PM EST Narrative 07/19/2023 2:55 PM EST The [address] [address] Fluoroscopy Report Signed Patient: CARISA YEE MR#: [id number] : 2000 Acct:[id number] Age/Sex: 23 / F ADM Date: 07/19/23 Loc: LAB Attending Dr: Soco Grant D.O. Ordering Physician: Soco Grant D.O. Date of Service: 07/19/23 Procedure(s): FL Hysterosal cath placement Accession Number(s): [id number] cc: Soco Grant D.O.; Physician,Non-Staff Yajaira The [place] [address] Patient Name: CARISA YEE MRN: [id number] date: 2000 Sex: F Assigned Patient Location: LAB Current Patient Location: Accession/Order Number: [id number] Exam Date: 07/19/2023 14:02 Report Date: 07/19/2023 [...] Signed By: 07/19/23 1457 DD/ 1455 TD/TT: Market Research Manager: Procedure Note Radiology, Radiologist, - 07/20/2023 The [place] [id number] Fluoroscopy Report Signed Patient: CARISA YEE RMR#: [id number] : 2000Acct:[id number] Age/Sex: 23 / FADM Date: 07/19/23 Loc: LAB Attending Dr: Soco Grant D.O. Ordering Physician: Soco Grant D.O. Date of Service: 07/19/23 Procedure(s): FL Hysterosal cath placement Accession Number(s): [id number] cc: Soco Grant D.O.; Physician,Non-Staff Yajaira [place] [address] Patient Name: CARISA YEE MRN: [id number] date: 2000 Sex: F Assigned Patient Location: LAB Current Patient Location: Accession/Order Number: [id number] Exam Date: 07/19/2023 14:02 Report Date: 07/19/2023 [...] M.D. Signed By:07/19/23 1457 DD/ 1455 TD/TT: Market Research Manager: Soco Grant DO [facility] Final Result documented in this encounter Visit Diagnoses Not on filedocumented in this encounter Care Teams Deep Fat Fry Cook Relationship Specialty Start Date End Date Blossom Mercado PA PCP - General 09/13/23 Soco Grant DO [address] [place] [address] PCP - [facility] 02/14/24 documented as of this encounter
--- OUTSIDE RECORDS SUMMARY | 2025-04-10 08:16 | XMS_ITS | Encounter Summary ---
Author Organization [facility] Address [address] [place] [address] Care Team Providers Care Classified Advertising Supervisor Name Role Phone Blossom Mercado Primary Care Provider +1- [phone] Encounter Details Date Type Department Care Team (Late st Contact Info) Description 09/25/2024 Abstract [facility] [address] [place] [address] Hemant Grant DO [address] [facility] [address] [facility] [address] [place] [address] Social History Tobacco Use Types Packs/Day Years [...] on filedocumented in this encounter Care Teams Classified Advertising Supervisor Relationship Specialty Start Date End Date Blossom Mercado PA PCP - General 09/13/23 documented as of this encounter
--- OUTSIDE RECORDS SUMMARY | 2025-04-10 08:16 | XMS_ITS | Encounter Summary ---
Author Organization [facility] Address [address] [place] [address] Care Team Providers Care Recruiter Coordinator Name Role Phone Blossom Mercado Primary Care Provider +1- [phone] Encounter Details Date Type Department Care Team (Late st Contact Info) Description 11/16/2024 Abstract [facility] [address] [place] [address] Hemant Grant DO [address] [place] [address] Social History Tobacco Use Types Packs/Day Years [...] on filedocumented in this encounter Care Teams Recruiter Coordinator Relationship Specialty Start Date End Date Blossom Mercado PA PCP - General 09/13/23 documented as of this encounter
--- OUTSIDE RECORDS SUMMARY | 2025-04-10 08:16 | XMS_ITS | Encounter Summary ---
Author Organization [facility] Address [address] [place] [address] Care Team Providers Care Wireless Operator Name Role Phone Blossom Mercado Primary Care Provider +1- [phone] Encounter Details Date Type Department Care Team (Late st Contact Info) Description 10/03/2024 Abstract [facility] [address] [place] [phone] Hemant Grant DO [address] [facility] [address] [place] [address] Social History Tobacco Use Types Packs/Day Years [...] on filedocumented in this encounter Care Teams Wireless Operator Relationship Specialty Start Date End Date Blossom Mercado PA PCP - General 09/13/23 documented as of this encounter
--- OUTSIDE RECORDS SUMMARY | 2025-04-10 08:16 | XMS_ITS ---
Author Organization [facility] Source Produ ction (ClinicalSummary Clone) Address Unknown Care Team Providers Care Garbage Pick Up Man Name Role Phone Unavailable Primary Care Physician Unavailab le Results * [UNITY] CARRIER SCREEN Performed by: Amiare Component Value Range Date Sickle Cell Disease/Beta-Thalassemia/Hemo globinopathies carrier screen NEGATIVE 09/30/2024 07:18 am [facility] Alpha-Thalassemia carrier screen NEGATIVE 09/30/2024 07:18 am [facility] Cystic Fibrosis carrier screen NEGATIVE 09/30/2024 07:18 am [facility] Spinal Muscular Atrophy carrier screen NEGATIVE 3 SMN1 copies, SNP present 09/30/2024 07:18 am [facility] For detailed report, see PDF See PDF 09/30/2024 07:18 am [place] 09/30/2024 07:1 8 am [facility] Social History Observation Value Start Date End Date
--- OUTSIDE RECORDS SUMMARY | 2025-04-10 08:16 | XMS_ITS | Encounter Summary ---
Author Organization [facility] Address [address] [place] [address] Care Team Providers Care Inside Contractor Sales Name Role Phone Blossom Mercado Primary Care Provider [phone]- [phone] Encounter Details Date Type Department Care Team (Late st Contact Info) Description 06/26/2024 Abstract [facility] [address] [facility] [place] [phone] Hemant Grant DO [address] [facility] [address] [place] [place] [address] Social History Tobacco Use Types Packs/Day Years [...] on filedocumented in this encounter Care Teams Inside Contractor Sales Relationship Specialty Start Date End Date Blossom Mercado PA PCP - General 09/13/23 documented as of this encounter
--- OUTSIDE RECORDS SUMMARY | 2025-04-10 08:16 | XMS_ITS | Encounter Summary ---
Author Organization [facility] Address [address] [place] [address] Care Team Providers Care Building Construction Professor Name Role Phone Blossom Mercado Primary Care Provider Soco Grant DO Unavailable Encounter Details Date Type Department Care Team (Late st Contact Info) Description 07/19/2023 Clinisync Result Encounter [facility] External Department Unsolicited Soco Grant, [address] [facility] [address] [place], [place] [id number] Social History Tobacco Use Types Packs/Day Years [...] EST Narrative 07/19/2023 2:55 PM EST The [address] [address] Fluoroscopy Report Signed Patient: CARISA YEE MR#: [id number] : 2000 Acct:[id number] Age/Sex: 23 / F ADM Date: 07/19/23 Loc: LAB Attending Dr: Soco Grant D.O. Ordering Physician: Soco Grant D.O. Date of Service: 07/19/23 Procedure(s): FL hysterosalpingography Accession Number(s): [id number] cc: Soco Grant D.O.; Physician,Non-Staff [place]a The [place] [address] Patient Name: CARISA YEE MRN: [id number] date: 2000 Sex: F Assigned Patient Location: LAB Current Patient Location: Accession/Order Number: [id number] Exam Date: 07/19/2023 14:02 Report Date: 07/19/2023 [...] Signed By: 07/19/23 1457 DD/ 1455 TD/TT: Manager Retail Sales: Procedure Note Radiology, Radiologist, - 07/20/2023 The [place] [id number] Fluoroscopy Report Signed Patient: CARISA YEE RMR#: [id number] : 2000Acct:[id number] Age/Sex: 23 / FADM Date: 07/19/23 Loc: LAB Attending Dr: Soco Grant D.O. Ordering Physician: Soco Grant D.O. Date of Service: 07/19/23 Procedure(s): FL hysterosalpingography Accession Number(s): [id number] cc: Soco Grant D.O.; Physician,Non-Staff [place] [address] Patient Name: CARISA YEE MRN: [id number] date: 2000 Sex: F Assigned Patient Location: LAB Current Patient Location: Accession/Order Number: [id number] Exam Date: 07/19/2023 14:02 Report Date: 07/19/2023 [...] M.D. Signed By:07/19/23 1457 DD/ 1455 TD/TT: Manager Retail Sales: Soco Grant DO [facility] Final Result documented in this encounter Visit Diagnoses Not on filedocumented in this encounter Care Teams Building Construction Professor Relationship Specialty Start Date End Date Blossom Mercado PA PCP - General 09/13/23 Soco Grant DO [address] [place] [address] PCP - [facility] 02/14/24 documented as of this encounter
--- OUTSIDE RECORDS SUMMARY | 2025-04-10 08:17 | XMS_ITS | Clinical Summary ---
Author Organization [facility] Address [address] [place] [address] Phone Care Team Providers Care Director Of Community Services Name Role Phone Generic Provider, No Assigned [...] to complete this topic Insurance Care Teams Director Of Community Services Relationship Specialty Start Date End Date Generic Provider, [place] [address] PCP - General Uncrater 08/21/24
--- OUTSIDE RECORDS SUMMARY | 2025-04-10 08:18 | XMS_ITS | Encounter Summary ---
Author Organization [facility] Address [address] [place] [address] Care Team Providers Care Hog Room Supervisor Name Role Phone Blossom Mercado Primary Care Provider [phone]- [phone] Encounter Details Date Type Department Care Team (Latest Contact Info) Description 04/02/2025 Travel Social History Tobacco Use Types Packs/Day [...] on filedocumented in this encounter Care Teams Hog Room Supervisor Relationship Specialty Start Date End Date Blossom Mercado PA PCP - General 09/13/23 documented as of this encounter
--- OUTSIDE RECORDS SUMMARY | 2025-04-10 08:18 | XMS_ITS | Encounter Summary ---
Author Organization [facility] Address [address] [place] [address] Care Team Providers Care Research And Insights Executive Name Role Phone Blossom Mercado Primary Care Provider +1 [phone] Encounter Details Date Type Department Care Team (Late st Contact Info) Description 04/07/2025 Clinisync Result Encounter [facility] External Department Unsolicited Hemant Grant, DO [address] [place] [address] Dr [address] [place] [phone] Social History Tobacco Use Types Packs/Day Years [...] Procedure Name Priority Date/Time Associated Diagnosis Comments ALL CBC WITH AUTO DIFF Routine 04/07/2025 7:46 AM EDT documented in this encounter Results * (ABNORMAL) ALL CBC WITH AUTO DIFF (04/07/2025 7:46 AM EDT) TB WBC 13.8(H) 4.0 - 11.0 10 3/uL TBH TB RBC 3.69(L) 4.20 - 5.40 10 6/uL TBH TBH HGB 8.0(L) 12.0 - 16.0 g/dL TBH TBH HCT 27.1(L) 36.0 - 48.0 % TBH TBH MCV 73.4(L) 81.0 - 99.0 fL TBH TBH MCH 21.7(L) 26.7 - 34.0 pg TBH TBH MCHC 29.5(L) 29.9 - 35.2 g/dL TBH TBH RDW 18.6(H) 11.0 - 15.0 % TBH TBH PLT 252 150 - 450 10 3/uL TBH TBH MPV 11.3 9.5 - 13.5 fL TBH NEUTROPHILS PERCENT AUTO 75.6(H) 43.0 - 75.0 % TBH LYMPHOCYTES PERCENT AUTO 17.2(L) 20.5 - 60.0 % TBH MONOCYTES PERCENT AUTO 5.2 1.7 - 12.0 % TBH TBH EO % 1.1 0.9 - 7.0 % TBH BASOPHILS PERCENT AUTO 0.4 0.2 - 2.0 % TBH IMMATURE GRANULOCYTES PCT AUTO 0.5 0.0 - 0.5 % TBH NEUTROPHILS ABSOLUTE AUTO 10.4(H) 1.4 - 6.5 10 3/uL TBH LYMPHOCYTES ABSOLUTE AUTO 2.4 1.2 - 3.8 10 3/uL TBH MONOCYTES ABSOLUTE AUTO 0.7 0.3 - 0.8 10 3/uL TBH TBH EO # 0.2 0.0 - 0.7 10 3/uL TBH BASOPHILS ABSOLUTE AUTO 0.1 0.0 - 0.1 10 3/uL TBH IMMATURE GRANULOCYTES ABS AUTO 0.07(H) 0.00 - 0.03 10 3/uL TBH 04/07/2025 7:46 AM EDT 04/07/2025 7:50 AM EDT Narrative [facility] - 04/07/2025 8:01 AM EDT us Hemant Rudy DO CLIN[facility] Final Result [facility] TB documented in this encounter Visit Diagnoses Not on filedocumented in this encounter Care Teams Research And Insights Executive Relationship Specialty Start Date End Date Mitterling, Blossom M, PA PCP - General 09/13/23 documented as of this encounter
--- OUTSIDE RECORDS SUMMARY | 2025-04-10 08:18 | XMS_ITS | Clinical Summary ---
Author Organization [facility] Address [address] [place] [address] Care Team Prov[address] Care Court Orderly Name Role Phone Blossom Mercado Primary Care Provider Allergies Active Allergy Reactions Criticality Noted Date Comments Other Angioedema,Hives High 04/27/2023 horses Medications MV-Min-Fe Fum-FA-DHA ( 1 PO) Take 1 each by mouth Daily Active Encounters Date Type Department Care Team Description 04/08/2025 Abstract [facility] [address] [place] [address] Loida Allred CNM 04/08/2025 Abstract [facility] [address] [place] [address] Loida Allred CNM 04/07/2025 Clinisync Result Encounter NOM[facility] External Department Unsolicited Hemant Grant, 04/06/2025 Clinisync Result Encounter NOMS External Department Unsolicited Hemant Grant, DO 04/04/2025 Clinisync Result Encounter [facility]OM[facility] External Department Unsolicited Hemant Grant, DO 04/03/2025 2:50 PM EDT Routine [facility] [address] [facility] [place] [address] Mirna Khan PA 37 weeks gestation of ([facility]); Third trimester ([facility]); Low iron 04/03/2025 Bamboo flowsheet [facility] [address] [place] [address] Mirna Khan PA 04/02/2025 Travel 03/28/2025 2:20 PM EDT Routine [facility] [address] [place] [address] Hemant Grant DO 36 weeks gestation of ([facility]); Third trimester ([facility]); Low iron 03/28/2025 Bamboo flowsheet [facility] [address] [facility] [place] [address] Hemant Grant DO 03/23/2025 Travel 03/22/2025 10:50 AM EDT Routine [facility] [address] [facility] [place] [address] Mirna Khan PA Third trimester ([facility]); Vaginal discharge; STD exposure; 35 weeks gestation of ([facility]) 03/22/2025 External Result Encounter NOMS External Department Unsolicited Mirna Khan PA 03/22/2025 Bamboo flowsheet [facility] [address] [place] [address] Mirna Khan PA 03/15/2025 Travel 03/14/2025 1:30 PM EDT Routine [facility] [address] [place] [address] Mirna Khan PA Third trimester ([facility]); 34 weeks gestation of ([facility]) 03/14/2025 Bamboo flowsheet [facility] [address] [facility] [place] [address] Mirna Khan PA 03/07/2025 Travel 02/28/2025 2:50 PM EDT Routine [facility] [address] [facility] [place] [address] Hemant Grant, 32 weeks gestation of ([facility]); Third trimester ([facility]); Low iron 02/28/2025 Bamboo flowsheet [facility] [address] [place] [address] Hemant Grant, 02/21/2025 Travel 02/13/2025 1:50 PM EDT Routine [facility] [address] [facility] [place] [address] Mirna Khan PA Third trimester ([facility]); 30 weeks gestation of ([facility]); Low iron 02/13/2025 Clinisync Result Encounter [facility]OM[facility] External Department Unsolicited Mirna Khan PA 02/13/2025 Bamboo flowsheet [facility] [address] [place] [address] Mirna Khan PA 02/06/2025 Travel 02/02/2025 Telephone [facility] [address] [place] [address] Yocasta Mitchell LPN 01/30/2025 11:30 AM EDT Routine [facility] [address] [facility] [place] [address] Hemant Grant DO Anemia, unspecified type (Primary Dx); Third trimester ([facility]); 28 weeks gestation of ([facility]); size inconsistent with dates ([facility]) 01/30/2025 Bamboo flowsheet [facility] [address] [place] [address] Hemant Grant, 01/23/2025 Travel 01/15/2025 Telephone [facility] [address] [place] [address] Hemant Grant, 01/11/2025 Clinisync Result Encounter [facility] External Department Unsolicited Hemant Grant DO 01/10/2025 Telephone [facility] [address] [facility] [place] [address] Alan Melissa, MA 01/09/2025 1:20 PM EDT Routine [facility] [address] [facility] [place] [address] Mirna Khan PA Second trimester ([facility]); 25 weeks gestation of ([facility]); Diabetes mellitus screening 01/09/2025 Clinisync Result Encounter [facility] External Department Unsolicited Mirna Khan PA 01/09/2025 Bamboo flowsheet [facility] [address] [place] [address] Mirna Khan PA from Last 3 Months Family History [...] oz) 04/03/2025 2:58 P M EDT Height 157.5 cm (5' 2 ) 04/27/2023 10:00 AM EDT Body Mass Index 31.35 04/27/2023 10:00 AM EDT Plan of Treatment Not on file Procedures Procedure Name Priority Date/Time Associated Diagnosis Comments ALL CBC WITH AUTO DIFF Routine 7:46 AM EDT [facility] CBC WITH PLATELET NO DIFFERENTIAL Routine 04/06/2025 3:01 AM EDT TBH URINE MICROSCOPIC ONLY Routine 04/04/2025 11:53 AM EDT TBH UA (CLEAN/CATCH) SUPERVISOR/PORT DIRECTOR/MICRO IF IND. Routine 04/04/2025 11:53 AM EDT POCT URINALYSIS DIPSTICK Routine 04/03/2025 3:04 PM EDT 37 weeks gestation of ([facility]) Third trimester ([facility]) POCT URINALYSIS DIPSTICK Routine 03/28/2025 2:35 PM EDT 36 weeks gestation of ([facility]) Third trimester ([facility]) RECURRENT VAGINITIS (HTRX) Routine 03/22/2025 11:34 AM EDT POCT URINALYSIS DIPSTICK Routine 03/22/2025 11:21 AM EDT Third trimester ([facility]) CULTURE, GROUP B STREP WITH SUSCEPTIBLITY Routine 03/22/2025 11:08 AM EDT Third trimester ([facility]) POCT URINALYSIS DIPSTICK Routine 02/28/2025 3:07 PM EDT 32 weeks gestation of ([facility]) Third trimester ([facility]) Low iron POCT URINALYSIS DIPSTICK Routine 02/13/2025 2:58 PM EDT Third trimester ([facility]) US OB GROWTH 02/13/2025 1:07 PM EDT POCT URINALYSIS DIPSTICK Routine 01/30/2025 11:52 AM EDT Third trimester ([facility]) GLUCOSE TOLERANCE 3 HOUR Routine 01/11/2025 11:31 AM EDT GLUCOSE 1 HOUR Routine 01/09/2025 3:24 PM EDT ALL CBC WITH AUTO DIFF Routine 3:24 PM EDT POCT URINALYSIS DIPSTICK Routine 01/09/2025 2:10 PM EDT 25 weeks gestation of ([facility]) from Last 3 Months Results * (ABNORMAL) ALL CBC WITH AUTO DIFF (04/07/2025 7:46 AM EDT) Only the most recent of2 resultswithin the time period is included. TBH WBC 13.8(H) 4.0 - 11.0 10 3/uL TBH TBH RBC 3.69(L) 4.20 - 5.40 10 6/uL [...] - 04/07/2025 8:01 AM EDT us Hemant Wesleyo DO CLINIS[facility] Final Result [facility] * (ABNORMAL) [facility] CBC WITH PLATELET NO DIFFERENTIAL (04/06/2025 3:01 AM EDT) TB WBC 16.7(H) 4.0 - 11.0 10 3/uL TBH TBH RBC 4.04(L) 4.20 - 5.40 10 6/uL TBH TBH HGB 8.8(L) 12.0 - 16.0 g/dL TBH TBH HCT 29.4(L) 36.0 - 48.0 % TBH TBH MCV 72.8(L) 81.0 - 99.0 fL TBH TBH MCH 21.8(L) 26.7 - 34.0 pg TBH TBH MCHC 29.9 29.9 - 35.2 g/dL TBH TBH RDW 18.3(H) 11.0 - 15.0 % TBH TBH PLT 300 150 - 450 10 3/uL TBH TBH MPV 11.6 9.5 - 13.5 fL TBH 04/06/2025 3:01 AM EDT 04/06/2025 3:52 AM EDT Narrative CLINIS[facility]NC - 04/06/2025 4:00 AM EDT us Hemant Wesleyo DO CLINIS[facility]NC Final Result [facility] * (ABNORMAL) TBH URINE MICROSCOPIC ONLY (04/04/2025 11:53 AM EDT) TBH WBC 0-2(A) NONE SEEN #/HPF TBH TBH RBC 0-2 0 - 2 #/HPF TBH BACTERIA URINE MODERATE(A ) NONE SEEN #/HPF TBH MUCUS URINE NONE SEEN NONE SEEN TBH SQUAMOUS EPITHELIAL CELL URINE FEW(A) NONE/RARE #/LPF TBH CRYSTALS SEEN? None Seen None Seen #/HPF TBH CAST SEEN? NONE SEEN NONE SEEN #/LPF TBH URINE CULTURE INDICATED YES-LC TBH 04/04/2025 11:5 3 AM EDT 04/04/2025 12:54 PM EDT Narrative CLINISYNC - 04/04/2025 1:13 PM EDT us Hemant Rudy DO CLINIS[facility]NC Final Result Performing Organization Address [facility] de Phone Number [facility] TBH * (ABNORMAL) TBH UA (CLEAN/CATCH) SUPERVISOR/PORT DIRECTOR/MICRO IF IND. (04/04/2025 11:53 AM EDT) COLOR URINE LT. YELLOW YELLOW TBH CLARITY URINE CLEAR CLEAR TBH SPECIFIC GRAVITY URINE <=1.005(A) 1.005 - 1.025 TBH PH URINE 7.0 5.0 - 9.0 TBH PROTEIN URINE NEGATIVE NEG/TRACE mg/dL TBH GLUCOSE URINE UA NEGATIVE NEGATIVE mg/dL TBH BILIRUBIN URINE NEGATIVE NEGATIVE TBH KETONES URINE NEGATIVE NEGATIVE mg/dL TBH BLOOD URINE SMALL(A) NEGATIVE TBH NITRITE URINE NEGATIVE NEGATIVE TBH UROBILINOGEN URINE 0.2 0.2 - 1.0 EU/dL TBH LEUKOCYTE ESTERASE URINE TRACE(A) NEGATIVE TBH URINE MICROSCOPIC INDICATED YES TBH 04/04/2025 11:5 3 AM EDT 04/04/2025 12:54 PM EDT Narrative CLINISYNC - 04/04/2025 1:13 PM EDT us Hemant Rudy DO CLINISYNC Final Result [facility] TB[facility] * (ABNORMAL) POCT urinalysis dipstick manually resulted (04/03/2025 3:04 PM EDT) Only the most recent of7 resultswithin the time period is included. Color, UA Nicol Clarity, UA Clear Glucose, [...] TEST ENTER/EDIT OR DERABLES Final Result * RECURRENT VAGINITIS (HTRX) (03/22/2025 11:34 AM EDT) ATOPOBIUM VAGINAE 0 19.961 - 24.689 ppm 03/23/2025 6:07 AM EDT [facility] ATOPOBIUM VAGINAE Not Detected 19.961 - 24.689 ppm 03/23/2025 6:07 AM EDT [facility] BVAB 2,3 (BACTERIAL VAGINOSIS ASSOCIATED BACTERIA 2, 3); MOBILUNCUS SPP 0 19.961 - 24.689 ppm 03/23/2025 6:07 AM EDT [facility] BVAB 2,3 (BACTERIAL VAGINOSIS ASSOCIATED BACTERIA 2, 3); MOBILUNCUS SPP Not Detected 19.961 - 24.689 ppm 03/23/2025 6:07 AM EDT [facility] MILADY ALBICANS, PARAPSILOSIS, TROPICALIS 0 23.000 - 30.347 ppm 03/23/2025 6:07 AM EDT [facility] MILADY ALBICANS, PARAPSILOSIS, TROPICALIS Not Detected 23.000 - 30.347 ppm 03/23/2025 6:07 AM EDT [facility] MILADY GLABRATA 0 23.000 - 31.618 ppm 03/23/2025 6:07 AM EDT [facility] MILADY GLABRATA Not Detected 23.000 - 31.618 ppm 03/23/2025 6:07 AM EDT [facility] MILADY KRUSEI 0 23.000 - 30.873 ppm 03/23/2025 6:07 AM EDT [facility] MILADY KRUSEI Not Detected 23.000 - 30.873 ppm 03/23/2025 6:07 AM EDT [facility] CHLAMYDIA TRACHOMATIS 0 23.000 - 31.586 ppm 03/23/2025 6:08 AM EDT [facility] CHLAMYDIA TRACHOMATIS Not Detected 23.000 - 31.586 ppm 03/23/2025 6:08 AM EDT [facility] GARDNERELLA VAGINALIS 0 19.961 - 24.689 ppm 03/23/2025 6:07 AM EDT [facility] GARDNERELLA VAGINALIS Not Detected 19.961 - 24.689 ppm 03/23/2025 6:07 AM EDT [facility] MEGASPHAERA (TYPES 1, 2) 0 19.961 - 24.689 ppm 03/23/2025 6:07 AM EDT [facility] MEGASPHAERA (TYPES 1, 2) Not Detected 19.961 - 24.689 ppm 03/23/2025 6:07 AM EDT [facility] NEISSERIA GONORRHOEAE 0 23.000 - 32.587 ppm 03/23/2025 6:08 AM EDT [facility] NEISSERIA GONORRHOEAE Not Detected 23.000 - 32.587 ppm 03/23/2025 6:08 AM EDT [facility] TRICHOMONAS VAGINALIS 0 23.000 - 31.995 ppm 03/23/2025 6:07 AM EDT [facility] TRICHOMONAS VAGINALIS Not Detected 23.000 - 31.995 ppm 03/23/2025 6:07 AM EDT [facility] MYCOPLASMA GENITALIUM 0 19.961 - 24.689 ppm 03/23/2025 6:08 AM EDT [facility] MYCOPLASMA GENITALIUM Not Detected 19.961 - 24.689 ppm 03/23/2025 6:08 AM EDT [facility] Tissue 03/22/2025 11:3 4 AM EDT 03/23/2025 1:53 AM EDT Mirna RICO LAB BLOOD ORDERABLES Final Resul t Performing Organization Address [facility] de Phone Number [facility] [place] [address] * CULTURE, GROUP B STREP WITH SUSCEPTIBLITY (03/22/2025 11:08 AM EDT) Swab 03/22/2025 11:0 8 AM EDT Mirna RICO LAB BLOOD ORDERABLES Final Resul t Performing Organization Address [facility] de Phone Number EXTERNAL LAB * US OB GROWTH (02/13/2025 1:07 PM EDT) Anatomical Region Laterality Modality Other 02/13/2025 1:07 PM EDT Narrative 02/13/2025 1:09 [place] [address] Ultrasound Report Signed Patient: CARISA RHODES MR#: [id number] : 2000 Acct:[id number] Age/Sex: 25 / F ADM Date: 02/13/25 Loc: US Attending Dr: Mirna Khan Ordering Physician: Mirna Khan Date of Service: 02/13/25 Procedure(s): US OB growth Accession Number(s): [id number] cc: Mirna Khan; Physician,Non-Staff MLopez The [address] [address] Patient Name: CARISA RHODES MRN: [facility]:[id number] date: 2000 Sex: F Assigned Patient Location: US Current Patient Location: US Accession/Order Number: [id number] Exam Date: 02/13/2025 13:03 Report Date: 02/13/2025 [...] Jr., D.O. 02/13/2025 1:07 PM Dictation Location: [place] [address] Electronically authenticated by: [id number] Date: 02/13/2025 13:07 Dictated By: Clif Eason M.D. Signed By: 02/13/25 1309 DD/ 1307 TD/TT: Pilot Boat Captain: Procedure Note Radiology, Radiologist, - 02/13/2025 [place] [address] Ultrasound Report Signed Patient: CARISA RHODES RMR#: [id number] : 2000Acct:[id number] Age/Sex: Date: 02/13/25 Loc: US Attending Dr: Mirna Khan Ordering Physician: Mirna Khan Date of Service: 02/13/25 Procedure(s): US OB growth Accession Number(s): [id number] cc: Mirna Khan; Physician,Non-Staff Yajaira The [address] [id number] Patient Name: CARISA RHODES MRN: [facility]:[id number] date: 2000 Sex: F Assigned Patient Location: US Current Patient Location: US Accession/Order Number: [id number] Exam Date: 02/13/2025 13:03 Report Date: 02/13/2025 [...] Jr., D.O. 02/13/2025 1:07 PM Dictation Location: [place] [address] Electronically authenticated by: [id number] Y Date: 3:07 Dictated By: Clif Eason M.D. Signed By:02/13/25 1309 DD/ 1307 TD/TT: Pilot Boat Captain: Mirna Khan PA [facility] IMAGING Final Result * GLUCOSE TOLERANCE 3 HOUR (01/11/2025 11:31 AM EDT) GLUCOSE TOLERANCE 3 HOUR mg/dL [facility] Comment: GLU FAST 85 (<95) Col: 01/11/25 1131 GLU 1HR 160 (<180) Col: 01/11/25 1231 GLU 2HR 128 (<155) Col: 01/11/25 1331 GLU 3HR 115 (<140) Col: 01/11/25 1429 01/11/2025 11:3 1 AM EDT 01/11/2025 11:35 AM EDT Narrative CLINISYNC - 01/11/2025 2:50 PM EDT Hemant Rudy DO LAB BLOOD ORDERABLES Final Resul t CLINIS[facility]NC TBH * (ABNORMAL) GLUCOSE 1 HOUR (01/09/2025 3:24 PM EDT) GLUCOSE 1 HOUR 132(H) <130 mg/dL TBH 01/09/2025 3:24 PM EDT 01/09/2025 3:24 PM EDT Narrative CLINISYNC - 01/09/2025 3:58 PM EDT us Mirna RICO LAB BLOOD ORDERABLES Final Resul t CLINIS[facility]NC TBH from Last 3 Months Insurance [employer] Care Teams Court Orderly Relationship Specialty Start Date End Date Blossom Mercado PA PCP - General 09/13/23
--- OUTSIDE RECORDS SUMMARY | 2025-04-10 08:18 | XMS_ITS | Patient Health Record ---
Author Organization [facility] Address [address] [facility] [place] [address] Care Team Providers Care Business Intelligence Consultant Name Role Phone None, None Primary Care Provider David Trujillo Unavailable [phone] Reason For Referral No Information Plan Of Treatment No Information Insurance Providers Payer Name Payer Address Payer Phone Subscriber Number Group Number Insured Name Patient Relationship to Insured Coverage Start Date Coverage End Date [employer] [address] [place] [phone] CARISA DURANT Self - patient is the insured
--- OUTSIDE RECORDS SUMMARY | 2025-04-10 08:18 | XMS_ITS | Encounter Summary ---
Author Organization [facility] Address [address] [place] [address] Care Team Providers Care Traffic Lieutenant Name Role Phone Blossom Mercado Primary Care Provider [phone] Encounter Details Date Type Department Care Team (Late st Contact Info) Description 04/06/2025 Clinisync Result Encounter [facility] External Department Unsolicited Hemant Grant, DO [address] [place] [address] Dr [address] [place] [id number] Social History Tobacco Use Types Packs/Day Years [...] Procedure Name Priority Date/Time Associated Diagnosis Comments [facility] CBC WITH PLATELET NO DIFFERENTIAL Routine 04/06/2025 3:01 AM EDT documented in this encounter Results * (ABNORMAL) [facility] CBC WITH PLATELET NO DIFFERENTIAL (04/06/2025 3:01 AM EDT) [facility] WBC 16.7(H) 4.0 - 11.0 10 3/uL [facility] TB RBC 4.04(L) 4.20 - 5.40 10 6/uL [...] - 04/06/2025 4:00 AM EDT us Hemant Rudy DO [facility] documented in this encounter Visit Diagnoses Not on filedocumented in this encounter Care Teams Traffic Lieutenant Relationship Specialty Start Date End Date Blossom Mercado PA PCP - General 09/13/23 documented as of this encounter
--- OUTSIDE RECORDS SUMMARY | 2025-04-10 08:18 | XMS_ITS | Encounter Summary ---
Author Organization [facility] Address [address] [place] [address] Care Team Providers Care Drum Worker Name Role Phone Blossom Mercado Primary Care Provider [phone]- [phone] Encounter Details Date Type Department Care Team (Late st Contact Info) Description 04/03/2025 Bamboo flowsheet [facility] [address] [place] [id number] Mirna Lam PA [address] [place] [address] Social History Tobacco Use Types Packs/Day Years [...] on filedocumented in this encounter Care Teams Drum Worker Relationship Specialty Start Date End Date Blossom Mercado PA PCP - General 09/13/23 documented as of this encounter
--- OUTSIDE RECORDS SUMMARY | 2025-04-10 08:18 | XMS_ITS | Encounter Summary ---
Author Organization [facility] Address [address] [place] [address] Care Team Providers Care Angle Roll Operator Name Role Phone Blossom Mercado Primary Care Provider +1- [phone] Encounter Details Date Type Department Care Team (Late st Contact Info) Description 03/28/2025 Bamboo flowsheet [facility] [address] [place] [phone] Hemant Grant DO [address] [place] [address] Social History Tobacco Use Types Packs/Day Years [...] on filedocumented in this encounter Care Teams Angle Roll Operator Relationship Specialty Start Date End Date Blossom Mercado PA PCP - General 09/13/23 documented as of this encounter
--- OUTSIDE RECORDS SUMMARY | 2025-04-10 08:18 | XMS_ITS | Encounter Summary ---
Author Organization [facility] Address [address] [place] [address] Care Team Providers Care Elementary Art Teacher Name Role Phone Blossom Mercado Primary Care Provider +1- [phone] Encounter Details Date Type Department Care Team (Late st Contact Info) Description 04/08/2025 Abstract [facility] [address] [place] [phone] Loida Allred CNM [address] [place] [address] Social History Tobacco Use Types Packs/Day Years [...] on filedocumented in this encounter Care Teams Elementary Art Teacher Relationship Specialty Start Date End Date Blossom Mercado PA PCP - General 09/13/23 documented as of this encounter
--- OUTSIDE RECORDS SUMMARY | 2025-04-10 08:18 | XMS_ITS | Encounter Summary ---
Author Organization [facility] Address [address] [place] [address] Care Team Providers Care Retort Furnace Operator Name Role Phone Blossom Mercado Primary Care Provider +1- [phone] Encounter Details Date Type Department Care Team (Late st Contact Info) Description 04/08/2025 Abstract [facility] [address] [place] [phone] Loida Allred CNM [address] [place] [address] Social History Tobacco Use Types Packs/Day Years [...] on filedocumented in this encounter Care Teams Retort Furnace Operator Relationship Specialty Start Date End Date Blossom Mercado PA PCP - General 09/13/23 documented as of this encounter
--- OUTSIDE RECORDS SUMMARY | 2025-04-10 08:18 | XMS_ITS | Encounter Summary ---
Author Organization [facility] Address [address] [place] [address] Phone Care Team Providers Care Sprinkler Fitter Helper Name Role Phone Generic Provider, No Assigned Pcp Primary Car e Provider Unavailable Encounter Details Date Type Department Care Team (Late st Contact Info) Description 05/08/2024 Scanned Document [facility] [address] [facility] [address] [place] [phone] Radha Bethea MA Social History Tobacco Use [...] on filedocumented in this encounter Care Teams Sprinkler Fitter Helper Relationship Specialty Start Date End Date Generic Provider, No [place] [address] PCP - General Sales Leader 08/21/24 documented as of this encounter
--- OUTSIDE RECORDS SUMMARY | 2025-04-10 08:18 | XMS_ITS | Encounter Summary ---
Author Organization [facility] Address [address] [place] [address] Care Team Providers Care Maintenance Department Technician Name Role Phone Blossom Mercado Primary Care Provider +[phone] Encounter Details Date Type Department Care Team (Late st Contact Info) Description 04/04/2025 Clinisync Result Encounter [facility] External [facility] Unsolicited Hemant Grant, DO [address] [place] [place] [phone] Social History Tobacco Use Types Packs/Day Years [...] Procedure Name Priority Date/Time Associated Diagnosis Comments [facility] URINE MICROSCOPIC ONLY Routine 04/04/2025 11:53 AM EDT [facility] UA (CLEAN/CATCH) ARCHAEOLOGIST/MICRO IF IND. Routine 04/04/2025 11:53 AM EDT documented in this encounter Results * (ABNORMAL) [facility] URINE MICROSCOPIC ONLY (04/04/2025 11:53 AM EDT) [...] DO [facility] Final Result Performing Organization Address [facility] Co de Phone Number [facility] * (ABNORMAL) [facility] UA (CLEAN/CATCH) ARCHAEOLOGIST/MICRO IF IND. (04/04/2025 11:53 AM EDT) COLOR [...] Narrative [facility] - 04/04/2025 1:13 PM EDT Bettyvision Rudy DO [facility] Final Result Performing Organization Address [facility]/ZIP Co de Phone Number [facility] documented in this encounter Visit Diagnoses Not on filedocumented in this encounter Care Teams Maintenance Department Technician Relationship Specialty Start Date End Date Blossom Mercado PA PCP - General 09/13/23 documented as of this encounter
--- NOTE | 2025-04-10 17:57 | PC.NURSE ---
Rebekah and 4 day old daughter, Dixie arrive for follow up. Rebekah state has an hour drive and now her bottom is tender. relates has stitches and car ride aggravated perineum. Discussed use of soothing tools, tucks, Dermaplast and water bottle. taking care appropriately.. Rebekah with VSS and assessment WNL. No complaints offered. Baby awake and rooting. VSS and assessment WNL. Mom reports baby eats every 2-3 hours, some latches are better than others, nipples are tender, but I think we are doing okay . Baby has 6 wet diapers and 3 yellow brown stools in last 24 hours. Weight up 2.5 oz from discharge and doing well. to breast, coaches Rebekah for deeper latch and she is able to latch deeper herself. Baby responds with vigorous sucking and swallows are audible. Active nursing for 10 min and releases latch. Returned to 2nd breast after burping, mom independently latches and baby nurses 9 minutes and sleeps. Reviewed feeding cues, and signs that infant is content with feeds. Mom asking questions about Mom Cosy breast pump. Flange fit and use of pump. All questions answered and demo of pump given. Verbalized understanding. Couplet doing well. Aware to call for questions or concerns, and of [facility]. Leaves ambulatory with grandmother of Rebekah for home.
[2025-04-10 17:58] VITALS: BP 111/76; PULSE 90; TEMP 36.6; O2SAT 98
== END 2025-04-10 18:01 | disposition home or self-care (01) ==
PROVIDERS: Visit Provider Obstetrics & Gynecology
DX: Z39.1 Encounter for care and examination of lactating mother (principal)